=== PATIENT | male | born 1955 | race Caucasian/White ===

== ENCOUNTER → 2024-08-10 12:24 | Outpatient (REF) | payer OTHER, SELFPAY | LOC: HWRAD 12:24 | PROVIDERS: ATTENDING PHYSICIAN Family Medicine | DX: R07.89 Other chest pain (principal) | CPT/HCPCS: 71101 ==

== ENCOUNTER → 2024-09-10 11:02 | Outpatient (REF) | payer OTHER, SELFPAY | LOC: HWRAD 11:02 | PROVIDERS: ATTENDING PHYSICIAN Student in an Organized Health Care Education/Training Program | DX: Z00.00 Encounter for general adult medical examination without abnormal findings (principal) | CPT/HCPCS: 71046 ==

== ENCOUNTER → 2024-10-19 13:24 | Outpatient (REF) | payer OTHER, SELFPAY | LOC: RAD 13:24 | PROVIDERS: ATTENDING PHYSICIAN Family Medicine | DX: R07.81 Pleurodynia (principal); R05.1 Acute cough | CPT/HCPCS: 71260; Q9967 ==

== ENCOUNTER 2024-10-25 09:14 | Day surgery (SDC) | payer OTHER, SELFPAY ==
[2024-10-22 15:09] LABS: APTT 25.5 Sec (23.4-35.0); PT 12.4 Sec (11.4-14.6)
[2024-10-25] VITALS (11 sets, daily range): BP systolic 123–162; BP diastolic 81–108; BMI 25.3
== END 2024-10-25 13:45 | disposition home or self-care (01) ==
LOC: GI 09:14
PROVIDERS: ATTENDING PHYSICIAN Internal Medicine Critical Care Medicine
DX: R91.8 Other nonspecific abnormal finding of lung field (principal); R93.89 Abnormal findings on diagnostic imaging of other specified body structures; C34.31 Malignant neoplasm of lower lobe, right bronchus or lung; C77.8 Secondary and unspecified malignant neoplasm of lymph nodes of multiple regions
CPT/HCPCS: 31629; 31653; 31628; 31624; 31623; 31627; 31654; 88172; 88173; 88305; 36415; 71045; 76000; 81459; 85610; 85730; 87015; 87070; 87102; 87116; 87205; 88112; 88333; 88341; 88342

== ENCOUNTER → 2024-11-19 07:42 | Outpatient (REF) | payer OTHER, SELFPAY | LOC: RAD 07:42 | PROVIDERS: ATTENDING PHYSICIAN Internal Medicine Hematology & Oncology; FAMILY PHYSICIAN Family Medicine | DX: C34.31 Malignant neoplasm of lower lobe, right bronchus or lung (principal); C79.51 Secondary malignant neoplasm of bone | CPT/HCPCS: 70496; Q9967 ==

== ENCOUNTER → 2024-12-01 16:26 | Outpatient (REF) | payer OTHER, SELFPAY | LOC: PAVMRI 16:26 | PROVIDERS: ATTENDING PHYSICIAN Internal Medicine Hematology & Oncology; FAMILY PHYSICIAN Internal Medicine Cardiovascular Disease; REFERRING PHYSICIAN Radiology Radiation Oncology | DX: C34.31 Malignant neoplasm of lower lobe, right bronchus or lung (principal); C79.51 Secondary malignant neoplasm of bone | CPT/HCPCS: 72156 ==

== ENCOUNTER → 2025-01-04 13:57 | Outpatient (REF) | payer OTHER, SELFPAY | LOC: RAD 13:57 | PROVIDERS: ATTENDING PHYSICIAN Nurse Practitioner Primary Care; FAMILY PHYSICIAN Family Medicine | DX: C34.31 Malignant neoplasm of lower lobe, right bronchus or lung (principal); C79.51 Secondary malignant neoplasm of bone; I67.5 Moyamoya disease | CPT/HCPCS: 71046 ==

== ENCOUNTER 2025-01-07 23:44 | Inpatient (IN) | payer OTHER, SELFPAY ==
[2025-01-07 21:01] VITALS: BP 158/125
[2025-01-07 21:18] VITALS: BP 138/82
--- NOTE | 2025-01-07 21:39 | ED.GENMED ---
History of Present Illness
<Cathi Davis, DAIRY MANAGER - Last Filed: 01/08/25 02:19>
General
Chief Complaint: Breathing Problem
Source: patient and spouse
Exam Limitations: none
Time Seen by Provider: 01/07/25 21:27
Nursing documentation reviewed up to this point in time: agreed with
History of Present Illness
History of Present Illness:
69 yo male w lung CA under care of Dr. Cohen [facility], had 5 days radiation tx in Nov, was on Tabrecta for past 6 weeks or so but on hold as of 3 days ago when PNA diagnosed. Gets Xgeva injection monthly, last was 5 weeks ago as his Ca++
was low and they wanted him to take Ca++ for a while before next dose.
Diagnosed with PNA on out pt xray 2 days ago. Started on Augmentin 500 mg TID and has had total of 6 doses.
Has had increasing SOB, ABBOTT past 2 days.
He did note swelling of left ankle past 2 days and was told may be side effect of the Xgeva.
Denies CP, abdominal pain. Denies fever/chills. Denies n/v. Was constipated but had a diarrheal stool today
Past History
<Cathi Davis, DAIRY MANAGER - Last Filed: 01/08/25 02:19>
Past History
ED Past Medical History: Cancer (lung)
ED Past Surgical History: None
Social History
Tobacco: Non-smoker
Alcohol: Occasional
Personal:
Living: with family
Review of Systems
<Cathi Davis, DAIRY MANAGER - Last Filed: 01/08/25 02:19>
Review of Systems
Allergies reviewed?: Yes
All Other Systems: ROS reviewed and negative except as documented in HPI and ROS
Constitutional: Reports fatigue
Respiratory: Reports trouble breathing
Cardiac: Denies chest pain
ABD/GI: Denies abdominal pain, nausea, vomiting or diarrhea
: Denies dysuria, frequency or difficulty voiding
Musculoskeletal: Reports other (left ankle swelling noted past 2 days)
Skin: Reports no symptoms
Neurological: Reports no symptoms
Phy Exam
<Cathi Davis, DAIRY MANAGER - Last Filed: 01/08/25 02:19>
Physical Exam
Physical Exam:
GENERAL: No acute distress. A&Ox3.
CONSTITUTIONAL: Afebrile.
EYES: clear, conjunctivae normal
ENMT: moist mucus membranes, Pharynx nl
RESPIRATORY: Regular respirations, nonlabored, lungs clear. Pulse ox 89% room air, placed on oxygen
CARDIOVASCULAR: Regular rate and rhythm, tachycardic 130, no murmurs, no rubs.
GI: Soft, nontender, normal BS
MUSCULOSKELETAL: Moves with ease. Well perfused.
SKIN: Warm, dry, pink
PSYCH: Normal mood and affect. Well kept, interactive and appropriate
NEUROLOGIC: Awake, alert and oriented. No focal neurological deficits
Scores
<Cathi Davis, DAIRY MANAGER - Last Filed: 01/08/25 02:19>
Heart Failure Risk
Heart Failure Risk Score: Not Applicable
Course
<Cathi Davis, DAIRY MANAGER - Last Filed: 01/08/25 02:19>
Orders/Labs/Results
Orders:
Orders
01/07/25 21:35
CT Chest PE Study Urgent
Comment:
Reason For Exam: more ABBOTT, tachy, lung CA, recent PNA dx on Augment
01/07/25 21:46
Complete Blood Count/With Diff Urgent
Comprehensive Metabolic Panel Urgent
01/07/25 22:56
PTT Urgent
01/07/25 23:[address] Non Medication Order As Directed
Physician Order: PTT 6 hours after initial start of Heparin infusion
Above order entered?: Yes
01/07/25 23:06
NT-proBNP Urgent
Troponin I Urgent
01/07/25 23:12
Heparin 3,300 units IV PRN PRN
Heparin 6,600 units IV PRN PRN
01/07/25 23:15
Heparin 62571 Units/250 ml 25,000 units in 250 ml IV PER PROTOCOL
Weight to be used for heparin protocol in kilograms (kg):: 82
Protocol:: DVT/PE
PTT Goal Range to be used:: PTT 73 to 111 seconds
Order type:: Initial
INITIAL Infusion Dose (UNITS/KG/hr) & then follow protocol:: 18 units/kg/hr
Infusion Dose in UNITS/hr & then follow protocol (UNITS/hr):: 1,500
INFUSION RATE in mL/hr & then follow protocol (mL/hr):: 15
For DVT/PE algorithm, re-bolus for low PTT?: Yes
PTT less than or equal to 64 seconds:: Re-bolus 80 units/kg (max 10,000units). Increase by 300 units/hr
(+ 3mL/hr)
PTT 64.1 to 72.9 seconds:: Re-bolus 40 units/kg (max 5,000 units). Increase by 200 units/hr
(+ 2mL/hr)
PTT 73 to 111 seconds:: Target Range. No change in rate.
PTT 111.1 to 130.9 seconds:: Decrease rate by 200 units/hr (- 2 mL/hr)
PTT 131 to 199.9 seconds:: HOLD for 1 hr. Then decrease by 200 units/hr (- 2mL/hr)
PTT greater than or equal to 200 seconds:: HOLD for 2 hrs & Notify Provider. Then decrease by 300 units/hr
(- 3mL/hr)
Lab follow-up:: Each change, PTT q6h until 2 consecutive are therapeutic. Then
PTT daily.
Nursing to Place Non Medication Order As Directed
Physician Order: PTT 6 hours after initial start of Heparin infusion
Above order entered?: Yes
01/07/25 23:16
Heparin 6,600 units IV NOW STA
01/07/25 23:20
Heparin 49327 Units/250 ml 25,000 units in 250 ml .ROUTE .STK-MED
01/07/25 23:24
COVID-19 Antigen Urgent
Source: Nasal Swab
Blood Culture Q30M
SONG Source: Blood/Venous
Specimen Description:
Blood Culture Q30M
SONG Source: Blood/Venous
Specimen Description:
Influenza A+B Rapid Molecular Urgent
SONG Source: Nasal Swab
Specimen Description:
01/07/25 23:25
Heparin 6,600 units IV Q6HPRN PRN
01/07/25 23:28
Heparin 3,300 units IV Q6HPRN PRN
01/07/25 23:30
Heparin 12814 Units/250 ml 25,000 units in 250 ml IV PER PROTOCOL
Weight to be used for heparin protocol in kilograms (kg):: 82
Protocol:: DVT/PE
PTT Goal Range to be used:: PTT 73 to 111 seconds
Order type:: Initial
INITIAL Infusion Dose (UNITS/KG/hr) & then follow protocol:: 18 units/kg/hr
Infusion Dose in UNITS/hr & then follow protocol (UNITS/hr):: 1,500
INFUSION RATE in mL/hr & then follow protocol (mL/hr):: 15
For DVT/PE algorithm, re-bolus for low PTT?: Yes
PTT less than or equal to 64 seconds:: Re-bolus 80 units/kg (max 10,000units). Increase by 300 units/hr
(+ 3mL/hr)
PTT 64.1 to 72.9 seconds:: Re-bolus 40 units/kg (max 5,000 units). Increase by 200 units/hr
(+ 2mL/hr)
PTT 73 to 111 seconds:: Target Range. No change in rate.
PTT 111.1 to 130.9 seconds:: Decrease rate by 200 units/hr (- 2 mL/hr)
PTT 131 to 199.9 seconds:: HOLD for 1 hr. Then decrease by 200 units/hr (- 2mL/hr)
PTT greater than or equal to 200 seconds:: HOLD for 2 hrs & Notify Provider. Then decrease by 300 units/hr
(- 3mL/hr)
Lab follow-up:: Each change, PTT q6h until 2 consecutive are therapeutic. Then
PTT daily.
01/07/25 23:36
Heparin 6,600 units IV PRN PRN
01/07/25 23:37
Heparin 3,300 units IV PRN PRN
01/07/25 23:39
EKG [Electrocardiogram (*1)] Urgent
Reason for Study: Chest Pain
01/07/25 23:40
HEMATOLOGY CONSULT Routine
Consulting Provider: Chel Sheldon
Was physician already notified: Yes
Reason for consult: bilat pe's heart strain,bilat pna
PULMONARY CONSULT Routine
Consulting Provider: Daksha Hinojosa
Was physician already notified: Yes
Reason for consult: bilat pe, bilat pna , lung cancer
VANCOMYCIN Pharmacy to Dose [VANCOCIN Pharmacy to Dose] 1 each Pharmacy To Prepare [Call Pharmacy To Prepare] 0 ml IV PER PROTOCOL
01/07/25 23:45
0.9% Sodium Chloride 1000 ml [Nss] 1,000 ml IV 100 mls/hr
Cefepime HCl [Maxipime] 2,000 mg IV Q8H
01/08/25 05:00
Troponin I Q6H
01/08/25 05:30
PTT Urgent
01/08/25 06:00
EKG [Electrocardiogram (*1)] IN AM
Reason for Study: Shortness of Breath
01/08/25 11:00
Troponin I Q6H
Abnormal Lab Results
01/07/25 01/07/25
21:46 23:06
RBC 4.46 L 10^6/uL
(4.70-6.10)
Abs Immat Gran (auto) 0.5 H 10^3/uL
(0-0.05)
Absolute Neuts (auto) 8.1 H 10^3/uL
(1.4-6.5)
Absolute Lymphs (auto) 0.6 L 10^3/uL
(1.2-3.4)
Absolute Monos (auto) 1.0 H 10^3/uL
(0.1-0.6)
Immature Gran % 4.7 H %
(0-0.5)
Neutrophils % 79.5 H %
(42.2-75.2)
Lymphocytes % 5.5 L %
(20.5-51.1)
Monocytes % 9.5 H %
(1.7-9.3)
Sodium 131 L mmol/L
(135-145)
Glucose 131 H mg/dl
(70-99)
Calcium 7.5 L mg/dl
(8.4-10.2)
Troponin I 0.904 H* ng/ml
Total Protein 5.4 L g/dl
(6.3-8.2)
Albumin 2.9 L g/dl
(3.5-5.0)
01/07/25 21:46
01/07/25 21:46
Vital Signs
Initial and Last Documented VS:
Initial Vital Signs
Temp Pulse Resp BP Pulse Ox
98.2 F 131 20 158/125 92
01/07/25 21:01 01/07/25 21:01 01/07/25 21:01 01/07/25 21:01 01/07/25 21:01
Last Documented Vital Signs
Temp Pulse Resp BP Pulse Ox
100.3 F 108 18 109/73 97
01/07/25 22:00 01/08/25 02:09 01/08/25 02:09 01/08/25 00:00 01/08/25 02:09
<Kirstie Lantigua, DO - Last Filed: 01/07/25 23:38>
Orders/Labs/Results
Orders:
Orders
01/07/25 21:35
CT Chest PE Study Urgent
Comment:
Reason For Exam: more ABBOTT, tachy, lung CA, recent PNA dx on Augment
01/07/25 21:46
Complete Blood Count/With Diff Urgent
Comprehensive Metabolic Panel Urgent
01/07/25 22:56
PTT Urgent
01/07/25 23:[address] Non Medication Order As Directed
Physician Order: PTT 6 hours after initial start of Heparin infusion
Above order entered?: Yes
01/07/25 23:06
NT-proBNP Urgent
Troponin I Urgent
01/07/25 23:12
Heparin 3,300 units IV PRN PRN
Heparin 6,600 units IV PRN PRN
01/07/25 23:15
Heparin 18094 Units/250 ml 25,000 units in 250 ml IV PER PROTOCOL
Weight to be used for heparin protocol in kilograms (kg):: 82
Protocol:: DVT/PE
PTT Goal Range to be used:: PTT 73 to 111 seconds
Order type:: Initial
INITIAL Infusion Dose (UNITS/KG/hr) & then follow protocol:: 18 units/kg/hr
Infusion Dose in UNITS/hr & then follow protocol (UNITS/hr):: 1,500
INFUSION RATE in mL/hr & then follow protocol (mL/hr):: 15
For DVT/PE algorithm, re-bolus for low PTT?: Yes
PTT less than or equal to 64 seconds:: Re-bolus 80 units/kg (max 10,000units). Increase by 300 units/hr
(+ 3mL/hr)
PTT 64.1 to 72.9 seconds:: Re-bolus 40 units/kg (max 5,000 units). Increase by 200 units/hr
(+ 2mL/hr)
PTT 73 to 111 seconds:: Target Range. No change in rate.
PTT 111.1 to 130.9 seconds:: Decrease rate by 200 units/hr (- 2 mL/hr)
PTT 131 to 199.9 seconds:: HOLD for 1 hr. Then decrease by 200 units/hr (- 2mL/hr)
PTT greater than or equal to 200 seconds:: HOLD for 2 hrs & Notify Provider. Then decrease by 300 units/hr
(- 3mL/hr)
Lab follow-up:: Each change, PTT q6h until 2 consecutive are therapeutic. Then
PTT daily.
Nursing to Place Non Medication Order As Directed
Physician Order: PTT 6 hours after initial start of Heparin infusion
Above order entered?: Yes
01/07/25 23:16
Heparin 6,600 units IV NOW STA
01/07/25 23:20
Heparin 88424 Units/250 ml 25,000 units in 250 ml .ROUTE .STK-MED
01/07/25 23:24
COVID-19 Antigen Urgent
Source: Nasal Swab
Blood Culture Q30M
SONG Source: Blood/Venous
Specimen Description:
Blood Culture Q30M
SONG Source: Blood/Venous
Specimen Description:
Influenza A+B Rapid Molecular Urgent
SONG Source: Nasal Swab
Specimen Description:
01/07/25 23:25
Heparin 6,600 units IV Q6HPRN PRN
01/07/25 23:28
Heparin 3,300 units IV Q6HPRN PRN
01/07/25 23:30
Heparin 18214 Units/250 ml 25,000 units in 250 ml IV PER PROTOCOL
Weight to be used for heparin protocol in kilograms (kg):: 82
Protocol:: DVT/PE
PTT Goal Range to be used:: PTT 73 to 111 seconds
Order type:: Initial
INITIAL Infusion Dose (UNITS/KG/hr) & then follow protocol:: 18 units/kg/hr
Infusion Dose in UNITS/hr & then follow protocol (UNITS/hr):: 1,500
INFUSION RATE in mL/hr & then follow protocol (mL/hr):: 15
For DVT/PE algorithm, re-bolus for low PTT?: Yes
PTT less than or equal to 64 seconds:: Re-bolus 80 units/kg (max 10,000units). Increase by 300 units/hr
(+ 3mL/hr)
PTT 64.1 to 72.9 seconds:: Re-bolus 40 units/kg (max 5,000 units). Increase by 200 units/hr
(+ 2mL/hr)
PTT 73 to 111 seconds:: Target Range. No change in rate.
PTT 111.1 to 130.9 seconds:: Decrease rate by 200 units/hr (- 2 mL/hr)
PTT 131 to 199.9 seconds:: HOLD for 1 hr. Then decrease by 200 units/hr (- 2mL/hr)
PTT greater than or equal to 200 seconds:: HOLD for 2 hrs & Notify Provider. Then decrease by 300 units/hr
(- 3mL/hr)
Lab follow-up:: Each change, PTT q6h until 2 consecutive are therapeutic. Then
PTT daily.
01/07/25 23:36
Heparin 6,600 units IV PRN PRN
01/07/25 23:37
Heparin 3,300 units IV PRN PRN
01/07/25 23:39
EKG [Electrocardiogram (*1)] Urgent
Reason for Study: Chest Pain
01/07/25 23:40
HEMATOLOGY CONSULT Routine
Consulting Provider: Chel Sheldon
Was physician already notified: Yes
Reason for consult: bilat pe's heart strain,bilat pna
PULMONARY CONSULT Routine
Consulting Provider: Daksha Hinojosa
Was physician already notified: Yes
Reason for consult: bilat pe, bilat pna , lung cancer
VANCOMYCIN Pharmacy to Dose [VANCOCIN Pharmacy to Dose] 1 each Pharmacy To Prepare [Call Pharmacy To Prepare] 0 ml IV PER PROTOCOL
01/07/25 23:45
0.9% Sodium Chloride 1000 ml [Nss] 1,000 ml IV 100 mls/hr
Cefepime HCl [Maxipime] 2,000 mg IV Q8H
01/08/25 05:00
Troponin I Q6H
01/08/25 05:30
PTT Urgent
01/08/25 06:00
EKG [Electrocardiogram (*1)] IN AM
Reason for Study: Shortness of Breath
01/08/25 11:00
Troponin I Q6H
Abnormal Lab Results
01/07/25 01/07/25
21:46 23:06
RBC 4.46 L 10^6/uL
(4.70-6.10)
Abs Immat Gran (auto) 0.5 H 10^3/uL
(0-0.05)
Absolute Neuts (auto) 8.1 H 10^3/uL
(1.4-6.5)
Absolute Lymphs (auto) 0.6 L 10^3/uL
(1.2-3.4)
Absolute Monos (auto) 1.0 H 10^3/uL
(0.1-0.6)
Immature Gran % 4.7 H %
(0-0.5)
Neutrophils % 79.5 H %
(42.2-75.2)
Lymphocytes % 5.5 L %
(20.5-51.1)
Monocytes % 9.5 H %
(1.7-9.3)
Sodium 131 L mmol/L
(135-145)
Glucose 131 H mg/dl
(70-99)
Calcium 7.5 L mg/dl
(8.4-10.2)
Troponin I 0.904 H* ng/ml
Total Protein 5.4 L g/dl
(6.3-8.2)
Albumin 2.9 L g/dl
(3.5-5.0)
01/07/25 21:46
01/07/25 21:46
Vital Signs
Initial and Last Documented VS:
Initial Vital Signs
Temp Pulse Resp BP Pulse Ox
98.2 F 131 20 158/125 92
01/07/25 21:01 01/07/25 21:01 01/07/25 21:01 01/07/25 21:01 01/07/25 21:01
Last Documented Vital Signs
Temp Pulse Resp BP Pulse Ox
100.3 F 108 18 109/73 97
01/07/25 22:00 01/08/25 02:09 01/08/25 02:09 01/08/25 00:00 01/08/25 02:09
<Cathi Boatneg Day, DAIRY MANAGER - Last Filed: 01/08/25 02:19>
MDM/Problems Addressed
Differential Diagnosis Includes:
Worsening lung cancer, worsening pneumonia, PE
MDM/Problems Addressed:
69 yo male w lung CA under care of Dr. Cohen [facility], had 5 days radiation tx in Nov, was on Tabrecta for past 6 weeks or so but on hold as of 3 days ago when PNA diagnosed. Gets Xgeva injection monthly, last was 5 weeks ago as his Ca++
was low and they wanted him to take Ca++ for a while before next dose.
Diagnosed with PNA on out pt xray 2 days ago. Started on Augmentin 500 mg TID and has had total of 6 doses.
Has had increasing SOB, ABBOTT past 2 days.
He did note swelling of left ankle past 2 days and was told may be side effect of the Xgeva.
Denies CP, abdominal pain. Denies fever/chills. Denies n/v. Was constipated but had a diarrheal stool today (most likely from Augmentin)
9:30 p.m.
O2 89-90% on 2L NC, increased to 3L NC
Tachy 120
11:00 p.m.
Radiology texted: 'PE study for Kelby Estrada is positive, moderate to large b/l clot, and suspect mild right heart strain'
Case discussed with Dr. Lantigua who examined pt
Pt remains stable.
PERT alert called
Dr. Yanes spoke with [facility]
Troponin and BNP pending
Heparin drip started
11:45 p.m.
Troponin elevated: 0.904 Dr. Lantigua notifying IR for catheter directed thrombolysis. Dr. Peña is reviewed films and decide no IR intervention at this time.
Hospitalist notified of admission.
Critical care statement: A total of 40 minutes of critical care time was provided for this patient. This includes management of unstable vital signs, evaluation of the patient at bedside, reviewing the patient's pertinent medical records, discussion
with consultants, review of old EKGs and review of pertinent medical records. This time with separate from time utilized to perform the aforementioned documented procedures
<Cathi Dvais DAIRY MANAGER - Last Filed: 01/08/25 02:19>
*Critical Care Note
Total Time (30-74mins, 75-104mins- exclusive of procedures): Not Applicable
ED Attending Note
<Cathi Davis DAIRY MANAGER - Last Filed: 01/08/25 02:19>
-
Portions of this chart may have been created with voice recognition software.� Occasional wrong word or��sound alike� substitutions may have occurred due to the inherent limitations of voice recognition software.
<Kirstie Lantigua DO - Last Filed: 01/07/25 23:38>
ED Attending Note
Patient seen and examined by attending physician: Yes
I performed the substantive portion of visit, reviewed & personally made and approve the management plan that is documented in note by myself or HILL.: Yes
ED Attending Note:
69-year-old gentleman with history of lung cancer, follows with Dr. Cohen. Completed 5-day course of XRT in November. 6 weeks ago began oral immunotherapy. Complains of approximately 1 week history of increasing shortness of breath with rare
cough. Began Augmentin 2 days ago for right upper lobe airspace opacity/pneumonia noted on outpatient chest x-ray January 04.
Presents with progressive dyspnea on exertion, hypoxia with room air pulse ox of 88%. He has not had a fever nor chills. He denies chest pain, no dizziness nor lightheadedness.
69-year-old gentleman appears his stated age, bright and alert, pleasant, easily communicative, appears in no acute distress.
Currently much more comfortable on nasal cannula oxygen with pulse ox at 95%. No respiratory distress.
Hemodynamically stable but monitor shows sinus tachycardia 110-115.
CAT scan shows moderate to large bilateral PEs with mild heart strain.
Troponin is pending.
PERT alert initiated promptly upon CT results.
IV heparin bolus and drip ordered.
Case discussed with pulmonary. If troponin within normal limits we will continue with IV heparin, if elevated would recommend IR consult for catheter directed thrombolysis.
Discharge Plan
Departure
Patient Disposition: Admit
Date of Disposition: 01/07/25
Time of Disposition: 23:07
Admit to: ICU
Presentation/result/management discussed w/ accepting MD/DO: Hospitalist
Condition: Serious
Discharge Problem:
Bilateral pulmonary embolism
Interventions
Interventions:
*Risk Screen - Suicide Last Done: 01/07/25 21:59
*General Assessment Last Done: 01/07/25 21:01
*Neglect/Abuse Screening Last Done: 01/07/25 21:59
*ED- Fall Risk Assessment Last Done: 01/07/25 21:59
*ED COVID-19 Vaccine History Last Done: 01/07/25 21:59
ED- Cardiac Assessment Last Done: 01/07/25 22:26
ED- Pulmonary Assessment Last Done: 01/07/25 22:26
[2025-01-07 21:59] VITALS: BMI 25.2
[2025-01-07 22:00] VITALS: BP 117/78
[2025-01-07 22:03] LABS: % Basophils 0.6 % (0-2); % Eosinophils 0.2 % (0-6); % Immature Granulocytes 4.7 % (0-0.5); % Lymphocytes 5.5 % (20.5-51.1); % Monocytes 9.5 % (1.7-9.3); % Neutrophils 79.5 % (42.2-75.2); Absolute Basophils 0.1 10^3/uL (0-0.2); Absolute Immature Granulocytes 0.5 10^3/uL (0-0.05); Absolute Lymphocytes 0.6 10^3/uL (1.2-3.4); Absolute Neutrophils 8.1 10^3/uL (1.4-6.5); Hemoglobin 13.6 g/dL (13.0-18.0); Mean Corp Hgb Conc. 34.9 g/dL (33.0-37.0); Mean Corpuscular Hgb 30.5 pg (27.0-31.0); Mean Corpuscular Volume 87.4 fL (80.0-94.0); Mean Platelet Volume 8.2 fL (7.4-10.4); Nucleated Red Blood Cells % 0 % (-); Platelet Count 180 10^3/uL (130-400); Red Blood Cell Count 4.46 10^6/uL (4.70-6.10); Red Cell Dist. Width 14.2 % (11.5-14.5); White Blood Cell Count 10.2 10^3/uL (4.8-10.8)
[2025-01-07 22:19] LABS: ALT (SGPT) 30 U/L (0-50); AST (SGOT) 30 U/L (17-59); Albumin 2.9 g/dl (3.5-5.0); Alkaline Phosphatase 114 U/L (38-126); Blood Urea Nitrogen 18 mg/dl (9-20); Calcium 7.5 mg/dl (8.4-10.2); Carbon Dioxide 23 mmol/L (22-30); Chloride 101 mmol/L (98-107); Estimated Creatinine Clearance 93 ml/min; Glucose 131 mg/dl (70-99); Potassium 4.3 mmol/L (3.5-5.1); Sodium 131 mmol/L (135-145); Total Bilirubin 0.6 mg/dl (0.2-1.3); Total Protein 5.4 g/dl (6.3-8.2); eGFR > 60.00
[2025-01-07 23:00] VITALS: BP 127/79
--- NOTE | 2025-01-07 23:00 | EDRN ---
Hospitalist at bedside working on admission at this time
[2025-01-07 23:13] LABS: APTT 29.4 Sec (23.4-35.0)
--- NOTE | 2025-01-07 23:14 | HPS.HSE ---
Family Physician
-
Family Physician: Francisco Clarke
Chief Complaint
-
Shortness of breath, dyspnea on exertion, pneumonia with current temperature
History of Present Illness
69-year-old male states he started on Friday with shortness of breath, coughing and 101F temperature. He reports he had outpatient chest x-ray on Friday showing right upper lobe pneumonia. He was placed on oral Augmentin and was told to stop his
oral chemo Tabrecta 200 mg twice daily. He states he did notice left ankle swelling over the past few days but did not think to mention it however today he was very short of breath while at rest sleeping more often with decreased appetite and home
oxygen level measuring 85%. He did have low-grade fever 100.3 F in the ER, has chronic sternal pain when he takes a deep breath and pain at the base of bilateral lungs. He denies headache, sore throat, chest pain, palpitations, cough, abdominal
pain, nausea, vomiting, urinary symptoms. He did have 1 episode of loose stool however he has been on 2 days of Augmentin for pneumonia. In the ER he was found to have bilateral pneumonia greatest in the right upper lobe and positive bilateral
acute pulmonary emboli with a moderate to large clot burden and mild right heart strain. A PERT alert was called Dr. Donald was made aware. The patient was placed on IV heparin drip. He is status post bronchoscopy with biopsy by Dr. Velarde on
10/25/2024 Showing non-small cell carcinoma, favor moderately differentiated adenocarcinoma. He follows with [facility] Dr. Cohen.
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 He received 5 radiation treatments to his
sternum and cervical spine and was started on oral chemotherapy Tabrecta on 12/03/2024. He denies ever being a smoker. He had recent low calcium levels due to Xgeva and was advised to start taking calcium 600+ vitamin D. He has no other medical
history.
Medical History
Past Medical History
Past Medical History: Reports Other
Additional Past Medical History:
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 - 5 radiation treatments to his sternum and cervical spine
Hypocalcemia from Xgeva
Past Surgical History: Reports Other
Additional Past Surgical History:
Bronchoscopy with biopsy 10/25/2024, oral surgery
Social History
Tobacco: Non-smoker
Alcohol: Occasional
Drug: None
Personal:
Living: With Family
Employment: Retired
Family History
Family History: Other (No family history of cancer)
Allergies / Home Medications
Allergies reflects when Allergies were last updated in [employer].
Home Medications with original date entered in [employer]
Allergy/Medication List:
Allergies
Allergy/AdvReac Type Severity Reaction Status Date / Time
No Known Allergies Allergy Verified 01/07/25 21:01
Home Medications
albuterol sulfate 90 mcg/actuation aerosol inhaler 2 puff inhalation Q4H SOB/WHEEZING 01/07/25
amoxicillin 500 mg-potassium clavulanate 125 mg tablet 1 tab PO TID 01/07/25
calcium carbonate (Calcium 600) 600 mg PO DAILY 01/07/25
capmatinib 200 mg tablet (Tabrecta) 200 mg PO Q12H 01/07/25
denosumab 120 mg/1.7 mL (70 mg/mL) subcutaneous solution (Xgeva) 120 mg SC Q4W 01/07/25
Review of Systems
-
History Source: Patient and Family ( at bedside)
A 12 point ROS was completed and negative except as noted: Yes
Constitutional: Reports Fever (100.3); Denies Chills
EENT: Denies Sore Throat or Runny Nose
Respiratory: Reports Trouble Breathing (ABBOTT with minimal activity); Denies Cough
Cardiac: Reports Chest Pain (Over his sternum at area of radiation when he takes a deep breath); Denies Diaphoresis, Palpitations or Syncope
Abdomen/GI: Reports Diarrhea (1 episode this a.m.); Denies Abdominal Pain, Nausea, Vomiting, Constipated, Bloody Stools or Black Stools
: Denies Dysuria, Frequency, Flank Pain, Incontinence, Difficulty Voiding, Urgency, Bleeding or Dark Urine
Musculoskeletal: Reports Edema (Left ankle edema +1, right leg no edema); Denies Joint Pain
Skin: Denies Itching or Rash
Neurological: Reports Weakness; Denies Dizzy or Headache
Endocrine: Reports No Symptoms
Hematologic/Lymphatic: Reports No Symptoms
Psych: Reports Calm
Physical Exam
Vital Signs
Vital Signs
Temp Pulse Resp BP Pulse Ox
100.3 F 111 24 127/79 95
01/07/25 22:00 01/07/25 23:00 01/07/25 23:00 01/07/25 23:00 01/07/25 23:00
Physical Exam
General: Comfortable, Conversant, Pain (Acute on chronic sternal pain with inspiration secondary to radiation, pain with inspiration lower bases of bilateral lungs) and Fever
HEENT: NormoCephalic, Anicteric, Moist mucous membranes, PERRLA, [place] Conjunctivae and No Ptosis
Respiratory: Other (Slightly diminished bilaterally); No Wheezes, Rales or Rhonchi
Cardiac: S1/S2, Tachycardia (Sinus) and Peripheral Edema (+1 edema around left lower ankle right lower extremity no edema); No Murmur, Rub, Gallop or Calf Tenderness
Breast: Deferred by me
GI: Soft, Non Tender, Non Distended, Normal Bowel Sounds and No Hepatosplenomegaly
Genito-urinary: Deferred by me
Musculoskeletal: No Clubbing, No Cyanosis, Edema, Left Lower Extremity (+1 around left ankle) and Edema, Right Lower Extremity (No edema to right lower extremity); No Edema, Left Upper Extremity or Edema, Right Upper Extremity
Skin: Warm and Dry; No Rash or Jaundice
Neuro: AO x 3, No Motor Deficits, Nonfocal/grossly intact, Cranial Nerves Intact and No Sensory Deficits; No Slurred Speech, Facial Droop, Tremors or Sedated
Psych: Calm
Laboratory Results
-
01/07/25 21:46
01/07/25 21:46
Laboratory Results
Total Bilirubin 0.6 mg/dl (0.2-1.3) 01/07/25 21:46
AST 30 U/L (17-59) 01/07/25 21:46
ALT 30 U/L (0-50) 01/07/25 21:46
Alkaline Phosphatase 114 U/L (38-126) 01/07/25 21:46
Data Reviewed
-
CT Scan: Report Reviewed by me
Lab Data: Labs Reviewed by me
Impression/Plan
-
Impression/plan:
Admit to IMU
#Sepsis 2/2 Bilateral Pneumonia
#Recent Right upper lobe pneumonia 3 days ago was placed on oral Augmentin(patient with 1 episode of diarrhea earlier today will monitor for further episodes if so we will test stool for C. difficile, stool WBC, stool culture)
Temp 100.3, HR 111,95% RA, BP 127/79
-Blood cultures x 2
-IV cefepime 2 g every 8 hours
-IV vancomycin
-Check COVID, check influenza sputum culture
-Follow lactic acid, CBC, CMP
-Hold Tabrecta in setting of pneumonia/sepsis
#Bilateral acute pulmonary thromboembolism with moderate to large clot burden/mild heart strain
-Was PERT alert seen by Dr. Velarde
95% RA
-IV heparin drip started in ER will continue
-Check 2D echo in a.m.
-Check BNP
-Check venous Dopplers bilateral legs patient with current left ankle edema
-Consult pulmonary
CT PE study: 1. Positive for bilateral acute pulmonary thromboembolism with a moderate to large clot burden.
2. Mild right heart strain.
3 Worsening metastatic mediastinal and bilateral hilar lymphadenopathy compared to the chest CT from 10/19/2024.
4. Mildly increased size of the thick-walled cavitary right hilar lung cancer.
5. Bilateral pneumonia, greatest in the right upper lobe.
6. Small right pleural effusion.
7. Lytic and sclerotic metastasis of the inferior sternum. Fluid collection versus necrotic metastatic disease right lateral to the inferior sternum at the costochondral junction.
#Type II [place] secondary to right heart strain from bilateral PE
Troponin 0.9 will trend
-Check EKG
#Known Adenocarcinoma of the right lung with mets to sternum, C-spine, left hip, left lung via bronchoscopy 10/25/2024 and PET scan at other facility
-Patient did 5 rounds of radiation to sternum and neck
-Started chemotherapy with Tabrecta 200 mg twice daily on 12/03/2024
-Hold Tabrecta in setting of pneumonia/sepsis
-Consult oncology
#Hypocalcemia 11/21 Xgeva
Corrected calcium 8.4
-Will give Calcium gluconate 1000 mg now, follow calcium level
-Hold Xgeva
Full code
[2025-01-07] MEDS: HEPARIN 6600 UNITS IV (23:32)
[2025-01-07] MEDS: HEPARIN 25000 UNITS/250 ML IV (23:33)
[2025-01-07 23:39] LABS: Troponin I 0.904 ng/ml
--- NOTE | 2025-01-07 23:44 | W.PN.UPDATE ---
Addendum entered and electronically signed by Madisyn Laboy MD 01/08/25 00:22:
Decided to hold off IV fluids due to concern for RV strain and Type 2 FL. Patient is tachycardic primarily secondary to PE and fever rather than sepsis.
Original Note:
Update Note
Progress Note Update
This is an addendum to H&P written by Angela Juarez on 01/07/2025. Patient seen and examined independently with [facility].
69-year-old male past medical history of adenocarcinoma of the lung diagnosed on 10/25/2024 on Xgeva and Tabrecta with metastasis to sternum status post radiation, hypocalcemia secondary to Xgeva, presenting with dyspnea on exertion, shortness of
breath, pleuritic chest pain and left ankle swelling for the past few days. Diagnosed with pneumonia 2 days ago and started on Augmentin with some loose stool since then.
Vital signs show tachycardia, fever 100.3. Blood pressure stable.
Chest x-ray from 3 days ago shows right upper lobe pneumonia. CT PE today shows bilateral acute pulmonary thromboembolism with moderate to large clot burden, mild right heart strain, worsening metastatic mediastinal bilateral hilar lymphadenopathy,
bilateral pneumonia, small right pleural effusion.
Troponin of 0.9.
Patient with provoked submassive pulmonary embolism secondary to malignancy with right heart strain. Also with sepsis secondary to bilateral pneumonia. Type II FL secondary to right heart strain from pulmonary embolism.
Hypocalcemia secondary to Xgeva.
Heparin drip started. Check venous ultrasound. Check EKG. Check echocardiogram. Trend troponins. Pulmonary consulted. Oncology consulted.
IV fluids. Check blood cultures. Check influenza and COVID. Vancomycin/cefepime.
Calcium repletion for hypocalcemia secondary to Xgeva.
[2025-01-08] VITALS (16 sets, daily range): BP systolic 102–136; BP diastolic 65–90; BMI 24.8
[2025-01-08 00:11] LABS: COVID-19 Antigen Negative (Negative)
[2025-01-08] MEDS: VANCOCIN 540 MG IV (00:24)
[2025-01-08] MEDS: CALCIUM GLUCONATE 1000 MG IV (00:24)
[2025-01-08 00:33] LABS: NT-proBNP 1740 pg/ml
--- NOTE | 2025-01-08 00:49 | EDRN ---
Updated patient and on the plan, aware we are now waiting on a bed, as orders are in, aware he will continue the heparin, and not have a procedure done as of right now, per Dr. Lantigua and the consults, patient and aware more imaging and
tests will be done at a later point, patient resting comfortably at this time.
--- NOTE | 2025-01-08 01:30 | EDRN ---
Patient ambulated into the restroom and back in bed, patient placed on a hospital bed for comfort, call garcia in reach.
[2025-01-08] MEDS: ProAIR HFA INHALER 2 PUFF INH ×4 (02:06→19:28)
[2025-01-08] MEDS: STERILE WATER FOR INJECTION 10 ML IV (02:46)
[2025-01-08] MEDS: MAXIPIME 2000 MG IV (02:46)
--- NOTE | 2025-01-08 03:17 | EDRN ---
Ultrasound complete, lights turned down for patient and resting comfortably, no further complaints at this time.
[2025-01-08 06:00] LABS: % Basophils 0.6 % (0-2); % Eosinophils 0.5 % (0-6); % Immature Granulocytes 4.3 % (0-0.5); % Lymphocytes 8.2 % (20.5-51.1); % Monocytes 8.7 % (1.7-9.3); % Neutrophils 77.7 % (42.2-75.2); Absolute Basophils 0.1 10^3/uL (0-0.2); Absolute Eosinophils 0.1 10^3/uL (0-0.7); Absolute Immature Granulocytes 0.4 10^3/uL (0-0.05); Absolute Lymphocytes 0.8 10^3/uL (1.2-3.4); Absolute Monocytes 0.8 10^3/uL (0.1-0.6); Absolute Neutrophils 7.3 10^3/uL (1.4-6.5); Hematocrit 35.4 % (39.0-52.0); Hemoglobin 12.4 g/dL (13.0-18.0); Mean Corpuscular Hgb 31.2 pg (27.0-31.0); Mean Corpuscular Volume 88.9 fL (80.0-94.0); Mean Platelet Volume 8.7 fL (7.4-10.4); Nucleated Red Blood Cells % 0 % (-); Platelet Count 183 10^3/uL (130-400); Red Blood Cell Count 3.98 10^6/uL (4.70-6.10); Red Cell Dist. Width 14.3 % (11.5-14.5); White Blood Cell Count 9.3 10^3/uL (4.8-10.8)
[2025-01-08 06:28] LABS: Troponin I 0.681 ng/ml
[2025-01-08 06:30] LABS: APTT > 200 Sec (23.4-35.0)
--- NOTE | 2025-01-08 06:46 | EDRN ---
Morning blood work resulted elevated PTT >200, per protocol hold heparin for 2hours and notify provider, both were completed, patient resting comfortably.
[2025-01-08 07:03] LABS: ALT (SGPT) 26 U/L (0-50); AST (SGOT) 28 U/L (17-59); Albumin 2.6 g/dl (3.5-5.0); Alkaline Phosphatase 104 U/L (38-126); Blood Urea Nitrogen 14 mg/dl (9-20); Calcium 7.6 mg/dl (8.4-10.2); Carbon Dioxide 24 mmol/L (22-30); Chloride 104 mmol/L (98-107); Estimated Creatinine Clearance 106 ml/min; Glucose 106 mg/dl (70-99); HDL Cholesterol 40 mg/dl; LDL Cholesterol, Calculated 127 mg/dl; Potassium 4.6 mmol/L (3.5-5.1); Sodium 133 mmol/L (135-145); Total Bilirubin 0.7 mg/dl (0.2-1.3); Total Cholesterol 187 mg/dl (50-199); Total Protein 5.1 g/dl (6.3-8.2); Triglyceride 104 mg/dl (10-149); Very Low Density Lipoprotein 20 mg/dl (0-30); eGFR > 60.00
--- NOTE | 2025-01-08 07:20 | EDRN ---
Patient transported upstairs via stretcher and this RN, verified with receiving nurse that heparin is currently on standby which started at 0645 and will be re-started at 0845, a repeat PTT was ordered for 6 hours after it is restarted (1445).
--- NOTE | 2025-01-08 07:38 | W.PN.HOSP.TC ---
Today's Communication/Plan
-
renew IV heparin
wean O2 as able
cont ABX
await consultants' input
await ECHO
Assessment / Plan
Assessment / Plan
pt is a 69 year old male
acute hypoxemic respiratory insufficiency--due to combination of acute Bilateral acute pulmonary thromboembolism with moderate to large clot burden/mild heart strain AND bilateral pneumonia--PERT alert called--no role for lytic therapy--cont O2
support--2L--cont IV heparin--ECHO pending--apparently US left leg positive for DVT BUT formal report not back--await pulm input--will need to discuss oral anticoagulation but likely hypercoagulable so will defer to ONC, Eliquis may not be best
drug....
Sepsis (POA by criteria) due to Bilateral Pneumonia--Recent Right upper lobe pneumonia 3 days [employer] was placed on oral Augmentin (patient with 1 episode of diarrhea earlier, likely due to abx, but will monitor for further episodes if so we will test
stool for C. difficile, stool WBC, stool culture)--cont vanco/cefepime--follow cultures--COVID/FLU neg--Hold Tabrecta in setting of pneumonia/sepsis
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
neck-Started chemotherapy with Tabrecta 200 mg twice daily on 12/03/2024 now on HOLD--await onc
Presumed Type II [place] secondary to right heart strain from bilateral PE--troponin peaked at 0.9 and decreased
Hypocalcemia due to Xgeva -- corrected calcium 8.7--s/p Calcium gluconate 1000 mg now, follow calcium level--Hold Xgeva
hyponatremia--likely due to malignancy
DVT proph--on IV heparin
Code status --Full code
Anticipated Discharge: > 48 hours
Subjective/Interval History
-
Date of Service: January 08, 2025
pt states breathing a bit better--chest (sternum pain) no change
Objective Data
-
Labs:
Laboratory Results
01/07/25 01/07/25 01/08/25
21:46 22:56 05:28
WBC 10.2 9.3
Hgb 13.6 12.4 L
Hct 39.0 35.4 L
Plt Count 180 183
APTT 29.4 > 200 H*
Sodium 131 L 133 L
Potassium 4.3 4.6
Chloride 101 104
Carbon Dioxide 23 24
BUN 18 14
Creatinine 0.8 0.7
Glucose 131 H 106 H
Calcium 7.5 L 7.6 L
Total Bilirubin 0.6 0.7
AST 30 28
ALT 30 26
Alkaline Phosphatase 114 104
01/08/25
14:45
WBC
Hgb
Hct
Plt Count
APTT Pending
Sodium
Potassium
Chloride
Carbon Dioxide
BUN
Creatinine
Glucose
Calcium
Total Bilirubin
AST
ALT
Alkaline Phosphatase
Vital Signs:
max temp for 24 hours
01/07/25
22:00
Temp 100.3 F
Vital Signs
Temp Pulse Resp BP Pulse Ox
100.3 F 98 26 102/69 97
01/07/25 22:00 01/08/25 07:00 01/08/25 07:00 01/08/25 07:00 01/08/25 07:00
Review of Systems
-
All other systems: Reviewed and negative
Physical Exam
-
General: Well Developed, Well Nourished and No Apparent Distress
HEENT: Normocephalic, Atraumatic and Oxygen
Respiratory: Clear to Auscultation; Negative Wheezes, Rhonchi or Crackles
Cardiac: Regular Rhythm, S1/S2 and Tachycardic
GI: Soft, Nontender, Nondistended and Normal Bowel Sounds
Musculoskeletal: No Clubbing and No Cyanosis; Negative No Edema (left leg swollen)
Skin: Warm
Neuro: Awake and Alert
Psych: Calm
--- NOTE | 2025-01-08 07:47 | PHA.VAN.IN ---
Assessment
- Assessment
Renal Function: Unknown baseline
Concomitant Antimicrobials: CEFEPIME
AUC Dosing Plan
- Dosing Variables
Dosing Weight (kg): 82
Dosing CrCl (ml/min): 100
Vd coefficient (L/kg): 0.7
- Empiric Dosing
Initial / Loading Dose: 2000MG
Maintenance Regimen: 1250MG Q12H
Estimated AUC (mcg*h/mL): 531
Estimated Peak (mcg*h/mL): 33.5
Estimated Trough (mcg/ml): 13.4
Estimated Half Life (H): 7.9
- Monitoring
No levels ordered at this time: CONSIDER AT STEADY STATE
MRSA Screen: Ordered per protocol
Pharmacokinetics Vancomycin I
- -
Patient Age: 69
Patient Sex: Male
Vancomycin Day #: 1
Indication: Pulmonary/Respiratory
Requesting Provider: lindsey kearney
Pertinent Antimicrobial Allergies:
NKDA
Height / Weight:
Height 5 ft 11 in
Actual Weight 82 kg
- Vital Signs / Lab Results
Temp Pulse Resp BP Pulse Ox
100.3 F 98 26 102/69 97
01/07/25 22:00 01/08/25 07:00 01/08/25 07:00 01/08/25 07:00 01/08/25 07:00
Lab Results - Hematology
01/07/25 01/08/25
21:46 05:28
WBC 10.2 9.3
Lab Results - Chemistry
01/07/25 01/08/25
21:46 05:28
BUN 18 14
Creatinine 0.8 0.7
Estimated Creat Clear 93 106
Albumin 2.9 L 2.6 L
Microbiology Results
01/07/25 23:24 Influenza Types A & B (IOANA) - Final
Nasal Swab Negative for Influenza A & B, NAAT
Negative results must be combined with clinical observations
and patient history.
Nucleic Acid Amplification test (NAAT)performed on the
[employer] platform.
--- NOTE | 2025-01-08 08:20 | PTCARENOTE ---
07:30 patient admitted from ER to Room 3371. IMU level of Care. Admission DX : PE. IN ER PTT resulted >200 Place on hold per protocol for 2 Hours (06:45 to 08:45 /Will be decreased from 1500 to 1300 units ) Next PTT schedule at 14:45;
AAO x3
ST 103 BP via left upper arm 105/83 (MAP 91) pedal pulses palatable4
4 Liter of O2 No SOB occasional non productive cough
Abdomen soft non tender last Bowel movement his am . on Regular diet
Voiding/continent
skin intact. Rt peripheral lines x 2 capped flushed
--- NOTE | 2025-01-08 08:20 | CON.PUL ---
Consultation
Consultation Request
Date/Time Consultation Requested: 01/07/2025
Date/Time Consultation Performed: 01/08/2025
Requesting Provider: lindsey Juarez
Performing Provider: Daksha Hinojosa
Reason for Consultation: Pulmonary Embolism
Medical History
-
Chief Complaint: Shortness of breath
History of Present Illness:
Very pleasant 60 narrowed gentleman presented to the emergency room with shortness of breath. Patient reported that it started few days ago and he had an x-ray performed on Friday which was suspicious for developing right upper lobe pneumonia. He
was started on Augmentin and was told to hold his oral chemo, Tabrecta for concern of pneumonia/pneumonitis. Patient did not notice any change in his symptoms after starting Augmentin rather reported continued worsening shortness of breath. He
denies any significant cough or expectoration however. In the emergency room he was noted to have bilateral submassive PE with mild right heart strain and mild hypoxia. PERT team was activated and based on elevated biomarkers and RV strain,
interventional radiology evaluation was recommended for possible catheter directed therapies. After IR evaluation, patient was not felt to be a candidate for intervention and he was started on heparin and admitted to the hospital. Pulmonary
consultation was requested for further recommendations.
Patient was incidentally found to have a lung mass noted in September 2024. Subsequent bronchoscopy and biopsy in October 2023 showed moderately differentiated adenocarcinoma and patient has been on targeted chemotherapy since. Patient also noted
to have spinal mets which have been treated with focused radiation therapy.
Past Medical History: Reports Other
Additional Past Medical History:
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 - 5 radiation treatments to his sternum and cervical spine
Hypocalcemia from Xgeva
Past Surgical History: Reports Other
Additional Past Surgical History:
Bronchoscopy with biopsy 10/25/2024, oral surgery
Social History
Tobacco: Non-smoker
Alcohol: Occasional
Drug: None
Personal:
Living: With Family
Employment: Retired
Family History
Family History: Other (No family history of cancer)
Allergies / Home Medications
Allergies
Allergy/AdvReac Type Severity Reaction Status Date / Time
No Known Allergies Allergy Verified 01/07/25 21:01
Home Medications
�Medication �Instructions �Recorded �Confirmed �Last Taken �Type
albuterol sulfate 90 mcg/actuation 2 puff inhalation Q4H SOB/WHEEZING 01/07/25 01/07/25 01/07/25 History
aerosol inhaler
amoxicillin 500 mg-potassium 1 tab PO TID 01/07/25 01/07/25 01/07/25 History
clavulanate 125 mg tablet
calcium carbonate (Calcium 600) 600 mg PO DAILY 01/07/25 01/07/25 01/07/25 History
capmatinib 200 mg tablet (Tabrecta) 200 mg PO Q12H 01/07/25 01/07/25 01/04/25 History
denosumab 120 mg/1.7 mL (70 mg/mL) 120 mg SC Q4W 01/07/25 01/07/25 1 Month Ago History
subcutaneous solution (Xgeva) ~12/10/24
Review of Systems
-
Hematologic/Lymphatic: Other (All 14 systems reviewed and negative except as stated above in the history of present illness.)
Vitals / Labs / Diagnostic Testing
Vital Signs
Temp Pulse Resp BP Pulse Ox
98.7 F 93 20 102/69 98
01/08/25 07:56 01/08/25 07:58 01/08/25 07:58 01/08/25 07:00 01/08/25 07:58
Lab Data
01/08/25 05:28
01/08/25 05:28
Laboratory Results
01/07/25 01/08/25
22:56 05:28
APTT 29.4 > 200 H*
Microbiology
01/07/25 23:24 Nasal Swab Influenza Types A & B (IOANA) - Final
Negative for Influenza A & B, NAAT
Negative results must be combined with clinical observations
and patient history.
Nucleic Acid Amplification test (NAAT)performed on the
[employer] platform.
Diagnostic Testing:
Physical Exam
-
HEENT: Normocephalic
Cardiovascular: Regular Rhythm
Respiratory: Clear and Non-Labored Respirations
GI: Soft and Non Distended
Neurology: Awake and Alert
Skin: Warm
General: Comfortable
Assessment
-
#1. Acute bilateral submassive pulmonary embolism along with left lower extremity DVT. Suspect related to underlying malignancy. Patient has evidence of right heart strain and mild troponin leak. PERT team was activated in the emergency room and
patient noted to have intermediate high risk with RV strain and troponin leak. Interventional radiology evaluation was recommended to consider for catheter directed therapies. After review by interventional radiologist, patient was not felt to be
an appropriate candidate due to relatively mild RV strain and hemodynamic stability and concern for worsening metastatic disease. Patient has been on anticoagulation since
-Continue IV heparin for now
-Await echocardiogram
-If echo suggestive of significant RV strain or patient develops any hemodynamic instability, will reach out to IR again for possible catheter directed therapies
-Hematology consult
-Likely patient will need long-term anticoagulation in the setting of underlying malignancy
#2. History of metastatic adenocarcinoma lung, diagnosed in October 2024. Biomarkers noted:EGFR amplification as well as MET exon 14 skipping, with PD-L1 at 10%, moderately differentiated adenocarcinoma, non-small cell lung cancer.
-Patient follows up with Dr. Cohen at [facility], has been on Tabrecta
-History of spinal mets, s/p radiation, and denosumab therapy
-CT scan concerning for worsening disease with fluid collection versus necrotic metastatic disease right lateral to the inferior sternum at costochondral junction
#3. Right upper lobe infiltrates:
-Differential diagnosis include Tabrecta related pneumonitis, infectious pneumonia, early changes of pulmonary infarction vs lymphangitic spread of tumor
-Patient is currently afebrile, has a normal white count and does not report any productive cough. He was treated with Augmentin as an outpatient without significant change in his symptoms.
-Doubt this is infectious pneumonia, monitor off antibiotics, check procalcitonin. Influenza screen negative.
-Continue to hold Tabrecta
-O2 support as needed
-Will need to assess for need for home oxygen prior to discharge
-If clinically patient deteriorates, will treat for drug-induced pneumonitis with steroids
-Check urine Legionella and pneumonia antigen. Sputum culture, again patient denies any expectoration
Total time spent on this consultation/encounter _66__ minutes which includes review of history, physical exam, medications, laboratory data, personal review of imaging, extensive review of outpatient records, discussion with care team and
respiratory therapy.
Data:
CT Chest 12/2024: Positive for bilateral acute pulmonary thromboembolism with a moderate to large clot burden. Mild right heart strain.
Worsening metastatic mediastinal and bilateral hilar lymphadenopathy compared to the chest CT from 10/19/2024. Mildly increased size of the thick-walled cavitary right hilar lung cancer.
Bilateral pneumonia, greatest in the right upper lobe. Small right pleural effusion.
Lytic and sclerotic metastasis of the inferior sternum. Fluid collection versus necrotic metastatic disease right lateral to the inferior sternum at the costochondral junction.
Venous Dupplex:
1. Extensive left lower extremity DVT as described.
2. No evidence of deep venous thrombosis in the right lower extremity as described above.
CT Chest 09/2024:
1. There is a cavitary, thick-walled lesion within the medial right lower lobe which extends into the right hilum which measures 4.1 x 3.5 x 3.7 cm. This is concerning for malignancy although cavitary pneumonia could appear similar. There is
associated mediastinal lymphadenopathy with a 1.3 cm subcarinal lymph node and a 1.2 cm left paratracheal lymph node.
--- NOTE | 2025-01-08 08:58 | PTCARENOTE ---
Heparin resumed per protocol from 1500 to 1200 Next PTT 14:45
[2025-01-08] MEDS: STERILE WATER FOR INJECTION IV ×2 (11:06→17:44)
[2025-01-08 11:57] LABS: Troponin I 0.481 ng/ml
[2025-01-08 12:06] LABS: Procalcitonin 0.06 ng/ml (0.0-0.25)
--- NOTE | 2025-01-08 14:29 | CON.ONC ---
Impression
Impression
- Submassive PE
- LLE DVT
- stage IV lung cancer
- bone metastases
Plan
Plan
- pt hemodynamically stable, on 2L NC at this time. wean as tolerated.
- continue heparin gtt. Ok to transition to DOAC with appropriate loading dose on discharge.
- continue to hold capmatinib however suspect infiltrate due to infarct, less likely drug induced pneumonitis vs. infection. He will see Dr Cohen 01/12 and they can discuss when to resume.
- will continue to follow
Patient History
History of Present Illness
Pt is a 60 year old gentleman w/ hx of stage IV MET+ NSCLC who presented to the emergency room with worsening shortness of breath. Patient developed new cough, low grade fever and SOB over past 1.5 weeks. A chest x-ray on 01/04 was suspicious for
developing right upper lobe pneumonia. He was started on Augmentin by Dr Cohen and was told to hold his oral chemo, Tabrecta for concern of pneumonia/pneumonitis. Patient did not notice any change in his symptoms after starting Augmentin with
progressive ABBOTT. CTA chest showed 'bilateral filling defects compatible with acute pulmonary thromboembolism. Moderate to large clot burden with most proximal involvement of the left distal main pulmonary artery. Additional clot in the lobar,
segmental, and subsegmental branches of the left upper and lower lobes, and the right middle and right lower lobes. Slight elevation of the RV-LV ratio suggesting mild right heart strain.' PERT team was activated and based on elevated biomarkers and
RV strain, interventional radiology evaluation was recommended for possible catheter directed therapies. After IR evaluation, patient was not felt to be a candidate for intervention and he was started on heparin and admitted to the hospital. He is
currently on 2L NC with O2 > 95%. LE US showed extensive LLE DVT. Pt states he was having pain in his left hip but contributed to his cancer. He also notes a discomfort in left thigh with mild swelling over past 48 hours. He has no prior hx of
clots.
Patient Medication
�Medication �Instructions �Recorded �Confirmed �Last Taken �Type
albuterol sulfate 90 mcg/actuation 2 puff inhalation Q4H SOB/WHEEZING 01/07/25 01/07/25 01/07/25 History
aerosol inhaler
amoxicillin 500 mg-potassium 1 tab PO TID 01/07/25 01/07/25 01/07/25 History
clavulanate 125 mg tablet
calcium carbonate (Calcium 600) 600 mg PO DAILY 01/07/25 01/07/25 01/07/25 History
capmatinib 200 mg tablet (Tabrecta) 200 mg PO Q12H 01/07/25 01/07/25 01/04/25 History
denosumab 120 mg/1.7 mL (70 mg/mL) 120 mg SC Q4W 01/07/25 01/07/25 1 Month Ago History
subcutaneous solution (Xgeva) ~12/10/24
Active Medications
Generic Name Dose Route Start Last Admin
Trade Name Freq PRN Reason Stop Dose Admin
Acetaminophen 650 mg 01/08/25 00:56
Acetaminophen 325 Mg Tablet PO 02/05/25 00:55
Q4HPRN PRN
mild pain/YOST/temp> 100.4F
Heparin Sodium 6,600 units 01/07/25 23:36
Heparin 80 Units/Kg Iv Rebolus IV 02/04/25 23:35
PRN PRN
PTT < OR = 64 seconds
Heparin Sodium 3,300 units 01/07/25 23:37
Heparin 40 Units/Kg Iv Rebolus IV 02/04/25 23:36
PRN PRN
PTT = 64.1 to 72.9 seconds
Heparin Sodium 25,000 units in 250 mls @ 0 mls/hr 01/07/25 23:30 01/07/25 23:33
Heparin 69752 Units/250 Ml IV 250 mls
PER PROTOCOL IVANA Administration
Protocol
Per Protocol
Sterile Water 10 ml 01/08/25 02:00 01/08/25 11:06
Sterile Water For Injection 10 Ml Vial IV 02/05/25 01:59 Not Given
Q8H IVANA
Review of Systems
-
History Source: Patient
Constitutional: Reports Fever
Respiratory: Reports Trouble Breathing; Denies Hemoptysis or Wheezing
Cardiac: Denies Chest Pain or Syncope
GI: Denies Bloody Stools or Black Stools
Musculoskeletal: Reports Edema
Neuro: Denies Weakness or Lightheadedness
Hematologic/Lymphatic: Denies Bleeding
Physical Exam
-
General: Well Developed, Well Nourished and No Apparent Distress
HEENT: Negative Jaundice
Cardiology: Normal Sinus Rhythm
Pulmonary: Clear
Musculoskeletal: Edema, Left Lower Extrem (1+)
Extremities: Edema
Neurology: Non Focal
Psych: Calm
Labs
Lab Results
WBC 9.3 10^3/uL (4.8-10.8) 01/08/25 05:28
RBC 3.98 10^6/uL (4.70-6.10) L 01/08/25 05:28
Hgb 12.4 g/dL (13.0-18.0) L 01/08/25 05:28
Hct 35.4 % (39.0-52.0) L 01/08/25 05:28
MCV 88.9 fL (80.0-94.0) 01/08/25 05:28
MCH 31.2 pg (27.0-31.0) H 01/08/25 05:28
MCHC 35.0 g/dL (33.0-37.0) 01/08/25 05:28
RDW 14.3 % (11.5-14.5) 01/08/25 05:28
Plt Count 183 10^3/uL (130-400) 01/08/25 05:28
MPV 8.7 fL (7.4-10.4) 01/08/25 05:28
Abs Immat Gran (auto) 0.4 10^3/uL (0-0.05) H 01/08/25 05:28
Absolute Neuts (auto) 7.3 10^3/uL (1.4-6.5) H 01/08/25 05:28
Absolute Lymphs (auto) 0.8 10^3/uL (1.2-3.4) L 01/08/25 05:28
Absolute Monos (auto) 0.8 10^3/uL (0.1-0.6) H 01/08/25 05:28
Absolute Eos (auto) 0.1 10^3/uL (0-0.7) 01/08/25 05:28
Absolute Basos (auto) 0.1 10^3/uL (0-0.2) 01/08/25 05:28
Immature Gran % 4.3 % (0-0.5) H 01/08/25 05:28
Neutrophils % 77.7 % (42.2-75.2) H 01/08/25 05:28
Lymphocytes % 8.2 % (20.5-51.1) L 01/08/25 05:28
Monocytes % 8.7 % (1.7-9.3) 01/08/25 05:28
Eosinophils % 0.5 % (0-6) 01/08/25 05:28
Basophils % 0.6 % (0-2) 01/08/25 05:28
Creatinine 0.7 mg/dL (0.7-1.3) 01/08/25 05:28
Vital Signs
Vital Signs
Temp Pulse Resp BP Pulse Ox
98.7 F 93 20 102/69 98
01/08/25 07:56 01/08/25 07:58 01/08/25 07:58 01/08/25 07:00 01/08/25 07:58
[2025-01-08 15:12] LABS: APTT 54.1 Sec (23.4-35.0)
[2025-01-08] MEDS: HEPARIN 6600 UNITS IV (15:40)
--- NOTE | 2025-01-08 20:00 | PTCARENOTE ---
Resumed care of pt this evening. Received pt on heparin gtt infusing at 1500 units/hr via right peripheral IV site. Pt is A&Ox3, can move all 4 extremities, and can make needs known. Pt is ST on tele monitor, has +1 edema on left lower extremity,
and has palpable pulses bilaterally. Pt also has an occasional non productive harsh cough. Pt on 2L of O2 satting at 96% pulse ox. On auscultation pt lungs are diminished TO. Pt's abdomen is round w/ active BS. Pt voiding yellow colored urine in
urinal. Pt's skin is C/D/I.
[2025-01-08 21:39] LABS: APTT 130.9 Sec (23.4-35.0)
--- NOTE | 2025-01-08 22:00 | PTCARENOTE ---
Pt's heparin gtt decreased to 1300 units/hr post PTT assessment per protocol.
[2025-01-09] VITALS (9 sets, daily range): BP systolic 106–132; BP diastolic 70–88; PULSE 103; O2SAT 98
[2025-01-09 04:19] LABS: % Basophils 0.7 % (0-2); % Eosinophils 1.2 % (0-6); % Immature Granulocytes 4.3 % (0-0.5); % Lymphocytes 6.9 % (20.5-51.1); % Monocytes 10.8 % (1.7-9.3); % Neutrophils 76.1 % (42.2-75.2); Absolute Basophils 0.1 10^3/uL (0-0.2); Absolute Eosinophils 0.1 10^3/uL (0-0.7); Absolute Immature Granulocytes 0.4 10^3/uL (0-0.05); Absolute Lymphocytes 0.6 10^3/uL (1.2-3.4); Absolute Monocytes 0.9 10^3/uL (0.1-0.6); Absolute Neutrophils 6.1 10^3/uL (1.4-6.5); Hematocrit 34.7 % (39.0-52.0); Hemoglobin 12.1 g/dL (13.0-18.0); Mean Corp Hgb Conc. 34.9 g/dL (33.0-37.0); Mean Platelet Volume 8.4 fL (7.4-10.4); Nucleated Red Blood Cells % 0 % (-); Platelet Count 231 10^3/uL (130-400); Red Cell Dist. Width 14.4 % (11.5-14.5); White Blood Cell Count 8.1 10^3/uL (4.8-10.8)
[2025-01-09 04:20] LABS: APTT 94.3 Sec (23.4-35.0)
[2025-01-09 04:31] LABS: ALT (SGPT) 26 U/L (0-50); AST (SGOT) 24 U/L (17-59); Albumin 2.4 g/dl (3.5-5.0); Alkaline Phosphatase 106 U/L (38-126); Blood Urea Nitrogen 12 mg/dl (9-20); Calcium 7.2 mg/dl (8.4-10.2); Carbon Dioxide 26 mmol/L (22-30); Chloride 103 mmol/L (98-107); Estimated Creatinine Clearance 124 ml/min; Glucose 98 mg/dl (70-99); Magnesium 2.1 mg/dl (1.6-2.3); Potassium 4.3 mmol/L (3.5-5.1); Sodium 132 mmol/L (135-145); Total Bilirubin 0.6 mg/dl (0.2-1.3); Total Protein 4.7 g/dl (6.3-8.2); eGFR > 60.00
--- NOTE | 2025-01-09 07:56 | W.PN.HOSP.TC ---
Today's Communication/Plan
-
transfer to tele
renew IV heparin drip
CM to [employer]
ECHO and home O2 assessment in AM
Assessment / Plan
Assessment / Plan
pt is a 69 year old male
acute hypoxemic respiratory insufficiency--due to combination of acute Bilateral acute pulmonary thromboembolism with moderate to large clot burden/mild heart strain and likely pulm infarcts--PERT alert called--no role for lytic therapy--cont O2
support--2L--cont IV heparin, CM to [employer]--ECHO pending--US left leg positive for DVT--apprec pulm input--stop ABX, less likely PNA more likely pulm infarcts--assessment for home O2 in AM 01/10/25
SIRS (POA by criteria)due to PE, pulm infarcts--Recent Right upper lobe pneumonia 3 days [facility] OR [facility] was placed on oral Augmentin but in retrospect likely pulm infarct--stopped vanco/cefepime--cultures all neg--COVID/FLU neg--Hold Tabrecta in setting of
pneumonia/sepsis
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
neck-Started chemotherapy with Tabrecta 200 mg twice daily on 12/03/2024 now on HOLD--apprec onc
Presumed Type II AL secondary to right heart strain from bilateral PE--troponin peaked at 0.9 and decreased--await ECHO
Hypocalcemia due to Xgeva -- corrected calcium 8.7--s/p Calcium gluconate 1000 mg now, follow calcium level--Hold Xgeva
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
DVT proph--on IV heparin
Code status --Full code
OK to transfer to TELE
Anticipated Discharge: 24 - 48 hours
Subjective/Interval History
-
Date of Service: January 09, 2025
pt doing OK--c/o cough
Objective Data
-
Labs:
Laboratory Results
01/08/25 01/09/25 01/09/25
21:16 03:48 10:00
WBC 8.1
Hgb 12.1 L
Hct 34.7 L
Plt Count 231 D
APTT 130.9 H 94.3 H Pending
Sodium 132 L
Potassium 4.3
Chloride 103
Carbon Dioxide 26
BUN 12
Creatinine 0.6 L
Glucose 98
Calcium 7.2 L
Total Bilirubin 0.6
AST 24
ALT 26
Alkaline Phosphatase 106
Vital Signs:
max temp for 24 hours
01/08/25
15:05
Temp 99.5 F
Vital Signs
Temp Pulse Resp BP Pulse Ox
98.5 F 98 23 115/70 93
01/09/25 07:21 01/09/25 05:45 01/09/25 05:45 01/09/25 04:00 01/09/25 05:45
I&O
01/08/25 01/09/25 01/10/25
06:59 06:59 06:59
Output Total 300 / 300
Balance -300 / -300
Review of Systems
-
All other systems: Reviewed and negative
Physical Exam
-
General: Well Developed, Well Nourished and No Apparent Distress
HEENT: Normocephalic, Atraumatic and Oxygen
Respiratory: Clear to Auscultation; Negative Wheezes or Rhonchi
Cardiac: Regular Rhythm and S1/S2; Negative Murmur
GI: Soft, Nontender, Nondistended and Normal Bowel Sounds
Musculoskeletal: No Clubbing and No Cyanosis; Negative No Edema (LLE swollen)
Skin: Warm
Neuro: Awake and Alert
Psych: Calm
[2025-01-09] MEDS: OSCAL CAL 500 500 MG PO (08:45)
[2025-01-09] MEDS: ROBITUSSIN DM 10 ML PO (08:46)
--- NOTE | 2025-01-09 08:50 | PTCARENOTE ---
While in bed oxygen on RA 87% Placed back on 2L
[2025-01-09 10:38] LABS: APTT 56.4 Sec (23.4-35.0)
[2025-01-09] MEDS: HEPARIN 6600 UNITS IV (11:14)
--- NOTE | 2025-01-09 11:54 | PTCARENOTE ---
Patient transfer to room 407/2 Reprot given prior. pt on heparin 1600/16 ml Next PTT 17:00. VSS . On 2L of oxygen 96%
--- NOTE | 2025-01-09 12:30 | CM ---
hospitality manager reviewed patient's chart and met with patient and spouse at bedside, patient lives with spouse in a 2 story home, patient is independent with adl's and ambulation, no dme, patient drives. Patient is retired.
hospitality manager was asked by physician to check cost of Eliquis at discharge, case consultant reached out to patient's prescription insurance [phone] and they are closed on Sundays, pharmacy reviewed and cost checked and it appears that patient has
zero copay for Eliquis, case consultant discussed with patient and spouse and patient is taking chemo medication and that also has zero copay as patient has meet deductible that is capped at $2,000.
Patient needs to be follow for any home oxygen needs.
Plan; Home with spouse at discharge.
--- NOTE | 2025-01-09 12:36 | W.PN.ONC2 ---
Today's Communication / Plan
-
- continue heparin gtt -> transition to DOAC.
- wean O2 as tolerated.
Impression
Impression
- Submassive PE
- LLE DVT
- stage IV lung cancer
- bone metastases
Plan
Plan
- pt hemodynamically stable, on 2L NC at this time. wean as tolerated.
- continue heparin gtt. Ok to transition to DOAC with appropriate loading dose on discharge.
- continue to hold capmatinib however suspect infiltrate due to infarct, less likely drug induced pneumonitis vs. infection. He will see Dr Cohen 01/12 and they can discuss when to resume.
- will continue to follow
Subjective/Objective
Chief Complaint
PE, lung cancer
Subjective
pt sitting up in chair. He is feeling better today however still with ABBOTT, requiring 2L NC. He notes LLE swelling more obvious now however no new pain or erythema.
Vital Signs:
Vital Signs
Temp Pulse Resp BP Pulse Ox
97.9 F 104 16 125/83 99
01/09/25 12:27 01/09/25 12:27 01/09/25 12:27 01/09/25 12:27 01/09/25 12:27
Lab Results:
Laboratory Data
WBC 8.1 10^3/uL (4.8-10.8) 01/09/25 03:48
Hgb 12.1 g/dL (13.0-18.0) L 01/09/25 03:48
Plt Count 231 10^3/uL (130-400) D 01/09/25 03:48
APTT 56.4 Sec (23.4-35.0) H 01/09/25 10:17
eGFR > 60.00 01/09/25 03:48
Physical Exam
HEENT: No Jaundice
Cardiology: Normal Sinus Rhythm
Extremities: Edema (non-pitting LLE edema extending to thigh without increased warm or tenderness. )
Neuro: Non Focal
Review of Systems
Review of Systems
Constitutional: Denies Fever
Respiratory: Reports Dyspnea and Cough
Cardiovascular: Denies Chest Pain
Skin: Reports Other (LLE swelling )
[2025-01-09] MEDS: HEPARIN 25000 UNITS/250 ML IV (13:08)
--- NOTE | 2025-01-09 13:34 | W.PN.PUL3 ---
Today's Communication / Plan
-
-Await echocardiogram
-Assess need for home oxygen prior to discharge
-Outpatient follow-up scheduled with patient's oncologist on 01/12
Assessment
-
Very pleasant 60 narrowed gentleman presented to the emergency room with shortness of breath. Patient reported that it started few days ago and he had an x-ray performed on Friday which was suspicious for developing right upper lobe pneumonia. He
was started on Augmentin and was told to hold his oral chemo, Tabrecta for concern of pneumonia/pneumonitis. Patient did not notice any change in his symptoms after starting Augmentin rather reported continued worsening shortness of breath. He
denies any significant cough or expectoration however. In the emergency room he was noted to have bilateral submassive PE with mild right heart strain and mild hypoxia. PERT team was activated and based on elevated biomarkers and RV strain,
interventional radiology evaluation was recommended for possible catheter directed therapies. After IR evaluation, patient was not felt to be a candidate for intervention and he was started on heparin and admitted to the hospital. Pulmonary
consultation was requested for further recommendations.
Patient was incidentally found to have a lung mass noted in September 2024. Subsequent bronchoscopy and biopsy in October 2023 showed moderately differentiated adenocarcinoma and patient has been on targeted chemotherapy since. Patient also noted
to have spinal mets which have been treated with focused radiation therapy.
#1. Acute bilateral submassive pulmonary embolism along with left lower extremity DVT. Suspect related to underlying malignancy. Patient had evidence of right heart strain and mild troponin leak. PERT team was activated in the emergency room and
patient noted to have intermediate high risk with RV strain and troponin leak. Interventional radiology evaluation was recommended to consider for catheter directed therapies. After review by interventional radiologist, patient was not felt to be
an appropriate candidate due to relatively mild RV strain and hemodynamic stability and concern for worsening metastatic disease. Patient has been on anticoagulation since
-Continue IV heparin for now
-Await echocardiogram
-If echo suggestive of significant RV strain or patient develops any hemodynamic instability, will reach out to IR again for possible catheter directed therapies
-Eventually plan to transition to Eliquis or Xarelto
#2. History of metastatic adenocarcinoma lung, diagnosed in October 2024. Biomarkers noted:EGFR amplification as well as MET exon 14 skipping, with PD-L1 at 10%, moderately differentiated adenocarcinoma, non-small cell lung cancer.
-Patient follows up with Dr. Cohen at [facility], has been on Tabrecta, follow-up appointment scheduled for 01/12
-History of spinal mets, s/p radiation, and denosumab therapy
-CT scan concerning for worsening disease with fluid collection versus necrotic metastatic disease right lateral to the inferior sternum at costochondral junction
-Continue outpatient follow-up
#3. Right upper lobe infiltrates:
-Differential diagnosis include Tabrecta related pneumonitis, infectious pneumonia, early changes of pulmonary infarction vs lymphangitic spread of tumor
-Patient is currently afebrile, has a normal white count and does not report any productive cough. He was treated with Augmentin as an outpatient without significant change in his symptoms.
-Doubt this is infectious pneumonia, monitor off antibiotics, check procalcitonin. Influenza screen negative. More suggestive of pulmonary infarcts.
-Continue to hold Tabrecta
-O2 support as needed
-Will need to assess for need for home oxygen prior to discharge
-If clinically patient deteriorates, will treat for drug-induced pneumonitis with steroids
-Legionella and pneumococcal antigen negative. Influenza screen negative. Blood cultures have stayed negative.
Total time spent on this consultation/encounter 28__ minutes which includes review of history, physical exam, medications, laboratory data, personal review of imaging, extensive review of outpatient records, discussion with care team and
respiratory therapy.
Data:
CT Chest 12/2024: Positive for bilateral acute pulmonary thromboembolism with a moderate to large clot burden. Mild right heart strain.
Worsening metastatic mediastinal and bilateral hilar lymphadenopathy compared to the chest CT from 10/19/2024. Mildly increased size of the thick-walled cavitary right hilar lung cancer.
Bilateral pneumonia, greatest in the right upper lobe. Small right pleural effusion.
Lytic and sclerotic metastasis of the inferior sternum. Fluid collection versus necrotic metastatic disease right lateral to the inferior sternum at the costochondral junction.
Venous Dupplex:
1. Extensive left lower extremity DVT as described.
2. No evidence of deep venous thrombosis in the right lower extremity as described above.
CT Chest 09/2024:
1. There is a cavitary, thick-walled lesion within the medial right lower lobe which extends into the right hilum which measures 4.1 x 3.5 x 3.7 cm. This is concerning for malignancy although cavitary pneumonia could appear similar. There is
associated mediastinal lymphadenopathy with a 1.3 cm subcarinal lymph node and a 1.2 cm left paratracheal lymph node.
Subjective Data
-
Date of Service:
Date of Service: January 09, 2025
Subjective:
Patient comfortably sitting in bed, in no acute distress. Denies any chest pain.
Review of Systems
Genitourinary: Other (All 14 systems reviewed and negative except as stated above in the history of present illness. Reports mild nonproductive cough)
Objective Data
Data Reviewed
Vital Signs / I&O / Oxygen:
Vital Signs
Temp Pulse Resp BP Pulse Ox
97.9 F 104 16 125/83 99
01/09/25 12:27 01/09/25 12:27 01/09/25 12:27 01/09/25 12:27 01/09/25 13:17
Intake and Output
01/08/25 01/09/25 01/10/25
06:59 06:59 06:59
Output Total 300 / 300
Balance -300 / -300
SaO2 99
Nasal Cannula flow liters per 2
minute
Physical Exam
General: Comfortable
HEENT: Normocephalic
Cardiovascular: Regular Rhythm
Respiratory: Clear and Non-Labored Respirations
GI: Soft and Non Distended
Neurology: Awake and Alert
Skin: Warm
Labs/Micro/Reports
Lab Data
01/09/25 03:48
01/09/25 03:48
Laboratory Results
01/08/25 01/08/25 01/09/25
14:50 21:16 03:48
APTT 54.1 H 130.9 H 94.3 H
01/09/25
10:17
APTT 56.4 H
Microbiology
01/07/25 23:24 Blood/Venous Blood Culture - Preliminary
No Growth in 24 hours- Final report to follow
01/07/25 23:24 Blood/Venous Blood Culture - Preliminary
No Growth in 24 hours- Final report to follow
01/08/25 12:30 Urine Streptococcus pneumoniae Antigen (M - Final
Negative for Streptococcus pneumoniae antigen.
A negative result does not exclude infection with
Streptococcus pneumoniae. Clinical correlation is
recommended.
01/08/25 12:30 Urine Legionella Urinary Antigen - Final
Negative for Legionella pneumophila Serogroup 1 antigen.
A negative result does not rule out the possiblity of
Legionella infection due to other serogroups or species of
Legionella. Clinical correlation is recommended.
01/08/25 11:23 Nose Nasal Screen MRSA (PCR) - Final
MRSA not detected - performed by PCR methodology.
01/07/25 23:24 Nasal Swab Influenza Types A & B (IOANA) - Final
Negative for Influenza A & B, NAAT
Negative results must be combined with clinical observations
and patient history.
Nucleic Acid Amplification test (NAAT)performed on the
[employer] platform.
[2025-01-09 17:59] LABS: APTT 124.4 Sec (23.4-35.0)
[2025-01-10] VITALS (7 sets, daily range): BP systolic 101–129; BP diastolic 65–78; PULSE 103; O2SAT 93
[2025-01-10] MEDS: ROBITUSSIN DM 10 ML PO (00:51)
[2025-01-10 01:03] LABS: APTT 104.5 Sec (23.4-35.0)
[2025-01-10] MEDS: HEPARIN 25000 UNITS/250 ML IV (07:45)
[2025-01-10 08:20] LABS: APTT 77.3 Sec (23.4-35.0)
[2025-01-10 08:24] LABS: Hemoglobin 11.5 g/dL (13.0-18.0); Mean Corp Hgb Conc. 33.8 g/dL (33.0-37.0); Mean Corpuscular Hgb 30.3 pg (27.0-31.0); Mean Corpuscular Volume 89.7 fL (80.0-94.0); Mean Platelet Volume 8.3 fL (7.4-10.4); Platelet Count 248 10^3/uL (130-400); Red Blood Cell Count 3.79 10^6/uL (4.70-6.10); Red Cell Dist. Width 14.1 % (11.5-14.5); White Blood Cell Count 6.8 10^3/uL (4.8-10.8)
[2025-01-10 08:42] LABS: ALT (SGPT) 28 U/L (0-50); AST (SGOT) 24 U/L (17-59); Albumin 2.3 g/dl (3.5-5.0); Alkaline Phosphatase 113 U/L (38-126); Blood Urea Nitrogen 11 mg/dl (9-20); Calcium 7.2 mg/dl (8.4-10.2); Carbon Dioxide 26 mmol/L (22-30); Chloride 102 mmol/L (98-107); Estimated Creatinine Clearance 124 ml/min; Glucose 91 mg/dl (70-99); Potassium 4.2 mmol/L (3.5-5.1); Sodium 131 mmol/L (135-145); Total Bilirubin 0.7 mg/dl (0.2-1.3); Total Protein 4.7 g/dl (6.3-8.2); eGFR > 60.00
[2025-01-10 09:11] LABS: % Basophils 0.6 % (0-2); % Eosinophils 1.2 % (0-6); % Immature Granulocytes 6.1 % (0-0.5); % Lymphocytes 7.9 % (20.5-51.1); % Neutrophils 73.2 % (42.2-75.2); Absolute Eosinophils 0.1 10^3/uL (0-0.7); Absolute Immature Granulocytes 0.4 10^3/uL (0-0.05); Absolute Lymphocytes 0.5 10^3/uL (1.2-3.4); Absolute Monocytes 0.8 10^3/uL (0.1-0.6); Nucleated Red Blood Cells % 0 % (-)
[2025-01-10] MEDS: OSCAL CAL 500 500 MG PO (09:11)
--- NOTE | 2025-01-10 10:59 | W.PN.PUL3 ---
Addendum entered and electronically signed by Javier Webber MD 01/10/25 11:18:
Dr. Donald updated at the bedside.
Light, short walks are okay.
Keep in the hospital at least for additional 24 hours for hemodynamic monitoring.
Original Note:
Today's Communication / Plan
-
Continue heparin drip
Transition to oral anticoagulants when able
Continue to follow hemodynamics
Echocardiogram pending
Continue to hold chemotherapy for now
Home oxygen assessment
Will follow
Assessment
-
Very pleasant 60 narrowed gentleman presented to the emergency room with shortness of breath. Patient reported that it started few days ago and he had an x-ray performed on Friday which was suspicious for developing right upper lobe pneumonia. He
was started on Augmentin and was told to hold his oral chemo, Tabrecta for concern of pneumonia/pneumonitis. Patient did not notice any change in his symptoms after starting Augmentin rather reported continued worsening shortness of breath. He
denies any significant cough or expectoration however. In the emergency room he was noted to have bilateral submassive PE with mild right heart strain and mild hypoxia. PERT team was activated and based on elevated biomarkers and RV strain,
interventional radiology evaluation was recommended for possible catheter directed therapies. After IR evaluation, patient was not felt to be a candidate for intervention and he was started on heparin and admitted to the hospital. Pulmonary
consultation was requested for further recommendations.
Patient was incidentally found to have a lung mass noted in September 2024. Subsequent bronchoscopy and biopsy in October 2023 showed moderately differentiated adenocarcinoma and patient has been on targeted chemotherapy since. Patient also noted
to have spinal mets which have been treated with focused radiation therapy.
#1. Acute bilateral submassive pulmonary embolism along with left lower extremity DVT. Suspect related to underlying malignancy. Patient had evidence of right heart strain and mild troponin leak. PERT team was activated in the emergency room and
patient noted to have intermediate high risk with RV strain and troponin leak. Interventional radiology evaluation was recommended to consider for catheter directed therapies. After review by interventional radiologist, patient was not felt to be
an appropriate candidate due to relatively mild RV strain and hemodynamic stability and concern for worsening metastatic disease. Patient has been on anticoagulation since.
-Remains hemodynamically stable, not tachycardic. On low rate supplemental oxygen 2 L supplemental oxygen. 01/10/2025.
-Lower extremity Dopplers 01/08/2025: Extensive left lower extremity DVT. No evidence for deep venous thrombosis on the right.
-Continue IV heparin for now-follow PTT per
-Await echocardiogram
-If echo suggestive of significant RV strain or patient develops any hemodynamic instability, will reach out to IR again for possible catheter directed therapies
-Eventually plan to transition to Eliquis or Xarelto
#2. History of metastatic adenocarcinoma lung, diagnosed in October 2024. Biomarkers noted:EGFR amplification as well as MET exon 14 skipping, with PD-L1 at 10%, moderately differentiated adenocarcinoma, non-small cell lung cancer.
-Patient follows up with Dr. Cohen at [facility], has been on Tabrecta, follow-up appointment scheduled for 01/12
-History of spinal mets, s/p radiation, and denosumab therapy
-CT scan concerning for worsening disease with fluid collection versus necrotic metastatic disease right lateral to the inferior sternum at costochondral junction
-Continue outpatient follow-up
#3. Right upper lobe infiltrates/mild left-sided infiltrates:
-Differential diagnosis include Tabrecta related pneumonitis, infectious pneumonia, early changes of pulmonary infarction vs lymphangitic spread of tumor.
-Patient is currently afebrile, has a normal white count and does not report any productive cough. He was treated with Augmentin as an outpatient without significant change in his symptoms-less likely infection.
-Doubt this is infectious pneumonia, monitor off antibiotics, jennifer negative procalcitonin. Influenza screen negative. Legionella and pneumococcal antigen negative. Influenza screen negative. Blood cultures have stayed negative. More suggestive of
pulmonary infarcts versus lymphangitic spread.
-Continue to hold Tabrecta-this could be readdressed in the outpatient setting with Dr. Cohen - oncology correspondence reviewed
-O2 support as needed-currently on 2 L.
-Will need to assess for need for home oxygen prior to discharge
-If clinically patient deteriorates, will treat for drug-induced pneumonitis with steroids
-Will continue to follow
Data:
CT Chest 12/2024: Positive for bilateral acute pulmonary thromboembolism with a moderate to large clot burden. Mild right heart strain.
Worsening metastatic mediastinal and bilateral hilar lymphadenopathy compared to the chest CT from 10/19/2024. Mildly increased size of the thick-walled cavitary right hilar lung cancer.
Bilateral pneumonia, greatest in the right upper lobe. Small right pleural effusion.
Lytic and sclerotic metastasis of the inferior sternum. Fluid collection versus necrotic metastatic disease right lateral to the inferior sternum at the costochondral junction.
Venous Dupplex:
1. Extensive left lower extremity DVT as described.
2. No evidence of deep venous thrombosis in the right lower extremity as described above.
CT Chest 09/2024:
1. There is a cavitary, thick-walled lesion within the medial right lower lobe which extends into the right hilum which measures 4.1 x 3.5 x 3.7 cm. This is concerning for malignancy although cavitary pneumonia could appear similar. There is
associated mediastinal lymphadenopathy with a 1.3 cm subcarinal lymph node and a 1.2 cm left paratracheal lymph node.
Subjective Data
-
Date of Service:
Date of Service: January 10, 2025
Chief Complaint: Pulmonary Follow Up
Review of Systems
Cardiopulmonary: Dyspnea (none at rest), Cough (n) and Sputum Production (n)
GI: Abdominal Pain (n)
Objective Data
Data Reviewed
Vital Signs / I&O / Oxygen:
Vital Signs
Temp Pulse Resp BP Pulse Ox
98.5 F 95 16 129/75 99
01/10/25 07:30 01/10/25 07:30 01/10/25 07:30 01/10/25 07:30 01/10/25 08:20
Intake and Output
01/09/25 01/10/25 01/11/25
06:59 06:59 06:59
Intake Total 960 / 960
Output Total 300 / 300 850 / 850
Balance -300 / -300 110 / 110
SaO2 99
Nasal Cannula flow liters per 2
minute
Physical Exam
General: Comfortable
HEENT: Normocephalic
Cardiovascular: Regular Rhythm
Respiratory: Clear, Wheeze (n) and Non-Labored Respirations
GI: Soft and Non Distended
Neurology: Awake and Alert
Skin: Warm
Labs/Micro/Reports
Lab Data
01/10/25 07:20
01/10/25 07:20
Laboratory Results
01/09/25 01/09/25 01/10/25
00:15 17:38 00:43
APTT Cancelled 124.4 H 104.5 H
01/10/25
07:20
APTT 77.3 H
Microbiology
01/07/25 23:24 Blood/Venous Blood Culture - Preliminary
No Growth in 48 hours- Final report to follow
01/07/25 23:24 Blood/Venous Blood Culture - Preliminary
No Growth in 48 hours- Final report to follow
01/08/25 12:30 Urine Streptococcus pneumoniae Antigen (M - Final
Negative for Streptococcus pneumoniae antigen.
A negative result does not exclude infection with
Streptococcus pneumoniae. Clinical correlation is
recommended.
01/08/25 12:30 Urine Legionella Urinary Antigen - Final
Negative for Legionella pneumophila Serogroup 1 antigen.
A negative result does not rule out the possiblity of
Legionella infection due to other serogroups or species of
Legionella. Clinical correlation is recommended.
01/08/25 11:23 Nose Nasal Screen MRSA (PCR) - Final
MRSA not detected - performed by PCR methodology.
01/07/25 23:24 Nasal Swab Influenza Types A & B (IOANA) - Final
Negative for Influenza A & B, NAAT
Negative results must be combined with clinical observations
and patient history.
Nucleic Acid Amplification test (NAAT)performed on the
[employer] platform.
--- NOTE | 2025-01-10 14:11 | CM ---
Addendum entered by Tea Pastrana 01/10/25 16:35:
Patient does not appear to qualify for home O2 at this time.
Original Note:
Patient seen at bedside with physicians. Patient is for home O2 assessment. Patient reviewed options for home O2 if qualified and no preference at this time. Patient also present and IMM provided and assessment pending. Patient for
transportation home. CM will continue to follow for discharge planning needs.
Plan; home with VN vs home with O2 watch for home needs.
--- NOTE | 2025-01-10 14:52 | W.PN.HOSP.TC ---
Addendum entered and electronically signed by Mena Hansen MD 01/10/25 15:21:
I saw and evaluated the patient independently. I reviewed the resident�s note and agree with findings and plan as documented by Dr. Huerta.
GENERAL: well developed, well nourished, male in no apparent distress
HEENT: NC/AT--O2 NC in place
HEART: regular rate and rhythm, +S1, +S2
LUNGS : clear to auscultation bilaterally
ABDOM: soft, nontender, nondistended, + bowel sounds
EXT: no cyanosis, clubbing, or edema
NEUROLOGIC: grossly intact
acute hypoxemic respiratory insufficiency--due to combination of acute Bilateral acute pulmonary thromboembolism with moderate to large clot burden/mild heart strain and likely pulm infarcts--PERT alert called--no role for lytic therapy--cont O2
support 2L, wean as able--assessment for home O2 in AM 01/10/25--cont IV heparin, Eliquis with $0 co-pay--ECHO noted, no significant heart strain--US left leg positive for DVT--apprec pulm input--stop ABX, less likely PNA more likely pulm infarcts--
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
pneumonia/sepsis
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
neck-Started chemotherapy with Tabrecta 200 mg twice daily on 12/03/2024 now on HOLD--apprec onc
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
Hypocalcemia due to Xgeva -- corrected calcium 8.7--s/p Calcium gluconate 1000 mg now, follow calcium level--Hold Xgeva
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
DVT proph--on IV heparin
Code status --Full code
Original Note:
Today's Communication/Plan
-
Continue monitoring patient's breathing status, try to wean off to room air. Continue monitoring for any worsening symptoms.
Assessment / Plan
Assessment / Plan
Assessment:
69-year-old male with a past medical history of adenocarcinoma of the lung diagnosed on 10/25/2024 on Xgeva and Tabrecta with metastasis to sternum status post radiation, hypercalcemia secondary to Xgeva presented to the [facility] ED on
01/07/2025 due to recent shortness of breath, dyspnea on exertion, pleuritic chest pain and left ankle swelling for the past few days. He had been diagnosed with pneumonia 3 days earlier and was started on antibiotic treatment. In the ED patient
was found to have acute pulmonary thromboembolism along with left lower extremity DVT that was seen on ultrasound. Patient was started on anticoagulation therapy with heparin and his antibiotics were stopped. Currently patient has been doing much
better and his shortness of breath is much improved.
CT Chest PE Study (01/07/2025):
Positive for bilateral acute pulmonary thromboembolism with a moderate to large clot burden.
Mild right heart strain.
Worsening metastatic mediastinal and bilateral hilar lymphadenopathy compared to the chest CT from 10/19/2024. Mildly increased size of the thick-walled cavitary right hilar lung cancer.
Bilateral pneumonia, greatest in the right upper lobe.
Small right pleural effusion.
Lytic and sclerotic metastasis of the inferior sternum. Fluid collection versus necrotic metastatic disease right lateral to the inferior sternum at the costochondral junction.
Echocardiogram (01/10/2025):
Enlarged right ventricular size.
Low normal right ventricular systolic function.
Mild to moderate tricuspid regurgitation.
Estimated PASP 35-40 mmHg and RA 3 mmHg.
LVEF 60-65% with normal LV wall motion.
No pericardial effusion.
No prior study available for comparison.
Plan:
# Acute hypoxemic respiratory insufficiency
-Secondary to acute bilateral pulmonary thromboembolism leading to moderate to large clot burden causing mild heart strain and pulmonary infarcts
-Lytic therapy not suggested at this time
-Patient was started on IV heparin, will transition to oral anticoagulation with Eliquis
-Case management able to find [facility] for him, covered by insurance
-Patient to continue on oxygen support, currently on 2 L and will wean off to room air as tolerated
-To have home assessment for O2 today at some point
-Patient underwent echocardiogram, results as above
-Showed enlarged ventricular size most likely secondary to large clot burden causing mild heart strain
# SIRS (POA by criteria) most likely secondary to PE, pulmonary infarct
-Patient was diagnosed with upper lobe pneumonia 3 days before coming to the emergency department but patient most likely did not have pneumonia but instead had pulmonary infarcts
-Patient's antibiotics were stopped
-Cultures were negative
-COVID, flu were negative
-Patient's chemo medications were held
# History of adenocarcinoma of the right lung with mets to sternum, C-spine, left hip, left lung
-Most likely the cause of his hypercoagulable state
-Patient was started with chemotherapy with Tabrecta which is now on hold
-Oncology was consulted, input appreciated
-Patient has outpatient follow-up with Dr. Feldman on 01/12, will discuss when to resume chemotherapy at that time
# Possible type II MS secondary to right heart strain from bilateral PE
-Troponins peaked at 0.9 and trending down
-Echocardiogram results showed enlarged right ventricular size possibly secondary to the large clot burden
# Hypocalcemia
-Most likely secondary to therapy with Xgeva
-Holding Xgeva, follow calcium levels and replete with calcium gluconate
# Hyponatremia
-Most likely secondary to malignancy, SIADH
-Continue monitoring
DVT prophylaxis: IV heparin
Full code
Anticipated Discharge: Within 24 hours
Subjective/Interval History
-
Date of Service: January 10, 2025
Patient says that he has been feeling well and only has been short of breath while walking occasionally. Still on supplemental oxygen but reports that his breathing has been much improved subjectively. Reports no other acute symptoms such as chest
pain, headaches, dizziness, nausea or vomiting.
Objective Data
-
Labs:
Laboratory Results
01/10/25
07:20
WBC 6.8
Hgb 11.5 L
Hct 34.0 L
Plt Count 248
APTT 77.3 H
Sodium 131 L
Potassium 4.2
Chloride 102
Carbon Dioxide 26
BUN 11
Creatinine 0.6 L
Glucose 91
Calcium 7.2 L
Total Bilirubin 0.7
AST 24
ALT 28
Alkaline Phosphatase 113
Vital Signs:
Vital Signs
Temp Pulse Resp BP Pulse Ox
98.1 F 94 18 117/78 95
01/10/25 11:06 01/10/25 11:06 01/10/25 11:06 01/10/25 11:06 01/10/25 14:27
I&O
01/09/25 01/10/25 01/11/25
06:59 06:59 06:59
Intake Total 960 / 960
Output Total 300 / 300 850 / 850
Balance -300 / -300 110 / 110
Review of Systems
-
History Source: Patient
Constitutional: Denies Fever, Fatigue or Chills
EENT: Reports No Symptoms Reported
Respiratory: Reports Trouble Breathing; Denies Cough or Wheezing
Cardiac: Denies Chest Pain, Palpitations or Syncope
Abdomen/GI: Denies Abdominal Pain, Nausea or Vomiting
Musculoskeletal: Reports No Symptoms
Skin: Reports No Symptoms
Neuro: Denies Headache or Lightheadedness
Physical Exam
-
General: Well Developed, Well Nourished and No Apparent Distress
HEENT: Normocephalic, Atraumatic and Oxygen (2 L)
Respiratory: Clear to Auscultation and Non Labored Respirations; Negative Wheezes
Cardiac: Regular Rhythm and S1/S2
GI: Soft, Nontender and Nondistended
Musculoskeletal: No Clubbing, No Cyanosis and Edema, Left Lower Extrem
Skin: Warm
Neuro: Awake, Alert and Oriented
Psych: Calm
Data Reviewed
-
Labs: Labs Reviewed by me, Discussed with Physician, Discussed with Nurse and Discussed with Patient
--- NOTE | 2025-01-10 15:26 | W.PN.ONC2 ---
Today's Communication / Plan
-
.
Impression
Impression
- Submassive PE
- LLE DVT
- stage IV lung cancer
- bone metastases
Plan
Plan
- pt hemodynamically stable, on 2L NC at this time. wean as tolerated.
- continue heparin gtt. Ok to transition to DOAC with appropriate loading dose on discharge.
- continue to hold capmatinib however suspect infiltrate due to infarct, less likely drug induced pneumonitis vs. infection. He will see Dr Cohen 01/12 and they can discuss when to resume.
- will continue to follow
Subjective/Objective
Subjective
no new complaints
Vital Signs:
Vital Signs
Temp Pulse Resp BP Pulse Ox
98.1 F 94 18 117/78 95
01/10/25 11:06 01/10/25 11:06 01/10/25 11:06 01/10/25 11:06 01/10/25 14:27
Lab Results:
Laboratory Data
WBC 6.8 10^3/uL (4.8-10.8) 01/10/25 07:20
Hgb 11.5 g/dL (13.0-18.0) L 01/10/25 07:20
Plt Count 248 10^3/uL (130-400) 01/10/25 07:20
APTT 77.3 Sec (23.4-35.0) H 01/10/25 07:20
eGFR > 60.00 01/10/25 07:20
Physical Exam
General: Well Developed, Well Nourished and No Apparent Distress
HEENT: Negative Jaundice
Cardiology: Normal Sinus Rhythm
Pulmonary: Clear
Musculoskeletal: Edema, Left Lower Extrem (1+)
Extremities: Edema
Neurology: Non Focal
Psych: Calm
[2025-01-11 03:59] VITALS: BP 112/75
[2025-01-11] MEDS: HEPARIN 25000 UNITS/250 ML IV (04:06)
[2025-01-11 06:49] LABS: Hematocrit 32.5 % (39.0-52.0); Hemoglobin 11.2 g/dL (13.0-18.0); Mean Corp Hgb Conc. 34.5 g/dL (33.0-37.0); Mean Corpuscular Hgb 30.5 pg (27.0-31.0); Mean Corpuscular Volume 88.6 fL (80.0-94.0); Mean Platelet Volume 8.2 fL (7.4-10.4); Platelet Count 264 10^3/uL (130-400); Red Blood Cell Count 3.67 10^6/uL (4.70-6.10); Red Cell Dist. Width 14.2 % (11.5-14.5); White Blood Cell Count 6.6 10^3/uL (4.8-10.8)
[2025-01-11 06:56] LABS: APTT 63.3 Sec (23.4-35.0)
[2025-01-11 07:12] LABS: ALT (SGPT) 35 U/L (0-50); AST (SGOT) 27 U/L (17-59); Albumin 2.5 g/dl (3.5-5.0); Alkaline Phosphatase 123 U/L (38-126); Blood Urea Nitrogen 14 mg/dl (9-20); Calcium 7.4 mg/dl (8.4-10.2); Carbon Dioxide 25 mmol/L (22-30); Chloride 104 mmol/L (98-107); Estimated Creatinine Clearance 124 ml/min; Glucose 94 mg/dl (70-99); Potassium 4.2 mmol/L (3.5-5.1); Sodium 135 mmol/L (135-145); Total Bilirubin 0.6 mg/dl (0.2-1.3); eGFR > 60.00
[2025-01-11 07:30] VITALS: BP 118/71
[2025-01-11] MEDS: OSCAL CAL 500 500 MG PO (08:13)
[2025-01-11] MEDS: ELIQUIS 10 MG PO (08:13)
[2025-01-11 10:30] VITALS: BP 118/78
--- NOTE | 2025-01-11 10:51 | W.PN.ONC ---
Today's Communication / Plan
-
for d/c home on eliquis
Due for xgeva today, hypocalcemia precludes dosing - will postpone until next week
Increase calcium supplement to BID (from daily), d/w patient and
continue to hold capmatinib however suspect infiltrate due to infarct, less likely drug induced pneumonitis vs. infection. He will see Dr Cohen 01/12 and they can discuss when to resume.
Impression
Impression
- Submassive PE
- LLE DVT
- stage IV lung cancer
- bone metastases
- hypocalcemia
Plan
Plan
for d/c home on eliquis
Due for xgeva today, hypocalcemia precludes dosing - will postpone until next week
Increase calcium supplement to BID (from daily), d/w patient and
continue to hold capmatinib however suspect infiltrate due to infarct, less likely drug induced pneumonitis vs. infection. He will see Dr Cohen 01/12 and they can discuss when to resume.
Subjective/Objective
Subjective/Objective
feeling better, off O2
eager to go home
recently started calcium 600mg/d, does not note constipation
Vital Signs:
Vital Signs
Temp Pulse Resp BP Pulse Ox
98.4 F 94 18 118/71 94
01/11/25 07:30 01/11/25 07:30 01/11/25 07:30 01/11/25 07:30 01/11/25 07:30
Lab Results:
Laboratory Data
WBC 6.6 10^3/uL (4.8-10.8) 01/11/25 06:18
Hgb 11.2 g/dL (13.0-18.0) L 01/11/25 06:18
Plt Count 264 10^3/uL (130-400) 01/11/25 06:18
APTT 63.3 Sec (23.4-35.0) H 01/11/25 06:18
eGFR > 60.00 01/11/25 06:18
--- NOTE | 2025-01-11 11:08 | W.PN.HOSP.TC ---
Addendum entered and electronically signed by Mena Hansen MD 01/11/25 13:06:
I saw and evaluated the patient independently. I reviewed the resident�s note and agree with findings and plan as documented by Dr. Huerta.
GENERAL: well developed, well nourished, male in no apparent distress
HEENT: NC/AT--O2 NC in place
HEART: regular rate and rhythm, +S1, +S2
LUNGS : clear to auscultation bilaterally
ABDOM: soft, nontender, nondistended, + bowel sounds
EXT: no cyanosis, clubbing, or edema
NEUROLOGIC: grossly intact
acute hypoxemic respiratory insufficiency--due to combination of acute Bilateral acute pulmonary thromboembolism with moderate to large clot burden/mild heart strain and likely pulm infarcts--PERT alert called--no role for lytic therapy--cont O2
support 2L, wean as able--no need for home O2--now on [employer] with $0 co-pay--ECHO noted, no significant heart strain--US left leg positive for DVT--apprec pulm input--stop ABX, less likely PNA more likely pulm infarcts--OK for d/c
SIRS (POA by criteria) due to PE, pulm infarcts--Recent Right upper lobe pneumonia 3 days [employer] was placed on oral Augmentin but in retrospect likely pulm infarct--stopped vanco/cefepime--cultures all neg--COVID/FLU neg--Hold Tabrecta in setting of
pneumonia/sepsis
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
neck-Started chemotherapy with Tabrecta 200 mg twice daily on 12/03/2024 now on HOLD--apprec onc
Presumed Type II NV secondary to right heart strain from bilateral PE--troponin peaked at 0.9 and decreased-- ECHO as above
Hypocalcemia due to Xgeva--s/p Calcium gluconate 1000 mg now, follow calcium level--Hold Xgeva--increase outpt dosing to BID
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
DVT proph--on IV heparin to Eliquis
Code status --Full code
Original Note:
Today's Communication/Plan
-
Patient to be discharged today and will follow-up with pulmonology, hematology/oncology and PCP in outpatient setting. Will continue anticoagulation with Eliquis
Assessment / Plan
Assessment / Plan
Assessment:
69-year-old male with a past medical history of adenocarcinoma of the lung diagnosed on 10/25/2024 on Xgeva and Tabrecta with metastasis to sternum status post radiation, hypercalcemia secondary to Xgeva presented to the [facility] ED on
01/07/2025 due to recent shortness of breath, dyspnea on exertion, pleuritic chest pain and left ankle swelling for the past few days. He had been diagnosed with pneumonia 3 days earlier and was started on antibiotic treatment. In the ED patient
was found to have acute pulmonary thromboembolism along with left lower extremity DVT that was seen on ultrasound. Patient was started on anticoagulation therapy with heparin and his antibiotics were stopped. Currently patient has been doing much
better and his shortness of breath is much improved. Patient to be discharged home today and will follow-up with oncology, pulmonology and primary care for further follow-up.
CT Chest PE Study (01/07/2025):
Positive for bilateral acute pulmonary thromboembolism with a moderate to large clot burden.
Mild right heart strain.
Worsening metastatic mediastinal and bilateral hilar lymphadenopathy compared to the chest CT from 10/19/2024. Mildly increased size of the thick-walled cavitary right hilar lung cancer.
Bilateral pneumonia, greatest in the right upper lobe.
Small right pleural effusion.
Lytic and sclerotic metastasis of the inferior sternum. Fluid collection versus necrotic metastatic disease right lateral to the inferior sternum at the costochondral junction.
Echocardiogram (01/10/2025):
Enlarged right ventricular size.
Low normal right ventricular systolic function.
Mild to moderate tricuspid regurgitation.
Estimated PASP 35-40 mmHg and RA 3 mmHg.
LVEF 60-65% with normal LV wall motion.
No pericardial effusion.
No prior study available for comparison.
Plan:
# Acute hypoxemic respiratory insufficiency
-Secondary to acute bilateral pulmonary thromboembolism leading to moderate to large clot burden causing mild heart strain and pulmonary infarcts
-Lytic therapy not suggested at this time
-Case management able to find [facility] [employer] [facility] for him, covered by insurance
-Patient weaned off of supplemental oxygen, on room air
-Patient underwent echocardiogram, results as above
-Showed enlarged ventricular size most likely secondary to large clot burden causing mild heart strain
-Patient transition from heparin drip to oral Eliquis this morning, we will continue loading dose of 10 mg twice daily for 1 week then transition to 5 mg twice daily
# SIRS (POA by criteria) most likely secondary to PE, pulmonary infarct
-Patient was diagnosed with upper lobe pneumonia 3 days before coming to the emergency department but patient most likely did not have pneumonia but instead had pulmonary infarcts
-Patient's antibiotics were stopped
-Cultures were negative
-COVID, flu were negative
-Patient's chemo medications were held
# History of adenocarcinoma of the right lung with mets to sternum, C-spine, left hip, left lung
-Most likely the cause of his hypercoagulable state
-Patient was started with chemotherapy with Tabrecta which is now on hold
-Hematology/Oncology was consulted, input appreciated
-Patient was due for Xgeva today, due to his hypocalcemia it was postponed till next week
-Patient has outpatient follow-up with Dr. Feldman on 01/12, will discuss when to resume chemotherapy at that time
# Possible type II NV secondary to right heart strain from bilateral PE
-Troponins peaked at 0.9 and trending down
-Echocardiogram results showed enlarged right ventricular size possibly secondary to the large clot burden
# Hypocalcemia
-Most likely secondary to therapy with Xgeva
-Holding Xgeva, follow calcium levels and replete with calcium gluconate
-Increase calcium supplement to twice daily from daily as per hematology
# Hyponatremia
-Most likely secondary to malignancy, SIADH
-Continue monitoring
DVT prophylaxis: Eliquis
Full code
Anticipated Discharge: Today
Subjective/Interval History
-
Date of Service: January 11, 2025
Patient has been feeling well, only complaining of his left lower extremity swelling. Describes that he has some sternal pain as well which has been consistent. On room air now and able to ambulate well without need of oxygen
Objective Data
-
Labs:
Laboratory Results
01/11/25
06:18
WBC 6.6
Hgb 11.2 L
Hct 32.5 L
Plt Count 264
APTT 63.3 H
Sodium 135
Potassium 4.2
Chloride 104
Carbon Dioxide 25
BUN 14
Creatinine 0.6 L
Glucose 94
Calcium 7.4 L
Total Bilirubin 0.6
AST 27
ALT 35
Alkaline Phosphatase 123
Vital Signs:
Vital Signs
Temp Pulse Resp BP Pulse Ox
98.4 F 94 18 118/71 94
01/11/25 07:30 01/11/25 07:30 01/11/25 07:30 01/11/25 07:30 01/11/25 07:30
I&O
01/10/25 01/11/25 01/12/25
06:59 06:59 06:59
Intake Total 960 / 960 1920 / 1920
Output Total 850 / 850 400 / 400
Balance 110 / 110 1520 / 1520
Review of Systems
-
History Source: Patient
Constitutional: Denies Fever, Fatigue or Chills
EENT: Reports No Symptoms Reported
Respiratory: Denies Cough, Trouble Breathing or Wheezing
Cardiac: Denies Chest Pain, Palpitations or Syncope
Abdomen/GI: Denies Abdominal Pain, Nausea or Vomiting
Musculoskeletal: Reports Edema
Skin: Reports No Symptoms
Neuro: Denies Headache or Lightheadedness
Physical Exam
-
General: Well Developed, Well Nourished and No Apparent Distress
HEENT: Normocephalic and Atraumatic
Respiratory: Clear to Auscultation and Non Labored Respirations; Negative Wheezes
Cardiac: Regular Rhythm and S1/S2
GI: Soft, Nontender and Nondistended
Musculoskeletal: No Clubbing, No Cyanosis and Edema, Left Lower Extrem
Skin: Warm
Neuro: Awake, Alert and Oriented
Psych: Calm
Data Reviewed
-
Labs: Labs Reviewed by me, Discussed with Physician, Discussed with Nurse, Discussed with Patient and Discussed with Family
--- NOTE | 2025-01-11 11:56 | W.PN.PUL3 ---
Today's Communication / Plan
-
Transition to Eliquis
Okay with light walking at home
Avoid strenuous exercising
Outpatient pulmonary follow-up, will need radiographic follow-up. Will need repeat echocardiogram in 3 months.
Discharge planning
Sign off
Assessment
-
Very pleasant 60 narrowed gentleman presented to the emergency room with shortness of breath. Patient reported that it started few days ago and he had an x-ray performed on Friday which was suspicious for developing right upper lobe pneumonia. He
was started on Augmentin and was told to hold his oral chemo, Tabrecta for concern of pneumonia/pneumonitis. Patient did not notice any change in his symptoms after starting Augmentin rather reported continued worsening shortness of breath. He
denies any significant cough or expectoration however. In the emergency room he was noted to have bilateral submassive PE with mild right heart strain and mild hypoxia. PERT team was activated and based on elevated biomarkers and RV strain,
interventional radiology evaluation was recommended for possible catheter directed therapies. After IR evaluation, patient was not felt to be a candidate for intervention and he was started on heparin and admitted to the hospital. Pulmonary
consultation was requested for further recommendations.
Patient was incidentally found to have a lung mass noted in September 2024. Subsequent bronchoscopy and biopsy in October 2023 showed moderately differentiated adenocarcinoma and patient has been on targeted chemotherapy since. Patient also noted
to have spinal mets which have been treated with focused radiation therapy.
#1. Acute bilateral submassive pulmonary embolism along with left lower extremity DVT. Suspect related to underlying malignancy. Patient had evidence of right heart strain and mild troponin leak. PERT team was activated in the emergency room and
patient noted to have intermediate high risk with RV strain and troponin leak. Interventional radiology evaluation was recommended to consider for catheter directed therapies. After review by interventional radiologist, patient was not felt to be
an appropriate candidate due to relatively mild RV strain and hemodynamic stability and concern for worsening metastatic disease. Patient has been on anticoagulation since.
Echocardiogram 01/10/2025: Normal LVEF. Dilated right ventricle. Low normal right ventricular systolic pressure. Mild to moderate TR.
-Remains hemodynamically stable, not tachycardic. Oxygen has been weaned off 01/11/2025
-Lower extremity Dopplers 01/08/2025: Extensive left lower extremity DVT. No evidence for deep venous thrombosis on the right.
-To be transition to Eliquis
Will need outpatient pulmonary follow-up to assure clearance of infiltrates versus improvement of RV.
#2. History of metastatic adenocarcinoma lung, diagnosed in October 2024. Biomarkers noted:EGFR amplification as well as MET exon 14 skipping, with PD-L1 at 10%, moderately differentiated adenocarcinoma, non-small cell lung cancer.
-Patient follows up with Dr. Cohen at [facility], has been on Tabrecta, follow-up appointment scheduled for 01/12
-History of spinal mets, s/p radiation, and denosumab therapy
-CT scan concerning for worsening disease with fluid collection versus necrotic metastatic disease right lateral to the inferior sternum at costochondral junction
-Continue outpatient [id number] need radiographic follow-up in the outpatient setting.
#3. Right upper lobe infiltrates/mild left-sided infiltrates:
-Differential diagnosis include Tabrecta related pneumonitis, infectious pneumonia, early changes of pulmonary infarction vs lymphangitic spread of tumor.
-Patient is currently afebrile, has a normal white count and does not report any productive cough. He was treated with Augmentin as an outpatient without significant change in his symptoms-less likely infection.
-Doubt this is infectious pneumonia, monitor off antibiotics, jennifer negative procalcitonin. Influenza screen negative. Legionella and pneumococcal antigen negative. Influenza screen negative. Blood cultures have stayed negative. More suggestive of
pulmonary infarcts versus lymphangitic spread.
-Continue to hold Tabrecta-this could be readdressed in the outpatient setting with Dr. Cohen - oncology correspondence reviewed
-Oxygen has been weaned off.
-If clinically patient deteriorates, will treat for drug-induced pneumonitis with steroids-hold for now.
I reviewed with discharge planning.
Sign off
Data:
CT Chest 12/2024: Positive for bilateral acute pulmonary thromboembolism with a moderate to large clot burden. Mild right heart strain.
Worsening metastatic mediastinal and bilateral hilar lymphadenopathy compared to the chest CT from 10/19/2024. Mildly increased size of the thick-walled cavitary right hilar lung cancer.
Bilateral pneumonia, greatest in the right upper lobe. Small right pleural effusion.
Lytic and sclerotic metastasis of the inferior sternum. Fluid collection versus necrotic metastatic disease right lateral to the inferior sternum at the costochondral junction.
Venous Dupplex:
1. Extensive left lower extremity DVT as described.
2. No evidence of deep venous thrombosis in the right lower extremity as described above.
CT Chest 09/2024:
1. There is a cavitary, thick-walled lesion within the medial right lower lobe which extends into the right hilum which measures 4.1 x 3.5 x 3.7 cm. This is concerning for malignancy although cavitary pneumonia could appear similar. There is
associated mediastinal lymphadenopathy with a 1.3 cm subcarinal lymph node and a 1.2 cm left paratracheal lymph node.
Subjective Data
-
Date of Service:
Date of Service: January 11, 2025
Chief Complaint: Pulmonary Follow Up
Subjective:
No new pulmonary complaints.
Review of Systems
Cardiopulmonary: Dyspnea (none at rest)
GI: Abdominal Pain (n) and Nausea
Neuro: Headache
Objective Data
Data Reviewed
Vital Signs / I&O / Oxygen:
Vital Signs
Temp Pulse Resp BP Pulse Ox
98.4 F 94 18 118/71 94
01/11/25 07:30 01/11/25 07:30 01/11/25 07:30 01/11/25 07:30 01/11/25 07:30
Intake and Output
01/10/25 01/11/25 01/12/25
06:59 06:59 06:59
Intake Total 960 / 960 1920 / 1920
Output Total 850 / 850 400 / 400
Balance 110 / 110 1520 / 1520
SaO2 94
Nasal Cannula flow liters per 2
minute
Physical Exam
General: Comfortable
HEENT: Normocephalic
Cardiovascular: Regular Rhythm
Respiratory: Clear, Wheeze (n) and Non-Labored Respirations
GI: Soft and Non Distended
Neurology: Awake and Alert
Skin: Warm
Labs/Micro/Reports
Lab Data
01/11/25 06:18
01/11/25 06:18
Laboratory Results
01/11/25
06:18
APTT 63.3 H
Microbiology
01/07/25 23:24 Blood/Venous Blood Culture - Preliminary
No Growth in 72 hours- Final report to follow
01/07/25 23:24 Blood/Venous Blood Culture - Preliminary
No Growth in 72 hours- Final report to follow
01/08/25 12:30 Urine Streptococcus pneumoniae Antigen (M - Final
Negative for Streptococcus pneumoniae antigen.
A negative result does not exclude infection with
Streptococcus pneumoniae. Clinical correlation is
recommended.
01/08/25 12:30 Urine Legionella Urinary Antigen - Final
Negative for Legionella pneumophila Serogroup 1 antigen.
A negative result does not rule out the possiblity of
Legionella infection due to other serogroups or species of
Legionella. Clinical correlation is recommended.
01/08/25 11:23 Nose Nasal Screen MRSA (PCR) - Final
MRSA not detected - performed by PCR methodology.
--- NOTE | 2025-01-11 13:29 | CM ---
Patient seen at bedside with patient and physicians on [facility]. Patient for discharge home today, no VN or home O2 needed. Patient completed IMM and signed form placed on chart. CM will continue to follow for discharge planning needs.
Plan;home with follow up with PCP
[2025-01-11 13:49] VITALS: BP 128/74
--- NOTE | 2025-01-11 14:32 | W.DCSUMMARY ---
Addendum entered and electronically signed by Mena Hansen MD 01/11/25 14:56:
Read, reviewed, and agree. See same day progress note for additional details. Time spent coordinating care, DC planning, review of DC plan of care with resident, transition of care, review of records in EMR, med rec, consults, notes, d/w
consultants, nursing, family, and CM = 35 minutes
Original Note:
Discharge Summary
Discharge Data
Date of Admission: 01/07/25
Date of Discharge: 01/11/25
-
Pending Results: No
Hospital Course
Discharging Physician : Dr. Perfecto Huerta, Dr. Mena Hansen
�
Disposition�:�Home
�
Primary�care�physician�: Dr. Francisco Clarke
�
Principal�Discharge�Diagnosis�:�
Acute hypoxemic respiratory insufficiency secondary to acute bilateral pulmonary thromboembolism with moderate to large clot burden and likely pulmonary infarcts
�
Chronic�Discharge�Diagnosis:�
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
Presumed type II CO secondary to right heart strain from bilateral PE
Hyponatremia
Hypocalcemia
Hospital�Course�:��
69-year-old male with a past medical history of adenocarcinoma of the lung diagnosed on 10/25/2024 on Xgeva and Tabrecta with metastasis to sternum status post radiation and hypocalcemia secondary to Xgeva presented to the [facility] ED on
01/07/2025 due to recent shortness of breath, dyspnea on exertion, pleuritic chest pain and left ankle swelling for the past few days. He had been diagnosed with pneumonia 3 days earlier and was started on antibiotic treatment. In the ED patient
underwent CT chest PE study and was found to have acute pulmonary thromboembolism. He also underwent ultrasound of the lower left extremity that showed extensive DVT. Patient was started on anticoagulation therapy with heparin drip and his
antibiotics were stopped. Patient was also found to have type II CO secondary to right heart strain due to the pulmonary embolism. Patient was admitted for further workup and pulmonary and oncology were consulted. Patient was started on calcium
repletion due to his Hypocalcemia and started on IV fluids and oxygen support as needed. Patient required 2 L of oxygen at this time. As patient met sepsis POA by criteria he continued antibiotics with vancomycin/cefepime while awaiting cultures.
Patient was afebrile and had a normal white count and his symptoms were thought to be not due to infectious pneumonia. Patient's chemotherapeutic drugs capmatinib continued to be held. Patient was eventually transition from heparin to Eliquis and
was successfully weaned off of supplemental oxygen to room air. All respiratory cultures were negative for him and his shortness of breath and and symptoms of SIRS were thought to be due to pulmonary infarcts from his PE. Patient was medically
cleared for discharge with oral anticoagulation with Eliquis and not requiring any supplemental oxygen at home. Patient will continue loading dose of Eliquis at 10 mg twice daily for 1 week then followed by 5 mg twice daily. Patient will have to
double his calcium supplementation and wait to start his chemotherapy until he sees his heme/oncologist Dr. Cohen on 01/12/2025. Patient will also be following up with pulmonology in the outpatient setting due to his recent shortness of breath.
Patient also counseled to follow-up with PCP as well.
Important�imaging�findings�:��
CT Chest PE Study (01/07/2025):
Positive for bilateral acute pulmonary thromboembolism with a moderate to large clot burden.
Mild right heart strain.
Worsening metastatic mediastinal and bilateral hilar lymphadenopathy compared to the chest CT from 10/19/2024. Mildly increased size of the thick-walled cavitary right hilar lung cancer.
Bilateral pneumonia, greatest in the right upper lobe.
Small right pleural effusion.
Lytic and sclerotic metastasis of the inferior sternum. Fluid collection versus necrotic metastatic disease right lateral to the inferior sternum at the costochondral junction.
Echocardiogram (01/10/2025):
Enlarged right ventricular size.
Low normal right ventricular systolic function.
Mild to moderate tricuspid regurgitation.
Estimated PASP 35-40 mmHg and RA 3 mmHg.
LVEF 60-65% with normal LV wall motion.
No pericardial effusion.
No prior study available for comparison.
Procedure�findings�:��
US Periph Venous LOWER Ext Delfin (01/08/2025):
1. Extensive left lower extremity DVT as described.
2. No evidence of deep venous thrombosis in the right lower extremity as described above.
�
Discharge Plan
-
Patient Disposition: Home (Routine Discharge)
Discharge Diagnosis/Procedures: Acute hypoxemic respiratory insufficiency secondary to acute bilateral pulmonary thromboembolism with moderate to large clot burden and likely pulmonary infarcts
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
Presumed type II CO secondary to right heart strain from bilateral PE
Hyponatremia
Hypocalcemia
Diet: Regular
Activity: No restrictions
Driving Restrictions: As prior to admission
Bathing Restrictions: None
Specialty Instructions: Weigh Daily- Call MD for wt gain/loss 3 lbs overnight/5 lbs in 1 week
Referrals:
Brendan Cohen DO [Active] - 01/12/25
Daksha Hinojosa MD [Active] - in two to three weeks
Francisco Clarke MD [Family Provider] - in less than 1 week
Additional Discharge Medication Instructions: Follow-up with primary care physician within 1 week
Follow-up with oncologist Dr. Cohen for further management
Follow-up with pulmonology for further management
Take 10 mg Eliquis twice daily for 1 week. Followed up with Eliquis 5 mg twice daily
Increase calcium supplementation to twice a day
Xgeva postponed until next week
Continue to hold Tabrecta, will follow-up with Dr. Cohen for resuming the medication
Prescriptions:
New
Eliquis 5 mg Tablet
10 mg PO BID 7 Days Qty: 26 0RF
Eliquis 5 mg tablet
5 mg PO BID 30 Days Qty: 60 0RF
Rx Instructions:
Take 5 mg twice a day after completion of loading dose of 10 mg twice a day for 1 week
Continued
albuterol sulfate 90 mcg/actuation Hfa Aerosol Inhaler
2 puff INHALATION Q4H
Changed
calcium carbonate [Calcium 600] 600 mg calcium (1,500 mg) Tablet
600 mg PO BID Qty: 0 0RF
Held
Xgeva 120 mg/1.7 mL (70 mg/mL) Solution
120 mg SC Q4W
Hold Instructions: Hold until seen by oncologist
Tabrecta 200 mg Tablet
200 mg PO Q12H
Hold Instructions: Hold until seen by oncologist
Patient Comments:
01/07/25: DOCTOR INSTRUCTED PATIENT TO STOP TAKING TABRECTA WHILE ON AMOX-CLAV 500-125.
Discontinued
amoxicillin-pot clavulanate 500-125 mg Tablet
1 tab PO TID
Patient Comments:
01/07/25: ON 3RD DAY OF TREATMENT
Discharge Orders:
Discharge Patient (As Directed); Ordered 01/11/25
Ordered By: Perfecto Huerta
Discharge Date and Time
Discharge Date/Time: 01/11/25 14:30
Print Language: FRISIAN
== END 2025-01-11 14:30 | disposition home or self-care (01) | DRG 175 ==
LOC: 4 EAST ACU 23:44
PROVIDERS: Clinical Nurse Specialist Family Health; Registered Nurse; ADMITTING PHYSICIAN Hospitalist; ATTENDING PHYSICIAN Internal Medicine; CONSULT PHYSICIAN Internal Medicine; CONSULT PHYSICIAN Internal Medicine Hematology & Oncology; EMERGENCY PHYSICIAN Emergency Medicine; FAMILY PHYSICIAN Family Medicine
DX: I26.99 Other pulmonary embolism without acute cor pulmonale (principal); I21.A1 Myocardial infarction type 2; I82.402 Acute embolism and thrombosis of unspecified deep veins of left lower extremity; C34.01 Malignant neoplasm of right main bronchus; C79.51 Secondary malignant neoplasm of bone; E22.2 Syndrome of inappropriate secretion of antidiuretic hormone; C77.9 Secondary and unspecified malignant neoplasm of lymph node, unspecified; Z11.52 Encounter for screening for COVID-19; E83.51 Hypocalcemia; R09.02 Hypoxemia; R06.89 Other abnormalities of breathing; Z79.01 Long term (current) use of anticoagulants; Z79.899 Other long term (current) drug therapy; Z92.3 Personal history of irradiation
CPT/HCPCS: 71275; 80053; 80061; 83735; 83880; 84145; 84484; 85025; 85027; 85730; 87040; 87449; 87502; 87641; 87811; 87899; 93005; 93306; 93970; 94640; 97163; 97167; 97530; 97535; 99291; Q9967

== ENCOUNTER → 2025-03-09 08:05 | Outpatient (REF) | payer OTHER, SELFPAY | LOC: PET 08:05 | PROVIDERS: ATTENDING PHYSICIAN Internal Medicine Hematology & Oncology | DX: C34.31 Malignant neoplasm of lower lobe, right bronchus or lung (principal) | CPT/HCPCS: 78815; A9552 ==

== ENCOUNTER → 2025-04-25 14:18 | Outpatient (REF) | payer OTHER, SELFPAY | LOC: HWRAD 14:18 | PROVIDERS: ATTENDING PHYSICIAN Nurse Practitioner Primary Care; FAMILY PHYSICIAN Family Medicine | DX: C34.31 Malignant neoplasm of lower lobe, right bronchus or lung (principal); C79.51 Secondary malignant neoplasm of bone; I67.5 Moyamoya disease | CPT/HCPCS: 71046 ==

== ENCOUNTER 2025-05-02 21:12 | Inpatient (IN) | payer OTHER, SELFPAY ==
[2025-05-02] VITALS (9 sets, daily range): BP systolic 108–153; BP diastolic 72–103; BMI 25.3; BMI 24.9
[2025-05-02 16:05] LABS: Hematocrit 46.9 % (39.0-52.0); Hemoglobin 15.7 g/dL (13.0-18.0); Mean Corp Hgb Conc. 33.5 g/dL (33.0-37.0); Mean Corpuscular Volume 88.0 fL (80.0-94.0); Nucleated Red Blood Cells % 0 % (-); Platelet Count 354 10^3/uL (130-400); Red Cell Dist. Width 11.9 % (11.5-14.5)
[2025-05-02 16:19] LABS: ALT (SGPT) 16 U/L (0-50); AST (SGOT) 18 U/L (17-59); Albumin 3.3 g/dl (3.5-5.0); Alkaline Phosphatase 204 U/L (38-126); Blood Urea Nitrogen 11 mg/dl (9-20); Calcium 7.9 mg/dl (8.4-10.2); Carbon Dioxide 24 mmol/L (22-30); Chloride 104 mmol/L (98-107); Glucose 115 mg/dl (70-99); Potassium 4.9 mmol/L (3.5-5.1); Sodium 134 mmol/L (135-145); Total Protein 6.4 g/dl (6.3-8.2); eGFR > 60.00
--- NOTE | 2025-05-02 18:50 | ED.GENMED ---
History of Present Illness
General
Chief Complaint: Breathing Problem
Time Seen by Provider: 05/02/25 18:36
History of Present Illness
History of Present Illness:
69-year-old male presents to the emergency department for evaluation of shortness of breath and dry cough for the past several weeks. He states he has been treated with doxycycline for presumed pneumonia, had a chest x-ray 1 week ago that showed a
moderate pleural effusion as well as suspicion for hilar malignancy that was previously noted on imaging. He went for repeat imaging today as well as CT angiography to evaluate for possible recurrent PE despite Eliquis use, this revealed a
extensive right pleural effusion and thus was referred to the ED. He is anticoagulated on Eliquis.
Past History
Past History
ED Past Medical History: Cancer (lung)
ED Past Surgical History: None
Social History
Tobacco: Non-smoker
Alcohol: Occasional
Personal:
Living: with family
Review of Systems
Review of Systems
Allergies reviewed?: Yes
All Other Systems: ROS reviewed and negative except as documented in HPI and ROS
Phy Exam
Physical Exam
Physical Exam:
GEN: Well appearing, NAD, WDWN
HEENT: Oral mucosa moist, no scleral icterus
Cardiac: Tachycardic, regular
Lung: Mildly tachypneic, markedly diminished breath sounds R lung, clear L lung
MSK: No gross deformity or injuries
Skin: Good color, no pallor or jaundice, no rashes
Neuro: AO x3, moves all extremities freely
Psych: Calm, cooperative
Scores
Heart Failure Risk
Heart Failure Risk Score: Not Applicable
Course
Orders/Labs/Results
Orders:
Orders
05/02/25 15:25
Electrocardiogram (*1) Urgent
Reason for Study: Shortness of Breath
EKG- Treatment ONCE
05/02/25 15:46
Complete Blood Count/With Diff Urgent
Comprehensive Metabolic Panel Urgent
05/02/25 20:32
Admit/Transfer Patient As Directed
Co-Sign Provider:
Level of Care: Inpatient admission
Assign to:: IMU- Intermediate Care
Physician / Group: Kemal
Diagnosis: Large R Pleural Effusion / Lung Cancer
Reason for Hospitalization: Large R Pleural Effusion / Lung Cancer
Expected length of stay greater than two midnights?: Yes
ELOS- Estimated Length of Stay in days: 3
I certify the patient meets the requirements for IP care: Yes
PRN Pain Medication Management As Directed
May give lesser potent ordered pain med per pt: Yes
preference::
Protocol:: Medication orders for pain may be administered in a
manner that supports deferring to patient preference
when the pt is:
- Requesting an ordered lesser potent pain medication.
Least to most potent pain medications are defined
as: acetaminophen < NSAID < tramadol < opioids
(morphine, oxycodone, hydromorphone).
- Requesting a lesser dose of the same medication IF
ORDERED.
- Requesting a less intrusive route of administration
if both routes are prescribed by the provider (PO <
IV).
05/02/25 20:37
Code Status As Directed
Resuscitation Status: Full Code
Abnormal Lab Results
05/02/25
15:46
Abs Immat Gran (auto) 0.1 H 10^3/uL
(0-0.05)
Absolute Neuts (auto) 8.4 H 10^3/uL
(1.4-6.5)
Absolute Lymphs (auto) 0.6 L 10^3/uL
(1.2-3.4)
Absolute Monos (auto) 1.1 H 10^3/uL
(0.1-0.6)
Immature Gran % 0.6 H %
(0-0.5)
Neutrophils % 82.2 H %
(42.2-75.2)
Lymphocytes % 6.2 L %
(20.5-51.1)
Monocytes % 10.5 H %
(1.7-9.3)
Sodium 134 L mmol/L
(135-145)
Glucose 115 H mg/dl
(70-99)
Calcium 7.9 L mg/dl
(8.4-10.2)
Alkaline Phosphatase 204 H U/L
(38-126)
Albumin 3.3 L g/dl
(3.5-5.0)
05/02/25 15:46
05/02/25 15:46
Vital Signs
Initial and Last Documented VS:
Initial Vital Signs
Temp Pulse Resp BP Pulse Ox
98.0 F 115 22 140/103 98
05/02/25 15:19 05/02/25 15:19 05/02/25 15:19 05/02/25 15:19 05/02/25 15:19
Last Documented Vital Signs
Temp Pulse Resp BP Pulse Ox
98.0 F 112 26 129/87 96
05/02/25 15:19 05/02/25 21:15 05/02/25 21:15 05/02/25 21:00 05/02/25 21:15
MDM/Problems Addressed
MDM/Problems Addressed:
Patient has near-total opacification of the right hemithorax although he is stable at this time he is provided with supplemental oxygen for comfort. Requires admission to the hospital for thoracentesis and further monitoring particularly given his
anticoagulant use making invasive procedure more risky
Comment
Comment:
EKG independently interpreted by me shows a sinus tachycardia rate of 117 with no ischemic changes
*Pulse Oximetry
SaO2: 96
Oxygen Mode of Delivery: Room air
Patient hypoxic: no
*Critical Care Note
Total Time (30-74mins, 75-104mins- exclusive of procedures): Not Applicable
ED Attending Note
-
Portions of this chart may have been created with voice recognition software.� Occasional wrong word or��sound alike� substitutions may have occurred due to the inherent limitations of voice recognition software.
Discharge Plan
Departure
Patient Disposition: Admit
Date of Disposition: 05/02/25
Time of Disposition: 19:02
Admit to: Telemetry
Presentation/result/management discussed w/ accepting MD/DO: Hospitalist
Discharge Problem:
Pleural effusion
Interventions
Interventions:
*Risk Screen - Suicide Last Done: 05/02/25 15:19
*General Assessment Last Done: 05/02/25 18:36
*Neglect/Abuse Screening Last Done: 05/02/25 15:19
*ED- Fall Risk Assessment Last Done: 05/02/25 18:36
*ED COVID-19 Vaccine History Last Done: 05/02/25 18:36
ED- Cardiac Assessment Last Done: 05/02/25 18:32
ED- Pulmonary Assessment Last Done: 05/02/25 18:32
--- NOTE | 2025-05-02 20:07 | PHANOTE ---
05/02/2025, pt. gets Xgeva injection through [id number]; could not confirm w/ OID at time of interview.
--- NOTE | 2025-05-02 20:40 | HPS.HSE ---
Family Physician
-
Family Physician: Francisco Clarke
Chief Complaint
-
Cough, SOB
History of Present Illness
Patient is a 69y M with PMH significant for Stage IV adenocarcinoma of the lung who presents to ED complaining of cough and SOB. Patient states that his symptoms started about 2 weeks ago or so. He reports cough and dyspnea that is worse with
lying flat or with exertion. He reports discomfort in the RUQ of the abdomen. No N/V. No chest pain. No fevers / chills. Patient was seen by his PCP about one week ago and started on doxycycline for possible pneumonia. His last dose of this
was this AM. He states that he felt perhaps mildly improved - at least in terms of coughing.
He continued to complain of RUQ pressure and dyspnea however. Today he was sent for repeat CXR which showed large R pleural effusion. He was then sent for CT scan which showed the same and it was recommended that he present to the ED. Patient
states that his symptoms are better if he sits upright or lies on his R side.
He was last admitted here in December 2024 when he was diagnosed with bilateral pulmonary emboli and LLE DVT.
He has been on Eliquis since that time. His last dose was this AM.
Medical History
Past Medical History
Past Medical History: Reports Other
Additional Past Medical History:
Stage IV Adenocarcinoma of the Lung - was started on oral chemotherapy Tabrecta on 12/03/2024. s/p 5 radiation treatments to his sternum and cervical spine
Hypocalcemia from Xgeva
Bilateral Pulmonary Emboli
LLE DVT
Past Surgical History: Reports Other
Additional Past Surgical History:
Bronchoscopy with biopsy 10/25/2024, oral surgery
Social History
Tobacco: Non-smoker
Alcohol: Occasional
Drug: None
Personal:
Living: With Family
Employment: Retired
Family History
Family History: Other (No family history of cancer)
Allergies / Home Medications
Allergies reflects when Allergies were last updated in [facility].
Home Medications with original date entered in [facility]
Allergy/Medication List:
Allergies
Allergy/AdvReac Type Severity Reaction Status Date / Time
No Known Allergies Allergy Verified 05/02/25 15:24
Home Medications
apixaban 5 mg tablet (Eliquis) 5 mg PO BID 05/02/25
bisacodyl 5 mg tablet (Laxative (bisacodyl)) 10 mg PO DAILYPRN PRN constipation 05/02/25
calcium carbonate (Calcium 600) 600 mg PO BID 05/02/25
capmatinib 200 mg tablet (Tabrecta) 200 mg PO Q12H 05/02/25
denosumab 120 mg/1.7 mL (70 mg/mL) subcutaneous solution (Xgeva) 120 mg SC Q4W 05/02/25
doxycycline monohydrate 100 mg tablet 100 mg PO .SEE BELOW 05/02/25
Review of Systems
-
History Source: Patient
A 12 point ROS was completed and negative except as noted: Yes
Constitutional: Reports Fatigue; Denies Fever or Chills
EENT: Denies Sore Throat
Respiratory: Reports Cough and Trouble Breathing
Cardiac: Denies Chest Pain, Diaphoresis or Palpitations
Abdomen/GI: Reports Abdominal Pain; Denies Nausea, Vomiting or Diarrhea
: Denies Dysuria, Frequency or Flank Pain
Musculoskeletal: Reports Edema; Denies Joint Pain
Neurological: Denies Dizzy or Headache
Psych: Denies Depression or Anxiety
Physical Exam
Vital Signs
Vital Signs
Temp Pulse Resp BP Pulse Ox
98.0 F 112 22 136/91 97
05/02/25 15:19 05/02/25 20:15 05/02/25 20:15 05/02/25 20:00 05/02/25 20:15
Physical Exam
General: Other (69y M in mild distress due to cough / dyspnea.)
HEENT: Moist mucous membranes and PERRLA
Respiratory: Other (Markedly diminished breath sounds and dullness to percussion throughout the R lung. L is clear.)
Cardiac: S1/S2 and Tachycardia; No Murmur
GI: Soft, Non Tender, Non Distended and Normal Bowel Sounds
Musculoskeletal: No Clubbing, No Cyanosis and Other (LLE edema - chronic / unchanged since December per patient.)
Neuro: AO x 3
Laboratory Results
-
05/02/25 15:46
05/02/25 15:46
Laboratory Results
Total Bilirubin 0.8 mg/dl (0.2-1.3) 05/02/25 15:46
AST 18 U/L (17-59) 05/02/25 15:46
ALT 16 U/L (0-50) 05/02/25 15:46
Alkaline Phosphatase 204 U/L (38-126) H 05/02/25 15:46
Impression/Plan
-
A/P: Patient is a 69y M with PMH significant for lung cancer on chemotherapy who presents to ED complaining of cough / SOB.
Large Right Pleural Effusion
- Admit for further evaluation and treatment.
- Patient fairly comfortable at rest. Not hypoxemic.
- IR consulted for thoracentesis +/- chest tube placement in AM.
- Orders sent for fluid analysis - suspect malignant effusion given history.
- Follow for any new / worsening symptoms.
- Follow for clinical improvement s/p fluid removal.
Stage IV Adenocarcinoma of the Lung
- On chemotherapy at present.
- Recent imaging - including CT done today - suggests progression of R hilar mass.
- Oncology evaluation.
Bilateral Pulmonary Emboli
LLE DVT
- Diagnosed in December 2024.
- Imaging today without evidence of PE.
- Continue Eliquis - resume after thoracentesis tomorrow.
Hypocalcemia
- Secondary to chemotherapy.
- Continue calcium supplementation.
DVT Prophylaxis: On Eliquis
Code Status: Full
--- NOTE | 2025-05-02 22:35 | PTCARENOTE ---
Assumed care. Patient received from the ED via stretcher accompanied by RN. Patient ambulated and transferred self from stretcher to bed with mild-mod ABBOTT, HR tachy to 130s with activity. Sats 94-95% on RA. Left lung is clear. Right lung with
minimal air movement and very diminished t/o. S1S2 regular. Abdomen soft and NT. BRP with SBA, gait steady. Voids without difficulty. Positive pulses x 4 extremities, RLE edema 1+, LLE edema 2+. SL left FA #20, flushes easily with blood return. ST
on CM. CHG cloth bath complete with gown change, new monitor leads. Oriented to room. Bed in low and locked position, call garcia within reach. Denies pain when asked. Although SOB with activity, no c/o SOB at rest, no CP, no N/V. Advised patient NPO
after MN, verbalized understanding. Takes po fluids without s/sx of dysphagia.
[2025-05-02 22:42] LABS: Glucose - Point of Care 102 mg/dl (70-99)
[2025-05-03] VITALS (9 sets, daily range): BP systolic 98–149; BP diastolic 56–92; BMI 24.9; BMI 24.3
[2025-05-03] MEDS: NSS 1000 IV ×2 (02:06→16:41)
--- NOTE | 2025-05-03 03:00 | PTCARENOTE ---
Patient appears to be sleeping comfortably when left undisturbed. Respirations non labored, patient sleeping on right side as he says it's easier to breathe and more comfortable. Sats 94% on RA. No complaints offered.
[2025-05-03 06:13] LABS: Hematocrit 40.6 % (39.0-52.0); Hemoglobin 14.0 g/dL (13.0-18.0); Mean Corp Hgb Conc. 34.5 g/dL (33.0-37.0); Mean Corpuscular Volume 86.0 fL (80.0-94.0); Platelet Count 286 10^3/uL (130-400); Red Cell Dist. Width 12.0 % (11.5-14.5)
[2025-05-03 06:24] LABS: APTT 30.8 Sec (23.4-35.0); INR 1.20; PT 15.5 Sec (11.4-14.6)
[2025-05-03 06:46] LABS: Blood Urea Nitrogen 10 mg/dl (9-20); Calcium 7.1 mg/dl (8.4-10.2); Carbon Dioxide 23 mmol/L (22-30); Chloride 107 mmol/L (98-107); Estimated Creatinine Clearance 124 ml/min; Glucose 96 mg/dl (70-99); Potassium 4.4 mmol/L (3.5-5.1); Sodium 134 mmol/L (135-145); eGFR > 60.00
[2025-05-03 06:53] LABS: LDH 161 U/L (120-246); Total Protein 5.0 g/dl (6.3-8.2)
--- NOTE | 2025-05-03 07:24 | PTCARENOTE ---
Report given verbally to oncoming Whitney stevenson RN. Questions answered.
--- NOTE | 2025-05-03 07:31 | CON.ONC ---
Consultation
-
Date Consultation Requested: 05/02/25
Date Consultation Performed: 05/03/25
Performing Provider: Mariluz Alexandra MD
Impression
Impression
Large Right Pleural Effusion
- Thoracentesis completed this morning - 2000 cc serosanguineous fluid removed
- Orders have been placed for fluid analysis
Stage IV Adenocarcinoma of the Lung
- started on oral capmatinib on 12/03/2024
- s/p radiation to the sternum and cervical spine
- calcium supplementation and Xgeva
History of Bilateral Pulmonary Emboli (December 2024)
LLE DVT (December 2024)
- patient currently on apixaban 5mg
Plan
Plan
Thoracentesis fluid analysis pending
CT Chest 04/19 suggestive of progression of hilar mass. Given the current large pleural effusion and possible prior pneumonia infection, plan to keep patient on Tabrecta with out hold.
Patient scheduled to see Dr. Cohen outpatient next week.
Given serosanguineous fluid as reported by IR from the thoracentesis, plan to decrease the apixaban to 2.5 mg BID
Patient History
History of Present Illness
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 Patient's symptoms started 2 weeks ago. Patient was seen by his
PCP about 1 week ago and was started on doxycycline for possible pneumonia. Patient feels that his symptoms mildly improved. Patient had a
Chest X-ray 05/02/25 showed subtotal opacification of the RIGHT hemithorax likely secondary to enlarging pleural effusion.
CT chest 05/02/25 showed large pleural effusion significantly increased as well as progression of central malignancy and progression of right hilar/mediastinal/ lymphadenopathy in the interval since prior CT
Patient was advised to come to the ED.
Of note, patient had a recent admission in December 2024 for bilateral pulmonary emboli and a left lower extremity DVT. He has been on Eliquis since that time.
Patient was diagnosed with adenocarcinoma of the lung on 10/25/2024 and started on oral capmatinib on 12/03/2024. Patient also had 5 radiation treatments to both sternum and cervical spine.
Hypocalcemia on calcium supplement. Today 7.1
Today patient is seen at the bedside. Patient is lying on his right side as it is more comfortable for him. He complains of right sided pressure, but no chest pain or chest tightness. Patient does have a cough and SOB on exertion but not at rest.
Patient states his appetite has been worse in the last few weeks. Patient also noted new swelling in his left hand that started one week ago. Patient states he has baseline swelling in his left leg since the DVT in December. Patient denies any bone
pain. Patient denies other ROS.
Addendum: Saw patient again after thoracentesis was completed and he states he is feeling much better. He is sitting upright and is breathing easier. Patient is coughing. Patient denies any chest pain.
Past-Medical/Surgical History
Medical History
Stage IV Adenocarcinoma of the Lung
Hypocalcemia from Xgeva
Bilateral Pulmonary Emboli
LLE DVT
Surgical History
Bronchoscopy with biopsy 10/25/2024
oral surgery
Patient Medication
�Medication �Instructions �Recorded �Confirmed �Last Taken �Type
apixaban 5 mg tablet (Eliquis) 5 mg PO BID 05/02/25 05/02/25 05/02/25 History
bisacodyl 5 mg tablet (Laxative 10 mg PO DAILYPRN PRN constipation 05/02/25 05/02/25 05/02/25 History
(bisacodyl))
calcium carbonate (Calcium 600) 600 mg PO BID 05/02/25 05/02/25 2 Days Ago History
~04/30/25
capmatinib 200 mg tablet (Tabrecta) 200 mg PO Q12H 05/02/25 05/02/25 05/02/25 History
denosumab 120 mg/1.7 mL (70 mg/mL) 120 mg SC Q4W 05/02/25 3 Weeks Ago History
subcutaneous solution (Xgeva) ~04/11/25
doxycycline monohydrate 100 mg 100 mg PO .SEE BELOW 05/02/25 05/02/25 05/02/25 History
tablet
Active Medications
Generic Name Dose Route Start Last Admin
Trade Name Freq PRN Reason Stop Dose Admin
Acetaminophen 650 mg 05/03/25 00:56
Acetaminophen 325 Mg Tablet PO 05/31/25 00:55
Q4HPRN PRN
Mild Pain / Temp > 101
Albuterol Sulfate 2.5 mg 05/03/25 00:56
Albuterol Nebs 2.5 Mg/3 Ml Ampul INH
R Q4HPRN PRN
SOB
Protocol
Apixaban 5 mg 05/03/25 20:00
Apixaban (Eliquis) 5 Mg Tablet PO 05/31/25 19:59
BID IVANA
Calcium Carbonate 500 mg 05/03/25 08:00
Calcium Carbonate 500 Mg Tablet PO 05/31/25 07:59
BID IVANA
Hydromorphone HCl 0.5 mg 05/03/25 00:56
Hydromorphone 0.5 Mg/0.5 Ml Syringe IV 05/17/25 00:55
Q4HPRN PRN
Severe Pain
Sodium Chloride 1,000 mls @ 80 mls/hr 05/03/25 00:56 05/03/25 02:06
Nss IV 1,000 mls
[id number] IVANA Administration
Capmatinib [Tabrecta 200 mg 05/03/25 00:56
] 200 Mg Tablet Po PO 05/31/25 00:55
Q12h Q12H IVANA
Promethazine HCl/Codeine 5 ml 05/03/25 00:56
Promethazine (6.25 Mg)/Codeine (10 Mg) Syrup 5 Ml Cup PO 05/31/25 00:55
Q4HPRN PRN
Cough
Sodium Chloride 0 flush 05/03/25 01:00
Sodium Chloride 0.9% (Flush) Syringe IV 05/31/25 00:59
PER PROTOCOL IVANA
Review of Systems
-
History Source: Patient
Constitutional: Reports No Appetite
EENT: Reports Other ( occasional right ear swelling)
Respiratory: Reports Cough and Trouble Breathing
Cardiac: Reports No Symptoms
GI: Reports No Symptoms
: Reports No Symptoms
Skin: Reports No Symptoms
Neuro: Reports No Symptoms
Hematologic/Lymphatic: Reports Other (edema in LLE and LUE)
Psych: Reports No Symptoms
Physical Exam
-
General: Well Developed and Well Nourished
Cardiology: Normal Sinus Rhythm
Pulmonary: Other (Diminished breath sounds in R lung. L lung has normal breath sounds and is clear to auscultation.)
GI: Soft and Normal Bowel Sounds
Musculoskeletal: Edema. Left Upper Extrem (appreciable in hand) and Edema, Left Lower Extrem (chronic since December 2024)
Extremities: Pulses Present
Neurology: Other (AAOx3)
Skin: Warm and Dry
Psych: Calm and Intact Judgement/Insight
Labs
Lab Results
WBC 7.6 10^3/uL (4.8-10.8) 05/03/25 06:06
RBC 4.72 10^6/uL (4.70-6.10) 05/03/25 06:06
Hgb 14.0 g/dL (13.0-18.0) 05/03/25 06:06
Hct 40.6 % (39.0-52.0) 05/03/25 06:06
MCV 86.0 fL (80.0-94.0) 05/03/25 06:06
MCH 29.7 pg (27.0-31.0) 05/03/25 06:06
MCHC 34.5 g/dL (33.0-37.0) 05/03/25 06:06
RDW 12.0 % (11.5-14.5) 05/03/25 06:06
Plt Count 286 10^3/uL (130-400) 05/03/25 06:06
MPV 8.5 fL (7.4-10.4) 05/03/25 06:06
Abs Immat Gran (auto) 0.1 10^3/uL (0-0.05) H 05/02/25 15:46
Absolute Neuts (auto) 8.4 10^3/uL (1.4-6.5) H 05/02/25 15:46
Absolute Lymphs (auto) 0.6 10^3/uL (1.2-3.4) L 05/02/25 15:46
Absolute Monos (auto) 1.1 10^3/uL (0.1-0.6) H 05/02/25 15:46
Absolute Eos (auto) 0.0 10^3/uL (0-0.7) 05/02/25 15:46
Absolute Basos (auto) 0.0 10^3/uL (0-0.2) 05/02/25 15:46
Immature Gran % 0.6 % (0-0.5) H 05/02/25 15:46
Neutrophils % 82.2 % (42.2-75.2) H 05/02/25 15:46
Lymphocytes % 6.2 % (20.5-51.1) L 05/02/25 15:46
Monocytes % 10.5 % (1.7-9.3) H 05/02/25 15:46
Eosinophils % 0.1 % (0-6) 05/02/25 15:46
Basophils % 0.4 % (0-2) 05/02/25 15:46
Creatinine 0.6 mg/dL (0.7-1.3) L 05/03/25 06:05
Vital Signs
Vital Signs
Temp Pulse Resp BP Pulse Ox
97.9 F 102 22 98/67 95
05/03/25 03:09 05/03/25 06:00 05/03/25 06:00 05/03/25 04:00 05/03/25 06:00
--- NOTE | 2025-05-03 08:15 | W.PN.HOSP.TC ---
Addendum entered and electronically signed by Mena Hansen MD 05/03/25 15:10:
I saw and evaluated the patient independently. I reviewed the resident�s note and agree with findings and plan as documented by Dr. Ag.
GENERAL: well developed, well nourished, male in no apparent distress
HEENT: NC/AT--no O2 requirements
HEART: regular rate and rhythm, +S1, +S2
LUNGS : decreased BS right lower 1/2 lung (s/p thoracentesis)
ABDOM: soft, nontender, nondistended, + bowel sounds
EXT: no cyanosis, clubbing--edema left leg
NEUROLOGIC: grossly intact
Large Right Pleural Effusion--likely exudative from Stage IV lung adenocarcinoma--s/p thoracentesis 2L--studies pending--not likely to be infected--resume Eliquis tonight
Stage IV Adenocarcinoma of the Lung--apprec onc--meds as per Dr. Alexandar--S/p radiation of sternum and cervical spine--CT from 05/02/2025 showed possible progression of Right hilar mass
Bilateral leg swelling--Concern for DVT given history of bilateral PE in 12/2024--etiologies also include cardiogenic origin or lymphedema--Ordered bilateral US of the lower extremities
History of Bilateral Pulmonary Emboli--CT scan from 05/02/2025 showed no evidence of current PE--Resume Eliquis after thoracocentesis
Hypocalcemia--Corrected calcium--7.66 (L)--check ionized calcium--cont supplementation
Chronic Constipation--Continue home meds (bisacodyl)
DVT proph
code status--FULL CODE
Original Note:
Today's Communication/Plan
-
Thoracocentesis today
Assessment / Plan
Assessment / Plan
Assessment:
This is a 69 y/o male with pmhx of stage IV adenocarcinoma of the lung who presented to the ED on 05/02/2025 with cough and shortness of breath over the last 2 weeks found to have a right sided pleural effusion.
Plan:
Large Right Pleural Effusion
-Likely secondary to Stage IV adenocarcinoma of the lung
-Patient without hypoxemia, fever, chills or productive cough. Low likelihood of pneumonia
-IR has been consulted for thoracocentesis which was completed just after I visited him with removal of 2L serosanguineous fluid. Pending fluid analysis
-Will continue to monitor for improved/worsened symptoms following thoracocentesis
Stage IV Adenocarcinoma of the Lung
-Patient following with outpatient oncology
-Patient currently on capmatinib (Started 12/03/2024)
-S/p radiation of sternum and cervical spine
-CT from 05/02/2025 showed possible progression of Right hilar mass
-Oncology is following
Bilateral leg swelling
-Concern for DVT given history of bilateral PE in 12/2024. DD also includes cardiogenic origin or lymphedema
-Ordered bilateral US of the lower extremities
History of Bilateral Pulmonary Emboli
-CT scan from 05/02/2025 showed no evidence of current PE
-Patient with current history of bilateral leg swelling (See above)
-Resume Eliquis after thoracocentesis
Hypocalcemia:
-Corrected calcium: 7.66 (L)
-Continue calcium supplementation
Chronic Constipation
-Continue home meds (bisacodyl)
Anticipated Discharge: 24 - 48 hours
Subjective/Interval History
-
Date of Service: May 03, 2025
Today he states that he feels short of breath when ambulating, and that at his baseline he is able to walk for at least a mile. Since the onset of symptoms, however, he has had shortness of breath with even just ambulating to the bathroom. His
shortness of breath is improved if he lies on his right hand side instead of flat on his back. He also reports a nonproductive cough. He denies any dizziness, chest pain, nausea, vomiting, diarrhea, chills, fever. He does report some fatigue, and
states this is mainly due to not feeling motivated to do things rather than weakness. He does have some ongoing swelling in his legs, Left more than Right.
Objective Data
-
Labs:
Laboratory Results
05/03/25 05/03/25
06:05 06:06
WBC 7.6
Hgb 14.0
Hct 40.6
Plt Count 286
PT 15.5 H
INR 1.20
APTT 30.8
Sodium 134 L
Potassium 4.4
Chloride 107
Carbon Dioxide 23
BUN 10
Creatinine 0.6 L
Glucose 96
Calcium 7.1 L
Vital Signs:
Vital Signs
Temp Pulse Resp BP Pulse Ox
97.9 F 102 22 98/67 95
05/03/25 03:09 05/03/25 06:00 05/03/25 06:00 05/03/25 04:00 05/03/25 06:00
I&O
05/02/25 05/03/25 05/04/25
06:59 06:59 06:59
Intake Total 520 / 520
Output Total 250 / 250
Balance 270 / 270
Review of Systems
-
History Source: Patient
Constitutional: Reports Fatigue; Denies Fever, No Appetite, Sleep Disturbance, Night Sweats or Chills
Respiratory: Reports Cough and Trouble Breathing; Denies Hemoptysis or Wheezing
Cardiac: Denies Chest Pain, Diaphoresis or Palpitations
Abdomen/GI: Denies Abdominal Pain, Nausea, Vomiting, Diarrhea or Constipated
Musculoskeletal: Denies Joint Pain or Muscle Pain
Neuro: Denies Dizzy, Headache, Weakness, Numbness or Lightheadedness
Physical Exam
-
General: Well Developed, Well Nourished, No Apparent Distress and Comfortable
HEENT: Normocephalic and Atraumatic
Respiratory: Clear to Auscultation (Left side ONLY) and Decreased Breath Sounds (Right, all lobes)
Cardiac: Regular Rhythm and S1/S2
GI: Soft and Nontender
Musculoskeletal: Edema, Right Lower Extrem and Edema, Left Lower Extrem
Skin: Warm and Dry
Neuro: Awake, Alert and AO x 3
Psych: Calm and Intact Judgement/Insight
[2025-05-03] MEDS: NON-FORMULARY ITEM 1 MG PO (09:15)
[2025-05-03] MEDS: OSCAL CAL 500 500 MG PO ×2 (09:57→20:10)
[2025-05-03 10:12] LABS: Body Fluid Second Tech ASW
--- NOTE | 2025-05-03 10:26 | PTCARENOTE ---
pt is awake and alert, NSR on monitor , dry non productive cough , 02 sat 96% on room air , lungs R very diminished , he was sent to IR for thoracentesis and had 2L drained , bandaide on R lat chest wall intact , at bedside , pt was seen by
hospitalist and oncology will be transferred to med/Surg level of care
--- NOTE | 2025-05-03 13:47 | CM ---
Initial assessment completed with patient with in room. Patient lives with in a 2 story home, they live on the 1st floor, no steps to enter. 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 No DME. No in-home services. No
HC-POA, AD documentation provided per patient request. No service. PCP is Dr. Francisco Clarke. Pharmacy is [facility] on [address] in [place]. Discharge POC: Anticipate home with no needs. Will follow to assess needs at discharge.
[2025-05-03] MEDS: NON-FORMULARY ITEM 200 MG PO (20:10)
[2025-05-03] MEDS: ELIQUIS 2.5 MG PO (20:10)
[2025-05-04] MEDS: NSS 1000 IV (05:39)
[2025-05-04 05:50] VITALS: BMI 24.7
[2025-05-04 07:00] VITALS: BP 127/85
--- NOTE | 2025-05-04 07:45 | W.PN.ONC ---
Today's Communication / Plan
-
Thoracentesis cytology pending
Difficult to assess status of his cancer (with large effusion, and comparing CT to prior PET)
Continue Tabrecta
Patient scheduled to see Dr. Cohen outpatient next week.
Given serosanguineous fluid, apixaban decreased to 2.5 mg BID
Impression
Impression
Large Right Pleural Effusion
- Thoracentesis completed yesterday - 1999 cc serosanguineous fluid removed
- Cytology pending
Stage IV Adenocarcinoma of the Lung
- started on oral capmatinib on 12/03/2024
- s/p radiation to the sternum and cervical spine
- calcium supplementation and Xgeva
History of Bilateral Pulmonary Emboli (December 2024)
LLE DVT (December 2024)
- apixaban decreased to 2.5 mg BID
Plan
Plan
Thoracentesis cytology pending
Difficult to assess status of his cancer (with large effusion, and comparing CT to prior PET)
Continue Tabrecta
Patient scheduled to see Dr. Cohen outpatient next week.
Given serosanguineous fluid, apixaban decreased to 2.5 mg BID
Subjective/Objective
Subjective/Objective
Patient seen at the bedside today. Patient is feeling well. He has some soreness in the right ribcage area s/p thoracentesis. Patient also still has a cough. Patient denies SOB. We discussed the need for incentive spirometer use. Patient denies any
bleeding. Patient denies all other ROS.
Physical:
General: AAOx3, not in acute distress
Cardiovascular: RRR
Respiratory: Normal breath sounds Left, decreased breath sounds in base of right lower lung
Extremeties: edema appreciated in left lower extremity chronic s/p DVT December 2024)
Vital Signs:
Vital Signs
Temp Pulse Resp BP Pulse Ox
98.5 F 100 18 135/86 95
05/03/25 23:04 05/03/25 23:04 05/03/25 23:04 05/03/25 23:04 05/04/25 01:27
Lab Results:
Laboratory Data
WBC 7.6 10^3/uL (4.8-10.8) 05/03/25 06:06
Hgb 14.0 g/dL (13.0-18.0) 05/03/25 06:06
Plt Count 286 10^3/uL (130-400) 05/03/25 06:06
PT 15.5 Sec (11.4-14.6) H 05/03/25 06:05
INR 1.20 05/03/25 06:05
APTT 30.8 Sec (23.4-35.0) 05/03/25 06:05
eGFR > 60.00 05/03/25 06:05
Orders
Orders
Orders From Last 24 Hours
05/03/25 20:00
Apixaban [Eliquis] 2.5 mg PO BID
--- NOTE | 2025-05-04 07:55 | W.PN.HOSP.TC ---
Addendum entered and electronically signed by Mena Hansen MD 05/04/25 15:38:
I saw and evaluated the patient independently. I reviewed the resident�s note and agree with findings and plan as documented by Dr. Ag.
GENERAL: well developed, well nourished, male uncomfortale
HEENT: NC/AT--no O2 requirements
HEART: regular rate and rhythm, +S1, +S2
LUNGS : decreased BS right lower 1/2 lung (s/p thoracentesis)
ABDOM: soft, nontender, nondistended, + bowel sounds
EXT: no cyanosis, clubbing--edema left leg
NEUROLOGIC: grossly intact
right sided chest pressure and SOB--sitting on the edge of the bed--STAT CXR still shows pleural effusion--consult IR for repeat thoracentesis--may need pleurX cath--consult pulm
Large Right Pleural Effusion--likely exudative from Stage IV lung adenocarcinoma--s/p thoracentesis 2L--no infection--cytology pending
Stage IV Adenocarcinoma of the Lung--apprec onc--meds as per Dr. Alexandra--S/p radiation of sternum and cervical spine--CT from 05/02/2025 showed possible progression of Right hilar mass
Bilateral leg swelling--Concern for DVT given history of bilateral PE in 12/2024--etiologies also include cardiogenic origin or lymphedema-- bilateral US shows chronic appearing LLE DVT
History of Bilateral Pulmonary Emboli--CT scan from 05/02/2025 showed no evidence of current PE--Resume Eliquis after thoracentesis
Hypocalcemia---check ionized calcium--cont supplementation
Chronic Constipation--Continue home meds (bisacodyl)
DVT proph
code status--FULL CODE
Original Note:
Today's Communication/Plan
-
STAT X-ray
Assessment / Plan
Assessment / Plan
Assessment:
This is a 69 y/o male with pmhx of stage IV adenocarcinoma of the lung who presented to the ED on 05/02/2025 with cough and shortness of breath over the last 2 weeks found to have a right sided pleural effusion.
Plan:
Large Right Pleural Effusion
-Most likely secondary from Stage IV Adenocarcinoma of the [place]
-Per thoracentesis studies 05/03/2025: Protein ratio 0.57, LDH ratio 15.14, Exudative
-Unlikely to be infective as patient is without hypoxemia, fevers, chills, or productive cough
-Eliquis has been held since this morning
-Patient with NEW chest pressure similar to original concern leading up to his hospitalization.
-Ordered Chest X-ray Stat, EKG
-Consulted Pulmonology. Will appreciate their insight into his case.
-Patient may also need repeat thoracentesis in the future as an outpatient
-Will continue to monitor for improved/worsened symptoms following thoracocentesis
Stage IV Adenocarcinoma of the Lung
-Patient following with outpatient oncology
-Patient currently on capmatinib (Started 12/03/2024)
-S/p radiation of sternum and cervical spine
-CT from 05/02/2025 showed possible progression of Right hilar mass
-Oncology is following
Bilateral leg swelling
-Concern for DVT given history of bilateral PE in 12/2024. DD also includes cardiogenic origin or lymphedema
-Ordered bilateral US of the lower extremities
History of Bilateral Pulmonary Emboli
-CT scan from 05/02/2025 showed no evidence of current PE
-Patient with current history of bilateral leg swelling (See above)
-Resume Eliquis after thoracocentesis
Hypocalcemia:
-Continue calcium supplementation
-Patient will need repeat BMP 1 week from discharge to monitor calcium
Chronic Constipation
-Continue home meds (bisacodyl)
Anticipated Discharge: 24 - 48 hours
Subjective/Interval History
-
Date of Service: May 04, 2025
Patient was awake and doing well when I arrived. He reports not noticing any shortness of breath since his thoracentesis yesterday. He has gotten up and used the bathroom a few times since then without any shortness of breath, though he notes he has
not walked much further than that. We spent time reviewing what he should do if he feels shortness of breath or 'pressure' again, as well as why pleural effusions occur and how they can be medically managed.
Later when we were rounding, he reported new chest pressure in the right side of his chest. He reports that this current sensation is similar to the sensation he had prior to his presentation to the ED, which had been relieved by his thoracentesis.
Objective Data
-
Labs:
Laboratory Results
05/04/25
07:32
WBC Pending
Hgb Pending
Hct Pending
Plt Count Pending
Sodium Pending
Potassium Pending
Chloride Pending
Carbon Dioxide Pending
BUN Pending
Creatinine Pending
Glucose Pending
Calcium Pending
Vital Signs:
Vital Signs
Temp Pulse Resp BP Pulse Ox
98.5 F 100 18 135/86 95
05/03/25 23:04 05/03/25 23:04 05/03/25 23:04 05/03/25 23:04 05/04/25 01:27
I&O
05/03/25 05/04/25 05/05/25
06:59 06:59 06:59
Intake Total 520 / 520 1140 / 1140
Output Total 250 / 250
Balance 270 / 270 1140 / 1140
Review of Systems
-
History Source: Patient
Constitutional: Denies Fatigue, Chills or Weakness
Respiratory: Reports Cough; Denies Trouble Breathing
Cardiac: Reports Chest Pain (See HPI)
Abdomen/GI: Denies Abdominal Pain, Nausea, Vomiting, Diarrhea or Constipated
Musculoskeletal: Denies Joint Pain or Muscle Pain
Neuro: Denies Dizzy, Headache, Weakness, Numbness or Lightheadedness
Physical Exam
-
General: Well Developed, Well Nourished, No Apparent Distress and Comfortable
HEENT: Normocephalic and Atraumatic
Respiratory: Other (The right side has diminished breath sounds now only present in the right lower lobe. The left lung is clear to ausculation.)
Cardiac: Regular Rhythm and S1/S2
GI: Soft and Nontender
Musculoskeletal: Edema, Right Lower Extrem (Unchanged) and Edema, Left Lower Extrem (Unchanged)
Skin: Warm and Dry
Neuro: Awake, Alert and Oriented
Psych: Calm and Intact Judgement/Insight
[2025-05-04 07:58] LABS: Hematocrit 39.0 % (39.0-52.0); Hemoglobin 13.5 g/dL (13.0-18.0); Mean Corp Hgb Conc. 34.6 g/dL (33.0-37.0); Mean Corpuscular Volume 86.7 fL (80.0-94.0); Platelet Count 285 10^3/uL (130-400); Red Cell Dist. Width 12.1 % (11.5-14.5)
[2025-05-04] MEDS: OSCAL CAL 500 500 MG PO ×2 (08:08→20:00)
[2025-05-04] MEDS: NON-FORMULARY ITEM 200 MG PO ×2 (08:09→20:00)
[2025-05-04] MEDS: ELIQUIS PO (08:13)
[2025-05-04 08:24] LABS: Blood Urea Nitrogen 9 mg/dl (9-20); Calcium 7.4 mg/dl (8.4-10.2); Carbon Dioxide 26 mmol/L (22-30); Chloride 108 mmol/L (98-107); Estimated Creatinine Clearance 124 ml/min; Glucose 91 mg/dl (70-99); Potassium 4.2 mmol/L (3.5-5.1); Sodium 133 mmol/L (135-145); eGFR > 60.00
--- NOTE | 2025-05-04 11:22 | CM ---
CM following re: discharge planning.
Reviewed pt's chart, met with pt.
Per chart review, pt is treating for Large Right Pleural Effusion--likely exudative from Stage IV lung adenocarcinoma, s/p thoracentesis yesterday, on room air, continue supportive care.
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
D/C plan: home with anticipated no after care VN needs.
CM will follow with discharge plan updates as hospitalization progresses
[2025-05-04 13:42] VITALS: BP 151/93
--- NOTE | 2025-05-04 13:43 | PTCARENOTE ---
Pt rang call garcia and told PCT he was feeling SOB and right sided chest pressure. VSS, EKG taken, MD/residents made aware. Pt sent for stat CXR, no new orders at this time.
--- NOTE | 2025-05-04 14:38 | CON.PUL ---
Consultation
Consultation Request
Date/Time Consultation Requested: 05/04/25
Date/Time Consultation Performed: 05/04/25
Performing Provider: Lucas
Reason for Consultation: Effusion
Medical History
-
History of Present Illness:
Patient is a 69-year-old male with previous history of stage IV adenocarcinoma of the lung who presents to the ER with shortness of breath and cough. His symptoms started 2 weeks prior to admission which progressed to pressure in the chest. He had
a chest x-ray demonstrating very large right side effusion. He underwent thoracentesis which removed 2 L on 05/03/2025 this is felt to be presumed malignancy based on his prior history of stage IV adenocarcinoma. Path is still pending.
Past Medical History
Past Medical History: Other (see list below)
Social History
Tobacco: Non-smoker (Never)
Alcohol: None
Drug: None
Family History
Family History: Reviewed & Not Pertinent
Allergies / Home Medications
Allergies
Allergy/AdvReac Type Severity Reaction Status Date / Time
No Known Allergies Allergy Verified 05/02/25 15:24
Home Medications
�Medication �Instructions �Recorded �Confirmed �Last Taken �Type
apixaban 5 mg tablet (Eliquis) 5 mg PO BID Blood Clot 05/02/25 05/02/25 05/02/25 History
Prevention/Tx
bisacodyl 5 mg tablet (Laxative 10 mg PO DAILYPRN PRN constipation 05/02/25 05/02/25 05/02/25 History
(bisacodyl))
calcium carbonate (Calcium 600) 600 mg PO BID Supplement 05/02/25 05/02/25 2 Days Ago History
~04/30/25
capmatinib 200 mg tablet (Tabrecta) 200 mg PO Q12H Cancer 05/02/25 05/02/25 05/02/25 History
denosumab 120 mg/1.7 mL (70 mg/mL) 120 mg SC Q4W bone 05/02/25 05/04/25 3 Weeks Ago History
subcutaneous solution (Xgeva) ~04/11/25
doxycycline monohydrate 100 mg 100 mg PO .SEE BELOW 05/02/25 05/02/25 05/02/25 History
tablet Infection
Review of Systems
-
History Source: Patient
All other systems: Negative unless noted
Vitals / Labs / Diagnostic Testing
Vital Signs
Temp Pulse Resp BP Pulse Ox
97.9 F 108 20 151/93 97
05/04/25 13:42 05/04/25 13:42 05/04/25 13:42 05/04/25 13:42 05/04/25 13:42
Lab Data
05/04/25 07:32
05/04/25 07:32
Microbiology
05/03/25 09:05 Pleural Fluid Body Fluid Culture - Preliminary
No Growth After 18-24 Hours
05/03/25 09:05 Pleural Fluid Gram Stain - Preliminary
Diagnostic Testing:
Physical Exam
-
HEENT: Normocephalic, Anicteric and Moist Mucous Membranes
Cardiovascular: S1/S2 and Regular Rhythm
Respiratory: Clear (Decreased on R) and Non-Labored Respirations
GI: Soft, Non Distended and Non Tender
Neurology: Awake, Alert, Oriented and No Motor Deficits
Skin: Warm, Dry and Good Color
General: Comfortable and Other (NAD)
Assessment
-
Patient is a 69-year-old male with previous history of stage IV adenocarcinoma of the lung who presents to the ER with shortness of breath and cough. His symptoms started 2 weeks prior to admission which progressed to pressure in the chest. He had
a chest x-ray demonstrating very large right side effusion. He underwent thoracentesis which removed 2 L on 05/03/2025 this is felt to be presumed malignancy based on his prior history of stage IV adenocarcinoma. We are consulted for evaluation
05/04/2025.
Acute right sided large pleural effusion, presumed to be malignant
status post thoracentesis, 2 L removed 05/03/2025, path pending
Cough, shortness of breath with chest pressure
Stage IV adenocarcinoma
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
Stage IV Adenocarcinoma of the Lung - was started on oral chemotherapy Tabrecta on 12/03/2024.
s/p 5 radiation treatments to his sternum and cervical spine
Follows with Dr. Velarde as OP
Hypocalcemia from Xgeva
Bilateral Pulmonary Emboli
LLE DVT
Bronchoscopy with biopsy 10/25/2024
History of oral surgery
Colon polyps
Plan
No oxygen was needed on admission, currently saturating >90% on RA
Prior history of lung disease is noted including stage IV adenocarcinoma with right sided disease
CXR/CT obtained indicating large right-sided pleural effusion status post thoracentesis of 2 L, cytology pending
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
He would be eligible for ASEPT placement which I discussed extensively today which would be indicated for malignant pleural effusion
He would then be able to drain at home, we would have to arrange home care assistance as well
IR consult placed for possible BISHNU placement pending path
and patient are agreeable
Prior ECHO results are reviewed indicating stable function, RV dysf from PE
Mild PH noted as well
Unlikely related to HF, exudative pleural fluid
Will need outpatient pulmonary evaluation in our office for PFTs and 6MWT
Reviewed with patient
We will follow
Diagnostic Data
CXR 05/04/25- Dense opacification of the lower right hemithorax at least in part correlating with known moderate right pleural effusion without significant change. Tiny left pleural effusion.
No pneumothorax.
CT Chest 05/02/25- MARKED OPACIFICATION of a majority of the right hemithorax likely predominantly representing large pleural effusion significantly increased as well as progression of central malignancy and progression of right hilar/mediastinal/
lymphadenopathy in the interval since prior CT with only small volume aeration of small portion of right upper lobe now noted.
No findings to suggest pulmonary embolism within the main pulmonary arteries and left pulmonary artery branches. Evaluation of right pulmonary artery branches markedly limited by the subtotal opacification/malignancy/pleural fluid in the right
hemithorax. New small left pleural effusion.
Bony metastatic disease again seen, particularly involving the sternum.
CT Chest 12/2024: Positive for bilateral acute pulmonary thromboembolism with a moderate to large clot burden. Mild right heart strain.
Worsening metastatic mediastinal and bilateral hilar lymphadenopathy compared to the chest CT from 10/19/2024. Mildly increased size of the thick-walled cavitary right hilar lung cancer.
Bilateral pneumonia, greatest in the right upper lobe. Small right pleural effusion.
Lytic and sclerotic metastasis of the inferior sternum. Fluid collection versus necrotic metastatic disease right lateral to the inferior sternum at the costochondral junction.
CT Chest 09/2024: 1. There is a cavitary, thick-walled lesion within the medial right lower lobe which extends into the right hilum which measures 4.1 x 3.5 x 3.7 cm. This is concerning for malignancy although cavitary pneumonia could appear
similar. There is associated mediastinal lymphadenopathy with a 1.3 cm subcarinal lymph node and a 1.2 cm left paratracheal lymph node.
Reports and relevant images were personally reviewed.
PET/CT 03/09/25- 1. LARGE RIGHT LOWER LOBE LUNG CANCER invading the right hilum.
2. SEVERE METASTATIC MEDIASTINAL LYMPHADENOPATHY.
3. MULTIFOCAL DESTRUCTIVE LYTIC OSSEOUS METASTATIC DISEASE.
4. Mild bilateral metastatic supraclavicular lymphadenopathy.
5. Small right and minimal left pleural effusions.
6. Small round intramuscular metastasis or focus of inflammation in the right gluteus zachary muscle.
Venous Duplex:
1. Extensive left lower extremity DVT as described.
2. No evidence of deep venous thrombosis in the right lower extremity as described above.
ECHO 01/10/25- Enlarged right ventricular size. Low normal right ventricular systolic function. Mild to moderate tricuspid regurgitation. Estimated PASP 35-40 mmHg and RA 3 mmHg. LVEF 60-65% with normal LV wall motion. No pericardial effusion. No
prior study available for comparison.
Total time spent on this consultation __77__ minutes which includes review of history, physical exam, medications, laboratory data, personal review of imaging, extensive review of outpatient records, discussion with care team and respiratory therapy.
[2025-05-04 15:00] VITALS: BP 159/88
[2025-05-04] MEDS: ELIQUIS 2.5 MG PO (20:00)
[2025-05-04 23:15] VITALS: BP 135/88
[2025-05-05 07:00] VITALS: BP 153/93
[2025-05-05 07:31] LABS: Hematocrit 40.9 % (39.0-52.0); Hemoglobin 13.8 g/dL (13.0-18.0); Mean Corp Hgb Conc. 33.7 g/dL (33.0-37.0); Mean Corpuscular Volume 86.1 fL (80.0-94.0); Platelet Count 289 10^3/uL (130-400); Red Cell Dist. Width 12.1 % (11.5-14.5)
--- NOTE | 2025-05-05 07:32 | W.PN.HOSP.TC ---
Addendum entered and electronically signed by Mena Hansen MD 05/05/25 14:42:
I saw and evaluated the patient independently. I reviewed the resident�s note and agree with findings and plan as documented by Dr. Ag.
GENERAL: well developed, well nourished, male coughing with talking
HEENT: NC/AT--no O2 requirements
HEART: regular rate and rhythm, +S1, +S2
LUNGS : decreased BS right lung
ABDOM: soft, nontender, nondistended, + bowel sounds
EXT: no cyanosis, clubbing--edema left leg
NEUROLOGIC: grossly intact
Large Right Pleural Effusion--likely exudative from Stage IV lung adenocarcinoma although path pending--s/p thoracentesis 2L x 2--no infection--cytology pending--to return to IR Friday for Asept cath
Stage IV Adenocarcinoma of the Lung--apprec onc--meds as per Dr. Alexandra--S/p radiation of sternum and cervical spine--CT from 05/02/2025 showed possible progression of Right hilar mass
Bilateral leg swelling--Concern for DVT given history of bilateral PE in 12/2024--etiologies also include cardiogenic origin or lymphedema-- bilateral US shows chronic appearing LLE DVT
History of Bilateral Pulmonary Emboli--CT scan from 05/02/2025 showed no evidence of current PE--Resume Eliquis after thoracentesis
Hypocalcemia---cont supplementation
Chronic Constipation--Continue home meds (bisacodyl)
DVT proph
code status--FULL CODE
ok for d/c
Original Note:
Today's Communication/Plan
-
Possible second thoracentesis today
Assessment / Plan
Assessment / Plan
Assessment:
This is a 69 y/o male with pmhx of stage IV adenocarcinoma of the lung who presented to the ED on 05/02/2025 with cough and shortness of breath over the last 2 weeks found to have a right sided pleural effusion.
Plan:
Large Right Pleural Effusion
-Most likely secondary from Stage IV Adenocarcinoma of the Daljit
-Per thoracentesis studies 05/03/2025: Protein ratio 0.57, LDH ratio 15.14, Exudative
-Unlikely to be infective as patient is without hypoxemia, fevers, chills, or productive cough
-Patient with NEW chest pressure similar to original concern leading up to his hospitalization. Chest X-ray and EKG from 05/04/2025 after onset of chest pressure are unchanged from post-thoracentesis results on 05/03/2025
-Pulmonology and IR have been consulted, will appreciate their insight into his case
-Patient may also need repeat thoracentesis in the future as an outpatient
-Will continue to monitor for improved/worsened symptoms following thoracocentesis
Stage IV Adenocarcinoma of the Lung
-Patient following with outpatient oncology
-Patient currently on capmatinib (Started 12/03/2024)
-S/p radiation of sternum and cervical spine
-CT from 05/02/2025 showed possible progression of Right hilar mass
-Oncology is following
Bilateral leg swelling
-Concern for DVT given history of bilateral PE in 12/2024. DD also includes cardiogenic origin or lymphedema
-US bilateral lower extremities negative for DVT
-Will monitor for improved/worsening swelling
History of Bilateral Pulmonary Emboli
-CT scan from 05/02/2025 showed no evidence of current PE
-Patient with current history of bilateral leg swelling (See above)
-Continue Eliquis 2.5mg BID
Hypocalcemia:
-Continue calcium supplementation
-Patient will need repeat BMP 1 week from discharge to monitor calcium
Chronic Constipation
-Continue home meds (bisacodyl)
Anticipated Discharge: 24 - 48 hours
Subjective/Interval History
-
Date of Service: May 05, 2025
Patient was awake when I arrived. He reports that yesterday he noticed he was more short of breath when ambulating back and forth to the bathroom, and that this was accompanied by feeling 'off' sometimes. He denied any dizziness or feeling like the
room was spinning, and that the sensation resolved within a 1-2 minutes. It did take longer for his shortness of breath to resolve. He continues to endorse chest pressure similar to what he felt prior to his thoracentesis.
Objective Data
-
Labs:
Laboratory Results
05/05/25
06:56
WBC 6.5
Hgb 13.8
Hct 40.9
Plt Count 289
Sodium Pending
Potassium Pending
Chloride Pending
Carbon Dioxide Pending
BUN Pending
Creatinine Pending
Glucose Pending
Calcium Pending
Vital Signs:
Vital Signs
Temp Pulse Resp BP Pulse Ox
98.2 F 105 17 135/88 95
05/04/25 23:15 05/04/25 23:15 05/04/25 23:15 05/04/25 23:15 05/04/25 23:15
I&O
05/04/25 05/05/25 05/06/25
06:59 06:59 06:59
Intake Total 1140 / 1140 780 / 780
Balance 1140 / 1140 780 / 780
Review of Systems
-
History Source: Patient
Constitutional: Denies Chills or Weakness
Respiratory: Reports Cough and Trouble Breathing; Denies Wheezing
Cardiac: Reports Other (Chest pressure, not painful); Denies Chest Pain
Abdomen/GI: Denies Abdominal Pain, Nausea, Vomiting, Diarrhea or Constipated
Musculoskeletal: Denies Joint Pain or Muscle Pain
Neuro: Reports Other (See HPI); Denies Headache, Weakness, Numbness or Ataxia
Physical Exam
-
General: Well Developed, Well Nourished, No Apparent Distress and Comfortable
HEENT: Normocephalic and Atraumatic
Respiratory: Other (The left side of his chest was clear to auscultation. The right side was clear to auscultation for the upper lobe, but then diminished breath sounds that are unchanged since yesterday)
Cardiac: Regular Rhythm and S1/S2
GI: Soft and Nontender
Skin: Warm and Dry
Neuro: Awake, Alert and Oriented
Psych: Calm and Intact Judgement/Insight
[2025-05-05] MEDS: NON-FORMULARY ITEM 200 MG PO (07:42)
[2025-05-05] MEDS: ELIQUIS 2.5 MG PO (07:42)
[2025-05-05] MEDS: OSCAL CAL 500 500 MG PO (07:42)
--- NOTE | 2025-05-05 07:58 | W.PN.ONC ---
Today's Communication / Plan
-
Thoracentesis cytology pending
Difficult to assess status of his cancer (with large effusion, and comparing CT to prior PET)
Continue Tabrecta for now
Patient scheduled to see Dr. Cohen outpatient next week.
Given serosanguineous fluid, apixaban decreased to 2.5 mg BID
IR consult placed by Pulmonology for possible ASEPT placement pending path
Impression
Impression
Large Right Pleural Effusion
- Thoracentesis completed 05/03 - 1999 cc serosanguineous fluid removed
- Cytology pending
Stage IV Adenocarcinoma of the Lung on oral capmatinib since 12/03/2024, s/p radiation to the sternum and cervical spine
- CT Chest scan 05/02 concern for progression of central malignancy and progression of right hilar/mediastinal/ lymphadenopathy
History of Bilateral Pulmonary Emboli (December 2024) and LLE DVT (December 2024) on apixaban 2.5 mg BID
Plan
Plan
Thoracentesis cytology pending
Difficult to assess status of his cancer (with large effusion, and comparing CT to prior PET)
Continue Tabrecta for now
Patient scheduled to see Dr. Cohen outpatient next week.
Given serosanguineous fluid, apixaban decreased to 2.5 mg BID
IR consult placed by Pulmonology for possible ASEPT placement pending path
Subjective/Objective
Subjective/Objective
Patient seen today at the bedside. Patient is feeling well, but still coughing frequently. Patient also still has soreness from the thoracentesis. Patient denies all other ROS.
Physical Exam:
General: AAOx3, not in acute distress
Cardiovascular: RRR
Repiratory: Cough, clear breath sounds on L lung, decreased breath sounds on R
Abdomen: Soft, nontender
Extremities: slight edema appreciated in left LE and right hand
Vital Signs:
Vital Signs
Temp Pulse Resp BP Pulse Ox
98.2 F 105 17 135/88 95
05/04/25 23:15 05/04/25 23:15 05/04/25 23:15 05/04/25 23:15 05/04/25 23:15
Lab Results:
Laboratory Data
WBC 6.5 10^3/uL (4.8-10.8) 05/05/25 06:56
Hgb 13.8 g/dL (13.0-18.0) 05/05/25 06:56
Plt Count 289 10^3/uL (130-400) 05/05/25 06:56
PT 15.5 Sec (11.4-14.6) H 05/03/25 06:05
INR 1.20 05/03/25 06:05
APTT 30.8 Sec (23.4-35.0) 05/03/25 06:05
eGFR > 60.00 05/04/25 07:32
Orders
Orders
Orders From Last 24 Hours
05/04/25 08:13
Rx Incentive Spirometry [RESP] Routine
[2025-05-05 08:04] LABS: Blood Urea Nitrogen 11 mg/dl (9-20); Calcium 8.0 mg/dl (8.4-10.2); Carbon Dioxide 26 mmol/L (22-30); Chloride 108 mmol/L (98-107); Estimated Creatinine Clearance 124 ml/min; Glucose 92 mg/dl (70-99); Potassium 4.2 mmol/L (3.5-5.1); Sodium 133 mmol/L (135-145); eGFR > 60.00
--- NOTE | 2025-05-05 09:26 | W.PN.PUL3 ---
Today's Communication / Plan
-
Patient off floor, could not examine
Ok with ASEPT placement as OP, reviewed with
Discharge planning per team
Assessment
-
Patient is a 69-year-old male with previous history of stage IV adenocarcinoma of the lung who presents to the ER with shortness of breath and cough. His symptoms started 2 weeks prior to admission which progressed to pressure in the chest. He had
a chest x-ray demonstrating very large right side effusion. He underwent thoracentesis which removed 2 L on 05/03/2025 this is felt to be presumed malignancy based on his prior history of stage IV adenocarcinoma. We are consulted for evaluation
05/04/2025.
Acute right sided large pleural effusion, presumed to be malignant
status post thoracentesis, 2 L removed 05/03/2025, path pending
Cough, shortness of breath with chest pressure
Stage IV adenocarcinoma
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
Stage IV Adenocarcinoma of the Lung - was started on oral chemotherapy Tabrecta on 12/03/2024.
s/p 5 radiation treatments to his sternum and cervical spine
Follows with Dr. Velarde as OP
Hypocalcemia from Xgeva
Bilateral Pulmonary Emboli
LLE DVT
Bronchoscopy with biopsy 10/25/2024
History of oral surgery
Colon polyps
Plan
No oxygen was needed on admission, currently saturating >90% on RA
Prior history of lung disease is noted including stage IV adenocarcinoma with right sided disease
CXR/CT obtained indicating large right-sided pleural effusion status post thoracentesis of 2 L, cytology pending
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
He would be eligible for ASEPT placement which I discussed extensively today which would be indicated for malignant pleural effusion
He would then be able to drain at home, we would have to arrange home care assistance as well
IR consult placed for possible ASEPT placement pending path
and patient are agreeable
This can be done as OP--I reviewed this with
Prior ECHO results are reviewed indicating stable function, RV dysf from PE
Mild PH noted as well
Unlikely related to HF, exudative pleural fluid
Will need outpatient pulmonary evaluation in our office for PFTs and 6MWT
Discharge planning per team
Diagnostic Data
CXR 05/04/25- Dense opacification of the lower right hemithorax at least in part correlating with known moderate right pleural effusion without significant change. Tiny left pleural effusion.
No pneumothorax.
CT Chest 05/02/25- MARKED OPACIFICATION of a majority of the right hemithorax likely predominantly representing large pleural effusion significantly increased as well as progression of central malignancy and progression of right hilar/mediastinal/
lymphadenopathy in the interval since prior CT with only small volume aeration of small portion of right upper lobe now noted.
No findings to suggest pulmonary embolism within the main pulmonary arteries and left pulmonary artery branches. Evaluation of right pulmonary artery branches markedly limited by the subtotal opacification/malignancy/pleural fluid in the right
hemithorax. New small left pleural effusion.
Bony metastatic disease again seen, particularly involving the sternum.
CT Chest 12/2024: Positive for bilateral acute pulmonary thromboembolism with a moderate to large clot burden. Mild right heart strain.
Worsening metastatic mediastinal and bilateral hilar lymphadenopathy compared to the chest CT from 10/19/2024. Mildly increased size of the thick-walled cavitary right hilar lung cancer.
Bilateral pneumonia, greatest in the right upper lobe. Small right pleural effusion.
Lytic and sclerotic metastasis of the inferior sternum. Fluid collection versus necrotic metastatic disease right lateral to the inferior sternum at the costochondral junction.
CT Chest 09/2024: 1. There is a cavitary, thick-walled lesion within the medial right lower lobe which extends into the right hilum which measures 4.1 x 3.5 x 3.7 cm. This is concerning for malignancy although cavitary pneumonia could appear
similar. There is associated mediastinal lymphadenopathy with a 1.3 cm subcarinal lymph node and a 1.2 cm left paratracheal lymph node.
Reports and relevant images were personally reviewed.
PET/CT 03/09/25- 1. LARGE RIGHT LOWER LOBE LUNG CANCER invading the right hilum.
2. SEVERE METASTATIC MEDIASTINAL LYMPHADENOPATHY.
3. MULTIFOCAL DESTRUCTIVE LYTIC OSSEOUS METASTATIC DISEASE.
4. Mild bilateral metastatic supraclavicular lymphadenopathy.
5. Small right and minimal left pleural effusions.
6. Small round intramuscular metastasis or focus of inflammation in the right gluteus zachary muscle.
Venous Duplex:
1. Extensive left lower extremity DVT as described.
2. No evidence of deep venous thrombosis in the right lower extremity as described above.
ECHO 01/10/25- Enlarged right ventricular size. Low normal right ventricular systolic function. Mild to moderate tricuspid regurgitation. Estimated PASP 35-40 mmHg and RA 3 mmHg. LVEF 60-65% with normal LV wall motion. No pericardial effusion. No
prior study available for comparison.
Subjective Data
-
Date of Service:
Date of Service: May 05, 2025
Chief Complaint: Pulmonary Follow Up
Subjective:
Patient off floor for thora
at bedside
Objective Data
Labs/Micro/Reports
Lab Data
05/05/25 06:56
05/05/25 06:56
Microbiology
05/03/25 09:05 Pleural Fluid Body Fluid Culture - Preliminary
No Growth After 18-24 Hours
05/03/25 09:05 Pleural Fluid Gram Stain - Preliminary
--- NOTE | 2025-05-05 12:56 | VNURNOTE ---
Home Health Liaison met with patient and spouse at bedside to discuss [facility] nurse/therapy, visits, schedule and homebound status. Patient is agreeable and understands that visits at home will be 2-3 x per week to assess and teach medical/ pleural
drain management. Patient is aware that [facility] will contact them for start of care in 1-2 days after discharge from . Plan is for pt to DC today and return tomorrow for pleural drain placement. [facility] referral completed in Care Port.
--- NOTE | 2025-05-05 13:48 | VNURNOTE ---
Home Health Liaison met with patient and spouse at bedside to discuss [facility] nurse/therapy, visits, schedule and homebound status. Patient is agreeable and understands that visits at home will be 2-3 x per week to assess and teach medical/ pleural
drain management. Patient is aware that [facility] will contact them for start of care in 1-2 days after discharge from . At time of meeting, appears plan is for pt DC today and return tomorrow for pleural drain placement. [facility] remains available
if plan changes. [facility] referral completed in [facility] Port.
[2025-05-05 14:00] VITALS: BP 142/96; BP 156/97; BP_SYST 108
--- NOTE | 2025-05-05 14:03 | CM ---
Addendum entered by Tea Pastrana 05/05/25 14:40:
fax clinical information to [facility] [phone]
Original Note:
Patient seen at bedside with and physician on [address]. Patient plan is for discharge home with [facility] to follow for ASEPT cath care when placed, anticipated to be placed tomorrow per physician.
--- NOTE | 2025-05-05 14:53 | PTCARENOTE ---
pt to be set up for placement of asept catheter as an outpatient this coming wednesday 05/09. pre procedure instructions discussed with pt and , Asept teaching and home care information given and reviewed with pt and by Adrian Duran RTR. Case
management aware of plan and home care needs.
[2025-05-05 15:05] VITALS: BP 142/96
--- NOTE | 2025-05-05 18:29 | W.DCSUMMARY ---
Addendum entered and electronically signed by Mena Hansen MD 05/05/25 18:45:
Read, reviewed, and agree. See same day progress note for additional details. Time spent coordinating care, DC planning, review of DC plan of care with resident, transition of care, review of records in EMR, med rec, consults, notes, d/w
consultants, nursing, family, and CM = 35 minutes
Cytology on the pleural fluid is still pending.
Unfortunately, patient could not get the Asept catheter today because he ate a bagel 1 hour prior to him getting thoracentesis. Another 2 L was removed during thoracentesis today. Plans would be for him to return on Friday for another
thoracentesis with Asept catheter placement at that time.
Original Note:
Discharge Summary
Discharge Data
Date of Admission: 05/02/25
Date of Discharge: 05/05/25
-
Pending Results: No
Hospital Course
This is a 69 y/o male with pmhx of stage IV adenocarcinoma of the lung who presented to the ED on 05/02/2025 with cough and shortness of breath over the last 2 weeks. He reports the sensation feels like �pressure� and that he was not able to walk as
far as he could prior to onset of symptoms. He states he was seen by his PCP 1 week ago and started on doxycycline for possible pneumonia, but after finishing the antibiotic course on 05/02 he did not feel any significant improvement. He had a Chest
X-ray and CT Scan on 05/02/2025 which showed a right pleural effusion, so he came to the ED.
On 05/03/2025 he underwent a thoracentesis which yielded 2L of serosanguineous fluid. Analysis of this revealed a protein ratio of 0.57, LDH ratio of 15.14, and 721 WBC with 90.2% mononuclear cells consistent with an exudative process. His symptoms
improved, but on 05/04/2025 he reported pressure in his chest again similar to what he felt prior to his thoracentesis. EKG and X-ray were unchanged compared to the imaging obtained immediately after his thoracentesis. IR was consulted, and on
05/05/2025 another 2L of fluid was yielded. 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
Discharge Plan
-
Patient Disposition: Home (Routine Discharge)
Discharge Diagnosis/Procedures: Large Right Pleural Effusion, Stage IV Adenocarcinoma of the Lung, Bilateral leg swelling, History of Bilateral Pulmonary Emboli, Hypocalcemia, Constipation
Condition: Fair
Diet: No restrictions
Activity: No restrictions
Driving Restrictions: As prior to admission
Bathing Restrictions: None
Blood Work: BMP in 1 week
Referrals:
Swapnil Velarde MD [Active, Pulmonary Medicine]
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
Outpatient ASEPT placement
Francisco Clarke MD [Family Provider, [facility]] - in less than 1 week
Additional Discharge Medication Instructions: Your calcium levels were low during your admission. Please continue to take this, and check your BMP in 1 week following discharge.
Your new dose of Eliquis is 2.5 mg twice daily.
Please hold your dose of Eliquis prior to your next interventional radiology appointment as directed.
Prescriptions:
New
Eliquis 2.5 mg Tablet
2.5 mg PO BID Qty: 60 0RF
Continued
calcium carbonate [Calcium 600] 600 mg calcium (1,500 mg) Tablet
600 mg PO BID
Laxative (bisacodyl) 5 mg Tablet
10 mg PO DAILYPRN PRN (Reason: constipation)
Xgeva 120 mg/1.7 mL (70 mg/mL) Solution
120 mg SC Q4W
Patient Comments:
05/02/2025, pt. gets this injection through [place].
Tabrecta 200 mg Tablet
200 mg PO Q12H
Discontinued
doxycycline monohydrate 100 mg Tablet
100 mg PO .SEE BELOW
Patient Comments:
05/02/2025, pt. took last dose of this antibiotic today.
Eliquis 5 mg Tablet
5 mg PO BID
Discharge Orders:
Discharge Patient (As Directed); Ordered 05/05/25
Ordered By: Mena Hansen
Discharge Date and Time
Discharge Date/Time: 05/05/25 15:29
Print Language: FRENCH
== END 2025-05-05 15:29 | disposition home health service (06) | DRG 181 ==
LOC: 2 NORTH 21:12
PROVIDERS: Radiology Diagnostic Radiology; Radiology Vascular & Interventional Radiology; ADMITTING PHYSICIAN Hospitalist; ATTENDING PHYSICIAN Internal Medicine; CONSULT PHYSICIAN Internal Medicine; CONSULT PHYSICIAN Internal Medicine Hematology & Oncology; EMERGENCY PHYSICIAN Emergency Medicine; FAMILY PHYSICIAN Family Medicine
PROC: 0W993ZZ Drainage of Right Pleural Cavity, Percutaneous Approach (ICD-10-PCS; 2025-05-03)
DX: C34.31 Malignant neoplasm of lower lobe, right bronchus or lung (principal); C77.1 Secondary and unspecified malignant neoplasm of intrathoracic lymph nodes; J91.0 Malignant pleural effusion; C79.51 Secondary malignant neoplasm of bone; T45.1X5A Adverse effect of antineoplastic and immunosuppressive drugs, initial encounter; K59.09 Other constipation; I89.0 Lymphedema, not elsewhere classified; E83.51 Hypocalcemia; Z79.01 Long term (current) use of anticoagulants; Z87.01 Personal history of pneumonia (recurrent); Z86.718 Personal history of other venous thrombosis and embolism; Z86.711 Personal history of pulmonary embolism; Z92.21 Personal history of antineoplastic chemotherapy; Y92.9 Unspecified place or not applicable; Z92.3 Personal history of irradiation; Z86.0100 Personal history of colon polyps, unspecified
CPT/HCPCS: 32555; 71045; 71046; 71275; 80048; 80053; 82962; 83615; 84155; 84157; 85025; 85027; 85610; 85730; 87015; 87070; 87205; 88112; 88305; 88341; 88342; 89051; 93005; 93970; 99285; Q9967

== ENCOUNTER → 2025-05-09 09:14 | Outpatient (REF) | payer OTHER, SELFPAY ==
[2025-05-09] VITALS (11 sets, daily range): BP systolic 102–134; BP diastolic 77–93
[2025-05-09] MEDS: ANCEF 10 IV (10:23)
== END ==
LOC: RADI 09:14
PROVIDERS: ATTENDING PHYSICIAN Internal Medicine
DX: J90 Pleural effusion, not elsewhere classified (principal)
CPT/HCPCS: 32550; 99152; 99153; C1729; C1769

== ENCOUNTER → 2025-05-11 09:01 | Outpatient (REF) | payer OTHER, SELFPAY | LOC: RAD 09:01 | PROVIDERS: ATTENDING PHYSICIAN Internal Medicine Hematology & Oncology; FAMILY PHYSICIAN Family Medicine | DX: I82.621 Acute embolism and thrombosis of deep veins of right upper extremity (principal) | CPT/HCPCS: 93971 ==

== ENCOUNTER 2025-05-15 15:47 | Inpatient (IN) | payer OTHER, SELFPAY ==
[2025-05-15] VITALS (10 sets, daily range): BP systolic 123–146; BP diastolic 82–94; O2SAT 93–96
[2025-05-15 12:35] LABS: Hematocrit 43.1 % (39.0-52.0); Hemoglobin 14.6 g/dL (13.0-18.0); Mean Corp Hgb Conc. 33.9 g/dL (33.0-37.0); Mean Corpuscular Volume 84.8 fL (80.0-94.0); Nucleated Red Blood Cells % 0 % (-); Platelet Count 352 10^3/uL (130-400); Red Cell Dist. Width 12.5 % (11.5-14.5)
[2025-05-15 12:56] LABS: Blood Urea Nitrogen 11 mg/dl (9-20); Calcium 7.1 mg/dl (8.4-10.2); Carbon Dioxide 26 mmol/L (22-30); Chloride 100 mmol/L (98-107); Glucose 125 mg/dl (70-99); Potassium 4.3 mmol/L (3.5-5.1); Sodium 131 mmol/L (135-145); eGFR > 60.00
[2025-05-15 13:21] LABS: Troponin I 0.068 ng/ml
[2025-05-15] MEDS: DUONEB 3 ML INH ×2 (13:43→19:42)
--- NOTE | 2025-05-15 13:55 | ED.GENMED ---
History of Present Illness
General
Chief Complaint: Breathing Problem
Source: patient
Exam Limitations: none
Time Seen by Provider: 05/15/25 11:15
History of Present Illness
History of Present Illness:
69-year-old male complaining of increased shortness of breath and increased right-sided chest pain. History of stage IV lung CA. Shortness of breath progressive over the last 24 hours. Patient has a thoracentesis drained right chest. Drained
about 500 cc daily.
Past History
Past History
ED Past Medical History: Cancer (lung)
ED Past Surgical History: None
Social History
Tobacco: Non-smoker
Alcohol: Occasional
Personal:
Living: with family
Review of Systems
Review of Systems
All Other Systems: Not applicable
Constitutional: Denies fever
Respiratory: Reports trouble breathing
ABD/GI: Reports no symptoms
Phy Exam
Physical Exam
Physical Exam:
GENERAL: Alert and oriented in moderate distress on arrival. Borderline hypoxia. Mild tachypnea. Appears uncomfortable
EYE: Orbits normal.
NECK: Supple, no significant adenopathy.
ENT: Pharynx without erythema
CARDIAC: Regular rate and rhythm without any obvious murmurs.
LUNGS: Decreased breath sounds right base. Mild diffuse expiratory wheezing
ABDOMEN: Soft, without focal tenderness or distention
NEUROLOGICAL: Alert and oriented , grossly non-focal
SKIN: Warm and dry, no rash or lesion, no discoloration, skin intact.
MUSCULOSKELETAL: No edema,no deformity.Good color
PSYCH: Normal and appropriate interaction.
Scores
Heart Failure Risk
Heart Failure Risk Score: Not Applicable
Course
Orders/Labs/Results
Orders:
Orders
05/15/25 10:19
Electrocardiogram (*1) Urgent
Reason for Study: Shortness of Breath
EKG- Treatment ONCE
05/15/25 11:20
Cardiac Monitoring- Treatment ONCE
IV Insert/Care/Rem.- Treatment PRN
CR Chest Portable - 1 View Urgent
Comment:
Reason For Exam: sob
Reason Study Needs to be Portable: Patient Unstable
O2 Therapy [RESP] Stat
Titrate/Wean O2 to maintain O2 sat greater than (%): 94
Pulse Ox/cont/shift [RESP] Stat
Quantity: 1
05/15/25 12:30
Basic Metabolic Panel Urgent
Complete Blood Count/With Diff Urgent
NT-proBNP Urgent
Troponin I Urgent
05/15/25 13:36
Ipratropium/Albuterol Sulfate [Duoneb] 3 ml .ROUTE .STK-MED ONE
05/15/25 13:43
Ipratropium/Albuterol Sulfate [Duoneb] 3 ml INH R NOW ONE
05/15/25 14:24
Add On- LAB Urgent
Tests Added?: BNP
05/15/25 14:48
COVID-19 Antigen Urgent
Source: Nasal Swab
05/15/25 14:51
Admit/Transfer Patient As Directed
Co-Sign Provider:
Level of Care: Inpatient admission
Assign to:: Medical/Surgical
Physician / Group: Narda
Diagnosis: Bronchitis
Reason for Hospitalization: Nebs
Expected length of stay greater than two midnights?: Yes
ELOS- Estimated Length of Stay in days: 3
I certify the patient meets the requirements for IP care: Yes
05/15/25 14:52
PRN Pain Medication Management As Directed
May give lesser potent ordered pain med per pt: Yes
preference::
Protocol:: Medication orders for pain may be administered in a
manner that supports deferring to patient preference
when the pt is:
- Requesting an ordered lesser potent pain medication.
Least to most potent pain medications are defined
as: acetaminophen < NSAID < tramadol < opioids
(morphine, oxycodone, hydromorphone).
- Requesting a lesser dose of the same medication IF
ORDERED.
- Requesting a less intrusive route of administration
if both routes are prescribed by the provider (PO <
IV).
05/15/25 14:57
Code Status As Directed
Resuscitation Status: Full Code
05/15/25 15:03
CT Chest W/o Iv Contrast Routine
Comment:
Reason For Exam: cough, shortness of breath, possible occult pneumo
05/15/25 15:22
Troponin I Q6H
05/15/25 22:30
Troponin I Q6H
Abnormal Lab Results
05/15/25 05/15/25
12:30 15:22
WBC 12.1 H 10^3/uL
(4.8-10.8)
Abs Immat Gran (auto) 0.1 H 10^3/uL
(0-0.05)
Absolute Neuts (auto) 10.2 H 10^3/uL
(1.4-6.5)
Absolute Lymphs (auto) 0.5 L 10^3/uL
(1.2-3.4)
Absolute Monos (auto) 1.3 H 10^3/uL
(0.1-0.6)
Immature Gran % 0.6 H %
(0-0.5)
Neutrophils % 84.5 H %
(42.2-75.2)
Lymphocytes % 3.9 L %
(20.5-51.1)
Monocytes % 10.7 H %
(1.7-9.3)
Sodium 131 L mmol/L
(135-145)
Creatinine 0.5 L mg/dL
(0.7-1.3)
Glucose 125 H mg/dl
(70-99)
Calcium 7.1 L mg/dl
(8.4-10.2)
Troponin I 0.068 H* ng/ml 0.062 H* ng/ml
05/15/25 12:30
05/15/25 12:30
Vital Signs
Initial and Last Documented VS:
Initial Vital Signs
Temp Pulse Resp BP Pulse Ox
97.8 F 114 18 145/90 95
05/15/25 10:17 05/15/25 10:17 05/15/25 10:17 05/15/25 10:17 05/15/25 10:17
Last Documented Vital Signs
Temp Pulse Resp BP Pulse Ox
97.8 F 110 25 128/88 97
05/15/25 10:17 05/15/25 14:15 05/15/25 12:01 05/15/25 14:00 05/15/25 14:15
*Radiology
Radiology exam reviewed: radiology read reviewed (Right sided pleural catheter. Haziness to both lung bases. Moderate right pleural effusion)
*Pulse Oximetry
SaO2: 93
Nasal Cannula flow liters per minute: 2
Oxygen Mode of Delivery: Room air
Patient hypoxic: yes
*Critical Care Note
Total Time (30-74mins, 75-104mins- exclusive of procedures): Not Applicable
ED Attending Note
-
Portions of this chart may have been created with voice recognition software.� Occasional wrong word or��sound alike� substitutions may have occurred due to the inherent limitations of voice recognition software.
Discharge Plan
Departure
Patient Disposition: Admit
Date of Disposition: 05/15/25
Time of Disposition: 13:55
Presentation/result/management discussed w/ accepting MD/DO: Hospitalist
Discharge Problem:
Respiratory distress, Persistent right pleural effusions, Bilateral atelectasis versus pneumonia
Interventions
Interventions:
*Risk Screen - Suicide Last Done: 05/15/25 10:19
*Neglect/Abuse Screening Last Done: 05/15/25 10:19
ED- Cardiac Assessment Last Done: 05/15/25 11:00
ED- Pulmonary Assessment Last Done: 05/15/25 11:00
--- NOTE | 2025-05-15 13:59 | HPS.HSE ---
Addendum entered and electronically signed by Britni Vázquez PA-C 05/15/25 18:18:
Reviewed Chest CT Results
1. Small to moderate bilateral pleural effusions, improved on the right and progressed on the left.
2. Patchy and confluent right lower lobe/perihilar consolidation, suspicious for combination of neoplasm and infectious/inflammatory process.
3. Grossly stable metastatic mediastinal/hilar lymphadenopathy.
4. Grossly stable osseous metastatic disease.
Given leukocytosis which is new compared to prior labs will start Ceftriaxone and Doxycycline to cover for pneumonia
Consult Pulmonary
Original Note:
Family Physician
-
Family Physician: Andrea Mcintosh
Chief Complaint
-
Cough and Shortness of Breath
History of Present Illness
Patient is a 69 y/o male past medical history of stage IV adenocarcinoma of the lung, recurrent right pleural effusion s/p pleural catheter, hypocalcemia and DVT/PE who presents increased shortness of breath and cough. Patient reports increasing
symptoms over the past few days. He reports cough is productive of thick mucus. Yesterday when the nurse drained his tunneled catheter he had increased pain up the right side of his back. He reports he was also started on Lasix yesterday due to
increased lower extremity edema and notes afterwards he developed significant vomiting. He denies any fevers, sweats or chills.
Medical History
Past Medical History
Past Medical History: Reports Other
Additional Past Medical History:
Stage IV Adenocarcinoma of the Lung
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
Hypocalcemia from Xgeva
Bilateral Pulmonary Emboli
LLE DVT
Past Surgical History: Reports Other
Additional Past Surgical History:
Bronchoscopy with biopsy 10/25/2024, oral surgery
Social History
Tobacco: Non-smoker
Alcohol: Occasional
Drug: None
Personal:
Living: With Family
Employment: Retired
Family History
Family History: Other (No family history of cancer)
Allergies / Home Medications
Allergies reflects when Allergies were last updated in [employer].
Home Medications with original date entered in [employer]
Allergy/Medication List:
Allergies
Allergy/AdvReac Type Severity Reaction Status Date / Time
No Known Allergies Allergy Verified 05/09/25 10:02
Home Medications
bisacodyl 5 mg tablet (Laxative (bisacodyl)) 10 mg PO DAILYPRN PRN constipation 05/02/25
acetaminophen 500 mg tablet 500 mg PO DAILYPRN PRN mild pain 05/15/25
albuterol sulfate 90 mcg/actuation aerosol inhaler 2 puff inhalation Q4HPRN PRN sob 05/15/25
apixaban 5 mg tablet (Eliquis) 5 mg PO BID 05/15/25
Review of Systems
-
A 12 point ROS was completed and negative except as noted: Yes
Constitutional: Denies Fever
Respiratory: Denies Cough or Trouble Breathing
Cardiac: Denies Chest Pain or Palpitations
Physical Exam
Vital Signs
Vital Signs
Temp Pulse Resp BP Pulse Ox
97.8 F 113 26 145/90 93
05/15/25 10:17 05/15/25 11:17 05/15/25 11:17 05/15/25 10:17 05/15/25 13:55
Physical Exam
General: Comfortable and Conversant
HEENT: Anicteric, Moist mucous membranes and Oxygen (Nasal Cannula)
Respiratory: Wheezes (Diffuse) and Non Labored Respirations
Cardiac: S1/S2 and Regular Rhythm (Slightly tachycardic)
GI: Soft and Non Tender
Rectal: Deferred by Provider
Musculoskeletal: No Clubbing, No Cyanosis and Other (+1 pitting edema RLE; +2 pitting LLE)
Skin: Warm and Dry
Neuro: Awake, Alert, Oriented and Nonfocal/grossly intact
Psych: Calm
Laboratory Results
-
05/15/25 12:30
05/15/25 12:30
Laboratory Results
Troponin I 0.068 ng/ml H* 05/15/25 12:30
Data Reviewed
-
Diagnostic Radiology: Report Reviewed by me
Lab Data: Labs Reviewed by me
Old Records: Reviewed
Impression/Plan
-
Acute Bronchitis
-CXR negative however given elevated WBC count will check Chest CT to evaluate for possible pneumonia
-Check COVID
-Continue DuoNeb QID and PRN
-Continue Robitussin
Stage IV Adenocarcinoma of the Lung
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
-Consult IR for routine tunneled catheter drainage
Bilateral Pulmonary Emboli / LLE DVT
-Continue Eliquis
Bilateral Lower Extremity
-Hold further doses of Lasix
Code Status: Full Code
[2025-05-15 15:19] LABS: COVID-19 Antigen Negative (Negative)
--- NOTE | 2025-05-15 15:19 | CM ---
CM reviewed chart and met with pt bedside in ED. Lives with his , 2 story home with first floor BR/ BA. No MARINE.
Independent in ADLs, personal care and ambulation at baseline. Has ASEPT cath R chest from recent admission
Current with [facility], no hx SNF
PCP: Francisco Clarke
Pharmacy: [facility] [place]
Anticipate dc home with VN, CM will continue to follow for discharge planning needs.
[2025-05-15 16:08] LABS: Troponin I 0.062 ng/ml
--- NOTE | 2025-05-15 17:25 | EDRN ---
Patient room SPO2 on room air while resting in bed and talking maintained 94-97%. Patient ambulated to the in room bathroom and back to the stretcher. Patient was tachypneic and tachycardic at 130 beats per minute. SPO2 was 84% on room air. Patient
was increasing SPO2 slowly but returned patient to 2 liters via nasal cannula. SPO2 returned to 94% on the 2 liters while still HR 120s and respirations 30s. Informed Nicole Treviño PA-C and hospitalist about the condition on exertion. Patient upgraded to
tele and [facility] nurse notified of the change in orders.
[2025-05-15] MEDS: DUONEB INH (17:51)
--- NOTE | 2025-05-15 17:53 | RESPNOTE ---
An exercise pulse oximetry was ordered for the patient. Visited the patient in his room and checked the pulse oximetry. Patient is saturating 93% on room air and with oxygen 2 lpm saturating 96%. Patient is just admitted to the floor and not in a
state to walk at present. RN is doing initial admission checks at the bedside. RN was informed that the patient is not able to walk and do a test as he just admitted and physically not strong to do the test now.
[2025-05-15] MEDS: PROTONIX IV 40 MG IV (18:21)
[2025-05-15] MEDS: NSS (PRESERVATIVE FREE) 10 ML IV (18:21)
[2025-05-15] MEDS: ROBITUSSIN 200 MG PO ×2 (18:21→23:02)
--- NOTE | 2025-05-15 19:06 | PTCARENOTE ---
1800 Received patient from ED AAOx3. Pt oriented to room. IVF capped as per ED PA. Pt complained of heart burn. PA made aware. Pt medicated with IV Protonix with relief. Made patient comfortable. Cont to assess patient status.
[2025-05-15] MEDS: ELIQUIS 5 MG PO (20:21)
[2025-05-15] MEDS: STERILE WATER FOR INJECTION 10 ML IV (20:21)
[2025-05-15] MEDS: VIBRAMYCIN 100 MG PO (20:21)
[2025-05-15] MEDS: ROCEPHIN 1000 MG IV (20:21)
[2025-05-15 23:44] LABS: Troponin I 0.063 ng/ml
[2025-05-16] VITALS (8 sets, daily range): BP systolic 108–145; BP diastolic 74–92
[2025-05-16] MEDS: TYLENOL 650 MG PO ×3 (03:13→15:37)
[2025-05-16 07:53] LABS: Hematocrit 41.6 % (39.0-52.0); Hemoglobin 14.3 g/dL (13.0-18.0); Mean Corp Hgb Conc. 34.4 g/dL (33.0-37.0); Mean Corpuscular Volume 86.0 fL (80.0-94.0); Platelet Count 351 10^3/uL (130-400); Red Cell Dist. Width 12.5 % (11.5-14.5)
[2025-05-16 08:36] LABS: Blood Urea Nitrogen 12 mg/dl (9-20); Calcium 6.9 mg/dl (8.4-10.2); Carbon Dioxide 26 mmol/L (22-30); Chloride 100 mmol/L (98-107); Estimated Creatinine Clearance 124 ml/min; Glucose 110 mg/dl (70-99); Potassium 4.6 mmol/L (3.5-5.1); Sodium 130 mmol/L (135-145); eGFR > 60.00
[2025-05-16] MEDS: DUONEB 3 ML INH ×2 (08:38→19:34)
--- NOTE | 2025-05-16 08:47 | VNURNOTE ---
Chart reviewed. Patient is current with [facility]. Will continue to follow hospital course and DC plans.
[2025-05-16] MEDS: ROBITUSSIN 200 MG PO ×4 (09:07→21:09)
[2025-05-16] MEDS: ELIQUIS 5 MG PO ×2 (09:07→21:09)
[2025-05-16] MEDS: VIBRAMYCIN 100 MG PO ×2 (09:07→21:09)
[2025-05-16] MEDS: PROTONIX 40 MG PO (09:07)
[2025-05-16] MEDS: CALCIUM GLUCONATE 100 IV (09:15)
--- NOTE | 2025-05-16 10:39 | PN.IRAD.UPD ---
Update Note - IRAD
- -
Right Asept drained bedside for 600 ml of blood tinged fluid. Patient tolerated well. Site cleaned and dressed. RN made aware of drainage.
[2025-05-16] MEDS: DUONEB INH ×2 (12:07→15:12)
--- NOTE | 2025-05-16 12:23 | CON.ONC ---
Impression
Impression
Recurrent shortness of breath
Right sided pleural effusion with ASEPT catheter in, new moderate left sided pleural effusion
Stage IV mutated non-small cell lung cancer, most recently treated with Trabecta
History of pulmonary embolus, December 2024
Complaints of intermittent swellings of all 4 extremities, variable
Moyamoya disease
Plan
Plan
I have asked interventional radiology to see if the left effusion is worth draining. Will also check echocardiogram to look for pericardial effusion, given the bilateral nature of the pleural effusions. His exam does have some wheezing, will defer
to primary service regarding any form of bronchodilator therapy. Will also see if the Port-A-Cath can be placed, it was due to be put in as an outpatient today. Tentatively plan for chemotherapy later in the week.
Patient History
History of Present Illness
Consult from Dr. Chadwick regarding lung cancer
This 69-year-old man was admitted with shortness of breath. He is well-known to us with a mutated non-small cell lung cancer, with progressive disease noted while taking Trabecta, which was stopped last week. He is due to start chemotherapy and
immunotherapy later this week. He is also due to have a Port-A-Cath placed as an outpatient today. However, over the weekend he noted progressive shortness of breath. He also has right-sided chest pain, which occurs mostly when he is Pleurx
catheter is being drained, which is on the right, having been placed there about 10 days ago. He did not have a left pleural effusion before, but now does have a mild to moderate left pleural effusion. He is also complaining of intermittent
swelling of all 4 extremities, he does have chronic thrombus in the left lower extremity, and also did have some thrombosis in the right cephalic vein. His Eliquis was increased last week from 2.5 mg twice daily to 5 mg twice daily. He started on
this 4 months ago for newly diagnosed pulmonary emboli. He is also on Xgeva for bony metastatic disease.
Past-Medical/Surgical History
He has otherwise been in good health. He was diagnosed with moyamoya disease.
Social history, he denies having smoked.
Patient Medication
�Medication �Instructions �Recorded �Confirmed �Last Taken �Type
bisacodyl 5 mg tablet (Laxative 10 mg PO DAILYPRN PRN constipation 05/02/25 05/15/25 05/14/25 History
(bisacodyl))
acetaminophen 500 mg tablet 500 mg PO DAILYPRN PRN mild pain 05/15/25 05/15/25 05/15/25 History
albuterol sulfate 90 mcg/actuation 2 puff inhalation Q4HPRN PRN sob 05/15/25 05/15/25 05/14/25 History
aerosol inhaler
apixaban 5 mg tablet (Eliquis) 5 mg PO BID Blood Clot 05/15/25 05/15/25 05/15/25 History
Prevention/Tx
Active Medications
Generic Name Dose Route Start Last Admin
Trade Name Freq PRN Reason Stop Dose Admin
Acetaminophen 650 mg 05/15/25 17:22 05/16/25 09:41
Acetaminophen 325 Mg Tablet PO 06/12/25 17:21 650 mg
Q4HPRN PRN Administration
mild pain/ fever>100.5F
Albuterol/Ipratropium 3 ml 05/15/25 17:22 05/16/25 12:07
Ipratropium 0.5/Albuterol 3 Mg (3 Ml Ampul) INH Not Given
R QID IVANA
Protocol
Albuterol/Ipratropium 3 ml 05/15/25 17:22
Ipratropium 0.5/Albuterol 3 Mg (3 Ml Ampul) INH
R Q4HPRN PRN
shortness of breath/wheeze
Protocol
Apixaban 5 mg 05/15/25 20:00 05/16/25 09:07
Apixaban (Eliquis) 5 Mg Tablet PO 06/12/25 19:59 5 mg
BID IVANA Administration
Ceftriaxone Sodium 1,000 mg 05/15/25 20:00 05/15/25 20:21
Ceftriaxone 1000 Mg / 10 Ml Vial IV 1,000 mg
Q24H IVANA Administration
Doxycycline Hyclate 100 mg 05/15/25 20:00 05/16/25 09:07
Doxycycline 100 Mg Capsule PO 100 mg
Q12 IVANA Administration
Guaifenesin 200 mg 05/15/25 18:00 05/16/25 09:07
Guaifenesin Oral Solution (200 Mg/10 Ml) Cup PO 06/12/25 17:59 200 mg
QID IVANA Administration
Pantoprazole Sodium 40 mg 05/16/25 08:00 05/16/25 09:07
Pantoprazole 40 Mg Delayed Release Tablet PO 06/13/25 07:59 40 mg
DAILY IVANA Administration
Sodium Chloride 0 flush 05/15/25 18:00
Sodium Chloride 0.9% (Flush) Syringe IV 06/12/25 17:59
PER PROTOCOL IVANA
Sterile Water 10 ml 05/15/25 20:00 05/15/25 20:21
Sterile Water For Injection 10 Ml Vial IV 06/12/25 19:59 10 ml
Q24H IVANA Administration
Review of Systems
-
All Other Systems: Reviewed and Negative
Physical Exam
-
Physical examination shows the patient to be in no acute distress.
HEENT exam is unremarkable.
There are no palpable nodes.
Chest reveals bilateral dullness and scattered wheezes.
The heart is regular with no murmur or gallop.
The abdomen is soft and nontender with no organomegaly or masses.
Extremities are unremarkable with the exception of minimal edema in both ankles.
Neurologic is grossly intact.
Labs
Lab Results
WBC 10.8 10^3/uL (4.8-10.8) 05/16/25 06:39
RBC 4.84 10^6/uL (4.70-6.10) 05/16/25 06:39
Hgb 14.3 g/dL (13.0-18.0) 05/16/25 06:39
Hct 41.6 % (39.0-52.0) 05/16/25 06:39
MCV 86.0 fL (80.0-94.0) 05/16/25 06:39
MCH 29.5 pg (27.0-31.0) 05/16/25 06:39
MCHC 34.4 g/dL (33.0-37.0) 05/16/25 06:39
RDW 12.5 % (11.5-14.5) 05/16/25 06:39
Plt Count 351 10^3/uL (130-400) 05/16/25 06:39
MPV 8.4 fL (7.4-10.4) 05/16/25 06:39
Abs Immat Gran (auto) 0.1 10^3/uL (0-0.05) H 05/15/25 12:30
Absolute Neuts (auto) 10.2 10^3/uL (1.4-6.5) H 05/15/25 12:30
Absolute Lymphs (auto) 0.5 10^3/uL (1.2-3.4) L 05/15/25 12:30
Absolute Monos (auto) 1.3 10^3/uL (0.1-0.6) H 05/15/25 12:30
Absolute Eos (auto) 0.0 10^3/uL (0-0.7) 05/15/25 12:30
Absolute Basos (auto) 0.0 10^3/uL (0-0.2) 05/15/25 12:30
Immature Gran % 0.6 % (0-0.5) H 05/15/25 12:30
Neutrophils % 84.5 % (42.2-75.2) H 05/15/25 12:30
Lymphocytes % 3.9 % (20.5-51.1) L 05/15/25 12:30
Monocytes % 10.7 % (1.7-9.3) H 05/15/25 12:30
Eosinophils % 0.0 % (0-6) 05/15/25 12:30
Basophils % 0.3 % (0-2) 05/15/25 12:30
Creatinine 0.5 mg/dL (0.7-1.3) L 05/16/25 06:39
Vital Signs
Vital Signs
Temp Pulse Resp BP Pulse Ox
97.4 F 113 18 137/86 94
05/16/25 11:40 05/16/25 11:40 05/16/25 11:40 05/16/25 11:40 05/16/25 11:40
--- NOTE | 2025-05-16 12:30 | W.PN.HOSP.TC ---
Today's Communication/Plan
-
Monitor vital signs see plan
Wean oxygen as tolerated
IR for catheter drainage
Continue with antibiotics
nebs
Assessment / Plan
Assessment / Plan
General: Comfortable and Conversant
HEENT: Anicteric, Moist mucous membranes and Oxygen (Nasal Cannula)
Respiratory: Wheezes (Diffuse) and Non Labored Respirations
Cardiac: S1/S2 and Regular Rhythm (Slightly tachycardic)
GI: Soft and Non Tender
Musculoskeletal: Other (+1 pitting edema RLE; +2 pitting LLE)
Neuro: Awake, Alert, Oriented and Nonfocal/grossly intact
Psych: Calm
Acute Bronchitis patient with possible pneumonia
Acute hypoxic respiratory insufficiency likely secondary to above and bilateral pleural effusions
-CXR negative however given elevated WBC count will check Chest CT to evaluate for possible pneumonia
-Continue DuoNeb QID and PRN
-Continue Robitussin
Given leukocytosis which is new compared to prior labs will start Ceftriaxone and Doxycycline to cover for pneumonia
Consulted Pulmonary
Chest CT Results
1. Small to moderate bilateral pleural effusions, improved on the right and progressed on the left.
2. Patchy and confluent right lower lobe/perihilar consolidation, suspicious for combination of neoplasm and infectious/inflammatory process.
3. Grossly stable metastatic mediastinal/hilar lymphadenopathy.
4. Grossly stable osseous metastatic disease.
Stage IV Adenocarcinoma of the Lung
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
-Consulted IR for routine tunneled catheter drainage; gets drainage daily
oncology consulted for
Per patient and family, possible immunotherapy soon outpatient
hypocalcemia
Replete
Elevated troponin, likely nonischemic myocardial injury
Monitor
Bilateral Pulmonary Emboli / LLE DVT
-Continue Eliquis
Bilateral Lower Extremity
-Hold further doses of Lasix
Code Status: Full Code
I spent a total of 52 minutes with the patient or on the floor. More than 50% of this time involved counseling and coordination of care.
Anticipated Discharge: > 48 hours
Subjective/Interval History
-
Date of Service: May 16, 2025
denies nausea
Objective Data
-
Labs:
Laboratory Results
05/16/25
06:39
WBC 10.8
Hgb 14.3
Hct 41.6
Plt Count 351
Sodium 130 L
Potassium 4.6
Chloride 100
Carbon Dioxide 26
BUN 12
Creatinine 0.5 L
Glucose 110 H
Calcium 6.9 L*
Vital Signs:
Vital Signs
Temp Pulse Resp BP Pulse Ox
97.4 F 113 18 137/86 94
05/16/25 11:40 05/16/25 11:40 05/16/25 11:40 05/16/25 11:40 05/16/25 11:40
I&O
05/15/25 05/16/25 05/17/25
06:59 06:59 06:59
Intake Total 240 / 240
Output Total 200 / 200
Balance 40 / 40
--- NOTE | 2025-05-16 14:34 | CON.PUL ---
Consultation
Consultation Request
Date/Time Consultation Requested: 05/16/2025
Date/Time Consultation Performed: 05/16/2025
Requesting Provider: Dr. Meza
Performing Provider: Dr. Javier Donald
Reason for Consultation: Pneumonia/history of lung cancer
Medical History
-
History of Present Illness:
Patient is a 69-year-old male with previous history of stage IV adenocarcinoma of the lung who presents to the ER with shortness of breath and cough.
Shortness of breath has been present but progressive.
Reports worsening symptoms the past few days.
Reports cough productive of thick mucus.
Reports increased chest pain with IPC drainage by nursing the day prior to admission.
Patient did receive some diuretics due to lower extremity swelling subsequently significant vomiting.
He denies orthopnea or PND. Does report intermittent bilateral lower extremity swelling.
Patient admitted on 05/15/2025. He has been compliant with anticoagulation for history of pulmonary embolism.
Admitted for presumptive bronchitis. We were consulted on 05/16/2025 for evaluation.
Past Medical History
Past Medical History: Other (see list below)
Social History
Tobacco: Non-smoker (Never)
Alcohol: None
Drug: None
Family History
Family History: Reviewed & Not Pertinent
Allergies / Home Medications
Allergies
Allergy/AdvReac Type Severity Reaction Status Date / Time
No Known Allergies Allergy Verified 05/09/25 10:02
Home Medications
�Medication �Instructions �Recorded �Confirmed �Last Taken �Type
bisacodyl 5 mg tablet (Laxative 10 mg PO DAILYPRN PRN constipation 05/02/25 05/15/25 05/14/25 History
(bisacodyl))
acetaminophen 500 mg tablet 500 mg PO DAILYPRN PRN mild pain 05/15/25 05/15/25 05/15/25 History
albuterol sulfate 90 mcg/actuation 2 puff inhalation Q4HPRN PRN sob 05/15/25 05/15/25 05/14/25 History
aerosol inhaler
apixaban 5 mg tablet (Eliquis) 5 mg PO BID Blood Clot 05/15/25 05/15/25 05/15/25 History
Prevention/Tx
Review of Systems
Vitals / Labs / Diagnostic Testing
Vital Signs
Temp Pulse Resp BP Pulse Ox
98.6 F 114 18 133/85 93
05/16/25 14:23 05/16/25 14:23 05/16/25 14:23 05/16/25 14:23 05/16/25 14:23
Lab Data
05/16/25 06:39
05/16/25 06:39
Diagnostic Testing:
Physical Exam
-
HEENT: Normocephalic
Cardiovascular: S1/S2
Respiratory: Other (Decreased breath sounds in both bases)
GI: Soft and Non Distended
Neurology: Alert
Skin: Warm
General: Comfortable
Assessment
-
Patient is a 69-year-old male with previous history of stage IV adenocarcinoma of the lung who presents to the ER with shortness of breath and cough. CT chest illustrated worsening bilateral pleural effusions. Left pleural effusion has progressed
compared to prior. Right pleural catheter in place. Right perihilar consolidation also noted.
Exertional dyspnea/coughing
Right perihilar infiltrate cannot rule out pneumonia versus cancer
CT chest 05/15/2025:
1. Small to moderate bilateral pleural effusions, improved on the right and progressed on the left.
2. Patchy and confluent right lower lobe/perihilar consolidation, suspicious for combination of neoplasm and infectious/inflammatory process.
3. Grossly stable metastatic mediastinal/hilar lymphadenopathy.
4. Grossly stable osseous metastatic disease.
Bilateral pleural effusion-multifactorial
Malignant pleural effusion on the right status post intrapleural catheter 05/09/2025
Stage IV adenocarcinoma-chemotherapy/immunotherapy
Conditions present [employer]
Stage IV Adenocarcinoma of the Lung - was started on oral chemotherapy Tabrecta on 12/03/2024.
s/p 5 radiation treatments to his sternum and cervical spine
Follows with Dr. Velarde as OP
Hypocalcemia from Xgeva
Bilateral Pulmonary Emboli on AC 12/2024
LLE DVT
Bronchoscopy with biopsy 10/25/2024
History of oral surgery
Colon polyps
Plan:
-
Main complaint is shortness of breath and coughing.
CT chest noted: Possible perihilar infiltrate suggestive of possible pneumonia. Bilateral pleural effusions.
Agree with antibiotics for community-acquired pneumonia.
Obtain cultures-currently pending
Monitor fever and white blood cell counts.
-
Maintain pulse ox above 90% currently on room air
Continue nebulizers to aid with secretion clearance
Incentive spirometry encouraged
-
Another component of shortness of breath likely due to deconditioning, worsening bilateral pleural effusions.
Left pleural effusion was present before but is worse this admission-cannot rule out malignant as well.
proBNP is normal less likely heart failure component.
Bilateral effusions, lower extremity edema possibly due to low albumin state.
Agree with obtaining echocardiogram to evaluate RV function and pericardium-particularly with history of enlarged right ventricle on 01/10/2025.
Obtain urinalysis to rule out proteinuria. So far renal function is normal
Obtain TSH
-
Bilateral pleural effusions:
Intrapleural catheter in place-drain as able per IR -positive cytology 05/03/2025.
Worsening left effusion may be malignant as well
Thoracentesis on the left has been ordered per oncology
-
Prior ECHO results are reviewed indicating stable function, RV dysf from PE-01/10/2025
Mild PH noted as well
proBNP is normal this admission.
Maintain anticoagulation indefinitely.
Follow-up with Dr. Velarde after discharge.

Diagnostic Data
CXR 05/04/25- Dense opacification of the lower right hemithorax at least in part correlating with known moderate right pleural effusion without significant change. Tiny left pleural effusion.
No pneumothorax.
CT Chest 05/02/25- MARKED OPACIFICATION of a majority of the right hemithorax likely predominantly representing large pleural effusion significantly increased as well as progression of central malignancy and progression of right hilar/mediastinal/
lymphadenopathy in the interval since prior CT with only small volume aeration of small portion of right upper lobe now noted.
No findings to suggest pulmonary embolism within the main pulmonary arteries and left pulmonary artery branches. Evaluation of right pulmonary artery branches markedly limited by the subtotal opacification/malignancy/pleural fluid in the right
hemithorax. New small left pleural effusion.
Bony metastatic disease again seen, particularly involving the sternum.
CT Chest 12/2024: Positive for bilateral acute pulmonary thromboembolism with a moderate to large clot burden. Mild right heart strain.
Worsening metastatic mediastinal and bilateral hilar lymphadenopathy compared to the chest CT from 10/19/2024. Mildly increased size of the thick-walled cavitary right hilar lung cancer.
Bilateral pneumonia, greatest in the right upper lobe. Small right pleural effusion.
Lytic and sclerotic metastasis of the inferior sternum. Fluid collection versus necrotic metastatic disease right lateral to the inferior sternum at the costochondral junction.
CT Chest 09/2024: 1. There is a cavitary, thick-walled lesion within the medial right lower lobe which extends into the right hilum which measures 4.1 x 3.5 x 3.7 cm. This is concerning for malignancy although cavitary pneumonia could appear
similar. There is associated mediastinal lymphadenopathy with a 1.3 cm subcarinal lymph node and a 1.2 cm left paratracheal lymph node.
Reports and relevant images were personally reviewed.
PET/CT 03/09/25- 1. LARGE RIGHT LOWER LOBE LUNG CANCER invading the right hilum.
2. SEVERE METASTATIC MEDIASTINAL LYMPHADENOPATHY.
3. MULTIFOCAL DESTRUCTIVE LYTIC OSSEOUS METASTATIC DISEASE.
4. Mild bilateral metastatic supraclavicular lymphadenopathy.
5. Small right and minimal left pleural effusions.
6. Small round intramuscular metastasis or focus of inflammation in the right gluteus zachary muscle.
Venous Duplex:
1. Extensive left lower extremity DVT as described.
2. No evidence of deep venous thrombosis in the right lower extremity as described above.
ECHO 01/10/25- Enlarged right ventricular size. Low normal right ventricular systolic function. Mild to moderate tricuspid regurgitation. Estimated PASP 35-40 mmHg and RA 3 mmHg. LVEF 60-65% with normal LV wall motion. No pericardial effusion. No
prior study available for comparison.
[2025-05-16 17:52] LABS: TSH 2.41 uIU/ml (0.47-4.68)
--- NOTE | 2025-05-16 18:11 | PTCARENOTE ---
pt back from IR this afternoon s/p L thoracentesis. pt is AAO*3, Vss, room air. c/o pain 03/29 gave PRN Tylenol. call garcia within the reach. plan of care ongoing.
[2025-05-16 18:28] LABS: Urine Character Clear (Clear)
[2025-05-16 18:34] LABS: Urine Squamous Cell 0-2 /LPF (Few)
[2025-05-16 18:35] LABS: Urine White Cell 0-2 /HPF (0-5)
[2025-05-16] MEDS: STERILE WATER FOR INJECTION 10 ML IV (21:08)
[2025-05-16] MEDS: ROCEPHIN 1000 MG IV (21:08)
[2025-05-16] MEDS: FLUSH (NSS) 2 FLUSH IV (21:12)
[2025-05-17] MEDS: TYLENOL 650 MG PO ×5 (00:48→21:00)
[2025-05-17 03:05] VITALS: BP 126/83
[2025-05-17 06:00] VITALS: BMI 23.6
[2025-05-17 07:27] LABS: Hematocrit 38.9 % (39.0-52.0); Hemoglobin 13.4 g/dL (13.0-18.0); Mean Corp Hgb Conc. 34.4 g/dL (33.0-37.0); Mean Corpuscular Volume 84.0 fL (80.0-94.0); Nucleated Red Blood Cells % 0 % (-); Platelet Count 333 10^3/uL (130-400); Red Cell Dist. Width 12.6 % (11.5-14.5)
[2025-05-17] MEDS: DUONEB 3 ML INH ×3 (07:40→15:08)
[2025-05-17 07:45] VITALS: BP 117/83
[2025-05-17 08:07] LABS: ALT (SGPT) 11 U/L (0-50); AST (SGOT) 17 U/L (17-59); Albumin 2.3 g/dl (3.5-5.0); Alkaline Phosphatase 144 U/L (38-126); Blood Urea Nitrogen 14 mg/dl (9-20); Calcium 7.0 mg/dl (8.4-10.2); Carbon Dioxide 27 mmol/L (22-30); Chloride 100 mmol/L (98-107); Estimated Creatinine Clearance 124 ml/min; Glucose 107 mg/dl (70-99); Potassium 4.4 mmol/L (3.5-5.1); Sodium 129 mmol/L (135-145); Total Protein 4.8 g/dl (6.3-8.2); eGFR > 60.00
--- NOTE | 2025-05-17 08:07 | PN.CDI ---
CDI
- -
CDI:
Physician Documentation Request
Admit Date: 05/15/25 15:47
Dear Doctor Derrick,
Patient admitted with acute bronchitis patient with possible pneumonia.
05/16 PN,'Given leukocytosis which is new compared to prior labs will start Ceftriaxone and Doxycycline to cover for pneumonia.'
On admission, WBC 12.2, HR >90 and RR> 20.
Please clarify which of the following most accurately describes the status of the patient's infection:
Sepsis, POA
Acute bronchitis and pneumonia only
Other
Sepsis
- Systemic manifestations of infection, with 2 or more SIRS criteria which include:
- Fever >100.9 degrees F or hypothermia < 96.8 degrees F
- Leukocytosis - WBC > 12,000 or leukopenia - WBC < 4,000 or > 10% bands
- Tachycardia > 90 beats per minute
- Tachypnea - RR > 20 breaths per minute or PaCO2 , 32mmHg
Source: Merck Manual 2013
- Indicate the known or suspected organism
- Indicate the known or suspected underlying infection, such as acute bronchitis/pneumonia
Localized Infection Only, Without Systemic Illness
- indicate the site/source, such as acute bronchitis/ pneumonia
Other
Use of terms such as suspected, likely, concern for, or probable (associated with a specific diagnosis that is being evaluated, monitored, or treated as if it exists) are acceptable and can be coded in the inpatient setting, when documented at the
time of discharge.
Thank you,
Bertha YIP,RN,CCDS
CDI Specialist
Available via tiger text
Please use your independent medical judgment in providing your response.
--- NOTE | 2025-05-17 09:32 | PN.IRAD.UPD ---
Update Note - IRAD
- -
1000ml bloody pleural fluid drained at bedside via right ASEPT catheter. New, clean, dry dressing placed over site. Patient tolerated procedure well
--- NOTE | 2025-05-17 09:56 | W.PN.ONC ---
Today's Communication / Plan
-
Breathing better following bilateral thoracenteses. Will hold off on placing Pleurx catheter on the left. Continue antibiotics for presumptive infection. Probable Port-A-Cath and chemotherapy next week.
Impression
Impression
Recurrent shortness of breath
Right sided pleural effusion with ASEPT catheter in, new moderate left sided pleural effusion
Stage IV mutated non-small cell lung cancer, most recently treated with Trabecta
History of pulmonary embolus, December 2024
Complaints of intermittent swellings of all 4 extremities, variable
[place] disease
Plan
Plan
I have asked interventional radiology to see if the left effusion is worth draining. Will also check echocardiogram to look for pericardial effusion, given the bilateral nature of the pleural effusions. His exam does have some wheezing, will defer
to primary service regarding any form of bronchodilator therapy. Will also see if the Port-A-Cath can be placed, it was due to be put in as an outpatient today. Tentatively plan for chemotherapy later in the week.
Subjective/Objective
Subjective/Objective
His breathing is better. He did catch some secretions and vomited this morning. Otherwise exam is unchanged.
Vital Signs:
Vital Signs
Temp Pulse Resp BP Pulse Ox
97.5 F 108 20 117/83 95
05/17/25 07:45 05/17/25 08:04 05/17/25 08:04 05/17/25 07:45 05/17/25 08:04
Lab Results:
Laboratory Data
WBC 10.7 10^3/uL (4.8-10.8) 05/17/25 06:52
Hgb 13.4 g/dL (13.0-18.0) 05/17/25 06:52
Plt Count 333 10^3/uL (130-400) 05/17/25 06:52
eGFR > 60.00 05/17/25 06:52
Orders
Orders
Orders From Last 24 Hours
05/16/25 12:17
Echo 2D MMode Color/Doppler Routine
IRAD CONSULT Routine
05/16/25 16:39
Add On- LAB Routine
[2025-05-17] MEDS: VIBRAMYCIN 100 MG PO ×2 (09:58→20:52)
[2025-05-17] MEDS: PROTONIX 40 MG PO (09:58)
[2025-05-17] MEDS: ELIQUIS 5 MG PO ×2 (09:58→20:52)
[2025-05-17] MEDS: ROBITUSSIN 200 MG PO ×4 (09:58→20:52)
[2025-05-17 11:10] VITALS: BP 126/80
--- NOTE | 2025-05-17 11:50 | W.PN.PUL3 ---
Today's Communication / Plan
-
Continue antibiotics
Follow cultures
Clinical improvement after thoracentesis
Incentive spirometry
Eventual additional chemotherapy
Assessment
-
Patient is a 69-year-old male with previous history of stage IV adenocarcinoma of the lung who presents to the ER with shortness of breath and cough. CT chest illustrated worsening bilateral pleural effusions. Left pleural effusion has progressed
compared to prior. Right pleural catheter in place. Right perihilar consolidation also noted.
Exertional dyspnea/coughing
Right perihilar infiltrate cannot rule out pneumonia versus cancer
CT chest 05/15/2025:
1. Small to moderate bilateral pleural effusions, improved on the right and progressed on the left.
2. Patchy and confluent right lower lobe/perihilar consolidation, suspicious for combination of neoplasm and infectious/inflammatory process.
3. Grossly stable metastatic mediastinal/hilar lymphadenopathy.
4. Grossly stable osseous metastatic disease.
Bilateral pleural effusion-multifactorial
Malignant pleural effusion on the right status post intrapleural catheter 05/09/2025
Stage IV adenocarcinoma-chemotherapy/immunotherapy
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
Stage IV Adenocarcinoma of the Lung - was started on oral chemotherapy Tabrecta on 12/03/2024.
s/p 5 radiation treatments to his sternum and cervical spine
Follows with Dr. Velarde as OP
Hypocalcemia from Xgeva
Bilateral Pulmonary Emboli on AC 12/2024
LLE DVT
Bronchoscopy with biopsy 10/25/2024
History of oral surgery
Colon polyps
Plan:
-
Main complaint is shortness of breath and coughing.
CT chest noted: Possible perihilar infiltrate suggestive of possible pneumonia. Bilateral pleural effusions.
-
Continue antibiotics for community-acquired pneumonia.
Obtain cultures-currently pending
Will adjust antibiotics depending on results.
Leukocytosis resolved
Afebrile
-
Shortness of breath improved post left thoracentesis and intrapleural catheter drainage.
Maintain pulse ox above 90% currently on room air
Continue nebulizers to aid with secretion clearance
Incentive spirometry encouraged
-
Another component of shortness of breath likely due to deconditioning, worsening bilateral pleural effusions.
Left pleural effusion was present before but is worse this admission-cannot rule out malignant as well.
Status post thoracentesis 05/16/2025 1400 cc serosanguineous-likely malignant. No samples were sent.
proBNP is normal less likely heart failure component.
Bilateral effusions, lower extremity edema possibly due to low albumin state.
Echocardiogram05/16/2025: No pericardial effusion. No significant abnormalities. Normal LVEF. Normal RV function. Stable compared to December 2024
TSH was normal
-
Bilateral pleural effusions:
Intrapleural catheter in place-drain as able per IR -positive cytology 05/03/2025.
Worsening left effusion may be malignant as well
Status post thoracentesis 05/17/2025 on the left-likely malignant-improved shortness of breath.
-
Prior ECHO results are reviewed indicating stable function, RV dysf from PE-01/10/2025
Mild PH noted as well
proBNP is normal this admission.
Maintain anticoagulation indefinitely.
Follow-up with Dr. Velarde after discharge.

Diagnostic Data
CXR 05/04/25- Dense opacification of the lower right hemithorax at least in part correlating with known moderate right pleural effusion without significant change. Tiny left pleural effusion.
No pneumothorax.
CT Chest 05/02/25- MARKED OPACIFICATION of a majority of the right hemithorax likely predominantly representing large pleural effusion significantly increased as well as progression of central malignancy and progression of right hilar/mediastinal/
lymphadenopathy in the interval since prior CT with only small volume aeration of small portion of right upper lobe now noted.
No findings to suggest pulmonary embolism within the main pulmonary arteries and left pulmonary artery branches. Evaluation of right pulmonary artery branches markedly limited by the subtotal opacification/malignancy/pleural fluid in the right
hemithorax. New small left pleural effusion.
Bony metastatic disease again seen, particularly involving the sternum.
CT Chest 12/2024: Positive for bilateral acute pulmonary thromboembolism with a moderate to large clot burden. Mild right heart strain.
Worsening metastatic mediastinal and bilateral hilar lymphadenopathy compared to the chest CT from 10/19/2024. Mildly increased size of the thick-walled cavitary right hilar lung cancer.
Bilateral pneumonia, greatest in the right upper lobe. Small right pleural effusion.
Lytic and sclerotic metastasis of the inferior sternum. Fluid collection versus necrotic metastatic disease right lateral to the inferior sternum at the costochondral junction.
CT Chest 09/2024: 1. There is a cavitary, thick-walled lesion within the medial right lower lobe which extends into the right hilum which measures 4.1 x 3.5 x 3.7 cm. This is concerning for malignancy although cavitary pneumonia could appear
similar. There is associated mediastinal lymphadenopathy with a 1.3 cm subcarinal lymph node and a 1.2 cm left paratracheal lymph node.
Reports and relevant images were personally reviewed.
PET/CT 03/09/25- 1. LARGE RIGHT LOWER LOBE LUNG CANCER invading the right hilum.
2. SEVERE METASTATIC MEDIASTINAL LYMPHADENOPATHY.
3. MULTIFOCAL DESTRUCTIVE LYTIC OSSEOUS METASTATIC DISEASE.
4. Mild bilateral metastatic supraclavicular lymphadenopathy.
5. Small right and minimal left pleural effusions.
6. Small round intramuscular metastasis or focus of inflammation in the right gluteus zachary muscle.
Venous Duplex:
1. Extensive left lower extremity DVT as described.
2. No evidence of deep venous thrombosis in the right lower extremity as described above.
ECHO 01/10/25- Enlarged right ventricular size. Low normal right ventricular systolic function. Mild to moderate tricuspid regurgitation. Estimated PASP 35-40 mmHg and RA 3 mmHg. LVEF 60-65% with normal LV wall motion. No pericardial effusion. No
prior study available for comparison.
Subjective Data
-
Date of Service:
Date of Service: May 17, 2025
Chief Complaint: Pulmonary Follow Up (Exertional dyspnea-bilateral pleural effusion)
Subjective:
Feels better post left thoracentesis
Denies increased cough or phlegm production
Denies hemoptysis
Review of Systems
Cardiopulmonary: Dyspnea (Improved), Sputum Production (Minimal) and Wheezing (n)
Objective Data
Data Reviewed
Vital Signs / I&O / Oxygen:
Vital Signs
Temp Pulse Resp BP Pulse Ox
97.8 F 113 18 126/80 94
05/17/25 11:10 05/17/25 11:10 05/17/25 11:10 05/17/25 11:10 05/17/25 11:10
Intake and Output
05/16/25 05/17/25 05/18/25
06:59 06:59 06:59
Intake Total 240 / 240 960 / 960
Output Total 200 / 200 125 / 125
Balance 40 / 40 835 / 835
SaO2 94
Nasal Cannula flow liters per 2
minute
Physical Exam
General: Comfortable
HEENT: Normocephalic
Cardiovascular: S1-S2
Respiratory: Other (Decreased breath sounds in both bases)
GI: Soft and Non Distended
Neurology: Awake and Alert
Skin: Warm
Labs/Micro/Reports
Lab Data
05/17/25 06:52
05/17/25 06:52
Microbiology
05/16/25 18:07 Sputum Respiratory Culture - Final
05/16/25 18:07 Sputum Gram Stain - Final
[2025-05-17] MEDS: ZOFRAN 4 MG IV (12:21)
--- NOTE | 2025-05-17 12:22 | W.PN.HOSP.TC ---
Today's Communication/Plan
-
Monitor vital signs and see plan
Breathing improving after left Thora
Continue with daily drainage of right Asept
Continue antibiotics
Assessment / Plan
Assessment / Plan
General: Comfortable and Conversant
HEENT: Anicteric, Moist mucous membranes and Oxygen (Nasal Cannula)
Respiratory: Wheezes (Diffuse) and Non Labored Respirations
Cardiac: S1/S2 and Regular Rhythm (Slightly tachycardic)
GI: Soft and Non Tender
Musculoskeletal: Other (+1 pitting edema RLE; +2 pitting LLE)
Neuro: Awake, Alert, Oriented and Nonfocal/grossly intact
Psych: Calm
Acute Bronchitis patient with possible pneumonia
Acute hypoxic respiratory insufficiency likely secondary to above and bilateral pleural effusions
Status post left thoracentesis. Patient also has right instep catheter that drains daily
-Continue DuoNeb QID and PRN
-Continue Robitussin
Given leukocytosis which is new compared to prior labs will start Ceftriaxone and Doxycycline to cover for pneumonia
Pulmonary following
Chest CT Results
1. Small to moderate bilateral pleural effusions, improved on the right and progressed on the left.
2. Patchy and confluent right lower lobe/perihilar consolidation, suspicious for combination of neoplasm and infectious/inflammatory process.
3. Grossly stable metastatic mediastinal/hilar lymphadenopathy.
4. Grossly stable osseous metastatic disease.
Stage IV Adenocarcinoma of the Lung
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
-Consulted IR for routine tunneled catheter drainage; gets drainage daily
Oncology following
Per patient and family, possible immunotherapy soon outpatient
hypocalcemia
Replete
Hyponatremia
Monitor
Elevated troponin, likely nonischemic myocardial injury
Monitor
Bilateral Pulmonary Emboli / LLE DVT
-Continue Eliquis
Bilateral Lower Extremity
-Hold further doses of Lasix
Code Status: Full Code
Anticipated Discharge: 24 - 48 hours
Subjective/Interval History
-
Date of Service: May 17, 2025
Feeling little better
Objective Data
-
Labs:
Laboratory Results
05/17/25
06:52
WBC 10.7
Hgb 13.4
Hct 38.9 L
Plt Count 333
Sodium 129 L
Potassium 4.4
Chloride 100
Carbon Dioxide 27
BUN 14
Creatinine 0.6 L
Glucose 107 H
Calcium 7.0 L
Total Bilirubin 0.5
AST 17
ALT 11
Alkaline Phosphatase 144 H
Vital Signs:
Vital Signs
Temp Pulse Resp BP Pulse Ox
97.8 F 113 18 126/80 94
05/17/25 11:10 05/17/25 11:10 05/17/25 11:10 05/17/25 11:10 05/17/25 11:10
I&O
05/16/25 05/17/25 05/18/25
06:59 06:59 06:59
Intake Total 240 / 240 960 / 960
Output Total 200 / 200 125 / 125
Balance 40 / 40 835 / 835
[2025-05-17 15:45] VITALS: BP 130/84
--- NOTE | 2025-05-17 16:16 | CM ---
Patient functioning at baseline level. Not yet medically cleared.
Plan: Case management will continue to follow and assist with discharge planning. Home when stable.
--- NOTE | 2025-05-17 18:31 | PTCARENOTE ---
Heart rate sustaining 120's on tele. Looks to be sinus tachycardia. BP stable 130/84. Pt denies palpitations or dizziness. Dr. Meza made aware who changed albuterol treatments from QID to PRN.
[2025-05-17 19:11] VITALS: BP 124/80
[2025-05-17] MEDS: STERILE WATER FOR INJECTION 10 ML IV (20:52)
[2025-05-17] MEDS: ROCEPHIN 1000 MG IV (20:53)
[2025-05-17 23:04] VITALS: BP 124/86
[2025-05-18] MEDS: TYLENOL 650 MG PO ×2 (03:17→11:22)
[2025-05-18 03:30] VITALS: BP 119/80
[2025-05-18 06:00] VITALS: BMI 23.0
[2025-05-18 07:35] VITALS: BP 134/85
[2025-05-18 07:55] LABS: Hematocrit 37.7 % (39.0-52.0); Hemoglobin 12.9 g/dL (13.0-18.0); Mean Corp Hgb Conc. 34.2 g/dL (33.0-37.0); Mean Corpuscular Volume 84.5 fL (80.0-94.0); Nucleated Red Blood Cells % 0.2 % (-); Platelet Count 328 10^3/uL (130-400); Red Cell Dist. Width 12.8 % (11.5-14.5)
[2025-05-18 08:11] LABS: ALT (SGPT) 13 U/L (0-50); AST (SGOT) 20 U/L (17-59); Albumin 2.3 g/dl (3.5-5.0); Alkaline Phosphatase 135 U/L (38-126); Blood Urea Nitrogen 16 mg/dl (9-20); Calcium 7.0 mg/dl (8.4-10.2); Carbon Dioxide 29 mmol/L (22-30); Chloride 97 mmol/L (98-107); Estimated Creatinine Clearance 123 ml/min; Glucose 100 mg/dl (70-99); Potassium 4.4 mmol/L (3.5-5.1); Sodium 129 mmol/L (135-145); Total Protein 4.8 g/dl (6.3-8.2); eGFR > 60.00
--- NOTE | 2025-05-18 08:11 | W.PN.ONC2 ---
Today's Communication / Plan
-
Stable for discharge. Chemotherapy scheduled tomorrow with Port-A-Cath rescheduled to be coordinated.
Anticipate he should still be able to get chemotherapy tomorrow without Port-A-Cath but will check with office.
Impression
Impression
Bilateral pleural effusions and right sided ASEPT catheter in, moderate left sided pleural effusion status post thoracentesis
Stage IV mutated non-small cell lung cancer, most recently treated with Trabecta
History of pulmonary embolus, December 2024
Complaints of intermittent swellings of all 4 extremities, variable
[place] disease
Plan
Plan
Patient is feeling improved following left-sided thoracentesis.
No evidence for significant pericardial effusion by echocardiogram
Scheduled for chemotherapy tomorrow. Port-A-Cath was scheduled for yesterday and will need to be rescheduled.
Subjective/Objective
Chief Complaint
ACS Heme Onc
Subjective
Patient is feeling much improved. Breathing improved following left thoracentesis. He feels that he is good to go. He is scheduled for chemotherapy tomorrow 05/19
Vital Signs:
Vital Signs
Temp Pulse Resp BP Pulse Ox
98.0 F 107 18 134/85 94
05/18/25 07:35 05/18/25 07:35 05/18/25 07:35 05/18/25 07:35 05/18/25 07:35
Lab Results:
Laboratory Data
WBC 10.5 10^3/uL (4.8-10.8) 05/18/25 06:49
Hgb 12.9 g/dL (13.0-18.0) L 05/18/25 06:49
Plt Count 328 10^3/uL (130-400) 05/18/25 06:49
eGFR > 60.00 05/18/25 06:49
Physical Exam
HEENT: No Jaundice
Cardiology: Normal Sinus Rhythm, S1 and S2
Pulmonary: Other (Left side is clear -thoracentesis spot noted, right side decreased (side of Pleurx catheter))
GI: Soft and Flat
Extremities: No C/C/E
[2025-05-18] MEDS: PROTONIX 40 MG PO (08:55)
[2025-05-18] MEDS: VIBRAMYCIN 100 MG PO (08:55)
[2025-05-18] MEDS: ROBITUSSIN 200 MG PO ×2 (08:55→12:04)
[2025-05-18] MEDS: ELIQUIS 5 MG PO (08:55)
--- NOTE | 2025-05-18 10:36 | PN.IRAD.UPD ---
Update Note - IRAD
- -
500 ml bloody pleural fluid removed at bedside via right ASEPT catheter. New,dry, clean dressing placed over site. Patient tolerated procedure well
--- NOTE | 2025-05-18 11:03 | W.PN.HOSP.TC ---
Addendum entered and electronically signed by Mikel Meza MD 05/18/25 11:25:
Acute bronchitis and pneumonia only
Appears tachycardia and tachypnea likely was secondary to shortness of breath from pleural effusion
Original Note:
Today's Communication/Plan
-
Monitor vitals
See plan
Change antibiotics to oral
Discharge today
Patient will follow-up with oncology outpatient
Time of discharge 39 minutes
Assessment / Plan
Assessment / Plan
General: Comfortable and Conversant
HEENT: Anicteric, Moist mucous membranes and Oxygen (Nasal Cannula)
Respiratory: Wheezes (Diffuse) and Non Labored Respirations
Cardiac: S1/S2 and Regular Rhythm (Slightly tachycardic)
GI: Soft and Non Tender
Musculoskeletal: Other (+1 pitting edema RLE; +2 pitting LLE)
Neuro: Awake, Alert, Oriented and Nonfocal/grossly intact
Psych: Calm
Acute Bronchitis patient with possible pneumonia
Acute hypoxic respiratory insufficiency likely secondary to pneumonia with bronchitis and bilateral pleural effusions
Status post left thoracentesis. Patient also has right instep catheter that drains daily
-Continue DuoNeb PRN. No wheezing this morning. Does have albuterol as needed at home
-Continue Robitussin
Change antibiotics to oral, sputum culture mixed pravin
Pulmonary following
Chest CT Results
1. Small to moderate bilateral pleural effusions, improved on the right and progressed on the left.
2. Patchy and confluent right lower lobe/perihilar consolidation, suspicious for combination of neoplasm and infectious/inflammatory process.
3. Grossly stable metastatic mediastinal/hilar lymphadenopathy.
4. Grossly stable osseous metastatic disease.
Stage IV Adenocarcinoma of the Lung
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
-Consulted IR for routine tunneled catheter drainage; gets drainage daily
Oncology following
Per patient and family, possible immunotherapy soon outpatient
hypocalcemia
Corrected calcium improving
Hyponatremia
Monitor, asymptomatic
repeat BMP outpatient
Elevated troponin, likely nonischemic myocardial injury
Monitor
Bilateral Pulmonary Emboli / LLE DVT
-Continue Eliquis
Bilateral Lower Extremity
-Hold further doses of Lasix
Code Status: Full Code
Anticipated Discharge: Today
Subjective/Interval History
-
Date of Service: May 18, 2025
Feeling better
Objective Data
-
Labs:
Laboratory Results
05/18/25
06:49
WBC 10.5
Hgb 12.9 L
Hct 37.7 L
Plt Count 328
Sodium 129 L
Potassium 4.4
Chloride 97 L
Carbon Dioxide 29
BUN 16
Creatinine 0.6 L
Glucose 100 H
Calcium 7.0 L
Total Bilirubin 0.6
AST 20
ALT 13
Alkaline Phosphatase 135 H
Vital Signs:
Vital Signs
Temp Pulse Resp BP Pulse Ox
98.0 F 107 18 134/85 94
05/18/25 07:35 05/18/25 07:35 05/18/25 07:35 05/18/25 07:35 05/18/25 07:35
I&O
05/17/25 05/18/25 05/19/25
06:59 06:59 06:59
Intake Total 960 / 960
Output Total 125 / 125 200 / 200
Balance 835 / 835 -200 / -200
--- NOTE | 2025-05-18 11:22 | W.DCSUMMARY ---
Discharge Summary
Discharge Data
Date of Admission: 05/15/25
Date of Discharge: 05/18/25
-
Pending Results: No
Hospital Course
69-year-old male with past medical history of stage IV adenocarcinoma of lung, hypocalcemia, bilateral pulmonary emboli, left lower extremity DVT, pleural effusion, right ascept catheter came to the hospital with worsening hypoxia and shortness of
breath along with cough. Patient's symptoms were likely thought was multifactorial secondary to pneumonia and pleural effusion. Patient already had a separate catheter on the right which was drained by IR while he was here. He also had
thoracentesis with fluid removal on the left. Over time his symptoms continue to improve and he was able to wean off oxygen. He was also seen by pulmonary throughout hospitalization. Once his symptoms were improving then his antibiotics was
changed to oral and he was discharged with instructions to follow-up with all his physicians outpatient.
Discharge Plan
-
Patient Disposition: Home (Routine Discharge)
Discharge Diagnosis/Procedures: Bilateral pleural effusion
Stage IV non-small cell lung cancer
Pneumonia
Hyponatremia
Diet: As tolerated and Other diet
Additional Diets: 50Oz fluid restriction
Activity: As tolerated
Driving Restrictions: As prior to admission
Blood Work: CBC and BMP later this week or early next week outpatient
Referrals:
Swapnil Velarde MD [Active, Pulmonary Medicine]
Eliezer Soni MD [Active, Hematology / Oncology] - in less than 1 week
Andrea Mcintosh MD [Family Provider, [facility]] - in less than 1 week
Prescriptions:
New
guaifenesin 100 mg/5 mL Liquid
200 mg PO QID Qty: 1500 0RF
doxycycline hyclate 100 mg Capsule
100 mg PO Q12 Qty: 10 0RF
cefdinir 300 mg capsule
300 mg PO BID Qty: 10 0RF
pantoprazole 40 mg Tablet,Delayed Release (Dr/Ec)
40 mg PO DAILY Qty: 30 0RF
Continued
Laxative (bisacodyl) 5 mg Tablet
10 mg PO DAILYPRN PRN (Reason: constipation)
acetaminophen 500 mg Tablet
500 mg PO DAILYPRN PRN (Reason: mild pain)
Eliquis 5 mg tablet
5 mg PO BID
albuterol sulfate 90 mcg/actuation HFA aerosol inhaler
2 puff INHALATION Q4HPRN PRN (Reason: sob) Qty: 8.5 0RF
Discharge Orders:
Discharge Patient (As Directed); Ordered 05/18/25
Ordered By: Mikel Meza
Discharge Date and Time
Discharge Date/Time: 05/18/25 13:52
Print Language: HUNGARIAN
[2025-05-18 11:30] VITALS: BP 157/58
--- NOTE | 2025-05-18 12:08 | CM ---
Patient medically cleared for discharge. Spoke with patient, family at bedside. He is agreeable to d/c. Signed IMM. will transport home. Wants resumption of care of [facility]. Referral made.
Plan: Case management will continue to follow and assist with discharge planning. Patient will return home today.
--- NOTE | 2025-05-18 13:40 | W.PN.PUL3 ---
Today's Communication / Plan
-
Discharge planning
Complete antibiotics for possible pneumonia
Signed off
outpatient pulmonary follow-up with Dr. Velarde
Assessment
-
Patient is a 69-year-old male with previous history of stage IV adenocarcinoma of the lung who presents to the ER with shortness of breath and cough. CT chest illustrated worsening bilateral pleural effusions. Left pleural effusion has progressed
compared to prior. Right pleural catheter in place. Right perihilar consolidation also noted.
Exertional dyspnea/coughing
Right perihilar infiltrate cannot rule out pneumonia versus cancer
CT chest 05/15/2025:
1. Small to moderate bilateral pleural effusions, improved on the right and progressed on the left.
2. Patchy and confluent right lower lobe/perihilar consolidation, suspicious for combination of neoplasm and infectious/inflammatory process.
3. Grossly stable metastatic mediastinal/hilar lymphadenopathy.
4. Grossly stable osseous metastatic disease.
Bilateral pleural effusion-multifactorial
Malignant pleural effusion on the right status post intrapleural catheter 05/09/2025
Stage IV adenocarcinoma-chemotherapy/immunotherapy
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
Stage IV Adenocarcinoma of the Lung - was started on oral chemotherapy Tabrecta on 12/03/2024.
s/p 5 radiation treatments to his sternum and cervical spine
Follows with Dr. Velarde as OP
Hypocalcemia from [facility]
Bilateral Pulmonary Emboli on AC 12/2024
LLE DVT
Bronchoscopy with biopsy 10/25/2024
History of oral surgery
Colon polyps
Plan:
-
Main complaint is shortness of breath and coughing.
CT chest noted: Possible perihilar infiltrate suggestive of possible pneumonia. Bilateral pleural effusions.
-
Completed 7 days of antibiotics to cover for community-acquired pneumonia.
Cultures negative
Leukocytosis resolved
Afebrile
-
Shortness of breath improved post left thoracentesis and intrapleural catheter drainage.
Maintain pulse ox above 90% currently on room air
Continue nebulizers to aid with secretion clearance
Incentive spirometry encouraged
-
Another component of shortness of breath likely due to deconditioning, worsening bilateral pleural effusions.
Left pleural effusion was present before but is worse this admission-cannot rule out malignant as well.
Status post thoracentesis 05/16/2025 1400 cc serosanguineous-likely malignant. No samples were sent.
proBNP is normal less likely heart failure component.
Bilateral effusions, lower extremity edema possibly due to low albumin state.
Echocardiogram05/16/2025: No pericardial effusion. No significant abnormalities. Normal LVEF. Normal RV function. Stable compared to December 2024
TSH was normal
-
Bilateral pleural effusions:
Intrapleural catheter in place-drain as able per IR -positive cytology 05/03/2025.
Worsening left effusion may be malignant as well
Status post thoracentesis 05/17/2025 on the left-likely malignant-improved shortness of breath.
-
Prior ECHO results are reviewed indicating stable function, RV dysf from PE-01/10/2025
Mild PH noted as well
proBNP is normal this admission.
Maintain anticoagulation indefinitely.
Follow-up with Dr. Velarde after discharge.
Agree with discharge planning
Sign off

Diagnostic Data
CXR 05/04/25- Dense opacification of the lower right hemithorax at least in part correlating with known moderate right pleural effusion without significant change. Tiny left pleural effusion.
No pneumothorax.
CT Chest 05/02/25- MARKED OPACIFICATION of a majority of the right hemithorax likely predominantly representing large pleural effusion significantly increased as well as progression of central malignancy and progression of right hilar/mediastinal/
lymphadenopathy in the interval since prior CT with only small volume aeration of small portion of right upper lobe now noted.
No findings to suggest pulmonary embolism within the main pulmonary arteries and left pulmonary artery branches. Evaluation of right pulmonary artery branches markedly limited by the subtotal opacification/malignancy/pleural fluid in the right
hemithorax. New small left pleural effusion.
Bony metastatic disease again seen, particularly involving the sternum.
CT Chest 12/2024: Positive for bilateral acute pulmonary thromboembolism with a moderate to large clot burden. Mild right heart strain.
Worsening metastatic mediastinal and bilateral hilar lymphadenopathy compared to the chest CT from 10/19/2024. Mildly increased size of the thick-walled cavitary right hilar lung cancer.
Bilateral pneumonia, greatest in the right upper lobe. Small right pleural effusion.
Lytic and sclerotic metastasis of the inferior sternum. Fluid collection versus necrotic metastatic disease right lateral to the inferior sternum at the costochondral junction.
CT Chest 09/2024: 1. There is a cavitary, thick-walled lesion within the medial right lower lobe which extends into the right hilum which measures 4.1 x 3.5 x 3.7 cm. This is concerning for malignancy although cavitary pneumonia could appear
similar. There is associated mediastinal lymphadenopathy with a 1.3 cm subcarinal lymph node and a 1.2 cm left paratracheal lymph node.
Reports and relevant images were personally reviewed.
PET/CT 03/09/25- 1. LARGE RIGHT LOWER LOBE LUNG CANCER invading the right hilum.
2. SEVERE METASTATIC MEDIASTINAL LYMPHADENOPATHY.
3. MULTIFOCAL DESTRUCTIVE LYTIC OSSEOUS METASTATIC DISEASE.
4. Mild bilateral metastatic supraclavicular lymphadenopathy.
5. Small right and minimal left pleural effusions.
6. Small round intramuscular metastasis or focus of inflammation in the right gluteus zachary muscle.
Venous Duplex:
1. Extensive left lower extremity DVT as described.
2. No evidence of deep venous thrombosis in the right lower extremity as described above.
ECHO 01/10/25- Enlarged right ventricular size. Low normal right ventricular systolic function. Mild to moderate tricuspid regurgitation. Estimated PASP 35-40 mmHg and RA 3 mmHg. LVEF 60-65% with normal LV wall motion. No pericardial effusion. No
prior study available for comparison.
Subjective Data
-
Date of Service:
Date of Service: May 18, 2025
Chief Complaint: Pulmonary Follow Up (Exertional dyspnea-bilateral pleural effusion)
Subjective:
Patient improved after thoracentesis
No new pulmonary
Objective Data
Data Reviewed
Vital Signs / I&O / Oxygen:
Vital Signs
Temp Pulse Resp BP Pulse Ox
97.7 F 116 20 157/58 95
05/18/25 11:30 05/18/25 11:30 05/18/25 11:30 05/18/25 11:30 05/18/25 11:56
Intake and Output
05/17/25 05/18/25 05/19/25
06:59 06:59 06:59
Intake Total 960 / 960
Output Total 125 / 125 200 / 200
Balance 835 / 835 -200 / -200
SaO2 95
Nasal Cannula flow liters per 2
minute
Physical Exam
General: Comfortable
HEENT: Normocephalic
Cardiovascular: S1-S2
Respiratory: Other (Decreased breath sounds in both bases)
GI: Soft and Non Distended
Neurology: Awake and Alert
Skin: Warm
Labs/Micro/Reports
Lab Data
05/18/25 06:49
05/18/25 06:49
Microbiology
05/16/25 18:07 Sputum Respiratory Culture - Final
05/16/25 18:07 Sputum Gram Stain - Final
== END 2025-05-18 13:52 | disposition home health service (06) | DRG 180 ==
LOC: 4 EAST ACU 15:47
PROVIDERS: Physician Assistant Medical; Radiology Vascular & Interventional Radiology; ADMITTING PHYSICIAN Hospitalist; ATTENDING PHYSICIAN Internal Medicine; CONSULT PHYSICIAN Internal Medicine Hematology & Oncology; EMERGENCY PHYSICIAN Emergency Medicine; FAMILY PHYSICIAN Family Medicine; OTHER PHYSICIAN Internal Medicine Critical Care Medicine
PROC: 0W9B3ZZ Drainage of Left Pleural Cavity, Percutaneous Approach (ICD-10-PCS; 2025-05-16)
DX: C34.91 Malignant neoplasm of unspecified part of right bronchus or lung (principal); J18.9 Pneumonia, unspecified organism; J91.0 Malignant pleural effusion; E87.1 Hypo-osmolality and hyponatremia; C79.51 Secondary malignant neoplasm of bone; I67.5 Moyamoya disease; I5A Non-ischemic myocardial injury (non-traumatic); J20.9 Acute bronchitis, unspecified; R09.02 Hypoxemia; E83.51 Hypocalcemia; R22.43 Localized swelling, mass and lump, lower limb, bilateral; R22.33 Localized swelling, mass and lump, upper limb, bilateral; Z11.52 Encounter for screening for COVID-19; Z86.711 Personal history of pulmonary embolism; Z86.718 Personal history of other venous thrombosis and embolism; Z79.01 Long term (current) use of anticoagulants
CPT/HCPCS: 32555; 71045; 71250; 80048; 80053; 81003; 81015; 83880; 84443; 84484; 85025; 85027; 87070; 87205; 87811; 93005; 93306; 94640; 94761; 99285

== ENCOUNTER → 2025-05-27 10:25 | Outpatient (REF) | payer OTHER, SELFPAY ==
--- NOTE | 2025-05-15 15:11 | W.PN.UPDATE ---
Addendum entered and electronically signed by Madisyn Laboy MD 05/15/25 15:24:
Patient saturating 91-94% on room air.
Original Note:
Update Note
Progress Note Update
This is an addendum to H&P written by Britni Estrada on 05/15/2025. �Patient seen and examined independently with PA.
69-year-old male past medical history of stage IV adenocarcinoma of the lung, right pleural effusion status post with ASEPT catheter, bilateral pulmonary emboli on Eliquis, chronic constipation, presenting with pain at the site of catheter, cough,
wheezing over the past 2 days. �Patient received approval to increase drainage from his normal 500 cc/day 1000 cc 2 days ago, and 650 cc drained yesterday. �Also started Lasix yesterday with feeling weakness and vomiting afterwards.
Vital signs show tachycardia. 95% O2 sat. Oxygen placed for comfort.
Labs show leukocytosis. �EKG shows sinus tachycardia.
Patient history noted to have wheezing on examination this improved with nebulizer
Patient possibly with acute bronchitis. Check COVID. �Check CT chest. �Consulted IR to assist with daily drainage from Pleurx catheter. �Drainage likely should be decreased back to 500 cc/day due to chest discomfort with higher drainage volumes.
�DuoNebs as needed, Mucinex.
[2025-05-27 10:40] VITALS: BP 112/84; BP_SYST 155
--- NOTE | 2025-05-27 11:15 | PTCARENOTE ---
pt reports feeling generally unwell this AM; significant pain around pleurex site extending to sternum that has persisted for multiple days; reports SOB; increased WOB noted; denies chest pain; brought back to IRAD pulse ox noted to be 95%; pt
placed on 2L NC for comfort; BP 112/84; pt reports some increased respiratory comfort with supplemental O2. pt changed into patient gown and placed on cardiac monitor technician when his HR was noted to be in 150-160 with an irregular rhythm. pt denies any
cardiac hx or abnormal heart rhythm; physician notified, EKG obtained showing Afib RVR; ED contacted and pt transported to ED for further evaluation; family notified at patient request; IRAD procedure canceled
== END ==
LOC: RADI 10:25
PROVIDERS: ATTENDING PHYSICIAN Internal Medicine Hematology & Oncology; FAMILY PHYSICIAN Family Medicine
DX: C34.31 Malignant neoplasm of lower lobe, right bronchus or lung (principal); Z53.09 Procedure and treatment not carried out because of other contraindication; R06.02 Shortness of breath; I48.91 Unspecified atrial fibrillation; J91.0 Malignant pleural effusion; K59.09 Other constipation; Z79.01 Long term (current) use of anticoagulants; Z86.711 Personal history of pulmonary embolism
CPT/HCPCS: 93005

== ENCOUNTER 2025-05-27 11:13 | Emergency (ER) | payer OTHER, SELFPAY ==
[2025-05-27] VITALS (7 sets, daily range): BP systolic 97–117; BP diastolic 42–78
[2025-05-27 12:01] LABS: Hematocrit 41.2 % (39.0-52.0); Hemoglobin 13.8 g/dL (13.0-18.0); Mean Corp Hgb Conc. 33.5 g/dL (33.0-37.0); Mean Corpuscular Volume 84.9 fL (80.0-94.0); Platelet Count 413 10^3/uL (130-400); Red Cell Dist. Width 13.4 % (11.5-14.5)
[2025-05-27 12:19] LABS: Nucleated Red Blood Cells % 0 % (-)
--- NOTE | 2025-05-27 12:21 | ED.GENMED ---
History of Present Illness
<Venita Weathers DO - Last Filed: 05/27/25 17:15>
General
Chief Complaint: Heart Rate Problem
Time Seen by Provider: 05/27/25 12:15
<Evelyne Romero DO, Resident - Last Filed: 05/30/25 06:01>
History of Present Illness
History of Present Illness:
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 Patient recently progressed through his treatment of Tabrecta, and was started on Keytruda yesterday.
Patient follows with both [facility] and [facility]. Patient was supposed to get his port placement today, but in IR had excruciating chest and back pain. IR sent him to the ED. Patient was then A-fib with RVR. Of note patient has a
history of malignant pleural effusions bilaterally. Patient has right Pleurx placed since April. Patient has known pleural effusion on left lung.
Past History
<Evelyne Romero DO, Resident - Last Filed: 05/30/25 06:01>
Past History
ED Past Medical History: Cancer (lung)
ED Past Surgical History: None
Social History
Tobacco: Non-smoker
Alcohol: Occasional
Personal:
Living: with family
Review of Systems
<Evelyne Romero DO, Resident - Last Filed: 05/30/25 06:01>
Review of Systems
Allergies reviewed?: Yes
All Other Systems: ROS reviewed and negative except as documented in HPI and ROS
Constitutional: Reports no symptoms
EENT: Reports no symptoms
Respiratory: Reports trouble breathing
Cardiac: Reports no symptoms (Patient denies heart palpitations)
ABD/GI: Reports no symptoms
: Reports no symptoms
Musculoskeletal: Reports no symptoms
Skin: Reports no symptoms
Neurological: Reports dizzy and headache
Endocrine: Reports no symptoms
Hematologic/Lymphatic: Reports no symptoms
Psychiatric: Reports no symptoms
Phy Exam
<Evelyne Romero DO, Resident - Last Filed: 05/30/25 06:01>
General Physical Exam
General Presentation: moderate distress
General Skin: warm and dry
Cardiovascular Exam
Cardiovascular Exam: regular rate/rhythm
Heart Sounds: normal
Pulmonary Exam
Pulmonary Exam: chest non tender, generalized wheezing, respiratory distress and other (Generalized chest and upper back pain.)
Oxygen Status: oxygen 2 liters via NC (1 L NC) and other
Gastrointestinal Exam
Gastrointestinal Exam: normal bowel sounds, non tender and soft
Neurological Exam
Neurological Exam: alert and oriented x3
Psychiatric Exam
Psychiatric Exam: other
Course
<Venita Weathers DO - Last Filed: 05/27/25 17:15>
Orders/Labs/Results
Orders:
Orders
05/27/25 11:39
Cardiac Monitoring- Treatment ONCE
IV Insert/Care/Rem.- Treatment PRN
CR Chest - 2 Views Urgent
Comment:
Reason For Exam: respiratory distress
O2 Therapy [RESP] Urgent
Titrate/Wean O2 to maintain O2 sat greater than (%): 93
Special Instructions: TO MAINTAIN CONTINUOUS O2 SATS >/= 93%
Pulse Ox/cont/shift [RESP] Urgent
Quantity: 1
Special Instructions: continuous pulse ox
05/27/25 11:40
Basic Metabolic Panel Urgent
Complete Blood Count/With Diff Urgent
Troponin I Urgent
05/27/25 12:51
Diltiazem HCl [Cardizem] 10 mg IV NOW STA
05/27/25 12:54
Fentanyl Citrate/Pf [Sublimaze] 50 mcg IV NOW STA
05/27/25 13:02
Electrocardiogram (*1) Stat
Reason for Study: Chest Pain
EKG- Treatment ONCE
0.9% Sodium Chloride 500 ml [Nss] 500 ml IV BOLUS
05/27/25 13:20
CT Chest PE Study Urgent
Comment:
Reason For Exam: chest pain
05/27/25 13:46
Lactic Acid Q4H
Comment: CANCEL 2nd LACTIC ACID IF 1st LACTIC ACID IS LESS THAN 2
Blood Culture Q30M
SONG Source: Blood/Venous
Specimen Description:
Blood Culture Q30M
SONG Source: Blood/Venous
Specimen Description:
05/27/25 14:37
ONCOLOGY CONSULT Stat
Consulting Provider: Mariluz Alexandra
Was physician already notified: Yes
05/27/25 15:05
Case Management Consult ONCE
Case Management Consult: Other
Requested By:: NURSING
Comment: pt wants to get info regarding wheelchair
05/27/25 15:21
Consult Interventional Radiology [IRAD CONSULT] Stat
Consulting Provider: Francisco Peña
Was physician already notified: Yes
Procedure being ordered, including laterality if applicable: thoracentesis
Acknowledgement that appropriate orders are entered: N/A
05/27/25 15:48
Ondansetron Injectable [Zofran] 8 mg Dextrose 5%/Water 50 ml [D5w] 50 ml IV Q8HPRN
05/27/25 15:49
Ipratropium/Albuterol Sulfate [Duoneb] 3 ml INH R NOW STA
05/27/25 16:29
Portable Chest Xray [CR Chest Portable - 1 View] Urgent
Comment:
Reason For Exam: lefrt thoracentesis
Reason Study Needs to be Portable: Other
If Reason is Other, explain: monitored
05/27/25 17:12
Fentanyl Citrate/Pf [Sublimaze] 25 mcg IV NOW STA
05/28/25 08:00
Dexamethasone [Decadron] 4 mg PO DAILY
05/28/25 22:00
Tbo-Filgrastim [Granix] 300 mcg SC HS
Abnormal Lab Results
05/27/25 05/27/25
11:40 13:46
WBC 25.3 H 10^3/uL
(4.8-10.8)
Plt Count 413 H 10^3/uL
(130-400)
Abs Immat Gran (auto) 0.3 H 10^3/uL
(0-0.05)
Absolute Neuts (auto) 23.5 H 10^3/uL
(1.4-6.5)
Absolute Lymphs (auto) 0.3 L 10^3/uL
(1.2-3.4)
Absolute Monos (auto) 1.2 H 10^3/uL
(0.1-0.6)
Immature Gran % 1.1 H %
(0-0.5)
Neutrophils % 92.9 H %
(42.2-75.2)
Lymphocytes % 1.1 L %
(20.5-51.1)
Sodium 134 L mmol/L
(135-145)
BUN 28 H mg/dl
(9-20)
Creatinine 0.6 L mg/dL
(0.7-1.3)
Glucose 136 H mg/dl
(70-99)
Lactic Acid 3.3 H mmol/L
(0.7-2.0)
05/27/25 11:40
05/27/25 11:40
Vital Signs
Initial and Last Documented VS:
Initial Vital Signs
Temp Pulse Resp BP Pulse Ox
97.8 F 157 33 108/75 96
05/27/25 11:18 05/27/25 11:18 05/27/25 11:18 05/27/25 11:18 05/27/25 11:18
Last Documented Vital Signs
Temp Pulse Resp BP Pulse Ox
97.9 F 100 20 117/42 99
05/27/25 16:00 05/27/25 16:50 05/27/25 16:50 05/27/25 16:50 05/27/25 16:45
<Evelyne Romero DO, Resident - Last Filed: 05/30/25 06:01>
Orders/Labs/Results
Orders:
Orders
05/27/25 11:39
Cardiac Monitoring- Treatment ONCE
IV Insert/Care/Rem.- Treatment PRN
CR Chest - 2 Views Urgent
Comment:
Reason For Exam: respiratory distress
O2 Therapy [RESP] Urgent
Titrate/Wean O2 to maintain O2 sat greater than (%): 93
Special Instructions: TO MAINTAIN CONTINUOUS O2 SATS >/= 93%
Pulse Ox/cont/shift [RESP] Urgent
Quantity: 1
Special Instructions: continuous pulse ox
05/27/25 11:40
Basic Metabolic Panel Urgent
Complete Blood Count/With Diff Urgent
Troponin I Urgent
05/27/25 12:51
Diltiazem HCl [Cardizem] 10 mg IV NOW STA
05/27/25 12:54
Fentanyl Citrate/Pf [Sublimaze] 50 mcg IV NOW STA
05/27/25 13:02
Electrocardiogram (*1) Stat
Reason for Study: Chest Pain
EKG- Treatment ONCE
0.9% Sodium Chloride 500 ml [Nss] 500 ml IV BOLUS
05/27/25 13:20
CT Chest PE Study Urgent
Comment:
Reason For Exam: chest pain
05/27/25 13:46
Lactic Acid Q4H
Comment: CANCEL 2nd LACTIC ACID IF 1st LACTIC ACID IS LESS THAN 2
Blood Culture Q30M
SONG Source: Blood/Venous
Specimen Description:
Blood Culture Q30M
SONG Source: Blood/Venous
Specimen Description:
05/27/25 14:37
ONCOLOGY CONSULT Stat
Consulting Provider: Mariluz Alexandra
Was physician already notified: Yes
05/27/25 15:05
Case Management Consult ONCE
Case Management Consult: Other
Requested By:: NURSING
Comment: pt wants to get info regarding wheelchair
05/27/25 15:21
Consult Interventional Radiology [IRAD CONSULT] Stat
Consulting Provider: Francisco Peña
Was physician already notified: Yes
Procedure being ordered, including laterality if applicable: thoracentesis
Acknowledgement that appropriate orders are entered: N/A
05/27/25 15:48
Ondansetron Injectable [Zofran] 8 mg Dextrose 5%/Water 50 ml [D5w] 50 ml IV Q8HPRN
05/27/25 15:49
Ipratropium/Albuterol Sulfate [Duoneb] 3 ml INH R NOW STA
05/27/25 16:29
Portable Chest Xray [CR Chest Portable - 1 View] Urgent
Comment:
Reason For Exam: lefrt thoracentesis
Reason Study Needs to be Portable: Other
If Reason is Other, explain: monitored
05/27/25 17:12
Fentanyl Citrate/Pf [Sublimaze] 25 mcg IV NOW STA
05/28/25 08:00
Dexamethasone [Decadron] 4 mg PO DAILY
05/28/25 22:00
Tbo-Filgrastim [Granix] 300 mcg SC HS
Abnormal Lab Results
05/27/25 05/27/25
11:40 13:46
WBC 25.3 H 10^3/uL
(4.8-10.8)
Plt Count 413 H 10^3/uL
(130-400)
Abs Immat Gran (auto) 0.3 H 10^3/uL
(0-0.05)
Absolute Neuts (auto) 23.5 H 10^3/uL
(1.4-6.5)
Absolute Lymphs (auto) 0.3 L 10^3/uL
(1.2-3.4)
Absolute Monos (auto) 1.2 H 10^3/uL
(0.1-0.6)
Immature Gran % 1.1 H %
(0-0.5)
Neutrophils % 92.9 H %
(42.2-75.2)
Lymphocytes % 1.1 L %
(20.5-51.1)
Sodium 134 L mmol/L
(135-145)
BUN 28 H mg/dl
(9-20)
Creatinine 0.6 L mg/dL
(0.7-1.3)
Glucose 136 H mg/dl
(70-99)
Lactic Acid 3.3 H mmol/L
(0.7-2.0)
05/27/25 11:40
05/27/25 11:40
Vital Signs
Initial and Last Documented VS:
Initial Vital Signs
Temp Pulse Resp BP Pulse Ox
97.8 F 157 33 108/75 96
05/27/25 11:18 05/27/25 11:18 05/27/25 11:18 05/27/25 11:18 05/27/25 11:18
Last Documented Vital Signs
Temp Pulse Resp BP Pulse Ox
97.9 F 100 20 117/42 99
05/27/25 16:00 05/27/25 16:50 05/27/25 16:50 05/27/25 16:50 05/27/25 16:45
<Eevlyne Romero DO, Resident - Last Filed: 05/30/25 06:01>
MDM/Problems Addressed
Differential Diagnosis Includes:
Pneumonia, progression of lung density, pleural effusion, pulmonary embolism
MDM/Problems Addressed:
Patient converted back to normal rhythm. Patient in 10 out of 10 pain. 50 mcg fentanyl ordered. 500 cc normal saline IV fluid. Chest x-ray showed right pleural catheter present slight interval decrease in size of right pleural effusion.
Interval increase of reticulonodular markings within the left mid and lower lung indicating a likely pneumonia. White blood cell count elevated 25.
Patient's pain is much improved. Oncology consulted, discussed with patient and family okay to hold off on Neulasta shot until Friday. IR consulted for possible thoracentesis of left pleural effusion. Patient is having some increased wheezing,
will provide
<Evelyne Romero DO, Resident - Last Filed: 05/30/25 06:01>
*Pulse Oximetry
SaO2: 96
Nasal Cannula flow liters per minute: 2
Oxygen Mode of Delivery: High Flow Nasal Cannula
Patient hypoxic: no
*Critical Care Note
Total Time (30-74mins, 75-104mins- exclusive of procedures): Not Applicable
ED Attending Note
<Venita Weathers DO - Last Filed: 05/27/25 17:15>
ED Attending Note
Patient seen and examined by attending physician: Yes
I performed the substantive portion of visit, reviewed & personally made and approve the management plan that is documented in note by myself or HILL.: Yes
I performed a history and physical exam of patient and discussed management with resident, I reviewed resident's note and agree with documented findings and plan of care.: Yes
ED Attending Note:
69-year-old male with history of metastatic lung cancer, stage IV adenocarcinoma, presenting to the emergency department with diffuse chest wall pain and difficulty breathing. Patient notes that he was going to IR to get a port placed for his
infusions. He did have chemotherapy yesterday, was his first treatment. Also notes history of recurrent pleural effusions, currently has a right ascept catheter, which is drained daily. The last time that the left side was at the end of April.
They do note that patient had a CT scan done on Friday which showed increasing pleural fluid in the left lung. While in interventional radiology getting the port today, patient became tachycardic, diffuse chest pain, was sent to the ER with concern
for new onset A-fib with RVR. Patient is on Eliquis for history of PE and DVT. He has not oxygen dependent. Notes that the pain essentially started this morning, with the dyspnea worsening. He does have some chronic dyspnea with his lung cancer,
however worse than typical. No reported fevers or significant cough. Vital signs on arrival significant for tachycardia, tachypnea, and mildly low blood pressure.
On examination, patient continues to report pain to his chest wall. On lung exam, lungs are essentially clear to auscultation with some decreased air movement to the bases. Mild increased work of breathing, however oxygen saturations are stable on
nasal cannula. Patient initially in A-fib with RVR, confirmed by EKG, however converted while in examination room, now sinus tachycardia, again confirmed by EKG. Labs obtained prior to my assessment which do show significant leukocytosis, however
could be reactive from chemotherapy that was given yesterday. Chest x-ray shows stable appearance of the right lung field, however possible developing pneumonia to the left lung versus effusion. Patient is still in significant pain despite now
being rate controlled, out of A-fib. Without suspicion for A-fib as etiology of symptoms. Ultimately suspect that his dyspnea is from chronic lung cancer and possibly pleural effusion. Will clean up person fentanyl for pain. Will consult with oncology
and obtain repeat CT imaging of the chest
14:40 -CT of the chest does show interval worsening of the left lung field, concern for fluid versus pneumonitis versus spread of malignancy. Given recurrent effusions, suspect to be more likely pleural fluid. Oncology to bedside, note that
patient did get dexamethasone yesterday, likely etiology of the jump of cell count. Less concern for pneumonia at this time. Holding antibiotics. Patient does not want to stay in the hospital. Feel that this is reasonable given chronicity of
symptoms, will consult with IR for potential drainage today for symptom relief
17:10 -successful drainage of about 900 cc of fluid per IR. Patient is feeling much better. Oxygen remained stable. He continues to want to go home. Feel reasonable with outpatient oncology follow-up. Oncology updated. Patient has oxycodone at
home, however notes that issues with his prescription. Will refill. Return precautions discussed
<Evelyne Romero DO, Resident - Last Filed: 05/30/25 06:01>
-
Portions of this chart may have been created with voice recognition software.� Occasional wrong word or��sound alike� substitutions may have occurred due to the inherent limitations of voice recognition software.
Discharge Plan
Departure
Patient Disposition: Home (Routine Discharge)
Date of Disposition: 05/27/25
Time of Disposition: 17:15
Patient with high blood pressure during this ER visit?: No
Condition: Good
Discharge Problem:
Pleural effusion, left, Shortness of breath
Instructions: Pleural effusion - Discharge instructions, Shortness of breath in adults - ED discharge instructions
Prescriptions:
New
oxycodone 5 mg capsule
5 mg PO Q8H PRN (Reason: Pain) Qty: 10 0RF
No Action
acetaminophen 500 mg Tablet
1,000 mg PO DAILYPRN PRN (Reason: mild pain)
Eliquis 5 mg tablet
5 mg PO BID
dexamethasone 4 mg Tablet
4 mg PO DIRECTED
Rx Instructions:
take 2 tablet the day before, the day of and the after chemo treatments
folic acid 1 mg Tablet
1 mg PO DAILY
guaifenesin 100 mg/5 mL liquid
200 mg PO QIDPRN PRN (Reason: cough)
albuterol sulfate 90 mcg/actuation HFA aerosol inhaler
2 puff INHALATION R Q4HPRN PRN (Reason: sob)
pantoprazole 40 mg tablet,delayed release (DR/EC)
40 mg PO DAILY
Referrals:
Francisco Clarke MD [Family Provider, Family Practice]
Activity Restrictions/Additional Instructions:
You were seen in the emergency department for shortness of breath and chest
You were found to have increased amount of fluid in your left lung. You subsequently had the fluid drained by interventional radiology. You will need to follow-up with your oncologist, as well as a jalousies installer. When you arrived in the hospital
you were show fibrillation which has since resolved.
Please follow-up closely with your primary care physician.
Return to the emergency department for any worsening of your symptoms, or any development of chest pain, difficulty breathing, abdominal pain with persistent vomiting and inability to tolerate food or liquid by mouth (concern for dehydration),
weakness, headache or confusion, fever greater than 100.4, or any additional symptoms that are concerning to you.
Thank you for choosing [facility].
Interventions
Interventions:
*Risk Screen - Suicide Last Done: 05/27/25 11:18
*General Assessment Last Done: 05/27/25 11:53
*Neglect/Abuse Screening Last Done: 05/27/25 11:18
*ED- Fall Risk Assessment Last Done: 05/27/25 11:53
*ED COVID-19 Vaccine History Last Done: 05/27/25 11:53
*Nursing Disposition Last Done: 05/27/25 17:53
ED- Cardiac Assessment Last Done: 05/27/25 11:51
ED- Pulmonary Assessment Last Done: 05/27/25 11:51
Discharge Date and Time
Discharge Date/Time: 05/27/25 17:53
Print Language: EAST [place]
[2025-05-27 12:23] LABS: Blood Urea Nitrogen 28 mg/dl (9-20); Calcium 8.4 mg/dl (8.4-10.2); Carbon Dioxide 26 mmol/L (22-30); Chloride 101 mmol/L (98-107); Glucose 136 mg/dl (70-99); Sodium 134 mmol/L (135-145); eGFR > 60.00
[2025-05-27 12:29] LABS: Troponin I 0.019 ng/ml
[2025-05-27] MEDS: SUBLIMAZE 50 MCG IV (13:05)
[2025-05-27] MEDS: NSS 500 IV (13:10)
--- NOTE | 2025-05-27 15:20 | CON.ONC ---
Documented by User: CHERYL Hitchcock 05/27/25 15:39
Consultation
-
Date Consultation Requested: 05/27/25
Date Consultation Performed: 05/27/25
Requesting Provider: Dr. Evelyne Romero
Performing Provider: Dr. Eliezer Soni
Reason for Consultation: NSCLC
Impression
Impression
p/w SOB, chest pain, AF RVR
Stage IV mutated non-small cell lung cancer, s/p C1 pembro, almta, carbo 05/26
Has right asept for recurrent right pleural effusion
recurrent left pleural effusion
History of pulmonary embolus, December 2024 on apixaban 2.5mg BID
leukocytosis may reflect dexamethasone administed 05/26 & 05/27 as part of his chemo regimen
Plan
Plan
Consider left thoracentesis vs ASEPT catheter placement
continue right ASEPT drainage prn, last drained 05/26 500cc
will start GCSF daily tomorrow if admitted, if discharged then will give in the office Friday discussed with patient and family at bedside
antiemetics and symptoms supoort prn
dexamethasone 4mg x 1 dose 05/28 to complete chemotherapy regimen
eventual mediport will be arranged
OP follow up with Dr. Cohen upon discharge
Family at bedside provided updates and questions answered
Patient History
History of Present Illness
69yo M who presents from where he was scheduled to have his port placed to the ER for evaluation of chest pain, tachycardia, and dyspnea. He was found to have AF with RVR. His CT chest showed no pulmonary emboli. It did show reticular markings in
the left lung, left lung bronchial wall thickening, Small to moderate right pleural effusion, and moderate left pleural effusion. WBC 25.3, Hgb 13.8, platelet count 413,000. He notes a non-productive cough, however no fevers or chills. He denies
sick contacts.
In brief, he is known to Dr. Cohen for management of his MET mutated stage IV NSCLC. He was initially treated with Tabrecta, however, due to progression of disease he switch treatment this month. He was found to have malignant pleural effusions for
which a R aspet catheter was placed. He also under went a left thoracentesis 05/16. He started pembro, carbo, alimta 05/26/2025.
Clinically, he denies any n/v/d/c or abdominal pain. He deneis any overt bleeding.
Afebrile, no hypotension, 2L NC.
Past-Medical/Surgical History
PMH VTE, moyamoya disease
PSH lung biopsy
social never smoker, denies ETOH or recreational drugs. Retired. Lives with
Family mother breast cancer
Patient Medication
�Medication �Instructions �Recorded �Confirmed �Last Taken �Type
acetaminophen 500 mg tablet 1,000 mg PO DAILYPRN PRN mild pain 05/15/25 05/27/25 05/26/25 History
apixaban 5 mg tablet (Eliquis) 5 mg PO BID Blood Clot 05/15/25 05/27/25 05/27/25 History
Prevention/Tx
pantoprazole 40 mg tablet,delayed 40 mg PO DAILY #30 tabs 05/18/25 05/27/25 05/27/25 Rx
release
albuterol sulfate 90 mcg/actuation 2 puff inhalation R Q4HPRN PRN sob 05/27/25 05/27/25 05/27/25 History
aerosol inhaler
dexamethasone 4 mg tablet 4 mg PO DIRECTED 05/27/25 05/27/25 05/27/25 History
folic acid 1 mg tablet 1 mg PO DAILY 05/27/25 05/27/25 05/27/25 History
guaifenesin 100 mg/5 mL oral liquid 200 mg PO QIDPRN PRN cough 05/27/25 05/27/25 Unknown History
Review of Systems
-
ROS is notable for HPI, otherwise negative
Physical Exam
-
General: Appears in Distress and Conversant
HEENT: Moist Mucous Membranes; Negative Jaundice
Cardiology: Normal Sinus Rhythm
Pulmonary: Wheezes (RUL) and Other (diminshed b/l lower lobes)
GI: Soft
Extremities: Pulses Present; Negative Edema
Neurology: Non Focal
Psych: Calm
Labs
Lab Results
WBC 25.3 10^3/uL (4.8-10.8) H 05/27/25 11:40
RBC 4.85 10^6/uL (4.70-6.10) 05/27/25 11:40
Hgb 13.8 g/dL (13.0-18.0) 05/27/25 11:40
Hct 41.2 % (39.0-52.0) 05/27/25 11:40
MCV 84.9 fL (80.0-94.0) 05/27/25 11:40
MCH 28.5 pg (27.0-31.0) 05/27/25 11:40
MCHC 33.5 g/dL (33.0-37.0) 05/27/25 11:40
RDW 13.4 % (11.5-14.5) 05/27/25 11:40
Plt Count 413 10^3/uL (130-400) H 05/27/25 11:40
MPV 8.3 fL (7.4-10.4) 05/27/25 11:40
Abs Immat Gran (auto) 0.3 10^3/uL (0-0.05) H 05/27/25 11:40
Absolute Neuts (auto) 23.5 10^3/uL (1.4-6.5) H 05/27/25 11:40
Absolute Lymphs (auto) 0.3 10^3/uL (1.2-3.4) L 05/27/25 11:40
Absolute Monos (auto) 1.2 10^3/uL (0.1-0.6) H 05/27/25 11:40
Absolute Eos (auto) 0.0 10^3/uL (0-0.7) 05/27/25 11:40
Absolute Basos (auto) 0.0 10^3/uL (0-0.2) 05/27/25 11:40
Immature Gran % 1.1 % (0-0.5) H 05/27/25 11:40
Neutrophils % 92.9 % (42.2-75.2) H 05/27/25 11:40
Lymphocytes % 1.1 % (20.5-51.1) L 05/27/25 11:40
Monocytes % 4.8 % (1.7-9.3) 05/27/25 11:40
Eosinophils % 0.0 % (0-6) 05/27/25 11:40
Basophils % 0.1 % (0-2) 05/27/25 11:40
Creatinine 0.6 mg/dL (0.7-1.3) L 05/27/25 11:40
Vital Signs
Vital Signs
Temp Pulse Resp BP Pulse Ox
97.8 F 110 27 105/78 94
05/27/25 11:18 05/27/25 13:45 05/27/25 13:10 05/27/25 13:10 05/27/25 13:15

Documented by User: Eliezer Soni MD 05/27/25 17:16
Plan
Plan
Consider left thoracentesis vs ASEPT catheter placement
continue right ASEPT drainage prn, last drained 05/26 500cc
will start GCSF daily tomorrow if admitted, if discharged then will give in the office Friday discussed with patient and family at bedside
antiemetics and symptoms supoort prn
dexamethasone 4mg x 1 dose 05/28 to complete chemotherapy regimen
eventual mediport will be arranged
OP follow up with Dr. Cohen upon discharge
Family at bedside provided updates and questions answered
05/27: Multifactorial shortness of breath. Recurrent left pleural effusion, agree with plans for thoracentesis. Other plans as per emergency medicine and possibly cardiology in terms of his heart rate. It appears that he may need a Pleurx catheter
on both sides. He was due for Neulasta in the office today. If he is admitted, would begin Neupogen on a daily basis.
--- NOTE | 2025-05-27 15:40 | CM ---
Received CM consult, pt and family inquiring about Palliative Care and transport wheelchair. Discussed Palliative Care and gave them the number to schedule an appointment. Also discussed transport wheelchair, I suggested they try [facility],
[employer] or [facility] to purchase one. They are not sure if he has insurance coverage for it, they will discuss with Palliative when the see them.
No other CM needs at this time.
[2025-05-27] MEDS: SUBLIMAZE 25 MCG IV (17:22)
== END 2025-05-27 17:53 | disposition home or self-care (01) ==
LOC: EMR 11:13
PROVIDERS: Student in an Organized Health Care Education/Training Program; CONSULT PHYSICIAN Internal Medicine Hematology & Oncology; CONSULT PHYSICIAN Radiology Vascular & Interventional Radiology; EMERGENCY PHYSICIAN Student in an Organized Health Care Education/Training Program; FAMILY PHYSICIAN Family Medicine
DX: J90 Pleural effusion, not elsewhere classified (principal); C34.91 Malignant neoplasm of unspecified part of right bronchus or lung; R06.03 Acute respiratory distress; I48.91 Unspecified atrial fibrillation; Z79.01 Long term (current) use of anticoagulants; Z86.711 Personal history of pulmonary embolism; Z86.718 Personal history of other venous thrombosis and embolism; Z80.3 Family history of malignant neoplasm of breast
CPT/HCPCS: 99284; 32555; 71045; 71046; 71275; 80048; 83605; 84484; 85025; 87040; 93005; Q9967

== ENCOUNTER 2025-05-31 04:49 | Emergency (ER) | payer OTHER, SELFPAY ==
[2025-05-31] VITALS (11 sets, daily range): BP systolic 92–112; BP diastolic 45–84; BMI 23.6
--- NOTE | 2025-05-31 05:40 | ED.GENMED ---
History of Present Illness
<Dipti Lackey MD - Last Filed: 06/01/25 09:05>
General
Chief Complaint: Breathing Problem
Source: patient, records and spouse
Time Seen by Provider: 05/31/25 05:32
History of Present Illness
History of Present Illness:
69-year-old male with a history of stage IV non-small cell lung cancer, with a Pleur-evac on the right side, most recently in the emergency department on May 27, at which time he had 900 cc of pleural fluid drained from the left side. He received
chemotherapy on . He woke this morning with complaints of feeling like he could not get enough air. He denies new cough, fever, chills, chest pain or pressure, abdominal pain, nausea, vomiting. Patient has been draining his Pleur-evac on
the right side every day, most recently last night. Volume is anywhere between 500 to 650 mL. There is consideration for placing a Pleur-evac on the left side but that has not yet done.
Past History
<Dipti Lackey MD - Last Filed: 06/01/25 09:05>
Past History
ED Past Medical History: Cancer (lung) and Other (PE)
ED Past Surgical History: Other (Aspet catheter)
Social History
Tobacco: Non-smoker
Alcohol: Occasional
Drug: None
Personal:
Living: with family
Phy Exam
<Dipti Lackey MD - Last Filed: 06/01/25 09:05>
Physical Exam
Physical Exam:
GENERAL: Alert , in no apparent distress
EYE: pupils equal and reactive
NECK: Supple, no significant adenopathy.
ENT: o/p clr, mm slightly dry, no stridor, no drool, voice clear
CARDIAC: Regular rate and rhythm .
LUNGS: Equal breath sounds bilaterally, elevated respiratory rate without retractions, scattered rhonchi noted, no Rales
ABDOMEN: Soft, without focal tenderness, no r/g, no cvat
NEUROLOGICAL: Alert and oriented, no focal neuro deficits
SKIN: Warm and dry, skin intact.
MUSCULOSKELETAL: 1-2+ bilateral lower extremity edema, left greater than right chronic as per patient and well perfused.
PSYCH: Normal and appropriate interaction although appears slightly anxious.
Scores
<Dipti Lackey MD - Last Filed: 06/01/25 09:05>
Heart Failure Risk
Heart Failure Risk Score: Not Applicable
Course
<Dipti Lackey MD - Last Filed: 06/01/25 09:05>
Orders/Labs/Results
Orders:
Orders
05/31/25 04:54
Electrocardiogram (*1) Urgent
Reason for Study: Shortness of Breath
05/31/25 04:55
EKG- Treatment ONCE
05/31/25 05:34
Basic Metabolic Panel Urgent
Comment: NO K
Complete Blood Count/With Diff Urgent
Manual Differential Urgent
NT-proBNP Urgent
05/31/25 05:40
CR Chest Portable - 1 View Urgent
Comment:
Reason For Exam: hx lung ca with pl effus, now sob
Reason Study Needs to be Portable: Unable to Transport
05/31/25 08:09
Consult Interventional Radiology [[facility] CONSULT] Urgent
Consulting Provider: Celestine Adam
Was physician already notified: Yes
Procedure being ordered, including laterality if applicable: L-thorocentesis
Acknowledgement that appropriate orders are entered: Yes
05/31/25 10:26
Acetaminophen 1000MG/100Ml [Ofirmev] 1,000 mg in 100 ml IV ONCE
Acetaminophen IV Indication:: No ID & No Enteral Access
05/31/25 13:42
CR Chest Single View Urgent
Comment:
Reason For Exam: s/p left thoracentesis
Abnormal Lab Results
05/31/25
05:34
WBC 14.2 H 10^3/uL
(4.8-10.8)
RBC 4.69 L 10^6/uL
(4.70-6.10)
Abs Neuts (Manual) 13.2 H 10^3/uL
(1.4-6.5)
Segmented Neutrophils 93 H %
(42-75)
Lymphocytes (Manual) 5 L %
(20-51)
Sodium 129 L mmol/L
(135-145)
BUN 36 H mg/dl
(9-20)
Creatinine 0.5 L mg/dL
(0.7-1.3)
Calcium 7.7 L mg/dl
(8.4-10.2)
05/31/25 05:34
05/31/25 05:34
Vital Signs
Initial and Last Documented VS:
Initial Vital Signs
Pulse Resp BP Pulse Ox
112 32 96/64 98
05/31/25 04:50 05/31/25 04:50 05/31/25 04:50 05/31/25 04:50
Last Documented Vital Signs
Temp Pulse Resp BP Pulse Ox
97.7 F 108 21 103/74 96
05/31/25 13:26 05/31/25 13:54 05/31/25 13:54 05/31/25 13:54 05/31/25 13:54
<Venita Weathers, DO - Last Filed: 05/31/25 14:23>
Orders/Labs/Results
Orders:
Orders
05/31/25 04:54
Electrocardiogram (*1) Urgent
Reason for Study: Shortness of Breath
05/31/25 04:55
EKG- Treatment ONCE
05/31/25 05:34
Basic Metabolic Panel Urgent
Comment: NO K
Complete Blood Count/With Diff Urgent
Manual Differential Urgent
NT-proBNP Urgent
05/31/25 05:40
CR Chest Portable - 1 View Urgent
Comment:
Reason For Exam: hx lung ca with pl effus, now sob
Reason Study Needs to be Portable: Unable to Transport
05/31/25 08:09
Consult Interventional Radiology [[facility] CONSULT] Urgent
Consulting Provider: Celestine Adam
Was physician already notified: Yes
Procedure being ordered, including laterality if applicable: L-thorocentesis
Acknowledgement that appropriate orders are entered: Yes
05/31/25 10:26
Acetaminophen 1000MG/100Ml [Ofirmev] 1,000 mg in 100 ml IV ONCE
Acetaminophen IV Indication:: No ID & No Enteral Access
05/31/25 13:42
CR Chest Single View Urgent
Comment:
Reason For Exam: s/p left thoracentesis
Abnormal Lab Results
05/31/25
05:34
WBC 14.2 H 10^3/uL
(4.8-10.8)
RBC 4.69 L 10^6/uL
(4.70-6.10)
Abs Neuts (Manual) 13.2 H 10^3/uL
(1.4-6.5)
Segmented Neutrophils 93 H %
(42-75)
Lymphocytes (Manual) 5 L %
(20-51)
Sodium 129 L mmol/L
(135-145)
BUN 36 H mg/dl
(9-20)
Creatinine 0.5 L mg/dL
(0.7-1.3)
Calcium 7.7 L mg/dl
(8.4-10.2)
05/31/25 05:34
05/31/25 05:34
Vital Signs
Initial and Last Documented VS:
Initial Vital Signs
Pulse Resp BP Pulse Ox
112 32 96/64 98
05/31/25 04:50 05/31/25 04:50 05/31/25 04:50 05/31/25 04:50
Last Documented Vital Signs
Temp Pulse Resp BP Pulse Ox
97.7 F 108 21 103/74 96
05/31/25 13:26 05/31/25 13:54 05/31/25 13:54 05/31/25 13:54 05/31/25 13:54
<Dipti Lackey MD - Last Filed: 06/01/25 09:05>
*Pulse Oximetry
SaO2: 97
Oxygen Mode of Delivery: Room air
Patient hypoxic: no
*Critical Care Note
Total Time (30-74mins, 75-104mins- exclusive of procedures): Not Applicable
<Dipti Lackey MD - Last Filed: 06/01/25 09:05>
Update Note
Update Note:
Patient presents to the Emergency Department with dyspnea
Number and Complexity of Problems Addressed at the Encounter
� Chronic conditions affecting care:
� Acute Exacerbation and/or Progression of Chronic Illness:
� Differential Diagnosis includes: But not limited to recurrent pleural effusion, pneumonia, progression of lung cancer, etc. etc.
Amount and/or Complexity of Data to be Reviewed and Analyzed
� I performed an independent evaluation of and my interpretation is:
EKG:
CT:
Xrays:
Laboratory Studies:
Other:
� Review of other/old records reveals: Patient was in the hospital/ER May 27, ER record as well as consultation from oncology reviewed
� Clinical information was obtained by an independent historian: who is at bedside and offers great detail, has a notebook with details
� Prescriptions/Medications Considered but not given:
� Further testing considered but not performed:
Risk of Complications and/or Morbidity or Mortality of Patient Management
� Social determinants of health affecting care:
� Discussion with other providers (PCP, Hospitalists, Consultants, etc):
� Escalation of care including admission/observation vs risk of discharge considered: Although patient feels dyspneic, his pulse ox remains normal here. Chest x-ray pending. Doubt worsening/new PE given patient is fully
anticoagulated.
<Venita Weathers, DO - Last Filed: 05/31/25 14:23>
Update Note
Update Note:
Patient presents to the Emergency Department with dyspnea
Number and Complexity of Problems Addressed at the Encounter
� Chronic conditions affecting care:
� Acute Exacerbation and/or Progression of Chronic Illness:
� Differential Diagnosis includes: But not limited to recurrent pleural effusion, pneumonia, progression of lung cancer, etc. etc.
Amount and/or Complexity of Data to be Reviewed and Analyzed
� I performed an independent evaluation of and my interpretation is:
EKG:
CT:
Xrays:
Laboratory Studies:
Other:
� Review of other/old records reveals: Patient was in the hospital/ER May 27, ER record as well as consultation from oncology reviewed
� Clinical information was obtained by an independent historian: who is at bedside and offers great detail, has a notebook with details
� Prescriptions/Medications Considered but not given:
� Further testing considered but not performed:
Risk of Complications and/or Morbidity or Mortality of Patient Management
� Social determinants of health affecting care:
� Discussion with other providers (PCP, Hospitalists, Consultants, etc):
� Escalation of care including admission/observation vs risk of discharge considered: Although patient feels dyspneic, his pulse ox remains normal here. Chest x-ray pending. Doubt worsening/new PE given patient is fully
anticoagulated.
Attending Sign Out Note (Venita Weathers DO)
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 Recently seen in the hospital for dyspnea, with about a liter of fluid drained from the left side.
He has a chronic Pleurx cath for the right side. Stable from a respiratory standpoint in the emergency department. Chest x-ray without significant sign of effusion, however in the past has not shown up on x-ray imaging. Suspected source of
dyspnea is recurrent pleural effusion. In discussion with IR, will ultrasound and attempt drainage. Will also update oncology after IR intervention.
01:30 -patient remained stable, given Tylenol for pain. Patient en route to IR
14:20 -patient returned from interventional radiology with about 700 cc drained from the left side. He is feeling much better. Feel stable for discharge. Did update oncology. Return precautions discussed
ED Attending Note
<Dipti Lackey MD - Last Filed: 06/01/25 09:05>
-
Portions of this chart may have been created with voice recognition software.� Occasional wrong word or��sound alike� substitutions may have occurred due to the inherent limitations of voice recognition software.
Discharge Plan
Departure
Patient Disposition: Home (Routine Discharge)
Patient with high blood pressure during this ER visit?: No
Condition: Fair
Discharge Problem:
Breath shortness, Pleural effusion on left
Instructions: Shortness of Breath (Dyspnea) (DC), Pleural effusion - Discharge instructions
Prescriptions:
No Action
acetaminophen 500 mg Tablet
1,000 mg PO DAILYPRN PRN (Reason: mild pain)
Eliquis 5 mg tablet
5 mg PO BID
dexamethasone 4 mg Tablet
4 mg PO DIRECTED
Rx Instructions:
take 2 tablet the day before, the day of and the after chemo treatments
folic acid 1 mg Tablet
1 mg PO DAILY
guaifenesin 100 mg/5 mL liquid
200 mg PO QIDPRN PRN (Reason: cough)
albuterol sulfate 90 mcg/actuation HFA aerosol inhaler
2 puff INHALATION R Q4HPRN PRN (Reason: sob)
pantoprazole 40 mg tablet,delayed release (DR/EC)
40 mg PO DAILY
oxycodone 5 mg capsule
5 mg PO Q8H PRN (Reason: Pain) Qty: 10 0RF
Referrals:
Mariluz Alexandra MD [Active, Oncology]
Francisco Clarke MD [Family Provider, Family Practice]
Activity Restrictions/Additional Instructions:
You were seen in the emergency department for shortness of breath
You were found to have a pleural effusion on the left side which was drained. Please follow-up with your oncologist as scheduled
Please follow-up closely with your primary care physician.
Return to the emergency department for any worsening of your symptoms, or any development of chest pain, difficulty breathing, abdominal pain with persistent vomiting and inability to tolerate food or liquid by mouth (concern for dehydration),
weakness, headache or confusion, fever greater than 100.4, or any additional symptoms that are concerning to you.
Thank you for choosing [facility].
Interventions
Interventions:
*Risk Screen - Suicide Last Done: 05/31/25 04:50
*General Assessment Last Done: 05/31/25 05:16
*Neglect/Abuse Screening Last Done: 05/31/25 04:50
*ED- Fall Risk Assessment Last Done: 05/31/25 05:16
*ED COVID-19 Vaccine History Last Done: 05/31/25 05:16
*Nursing Disposition Last Done: 05/31/25 15:18
ED- Cardiac Assessment Last Done: 05/31/25 05:16
ED- Pulmonary Assessment Last Done: 05/31/25 05:16
Discharge Date and Time
Discharge Date/Time: 05/31/25 15:18
Print Language: UGANDAN
[2025-05-31 05:49] LABS: Hematocrit 39.2 % (39.0-52.0); Hemoglobin 13.4 g/dL (13.0-18.0); Mean Corp Hgb Conc. 34.2 g/dL (33.0-37.0); Mean Corpuscular Volume 83.6 fL (80.0-94.0); Platelet Count 208 10^3/uL (130-400); Red Cell Dist. Width 13.6 % (11.5-14.5)
[2025-05-31 06:15] LABS: Blood Urea Nitrogen 36 mg/dl (9-20); Calcium 7.7 mg/dl (8.4-10.2); Carbon Dioxide 27 mmol/L (22-30); Chloride 99 mmol/L (98-107); Estimated Creatinine Clearance 116 ml/min; Glucose 91 mg/dl (70-99); Sodium 129 mmol/L (135-145); eGFR > 60.00
[2025-05-31 06:35] LABS: Absolute Neutrophils -Man Diff 13.2 10^3/uL (1.4-6.5); Normal RBC Morphology Yes; Platelets Checked Yes; Total Cells Counted 100
[2025-05-31] MEDS: OFIRMEV 100 IV (10:44)
== END 2025-05-31 15:18 | disposition home or self-care (01) ==
LOC: EMR 04:49
PROVIDERS: Emergency Medicine; CONSULT PHYSICIAN Radiology Diagnostic Radiology; EMERGENCY PHYSICIAN Student in an Organized Health Care Education/Training Program; FAMILY PHYSICIAN Family Medicine
DX: C34.91 Malignant neoplasm of unspecified part of right bronchus or lung (principal); J91.0 Malignant pleural effusion; Z79.01 Long term (current) use of anticoagulants; Z86.711 Personal history of pulmonary embolism
CPT/HCPCS: 99284; 96374; 32555; 71045; 80048; 83880; 85025; 93005

== ENCOUNTER → 2025-06-01 10:34 | Outpatient (REF) | payer OTHER, SELFPAY | LOC: PET 10:34 | PROVIDERS: ATTENDING PHYSICIAN Internal Medicine Hematology & Oncology | DX: C34.31 Malignant neoplasm of lower lobe, right bronchus or lung (principal) | CPT/HCPCS: 78815; A9552 ==

== ENCOUNTER → 2025-06-03 12:23 | Outpatient (REF) | payer OTHER, SELFPAY ==
[2025-06-03 12:47] VITALS: BP 100/66; BP_SYST 119
[2025-06-03 13:05] VITALS: BP 108/96
== END ==
LOC: RADI 12:23
PROVIDERS: ATTENDING PHYSICIAN Nurse Practitioner Acute Care; FAMILY PHYSICIAN Family Medicine
DX: C80.1 Malignant (primary) neoplasm, unspecified (principal); J91.0 Malignant pleural effusion; R06.02 Shortness of breath
CPT/HCPCS: 32555; 71045

== ENCOUNTER → 2025-06-08 13:43 | Outpatient (REF) | payer OTHER, SELFPAY ==
[2025-06-08 13:55] VITALS: BP 107/78; BP_SYST 123
== END ==
LOC: RADI 13:43
PROVIDERS: ATTENDING PHYSICIAN Nurse Practitioner Acute Care; FAMILY PHYSICIAN Family Medicine
DX: J90 Pleural effusion, not elsewhere classified (principal); Z53.8 Procedure and treatment not carried out for other reasons
CPT/HCPCS: 76604

== ENCOUNTER → 2025-06-10 07:55 | Outpatient (REF) | payer OTHER, SELFPAY ==
--- NOTE | 2025-06-10 08:30 | PTCARENOTE ---
rec'd pt to IR for a possible thoracentesis and a port placement, upon arrival pt placed on monitors and found in a rapid rhythm 160-170s, pt with otherwise stable VS, dyspneic even at rest but this is baseline for pt given lung CA diagnosis. had a
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 Spoke with Dr. Peña re: pt's status, prefers to cancel procedure and have pt seen in the ED for HR, also
spoke with Janessa Vaughan, oncology GAS OPERATIONS SUPERINTENDENT, updated her. She would also like the pt seen by cardiology, ok to wait on port placement until a later date as his chemo regimen can be given peripherally for now. pt transported to the ED for evaluation.
updated via phone.
[2025-06-10 09:24] VITALS: BP 111/76; BP_SYST 166
== END ==
LOC: RADI 07:55
PROVIDERS: ATTENDING PHYSICIAN Internal Medicine Hematology & Oncology; FAMILY PHYSICIAN Family Medicine
DX: C34.31 Malignant neoplasm of lower lobe, right bronchus or lung (principal); R00.0 Tachycardia, unspecified; Z53.8 Procedure and treatment not carried out for other reasons

== ENCOUNTER 2025-06-10 08:53 | Emergency (ER) | payer OTHER, SELFPAY ==
[2025-06-10] VITALS (32 sets, daily range): BP systolic 87–129; BP diastolic 23–118; BMI 21.8
[2025-06-10 09:21] LABS: Hematocrit 37.1 % (39.0-52.0); Hemoglobin 12.6 g/dL (13.0-18.0); Mean Corp Hgb Conc. 34.0 g/dL (33.0-37.0); Mean Corpuscular Volume 83.2 fL (80.0-94.0); Platelet Count 385 10^3/uL (130-400); Red Cell Dist. Width 15.1 % (11.5-14.5)
--- NOTE | 2025-06-10 09:35 | ED.GENMED ---
History of Present Illness
General
Chief Complaint: Heart Rate Problem
Source: patient
Exam Limitations: none
Time Seen by Provider: 06/10/25 08:59
History of Present Illness
History of Present Illness:
Patient sent from IR with a rapid heartbeat. Patient was presenting there for a port placement for chemotherapy. Has had some increased shortness of breath the last 2 to 3 days but is always short of breath to a degree. History of lung CA. He
has a right thoracentesis drain the drains about 500 mL daily. He has had his left chest drained in the past. This was recent. He denies chest pain. Some increased shortness of breath the last 2 days and has been wearing oxygen
Past History
Past History
ED Past Medical History: Cancer (lung) and Other (PE)
ED Past Surgical History: Other (Aspet catheter)
Social History
Tobacco: Non-smoker
Alcohol: Occasional
Drug: None
Personal:
Living: with family
Review of Systems
Review of Systems
All Other Systems: Not applicable
Constitutional: Denies fever
Respiratory: Denies cough
Phy Exam
Physical Exam
Physical Exam:
GENERAL: Alert and oriented in no apparent distress
EYE: Orbits normal.
NECK: Supple, no significant adenopathy.
ENT: Pharynx without erythema
CARDIAC: Regular rate and rhythm without any obvious murmurs.
LUNGS: Clear breath sounds,normal
ABDOMEN: Soft, without focal tenderness or distention
NEUROLOGICAL: Alert and oriented , grossly non-focal
SKIN: Warm and dry, no rash or lesion, no discoloration, skin intact.
MUSCULOSKELETAL: No edema,no deformity.Good color
PSYCH: Normal and appropriate interaction. Low good this was too much for texting psych but I did run it by there is a way you are [facility] ER nice jitendra 69 years old he has got a history of lung CA sees got he is followed by Martínez Nguyễn
Course
Orders/Labs/Results
Orders:
Orders
06/10/25 08:54
Etomidate [Amidate] 40 mg .ROUTE .STK-MED ONE
06/10/25 08:57
Electrocardiogram (*1) Urgent
Reason for Study: Atrial Fibrillation
06/10/25 08:58
EKG- Treatment ONCE
06/10/25 09:01
Cardiac Monitoring- Treatment ONCE
IV Insert/Care/Rem.- Treatment PRN
CXR Port [CR Chest Portable - 1 View] Urgent
Comment:
Reason For Exam: sob
Reason Study Needs to be Portable: Patient Unstable
06/10/25 09:09
Complete Blood Count/With Diff Urgent
Manual Differential Urgent
06/10/25 09:24
Propofol [Diprivan] 20 ml .ROUTE .STK-MED
06/10/25 09:48
Electrocardiogram (*1) Urgent
Reason for Study: Atrial Fibrillation
EKG- Treatment ONCE
06/10/25 10:41
Basic Metabolic Panel Urgent
Comment: TSH
TSH Reflex To Free T4 Urgent
06/10/25 10:43
Diltiazem HCl [Cardizem] 25 mg .ROUTE .STK-MED ONE
06/10/25 10:44
Diltiazem HCl [Cardizem] 5 mg IV NOW STA
06/10/25 12:04
Comprehensive Metabolic Panel Urgent
Abnormal Lab Results
06/10/25 06/10/25 06/10/25
09:09 10:41 12:04
WBC 32.1 H 10^3/uL
(4.8-10.8)
RBC 4.46 L 10^6/uL
(4.70-6.10)
Hgb 12.6 L g/dL
(13.0-18.0)
Hct 37.1 L %
(39.0-52.0)
RDW 15.1 H %
(11.5-14.5)
Abs Neuts (Manual) 30.1 H 10^3/uL
(1.4-6.5)
Segmented Neutrophils 80 H %
(42-75)
Band Neutrophils 14 H %
(0-3)
Lymphocytes (Manual) 1 L %
(20-51)
Sodium 131 L mmol/L 130 L mmol/L
(135-145) (135-145)
Potassium 6.3 H* mmol/L 5.3 H mmol/L
(3.5-5.1) (3.5-5.1)
BUN 23 H mg/dl 23 H mg/dl
(9-20) (9-20)
Calcium 8.2 L mg/dl 8.2 L mg/dl
(8.4-10.2) (8.4-10.2)
Alkaline Phosphatase 176 H U/L
(38-126)
Total Protein 4.7 L g/dl
(6.3-8.2)
Albumin 2.3 L g/dl
(3.5-5.0)
06/10/25 09:09
06/10/25 12:04
Vital Signs
Initial and Last Documented VS:
Initial Vital Signs
Temp Pulse Resp BP Pulse Ox
97.6 F 170 18 90/67 94
06/10/25 08:55 06/10/25 08:55 06/10/25 08:55 06/10/25 08:55 06/10/25 08:55
Last Documented Vital Signs
Temp Pulse Resp BP Pulse Ox
97.6 F 116 32 114/81 97
06/10/25 08:55 06/10/25 12:00 06/10/25 12:00 06/10/25 12:00 06/10/25 12:00
*Radiology
Radiology exam reviewed: preliminary read by ED provider (No acute findings) and radiology read reviewed (No acute findings. Small right pleural effusion. Chronic right consolidation.)
*Pulse Oximetry
SaO2: 94
Nasal Cannula flow liters per minute: 2
Patient hypoxic: no (94)
*Critical Care Note
Total Time (30-74mins, 75-104mins- exclusive of procedures): 40
Update Note
Update Note:
0950... Discussed case with cardiology. Also discussed again with patient and . Absolutely faithful with Faizasandhya. Feel with rapid RVR and episodes of hypotension the safest approach would be cardioversion. They are aware of the risk of the
cardioversion not working, digressing to a life-threatening rhythm etc. We will use etomidate instead of propofol with a low blood pressure
1015... Patient's potassium was reported as low. We held on the cardioversion as this likely has been going on.
1040... Patient's blood pressure is improved. We are still waiting on potassium. Daughter who is an RN was asking about other medications. I discussed pluses and minuses of rate control. Feel antiarrhythmic chemical management would likely be
riskier than cardioversion. Given that his pressure is good we can try a very small dose of Cardizem
1120... Patient's potassium reported at 6.3. I reviewed with the lab. The previous potassium was low but all the other electrolytes were also low meaning it was likely a poor specimen. They do not describe hemolysis with the specimen however for
completeness we will repeat the potassium. This would affect management and possibly the decision to cardiovert. This was discussed with the patient and family.
1245... Patient self converted about an hour ago. Sinus tachycardia at 116 no acute findings. Patient remained stable. From a rhythm standpoint he is in a sinus rhythm. Mild sinus tachycardia. Reluctant to start rate control due to some low
blood pressure issues at home at times. Continue his anticoagulation and follow-up with cardiology. He has a significant leukocytosis but no acute infectious symptoms. He did get a Neulasta shot 4 days ago and is on steroids which likely explains
this. Finally he has a mild low sodium which has remained stable and mild hyperkalemia. This can be followed up. I did offer admission if the patient is not comfortable or the family is not comfortable but medically reasonable to follow-up as an
outpatient. They are comfortable with this approach
ED Attending Note
-
Portions of this chart may have been created with voice recognition software.� Occasional wrong word or��sound alike� substitutions may have occurred due to the inherent limitations of voice recognition software.
Discharge Plan
Departure
Patient Disposition: Home (Routine Discharge)
Date of Disposition: 06/10/25
Time of Disposition: 12:51
Patient with high blood pressure during this ER visit?: No
Discharge Problem:
Paroxysmal atrial fibrillation, Minimal hyperkalemia, Mild hyponatremia, Reactive leukocytosis, Underlying lung CA
Instructions: Atrial Fibrillation (DC)
Prescriptions:
No Action
acetaminophen 500 mg Tablet
1,000 mg PO DAILYPRN PRN (Reason: mild pain)
Eliquis 5 mg tablet
5 mg PO BID
dexamethasone 4 mg Tablet
4 mg PO DIRECTED
Rx Instructions:
take 2 tablet the day before, the day of and the after chemo treatments
folic acid 1 mg Tablet
1 mg PO DAILY
guaifenesin 100 mg/5 mL liquid
200 mg PO QIDPRN PRN (Reason: cough)
albuterol sulfate 90 mcg/actuation HFA aerosol inhaler
2 puff INHALATION R Q4HPRN PRN (Reason: sob)
pantoprazole 40 mg tablet,delayed release (DR/EC)
40 mg PO DAILY
oxycodone 5 mg capsule
5 mg PO Q8H PRN (Reason: Pain) Qty: 10 0RF
Referrals:
Sumit Stevens MD [Active, Cardiology] - Follow up in 5-7 days
UNKNOWN - PT NOT,INTERVIEWE [Unknown Provider]
Activity Restrictions/Additional Instructions:
If you have sudden change in symptoms, increased shortness of breath lightheadedness hypotension please check your heart rate. If it is elevated please return to the ER immediately
Follow-up a potassium and sodium level next week
Call your roof truss machine tender oncologist also for close follow-up
Interventions
Interventions:
*Risk Screen - Suicide Last Done: 06/10/25 08:55
*General Assessment Last Done: 06/10/25 13:01
*Neglect/Abuse Screening Last Done: 06/10/25 08:55
*ED- Fall Risk Assessment Last Done: 06/10/25 13:01
*ED COVID-19 Vaccine History Last Done: 06/10/25 08:55
*Nursing Disposition Last Done: 06/10/25 13:01
ED- Cardiac Assessment Last Done: 06/10/25 09:44
ED- Pulmonary Assessment Last Done: 06/10/25 09:44
Discharge Date and Time
Discharge Date/Time: 06/10/25 13:02
Print Language: TURKMEN
[2025-06-10 09:49] LABS: Absolute Neutrophils -Man Diff 30.1 10^3/uL (1.4-6.5); Platelets Checked Yes
[2025-06-10 09:50] LABS: Anisocytosis 1+; Hypochromasia 1+; Normal RBC Morphology No; Polychromasia 1+; Stomatocytes 1+; Target Cells 1+; Total Cells Counted 100
[2025-06-10] MEDS: CARDIZEM 5 MG IV (10:44)
[2025-06-10 11:10] LABS: Blood Urea Nitrogen 23 mg/dl (9-20); Calcium 8.2 mg/dl (8.4-10.2); Carbon Dioxide 26 mmol/L (22-30); Chloride 101 mmol/L (98-107); Glucose 95 mg/dl (70-99); Potassium 6.3 mmol/L (3.5-5.1); Sodium 131 mmol/L (135-145); eGFR > 60.00
[2025-06-10 12:29] LABS: ALT (SGPT) 25 U/L (0-50); AST (SGOT) 25 U/L (17-59); Albumin 2.3 g/dl (3.5-5.0); Alkaline Phosphatase 176 U/L (38-126); Blood Urea Nitrogen 23 mg/dl (9-20); Calcium 8.2 mg/dl (8.4-10.2); Carbon Dioxide 24 mmol/L (22-30); Chloride 101 mmol/L (98-107); Estimated Creatinine Clearance 85 ml/min; Glucose 90 mg/dl (70-99); Potassium 5.3 mmol/L (3.5-5.1); Sodium 130 mmol/L (135-145); Total Protein 4.7 g/dl (6.3-8.2); eGFR > 60.00
== END 2025-06-10 13:02 | disposition home or self-care (01) ==
LOC: EMR 08:53
PROVIDERS: EMERGENCY PHYSICIAN Emergency Medicine; FAMILY PHYSICIAN Family Medicine
DX: I48.0 Paroxysmal atrial fibrillation (principal); E87.5 Hyperkalemia; E87.1 Hypo-osmolality and hyponatremia; D72.829 Elevated white blood cell count, unspecified; C34.90 Malignant neoplasm of unspecified part of unspecified bronchus or lung; Z99.81 Dependence on supplemental oxygen
CPT/HCPCS: 96374; 99285; 71045; 80048; 80053; 84443; 85025; 93005

== ENCOUNTER → 2025-06-14 06:55 | Outpatient (REF) | payer OTHER, SELFPAY ==
[2025-06-14 07:30] VITALS: BP 110/85; BP_SYST 114
[2025-06-14 08:35] VITALS: BP 110/79; BP_SYST 108
[2025-06-14 08:45] VITALS: BP 110/79
--- NOTE | 2025-06-14 09:00 | PTCARENOTE ---
At request of patient right asept site checked. Site clean and dry with some granulation. Cleansed and redressed. Upper area under dressing below axilla reddened and irritated. Cleansed and skin prep applied. Discussed with patient and on
discharge to use skin prep on site and to rotate dressing adhesion if possible. Contact [facility] if any change/concerns.
== END ==
LOC: RADI 06:55
PROVIDERS: ATTENDING PHYSICIAN Nurse Practitioner Acute Care; FAMILY PHYSICIAN Family Medicine
DX: J90 Pleural effusion, not elsewhere classified (principal)
CPT/HCPCS: 32555; 71045

== ENCOUNTER → 2025-06-15 12:25 | Outpatient (REF) | payer OTHER, SELFPAY ==
[2025-06-15 12:40] VITALS: BP 108/79; BP_SYST 106
== END ==
LOC: RADI 12:25
PROVIDERS: ATTENDING PHYSICIAN Internal Medicine Hematology & Oncology; FAMILY PHYSICIAN Family Medicine
DX: C34.31 Malignant neoplasm of lower lobe, right bronchus or lung (principal)
CPT/HCPCS: 36573

== ENCOUNTER → 2025-06-16 12:56 | Outpatient (REF) | payer OTHER, SELFPAY ==
--- NOTE | 2025-06-16 16:48 | PN.IRAD.UPD ---
Update Note - [facility]
- -
RIGHT ARM PICC ALDAIR PULLED OUT. CLEAN BANDAID PLACED OVER SITE
== END ==
LOC: RADI 12:56
PROVIDERS: ATTENDING PHYSICIAN Internal Medicine Hematology & Oncology; FAMILY PHYSICIAN Family Medicine
DX: Z45.2 Encounter for adjustment and management of vascular access device (principal)

== ENCOUNTER → 2025-06-23 11:01 | Outpatient (REF) | payer OTHER, SELFPAY ==
[2025-06-23 11:30] VITALS: BP 107/81; BP_SYST 121
== END ==
LOC: RADI 11:01
PROVIDERS: ATTENDING PHYSICIAN Nurse Practitioner Acute Care; FAMILY PHYSICIAN Family Medicine
DX: J90 Pleural effusion, not elsewhere classified (principal)
CPT/HCPCS: 32555; 71045

== ENCOUNTER → 2025-06-27 07:50 | Outpatient (REF) | payer OTHER, SELFPAY ==
[2025-06-27 08:30] VITALS: BP 120/84; BP_SYST 113
[2025-06-27 09:00] VITALS: BMI 21.3
[2025-06-27] MEDS: ANCEF 10 IV (09:58)
[2025-06-27 10:50] VITALS: BP 117/82; BP_SYST 111
[2025-06-27 11:05] VITALS: BP 112/85; BP_SYST 110
== END ==
LOC: RADI 07:50
PROVIDERS: ATTENDING PHYSICIAN Internal Medicine Hematology & Oncology; FAMILY PHYSICIAN Family Medicine
DX: C34.31 Malignant neoplasm of lower lobe, right bronchus or lung (principal)
CPT/HCPCS: 32555; 36561; 71045; 76937; 77001; 99152; 99153; C1788

== ENCOUNTER → 2025-07-01 10:00 | Outpatient (REF) | payer OTHER, SELFPAY ==
[2025-07-01 10:15] VITALS: BP 121/81; BP_SYST 119
[2025-07-01 10:32] VITALS: BP 120/72
[2025-07-01 10:51] VITALS: BP 121/81; BP_SYST 119
== END ==
LOC: RADI 10:00
PROVIDERS: ATTENDING PHYSICIAN Nurse Practitioner Acute Care; FAMILY PHYSICIAN Family Medicine
DX: C80.1 Malignant (primary) neoplasm, unspecified (principal); J91.0 Malignant pleural effusion
CPT/HCPCS: 32555; 71045

== ENCOUNTER → 2025-07-05 13:58 | Outpatient (REF) | payer OTHER, SELFPAY ==
[2025-07-05 14:10] VITALS: BP 147/89; BP_SYST 114
[2025-07-05 14:50] VITALS: BP 137/90; BP_SYST 113
[2025-07-05 15:07] VITALS: BP 137/90
== END ==
LOC: RADI 13:58
PROVIDERS: ATTENDING PHYSICIAN Nurse Practitioner Acute Care
DX: J90 Pleural effusion, not elsewhere classified (principal)
CPT/HCPCS: 32555; 71045

== ENCOUNTER → 2025-07-08 10:59 | Outpatient (REF) | payer OTHER, SELFPAY ==
[2025-07-08 11:05] VITALS: BP 120/90; BP_SYST 111
== END ==
LOC: RADI 10:59
PROVIDERS: ATTENDING PHYSICIAN Nurse Practitioner Acute Care; FAMILY PHYSICIAN Family Medicine
DX: J90 Pleural effusion, not elsewhere classified (principal); Z85.118 Personal history of other malignant neoplasm of bronchus and lung
CPT/HCPCS: 32555; 71045

== ENCOUNTER → 2025-07-11 12:38 | Outpatient (REF) | payer OTHER, SELFPAY ==
[2025-07-11 12:50] VITALS: BP 126/105; BP_SYST 172
[2025-07-11 13:08] VITALS: BP 97/73; BP_SYST 179
[2025-07-11 13:30] VITALS: BP 97/73
--- NOTE | 2025-07-11 13:43 | PTCARENOTE ---
[facility] note: Patient arrived to [facility] for left Thoracentesis with 5L home o2. patient looked pale, dyspneic. home oxygen tank was empty. placed on 5L O2 at bedside and color improved in few mins. placed on the monitor and noticed pt is in Afib with RVR
with HR in 160-170's, tachypneic. Dr. Adam and Val HUIZAR both made aware. despite elevated HR, Val HUIZAR and Dr. Adam decided to proceed with left Thora to improve pt's breathing. Left Thora done and removed 1050ml clear yellow fluid. post
procedure CXR done and no PTX on CXR per Dr. Adam. patient transferred to ED-13 for A.fib evaluation. Daughter and at the bedside at the time of transfer. report given ED nurse at bedside.
== END ==
LOC: RADI 12:38
PROVIDERS: ATTENDING PHYSICIAN Nurse Practitioner Acute Care
DX: C34.31 Malignant neoplasm of lower lobe, right bronchus or lung (principal); J91.0 Malignant pleural effusion
CPT/HCPCS: 32555; 71045

== ENCOUNTER 2025-07-11 17:37 | Inpatient (IN) | payer OTHER, SELFPAY ==
[2025-07-11] VITALS (20 sets, daily range): BP systolic 78–101; BP diastolic 45–73; BMI 19.4
--- NOTE | 2025-07-11 13:47 | ED.GENMED ---
History of Present Illness
General
Chief Complaint: Heart Rate Problem
Source: patient
Time Seen by Provider: 07/11/25 13:34
History of Present Illness
History of Present Illness:
69-year-old male presents to the emergency room from interventional radiology for evaluation of rapid heart rate and tachypnea. Patient was noted to have atrial fibrillation while at interventional radiology with his heart rate up into the 170s.
Family states that he does sometimes develop atrial fibrillation when the fluid builds up and he is in need of a thoracentesis. Patient has lung cancer which is the reason he develops the effusions. He gets he has been getting thoracenteses every
4 days. Patient takes Eliquis due to previous pulmonary emboli. He denies any fever. He uses oxygen on a as needed basis. Currently receiving 4 L of oxygen. Patient had chemotherapy 5 days ago. He received chemo every 3 weeks. Since chemo has
had poor oral intake. He admits that taking him very little fluid. No vomiting. No diarrhea.
Past History
Past History
ED Past Medical History: Cancer (lung) and Other (PE)
ED Past Surgical History: Other (Aspet catheter)
Social History
Tobacco: Non-smoker
Alcohol: Occasional
Drug: None
Personal:
Living: with family
Phy Exam
Physical Exam
Physical Exam:
General: Awake, Alert, Oriented X3. Patient appears clinically open also with increased work of breathing. Appears cachectic.
Vitals: Tachypneic, tachycardic, afebrile, borderline blood pressure
Head: Atraumatic
Eyes: Pupils equal, EOMI
Throat: Airway intact, no exudates, very dry mucosa
Neck: Trachea midline
Lungs: Decreased breath sounds bilaterally with some expiratory wheezing particular on the right
Heart: Regular rate, no murmurs
Abd: Soft, Nontender, No pulsatile mass
Neuro: Nonfocal
Skin: Warm, dry, no rash
Extremities: pulses equal b/l, no edema
Course
Orders/Labs/Results
Orders:
Orders
07/11/25 13:28
EKG [Electrocardiogram (*1)] Urgent
Reason for Study: Tachycardia
EKG- Treatment ONCE
07/11/25 13:44
0.9% Sodium Chloride 1000 ml [Nss] 1,000 ml IV BOLUS
Ipratropium/Albuterol Sulfate [Duoneb] 3 ml INH R NOW STA
07/11/25 14:06
Type+Screen Urgent
Complete Blood Count/With Diff Urgent
Comprehensive Metabolic Panel Urgent
Magnesium Urgent
Manual Differential Urgent
Phos [Phosphorus] Urgent
07/11/25 16:39
Admit/Transfer Patient As Directed
Co-Sign Provider:
Level of Care: Inpatient admission
Assign to:: IMU- Intermediate Care
Physician / Group: milvia byrne
Diagnosis: sinus tachy , hypotension 2/2 hypovolemia,chemo
Reason for Hospitalization: sinus tachy , hypotension 2/2 hypovolemia,chemo
Expected length of stay greater than two midnights?: Yes
ELOS- Estimated Length of Stay in days: 4
I certify the patient meets the requirements for IP care: Yes
Code Status As Directed
Resuscitation Status: Full Code
07/11/25 16:42
PRN Pain Medication Management As Directed
May give lesser potent ordered pain med per pt: Yes
preference::
Protocol:: Medication orders for pain may be administered in a
manner that supports deferring to patient preference
when the pt is:
- Requesting an ordered lesser potent pain medication.
Least to most potent pain medications are defined
as: acetaminophen < NSAID < tramadol < opioids
(morphine, oxycodone, hydromorphone).
- Requesting a lesser dose of the same medication IF
ORDERED.
- Requesting a less intrusive route of administration
if both routes are prescribed by the provider (PO <
IV).
07/11/25 17:00
0.9% Sodium Chloride 500 ml [Nss] 500 ml IV 500 mls/hr
Acetaminophen [Tylenol] 1,000 mg PO NOW STA
07/11/25 17:30
Blood Culture Q30M
SONG Source: Blood/Venous
Specimen Description:
07/11/25 19:17
Osmolality, Random Urine Urgent
Date Specimen was Collected: 07/11/25
Time Specimen was Collected: 19:16
Urinalysis Urgent
Date Specimen was Collected: 07/11/25
Time Specimen was Collected: 19:16
Urine Sodium Urgent
Date Specimen was Collected: 07/11/25
Time Specimen was Collected: 19:16
Blood Culture Q30M
SONG Source: Blood/Venous
Specimen Description:
07/11/25 19:31
Bisacodyl [Dulcolax] 10 mg RECTAL [id number] PRN
Docusate W/Senna [Senokot-S] 1 tablet PO BIDPRN PRN
Ipratropium/Albuterol Sulfate [Duoneb] 3 ml INH R Q4HPRN PRN
Lorazepam [Ativan] 0.5 mg PO BIDPRN PRN anxiety
Oxycodone [Roxicodone] 5 mg PO Q6HPRN PRN severe pain
Polyethylene Glycol Powder [Miralax] 17 grams PO DAILYPRN PRN
07/11/25 19:31
VTE Contraindication Routine
VTE Mechanical Device Contraindication: Medical Contraindication
Pharmocologic Contraindication: Medical Contraindication
Comment: pt on eliquis
Activity As Directed
Activity Level: As Tolerated
Intake/ Output As Directed
Frequency: Per unit guidelines
Vital Signs As Directed
Frequency: Per unit guidelines
Weight As Directed
Frequency: Daily
O2 Therapy [RESP] Routine
Nasal Cannula Liter Flow: 3 LPM
Titrate/Wean O2 to maintain O2 sat greater than (%): 91
Pulse Ox/spot Check [RESP] Routine
Quantity: 1
Pt Eval And Treat Routine
Activity Level: With Assistance
Speech Therapy Eval & Treat Routine
07/11/25 20:00
Apixaban [Eliquis] 5 mg PO BID
Calcium Carbonate [Oscal Nelson 500] 1,000 mg PO BID
07/12/25 06:00
Complete Blood Count/With Diff IN AM
Comprehensive Metabolic Panel IN AM
07/12/25 08:00
FOLic ACID [Folvite] 1 mg PO DAILY
Pantoprazole [Protonix] 40 mg PO DAILY
07/13/25 06:00
Complete Blood Count/With Diff IN AM
Comprehensive Metabolic Panel IN AM
07/14/25 06:00
Complete Blood Count/With Diff IN AM
Comprehensive Metabolic Panel IN AM
07/15/25 06:00
Complete Blood Count/With Diff IN AM
Comprehensive Metabolic Panel IN AM
Abnormal Lab Results
07/11/25
14:06
WBC 47.6 H* 10^3/uL
(4.8-10.8)
RBC 3.51 L 10^6/uL
(4.70-6.10)
Hgb 10.1 L g/dL
(13.0-18.0)
Hct 30.3 L %
(39.0-52.0)
RDW 19.8 H %
(11.5-14.5)
Abs Neuts (Manual) 47.1 H 10^3/uL
(1.4-6.5)
Segmented Neutrophils 99 H %
(42-75)
Monocytes (Manual) 1 L %
(2-9)
Sodium 124 L mmol/L
(135-145)
Chloride 97 L mmol/L
(98-107)
BUN 25 H mg/dl
(9-20)
Creatinine 0.5 L mg/dL
(0.7-1.3)
Glucose 152 H mg/dl
(70-99)
Calcium 7.1 L mg/dl
(8.4-10.2)
Alkaline Phosphatase 285 H U/L
(38-126)
Total Protein 4.9 L g/dl
(6.3-8.2)
Albumin 2.6 L g/dl
(3.5-5.0)
07/11/25 14:06
07/11/25 14:06
Vital Signs
Initial and Last Documented VS:
Initial Vital Signs
Pulse Resp
123 39
07/11/25 13:25 07/11/25 13:25
Last Documented Vital Signs
Temp Pulse Resp BP Pulse Ox
98.0 F 106 16 84/60 99
07/11/25 19:56 07/11/25 21:00 07/11/25 21:00 07/11/25 20:00 07/11/25 21:14
MDM/Problems Addressed
Differential Diagnosis Includes:
Paroxysmal atrial fibrillation with RVR, dehydration, electrolyte abnormality, symptomatic anemia
MDM/Problems Addressed:
Patient presents with weakness, poor intake, shortness of breath and tachycardia. He is no longer in atrial fibrillation but does remain in sinus tachycardia. Fluid bolus administered. BP better with IV fluid. Patient found to be hyponatremic
with a sodium 124. Lowest previous sodium measurement here is 129. This may be from dehydration but also SIADH from his cancer and/or medications. Given his overall level of weakness, poor oral intake I think it is important we hospitalize him
for IV fluids for evaluation of to the cause of the hyponatremia. His shortness of breath was fairly significant on arrival but did improve with a breathing treatment.
*Radiology
Radiology exam reviewed: radiology read reviewed (Patient had a x-ray performed in IR status post thoracentesis which shows no pneumothorax, tiny right pleural effusion, chronic changes from known lung cancer.)
*Pulse Oximetry
SaO2: 98
Nasal Cannula flow liters per minute: 6
Patient hypoxic: no
Comment: Patient to tachypneic to test a room air pulse ox
*EKG
Interpreted by ED Provider?: Yes
Interpretation: abnormal
Heart Rate: 121
Rate: tachycardiac
Rhythm: sinus and PAC's
Closter: normal axis
Interval: normal interval
QRS Pattern: normal QRS
Ischemia: non-specific ST changes
*Senior Benefits Manager Interpretation
Rate: tachycardiac
Interpretation: abnormal
Heart Rate: 121
Rhythm: sinus tachycardia
*Critical Care Note
Total Time (30-74mins, 75-104mins- exclusive of procedures): Not Applicable
ED Attending Note
-
Portions of this chart may have been created with voice recognition software.� Occasional wrong word or��sound alike� substitutions may have occurred due to the inherent limitations of voice recognition software.
Discharge Plan
Departure
Patient Disposition: Admit
Date of Disposition: 07/11/25
Time of Disposition: 15:50
Admit to: Med/Surg
Presentation/result/management discussed w/ accepting MD/DO: Hospitalist
Condition: Fair
Discharge Problem:
Acute hyponatremia, Paroxysmal A-fib, Dehydration
Interventions
Interventions:
*Risk Screen - Suicide Last Done: 07/11/25 19:35
*General Assessment Last Done: 07/11/25 13:28
*Neglect/Abuse Screening Last Done: 07/11/25 13:28
*ED- Fall Risk Assessment Last Done: 07/11/25 13:28
*ED COVID-19 Vaccine History Last Done: 07/11/25 19:35
*Nursing Disposition Last Done: 07/11/25 19:30
ED- Cardiac Assessment Last Done: 07/11/25 13:25
ED- Pulmonary Assessment Last Done: 07/11/25 13:25
Discharge Date and Time
Discharge Date/Time: 07/11/25 19:30
[2025-07-11] MEDS: NSS 1000 IV ×2 (14:04→20:21)
[2025-07-11] MEDS: DUONEB 3 ML INH (14:04)
[2025-07-11 14:32] LABS: Hematocrit 30.3 % (39.0-52.0); Hemoglobin 10.1 g/dL (13.0-18.0); Mean Corp Hgb Conc. 33.3 g/dL (33.0-37.0); Mean Corpuscular Volume 86.3 fL (80.0-94.0); Platelet Count 275 10^3/uL (130-400); Red Cell Dist. Width 19.8 % (11.5-14.5)
[2025-07-11 14:42] LABS: ALT (SGPT) 33 U/L (0-50); AST (SGOT) 30 U/L (17-59); Albumin 2.6 g/dl (3.5-5.0); Alkaline Phosphatase 285 U/L (38-126); Blood Urea Nitrogen 25 mg/dl (9-20); Calcium 7.1 mg/dl (8.4-10.2); Carbon Dioxide 25 mmol/L (22-30); Chloride 97 mmol/L (98-107); Estimated Creatinine Clearance 105 ml/min; Glucose 152 mg/dl (70-99); Magnesium 2.2 mg/dl (1.6-2.3); Potassium 4.9 mmol/L (3.5-5.1); Sodium 124 mmol/L (135-145); Total Protein 4.9 g/dl (6.3-8.2); eGFR > 60.00
[2025-07-11 15:07] LABS: Absolute Neutrophils -Man Diff 47.1 10^3/uL (1.4-6.5); Normal RBC Morphology No; Platelets Checked Yes
[2025-07-11 15:08] LABS: Anisocytosis 1+; Hypochromasia 1+; Total Cells Counted 100
--- NOTE | 2025-07-11 16:02 | HPS.HSE ---
Addendum entered and electronically signed by Madisyn Laboy MD 07/11/25 19:23:
This is an addendum to H&P written by Angela Juarez on 07/11/25. �Patient seen and examined independently with LADDER OPERATOR.
69-year-old male past medical history of stage IV non-small cell lung cancer with mets to sternum, cervical spine status post radiation, right hip on chemotherapy/immunotherapy, recurrent malignant right pleural effusion status post right-sided
pleural catheter drained every day, receives regular left-sided thoracentesis every 3 to 4 days, hypocalcemia from Xgeva, hyponatremia, bilateral pulmonary emboli, left lower extremity PT, anxiety, GERD, presenting with hypotension and tachycardia.
He had chemotherapy on with significant anorexia and fatigue. �He went to interventional radiology today for thoracentesis of the left side and 1050 cc removed. �IR thought he was in atrial fibrillation so they sent him to the hospital.
Also with new onset dysphagia.
He received Xgeva and G-CSF on 07/06.
Blood pressure as low as 82/48. �Heart rate 120s. �Hypoxic 90% requiring 6 L oxygen. �EKG shows sinus tachycardia with premature supraventricular complexes.
Labs show sodium of 124. �White cell count of 47.6.
Chest x-ray shows no evidence of pneumonia.
Patient meeting SIRS criteria, unclear if this is all hypovolemia from volume depletion from poor p.o. intake after chemotherapy versus underlying infection could be aspiration pneumonia. �Check blood cultures, procalcitonin. �IV fluids. �Check
lactic acid. �Vancomycin/Zosyn empirically.
Patient with dysphagia likely from radiation. �Check speech and swallow evaluation.
Patient with hyponatremia secondary to poor p.o. intake. �Check urine sodium, osmolality, TSH. �Continue IV fluids.
Leukocytosis likely from G-CSF versus underlying infection.
IR consulted to assist with daily drainage of the right pleural catheter as well as routine thoracentesis in 3 days.
Original Note:
Family Physician
-
Family Physician: Francisco Clarke
Chief Complaint
-
Tachycardia post thoracentesis
History of Present Illness
69-year-old male sent by interventional radiology status post thoracentesis 1050 cc yellow for recurrent malignant pleural effusions where after fluid was drained he was noted to be in A-fib with heart rate in the 170s. He reported to them he tends
to develop sinus tach post thoracentesis. He states for the last 2 to 3 days he has been fatigued to the point he has not been able to get out of bed or eat or drink anything. He complains of right sided rib pain which he normally uses oxycodone
or Tylenol for. He has a right pleural cath that is drained nightly by his 450 to 500 cc which was not drained today yet. He has history of lung cancer requires thoracentesis every 4 days. He complains of difficulty swallowing thin liquids
but is okay with thick liquids. He tells me he has had difficulty swallowing his pills however has not had a formal swallow evaluation. He is on Eliquis due to previous pulmonary emboli
He had chemotherapy 5 days ago on 07/06/2025 along with pollinating stimulating factor injection and Xgeva. This is his third round of his second line chemotherapy accompanied with immunotherapy Keytruda. He reports he needs thoracentesis of his
left lung every 3 to 4 days. He denies fever, abdominal pain, vomiting, diarrhea, chest pain, palpitations, rash, urinary symptoms. He has past medical History of stage IV non-small cell lung CA Dx October 2024 to sternum C-spine status post
radiation, spot right hip with recurrent pleural effusions on chemotherapy/immunotherapy occasional oxygen 3 L, multiple pleural effusions requiring thoracentesis every 4 days, chronic hyponatremia, hypocalcemia, bilateral pulmonary emboli December
2024, left lower extremity DVT December 2024, anxiety
Medical History
Past Medical History
Past Medical History: Reports Other
Additional Past Medical History:
stage IV non-small cell lung CA Dx October 2024 to sternum C-spine status post radiation, spot right hip with recurrent pleural effusions on chemotherapy/immunotherapy
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
Hypocalcemia from Xgeva
Hyponatremia
Bilateral Pulmonary Emboli 01/07/2025
LLE DVT 01/08/2025
Anxiety
GERD
Past Surgical History: Reports Other
Additional Past Surgical History:
Bronchoscopy with biopsy 10/25/2024, oral surgery
Port right upper chest wall 06/27/2025 Mediport
Social History
Tobacco: Non-smoker
Alcohol: Occasional
Drug: None
Personal:
Living: With Family
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
Family History
Family History: Other (No family history of cancer)
Allergies / Home Medications
Allergies reflects when Allergies were last updated in [employer].
Home Medications with original date entered in [employer]
Allergy/Medication List:
Allergies
Allergy/AdvReac Type Severity Reaction Status Date / Time
No Known Allergies Allergy Verified 06/27/25 09:02
Home Medications
acetaminophen 500 mg tablet 1,000 mg PO DAILYPRN PRN mild pain 05/15/25
apixaban 5 mg tablet (Eliquis) 5 mg PO BID Blood Clot Prevention/Tx 05/15/25
albuterol sulfate 90 mcg/actuation aerosol inhaler 2 puff inhalation R Q4HPRN PRN sob 05/27/25
dexamethasone 4 mg tablet 4 mg PO DIRECTED Antiinflammation 05/27/25
folic acid 1 mg tablet 1 mg PO DAILY Supplement 05/27/25
pantoprazole 40 mg tablet,delayed release 40 mg PO DAILY Gastrointestinal Issue 05/27/25
calcium carbonate (Calcium 500) 1,000 mg PO BID 07/11/25
lorazepam 0.5 mg tablet 0.5 mg PO BIDPRN PRN anxiety 07/11/25
oxycodone 5 mg tablet 5 mg PO Q6HPRN PRN severe pain 07/11/25
polyethylene glycol 3350 17 gram oral powder packet (Miralax) 17 g PO DAILYPRN PRN constipation 07/11/25
sennosides 8.6 mg tablet (senna) 17.2 mg PO BIDPRN PRN constipation 07/11/25
umeclidinium 62.5 mcg-vilanterol 25 mcg/actuation powdr for inhalation (Anoro Ellipta) 1 inh inhalation R DAILY 07/11/25
Review of Systems
-
History Source: Patient
A 12 point ROS was completed and negative except as noted: Yes
Constitutional: Reports Fatigue; Denies Fever or Chills
EENT: Reports Other (Dysphagia thin liquids and pills)
Respiratory: Reports Cough and Trouble Breathing
Cardiac: Denies Chest Pain, Diaphoresis, Palpitations or Syncope
Abdomen/GI: Denies Abdominal Pain, Nausea, Vomiting or Diarrhea
: Denies Dysuria, Frequency or Flank Pain
Musculoskeletal: Denies Joint Pain or Edema
Skin: Denies Itching or Rash
Neurological: Reports Weakness (Generalized); Denies Dizzy or Headache
Endocrine: Reports No Symptoms
Hematologic/Lymphatic: Reports No Symptoms
Psych: Reports Calm
Physical Exam
Vital Signs
Vital Signs
Temp Pulse Resp BP Pulse Ox
99.3 F 114 29 101/72 99
07/11/25 13:45 07/11/25 14:30 07/11/25 14:15 07/11/25 14:30 07/11/25 14:30
Physical Exam
General: Other (Generalized weakness with shortness of breath); No Fever or Chills
HEENT: NormoCephalic, Anicteric, PERRLA, [place] Conjunctivae, No Ptosis and Other (Hoarse voice difficulty swallowing oral secretions patient tips chin to neck to swallow)
Respiratory: Clear and Other (Pleural drain present right posterior lung); No Wheezes, Rales or Rhonchi
Cardiac: S1/S2 and Tachycardia (Sinus tachycardia 114 bpm on monitor); No Murmur, Rub, Gallop or Peripheral Edema
Breast: Deferred by me
GI: Soft, Non Tender, Non Distended, Normal Bowel Sounds and No Hepatosplenomegaly
Genito-urinary: Deferred by me
Musculoskeletal: No Clubbing, No Cyanosis and No Edema
Skin: Warm and Dry; No Rash
Neuro: Nonfocal/grossly intact, Cranial Nerves Intact, No Sensory Deficits and Other (Drowsy but oriented x 3); No Slurred Speech, Facial Droop or Tremors
Psych: Calm
Laboratory Results
-
07/11/25 14:06
07/11/25 14:06
Laboratory Results
Total Bilirubin 1.0 mg/dl (0.2-1.3) 07/11/25 14:06
AST 30 U/L (17-59) 07/11/25 14:06
ALT 33 U/L (0-50) 07/11/25 14:06
Alkaline Phosphatase 285 U/L (38-126) H 07/11/25 14:06
Data Reviewed
-
Lab Data: Labs Reviewed by me
Impression/Plan
-
Impression/plan:
Admit to IMU
#Acute hypoxic respiratory insufficiency 2/2 chronic recurrent pleural effusions/stage IV non-small cell lung CA versus infectious process aspiration pneumonia I believe
#History of Stage IV non-small cell lung CA Dx October 2024 to sternum C-spine status post radiation, spot right hip with recurrent
malignant pleural effusions on chemotherapy/immunotherapy
#Chronic elevated alk phos
Chemotherapy last dose on 07/06/2025 second line therapy along with Keytruda via PORT right upper chest wall(first time accessed today 07/11/2025 per patient)
-Status post thoracentesis( q.)4 days Today 1050 cc yellow fluid, 07/08/2025 status post 1000 cc clear yellow
WBC 47.6> 32.1 on 06/10/2025 patient just received colonizing stimulating growth factor and Xgeva on 07/06/2025
91% RA , 95% on 6 L nasal cannula, 89/63, HR 114 bpm
-Consult IR for right pleural drain to be drained at night
-Will need thoracentesis left side on 07/14-07/15
- Check urinalysis blood cultures x 2
-Continue Anoro Ellipta 1 inhalation daily, albuterol as needed
-IV vancomycin IV Zosyn
EKG sinus tach with PVCs 121 bpm, QTc 428 MS
#Leukocytosis likely due to colonizing growth stimulating factor versus infectious process
WBC 47.6> 32.1 on 06/10/2025 patient just received colonizing stimulating growth factor and Xgeva on 07/06/2025
-IV vancomycin IV Zosyn
-- Check Pro-Nelson lactic was lactic, lactic acid
- Follow CBC, CMP
#Hypotension due to hypovolemia
#Decreased oral intake x 2 to 3 days suspect volume depletion due to weakness from chemotherapy
BP initially 89/63 > 101/72
-1 L IV NSS given in ER
- IV NSS 500 cc additional bolus
--IV NSS 80 ccc/hr
#Sinus tachycardia status post thoracentesis multifactorial
Heart rate 121 bpm will monitor
-IV NSS 1 L given in ER
-IV NSS 80 ccc/hr
#Chronic right rib pain due to non-small cell lung CA
Patient requesting oxycodone he takes as needed 5 mg every 6 hours and takes Tylenol 1000 mg daily as needed
#Reported dysphagia with thin liquids and pills likely secondary to cervical/sternal spine t
-Obtain speech swallow eval
#Normocytic anemia in setting of recent chemotherapy
Hgb stable 10.1, MCV 86.3 no current bleeding
- Follow CBC
#Acute on chronic hyponatremia�hypovolemic
NA 124 <130 on 06/10/2025
-Check TSH with free T4 reflex, urine NA, urine Osmo, serum Osmo
#Acute on chronic hypocalcemia
Corrected calcium 8.2
- Continue calcium carbonate 1000 mg twice daily
#Anxiety
-Continue lorazepam 0.5 mg p.o. twice daily as needed anxiety hold SBP<100
#GERD
Continue Protonix 40 mg daily
#History of bilateral pulmonary embolisms 01/07/2025
-Continue Eliquis 5 mg twice daily
#History of left lower extremity DVT January 08, 2025
Continue Eliquis
Full code per patient
[2025-07-11] MEDS: TYLENOL 1000 MG PO (17:21)
[2025-07-11] MEDS: NSS 500 IV (17:23)
--- NOTE | 2025-07-11 18:32 | PHA.VAN.IN ---
Assessment
- Assessment
Renal Function: Appears similar to baseline
Concomitant Antimicrobials: PIPERACILLIN/TAZOBACTAM
AUC Dosing Plan
- Empiric Dosing
Initial / Loading Dose: 1500 mg x 1
Maintenance Regimen: 1000 mg IV Q12H
Estimated AUC (mcg*h/mL): 532
Estimated Peak (mcg*h/mL): 34.3
Estimated Trough (mcg/ml): 13.1
Estimated Half Life (H): 7.9
- Monitoring
No levels ordered at this time: level to be drawn in following days
MRSA Screen: Ordered per protocol
Pharmacokinetics Vancomycin I
- -
Patient Age: 69
Patient Sex: Male
Vancomycin Day #: 1
Indication: Pulmonary/Respiratory
Requesting Provider: CHERYL Figueredo
Pertinent Antimicrobial Allergies:
no known allergies
Height / Weight:
Height 5 ft 10 in
Actual Weight 64.1 kg
Pertinent Past Medical History: chemotherapy
- Vital Signs / Lab Results
Temp Pulse Resp BP Pulse Ox
99.3 F 112 33 101/70 97
07/11/25 13:45 07/11/25 17:30 07/11/25 17:15 07/11/25 17:30 07/11/25 17:30
Lab Results - Hematology
07/11/25
14:06
WBC 47.6 H*
Band Neutrophils 0
Lab Results - Chemistry
07/11/25
14:06
BUN 25 H
Creatinine 0.5 L
Estimated Creat Clear 105
Albumin 2.6 L
[2025-07-11 19:50] LABS: Urine Character Clear (Clear)
[2025-07-11 20:07] LABS: Procalcitonin 0.87 ng/ml (0.0-0.25)
[2025-07-11 20:17] LABS: Urine Red Blood Cell 0-2 /HPF (0-2); Urine Squamous Cell 0-2 /LPF (Few); Urine White Cell 0-2 /HPF (0-5)
[2025-07-11] MEDS: ZOSYN 50 IV ×2 (20:21→23:45)
[2025-07-11] MEDS: ELIQUIS 5 MG PO (20:21)
[2025-07-11] MEDS: VANCOCIN 530 MG IV (20:46)
[2025-07-11] MEDS: OSCAL CAL 500 1000 MG PO (20:47)
[2025-07-12] VITALS (29 sets, daily range): BP systolic 64–107; BP diastolic 45–77; BMI 19.4
[2025-07-12] MEDS: ZOSYN 50 IV ×4 (05:29→23:08)
[2025-07-12] MEDS: VANCOCIN 200 IV (05:29)
[2025-07-12] MEDS: DUONEB 3 ML INH (05:46)
--- NOTE | 2025-07-12 06:05 | PTCARENOTE ---
received patient from ED. Patient on 5L NC, Spo2 99%. Patient receiving thoracentesis twice a week on left lung. Patient drains right lung nightly at home. Right lung was not drained today, need IR to drain. Patient SOB and states he feels alot of
pressure due to lung not being drained. Patient has non productive cough. Patient received prn breathing treatment for SOB. Patient had BM on bedside commode, x1 assist. Patient does report difficulty swallowing and had pills crushed in applesauce.
Assessment and vital signs as charted, call garcia in reach.
[2025-07-12 06:09] LABS: Hematocrit 23.4 % (39.0-52.0); Hemoglobin 8.1 g/dL (13.0-18.0); Mean Corp Hgb Conc. 34.6 g/dL (33.0-37.0); Mean Corpuscular Volume 86.3 fL (80.0-94.0); Nucleated Red Blood Cells % 0 % (-); Platelet Count 200 10^3/uL (130-400); Red Cell Dist. Width 19.6 % (11.5-14.5)
[2025-07-12 06:49] LABS: ALT (SGPT) 27 U/L (0-50); AST (SGOT) 28 U/L (17-59); Albumin 2.1 g/dl (3.5-5.0); Alkaline Phosphatase 209 U/L (38-126); Blood Urea Nitrogen 19 mg/dl (9-20); Calcium 6.4 mg/dl (8.4-10.2); Carbon Dioxide 26 mmol/L (22-30); Chloride 101 mmol/L (98-107); Estimated Creatinine Clearance 101 ml/min; Glucose 88 mg/dl (70-99); Potassium 4.2 mmol/L (3.5-5.1); Sodium 128 mmol/L (135-145); Total Protein 4.2 g/dl (6.3-8.2); eGFR > 60.00
--- NOTE | 2025-07-12 07:51 | PTCARENOTE ---
Pt uncomfortable with pain in rt upper chest 06/29. He is on 4L NC (2L prn is baseline at home) Tachypneic in high 30s, pulse ox 98% BP 95/70 (I cannot give the Percocet as it has a HOLD parameter for SBP <110). Rt base diminished He did not get his
rt lung drained last night (he does it nightly at home) with plurex cath. I have notified [facility] for them to come drain as soon as they are able to do so. Heart rate is ST 110s. Morning assessment reviewed and Hospitalist notified
--- NOTE | 2025-07-12 08:06 | VNURNOTE ---
Chart reviewed. Patient is current with [facility]. Will continue to follow hospital course and DC plans.
[2025-07-12] MEDS: STRIVERDI RESPIMAT 2 PUFF INH (08:25)
[2025-07-12] MEDS: SPIRIVA RESPIMAT 2.5 MCG 2 PUFF INH (08:25)
[2025-07-12] MEDS: ELIQUIS 5 MG PO ×2 (09:11→19:44)
[2025-07-12] MEDS: PROTONIX 40 MG PO (09:11)
[2025-07-12] MEDS: OSCAL CAL 500 PO ×2 (09:11→13:18)
--- NOTE | 2025-07-12 09:11 | PN.[facility].UPD ---
Update Note - [facility]
- -
RIGHT PLEURAL ASEPT DRAINED BEDSIDE FOR 650 ML. PATIENT TOLERATED WELL, SITE WAS CLEANED AND DRESSED.
[2025-07-12] MEDS: CALCIUM GLUCONATE 100 IV ×2 (09:12→23:43)
--- NOTE | 2025-07-12 09:18 | PTCARENOTE ---
[facility] staff at bedside, Rt pleurex cath drained, pt reprts feeling 'a little better'. Rt base of lung diminished but with improved lung sounds. Pt anxious and resp rate in high 20s, continued coaching to deep breath and slow resp rate, o2 at 4L with
pulse ox 100%
--- NOTE | 2025-07-12 09:46 | PTCARENOTE ---
Nesha at bedside and given verbal update on morning care.
[2025-07-12] MEDS: ROXICODONE 5 MG PO (11:01)
--- NOTE | 2025-07-12 11:09 | CON.PUL ---
Consultation
Consultation Request
Date/Time Consultation Requested: 07/12/2025
Date/Time Consultation Performed: 07/12/2025
Requesting Provider: Dr. Meza
Performing Provider: Dr. Javier Donald
Reason for Consultation: Acute on chronic hypoxemic respiratory failure-pleural effusion
Medical History
-
Chief Complaint: Shortness of breath/
History of Present Illness:
-
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
pleural effusion with a indwelling catheter in place with daily drainage, has been receiving also frequent thoracentesis on the left. Presented to the emergency room with tachycardia and hypotension.
He completed chemotherapy on reporting decreased appetite and fatigue.
Underwent thoracentesis of about 1000 cc on the left the day of admission 07/11/2025-he was sent to the hospital from interventional radiology for evaluation.
-
Of note, he has been reporting dysphagia.
He received Xgeva and G-CSF on 07/06.
-
He was discovered to be hypoxic to 90% requiring 6 L, chest x-ray was unrevealing for any acute abnormalities.
-
Patient reports being compliant with anticoagulation for pulmonary embolism.
Past Medical History
Past Medical History: Other (see list below)
Social History
Tobacco: Non-smoker (Never)
Alcohol: None
Drug: None
Family History
Family History: Reviewed & Not Pertinent
Allergies / Home Medications
Allergies
Allergy/AdvReac Type Severity Reaction Status Date / Time
No Known Allergies Allergy Verified 06/27/25 09:02
Home Medications
�Medication �Instructions �Recorded �Confirmed �Last Taken �Type
acetaminophen 500 mg tablet 1,000 mg PO DAILYPRN PRN mild pain 05/15/25 07/11/25 05/26/25 History
apixaban 5 mg tablet (Eliquis) 5 mg PO BID Blood Clot 05/15/25 07/11/25 07/11/25 History
Prevention/Tx
albuterol sulfate 90 mcg/actuation 2 puff inhalation R Q4HPRN PRN sob 05/27/25 07/11/25 05/27/25 History
aerosol inhaler
dexamethasone 4 mg tablet 4 mg PO DIRECTED 05/27/25 07/11/25 06/14/25 History
Antiinflammation
folic acid 1 mg tablet 1 mg PO DAILY Supplement 05/27/25 07/11/25 07/11/25 History
pantoprazole 40 mg tablet,delayed 40 mg PO DAILY Gastrointestinal 05/27/25 07/11/25 07/11/25 History
release Issue
calcium carbonate (Calcium 500) 1,000 mg PO BID 07/11/25 07/11/25 07/11/25 History
lorazepam 0.5 mg tablet 0.5 mg PO BIDPRN PRN anxiety 07/11/25 07/11/25 Unknown History
oxycodone 5 mg tablet 5 mg PO Q6HPRN PRN severe pain 07/11/25 07/11/25 Unknown History
polyethylene glycol 3350 17 gram 17 g PO DAILYPRN PRN constipation 07/11/25 07/11/25 Unknown History
oral powder packet (Miralax)
sennosides 8.6 mg tablet (senna) 17.2 mg PO BIDPRN PRN constipation 07/11/25 07/11/25 Unknown History
umeclidinium 62.5 mcg-vilanterol 1 inh inhalation R DAILY 07/11/25 07/11/25 07/11/25 History
25 mcg/actuation powdr for
inhalation (Anoro Ellipta)
Review of Systems
-
History Source: Patient
All other systems: Negative unless noted
Vitals / Labs / Diagnostic Testing
Vital Signs
Temp Pulse Resp BP Pulse Ox
97.7 F 104 20 95/67 100
07/12/25 07:38 07/12/25 08:49 07/12/25 08:40 07/12/25 08:49 07/12/25 08:40
Lab Data
07/12/25 05:35
07/12/25 05:35
Diagnostic Testing:
Physical Exam
-
HEENT: Normocephalic
Cardiovascular: S1/S2
Respiratory: Non-Labored Respirations and Other (Right intrapleural catheter in place)
GI: Soft and Non Distended
Neurology: Awake, Alert and Oriented
Skin: Warm
General: Respiratory Distress
Assessment
-
69-year-old male with past medical history noted, main issue to widely metastatic lung cancer on chemotherapy. Came back with hypotension and tachycardia.
Also found to be hypoxemic.
Has recurrent left pleural effusion with multiple thoracentesis, with rapid reaccumulation.
Acute on chronic hypoxemic respiratory tuvnoon-[id number]-oywtwgtdy on 4 L
Chest x-ray: Post thoracentesis no pneumothorax. Chronic right sided airspace disease/lung cancer.
On anticoagulation: For history of pulmonary embolism.
Bilateral pleural effusion-multifactorial
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
Rapid reaccumulation of left pleural effusion-left thoracentesis 07/08/2025
Last thoracentesis 07/11/2025 1000 cc of yellow fluid
Hypotension/tachycardia-possibly hypovolemia.
Stage IV adenocarcinoma-chemotherapy/immunotherapy-ongoing. Last session on 07/06/2025.
Leukocytosis-possibly post G-CSF given on 07/06/2025
New onset dysphagia-possibly radiation esophagitis/stricture
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
Chronic hyponatremia
Stage IV Adenocarcinoma of the Lung - was started on oral chemotherapy Tabrecta on 12/03/2024.
He received Xgeva and G-CSF on 07/06/2025.
Recurrent left pleural effusion-multiple thoracentesis likely malignant.
s/p 5 radiation treatments to his sternum and cervical spine
Follows with Dr. Velarde as OP
Last time seen in the office 06/24/2025
History of hypocalcemia from Xgeva
Bilateral Pulmonary Emboli on AC 12/2024-on lifelong anticoagulation
LLE DVT
Bronchoscopy with biopsy 10/25/2024
History of oral surgery
Colon polyps
Assessment and plan:
Acute on chronic hypoxemic respiratory failure: Chest x-ray to my view appears relatively stable compared to prior.
Despite left thoracentesis on 07/11/2025 remains on low rate supplemental oxygen.
With new onset dysphagia and aspiration pneumonia/pneumonitis a possibility-difficult to evaluate on this chest x-ray as the patient has chronic changes.
The recent CAT scan from 04/2025 patient with chronic bilateral pulmonary changes which could contribute to hypoxemia as well.
-
Not unreasonable to treat with antibiotics currently vancomycin/Zosyn) (given ongoing immunosuppression from cancer therapy.
If all cultures negative can transition to Augmentin and complete total of 7 days
Leukocytosis may be in relationship to granulocyte colony-stimulating factor given on 07/06/2025.
Monitor for fevers
Obtain a sputum and blood culture
-
Continue oxygen supplementation to maintain pulse ox above 90%
Continue inhalers (usually on Anoro in the outpatient setting)
No indication for systemic corticosteroids-not bronchospastic on exam.
-
Agree with the speech evaluation-there is suspicion for possible post radiation esophageal changes.
-
Thromboembolic event less likely as the patient has been on anticoagulation without interruptions.
-
Hypotension: On midodrine.
Status post IV fluid resuscitation
If there is no improvement consider adrenal insufficiency as a differential diagnosis as well.
-
Follow-up left pleural effusion-May need to perform thoracentesis depending on symptoms in the next several days.
He will qualify for intrapleural catheter but with ongoing chemotherapy there is high risk of complications namely infection. Will hold off for now.
He will need to continue to follow-up with Dr. Velarde and oncology for timing.
-
Will follow

Data reviewed:
Echocardiogram05/16/2025: No pericardial effusion. No significant abnormalities. Normal LVEF. Normal RV function. Stable compared to December 2024
-
CT chest 05/15/2025:
1. Small to moderate bilateral pleural effusions, improved on the right and progressed on the left.
2. Patchy and confluent right lower lobe/perihilar consolidation, suspicious for combination of neoplasm and infectious/inflammatory process.
3. Grossly stable metastatic mediastinal/hilar lymphadenopathy.
4. Grossly stable osseous metastatic disease.
--- NOTE | 2025-07-12 11:40 | PTOTSP ---
Speech Language Pathology
VIDEOFLUOROSCOPIC SWALLOWING EXAMINATION (VSE) completed. Pt with mod-severe pharyngeal dysphagia. Significant pharyngeal residue noted across consistencies, which pt was not sensate to. Penetration/aspiration noted during swallow secondary to
inadequate airway protection and following swallow secondary to spillover of pharyngeal residue with questionable backflow from esophagus x1.
Pt is at risk for aspiration and airway obstruction with all P.O. intake. Discussed extensively with pt/ in fluoro suite and they were able to view images. Discussed options at this juncture, and both pt/ stated they would choose to
continue P.O. intake, accepting risks.
Recommend:
(1) NPO vs IDDSI Level 6 (soft/bite-sized) solids and thin liquids if accepting risks of aspiration
(2) Aspiration precautions: sit upright, slow rate, single cup sips with use of chin tuck, no straw, frequent throat clear/reswallow, frequent sips of liquids
(3) Meds as best tolerated. Consider whole with single cup sip of liquid and chin tuck, as puree with significant amount of pharyngeal residue
(4) Frequent oral care to mitigate risk of aspiration of oral bacteria
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
--- NOTE | 2025-07-12 12:12 | W.PN.HOSP.TC ---
Today's Communication/Plan
-
Monitor vitals
See plan
VSE
Continue with antibiotics
Follow cultures
Wean oxygen as tolerated
Oncology evaluation
cw pleuryx drainage
Discussed with spouse
Assessment / Plan
Assessment / Plan
General: Appears chronically ill
HEENT: NormoCephalic, Anicteric
Respiratory: Clear and Other (Pleural drain present right posterior lung); No Wheezes
Cardiac: S1/S2 and Tachycardia; No Murmur
GI: Soft, Non Tender, Non Distended, Normal Bowel Sounds
Musculoskeletal: No Edema
Skin: No Rash
Neuro: Nonfocal/grossly intact
Psych: Calm
Acute hypoxic respiratory insufficiency 2/2 chronic recurrent pleural effusions/stage IV non-small cell lung CA versus infectious process like aspiration pneumonitis
#History of Stage IV non-small cell lung CA Dx October 2024 to sternum C-spine status post radiation, spot right hip with recurrent
malignant pleural effusions on chemotherapy/immunotherapy
#Chronic elevated alk phos
Chemotherapy last dose on 07/06/2025 second line therapy along with Keytruda via PORT right upper chest wall(first time accessed today 07/11/2025 per patient)
-Status post thoracentesis( q.)4 days 07/11 1050 cc yellow fluid, 07/08/2025 status post 1000 cc clear yellow
WBC 47.6> 32.1 on 06/10/2025 patient just received colonizing stimulating growth factor and Xgeva on 07/06/2025
currently on 4L; at home on prn o2
-pleuryx to drain daily by IR
-Will need thoracentesis left side on 07/14-07/15
bcx pending
-Continue Anoro Ellipta 1 inhalation daily, albuterol as needed
MRSA screen negative, DC vancomycin. Continue with Zosyn
consult pulmonary
consult oncology for prognosis; per patient and spouse couldnt tolerate 3rd round chemo well
#Leukocytosis likely due to colonizing growth stimulating factor versus infectious process
WBC 47.6> 32.1 on 06/10/2025 patient just received colonizing stimulating growth factor and Xgeva on 07/06/2025
-IV vancomycin IV Zosyn
Mildly elevated Pro-Nelson, not a good marker in malignancy
#Hypotension due to hypovolemia
#Decreased oral intake x 2 to 3 days suspect volume depletion due to weakness from chemotherapy
cw IVF slowly for now given pleural effusion
#Reported dysphagia with thin liquids and pills
- Evaluated by speech, VSE 07/12 pending
had radiation in past
#Sinus tachycardia status post thoracentesis multifactorial
monitor
#Chronic right rib pain due to non-small cell lung CA
Patient requesting oxycodone he takes as needed 5 mg every 6 hours and takes Tylenol 1000 mg daily as needed
#Normocytic anemia in setting of recent chemotherapy
Monitor hemoglobin
- Follow CBC
#Acute on chronic hyponatremia�hypovolemic
NA 124 <130 on 06/10/2025
Na slowly improving, monitor
#Acute on chronic hypocalcemia
give IV calcium as needed
- Continue calcium carbonate 1000 mg twice daily
#Anxiety
-Continue lorazepam 0.5 mg p.o. twice daily as needed anxiety hold SBP<100
#GERD
Continue Protonix 40 mg daily
#History of bilateral pulmonary embolisms 01/07/2025
-Continue Eliquis 5 mg twice daily
#History of left lower extremity DVT January 08, 2025
Continue Eliquis
Full code
I spent a total of 54 minutes with the patient or on the floor. More than 50% of this time involved counseling and coordination of care.
Anticipated Discharge: > 48 hours
Subjective/Interval History
-
Date of Service: July 12, 2025
has difficulty with swallowing at times
Objective Data
-
Labs:
Laboratory Results
09/23/25
05:35
WBC 22.6 H
Hgb 8.1 L
Hct 23.4 L
Plt Count 200 D
Sodium 128 L
Potassium 4.2
Chloride 101
Carbon Dioxide 26
BUN 19
Creatinine 0.5 L
Glucose 88
Calcium 6.4 L*
Total Bilirubin 0.9
AST 28
ALT 27
Alkaline Phosphatase 209 H
Vital Signs:
Vital Signs
Temp Pulse Resp BP Pulse Ox
97.7 F 104 20 95/67 96
07/12/25 07:38 07/12/25 08:49 07/12/25 08:40 07/12/25 08:49 07/12/25 11:44
I&O
07/11/25 07/12/25 07/13/25
06:59 06:59 06:59
Intake Total 1100 / 1100
Output Total 600 / 600
Balance 500 / 500
[2025-07-12] MEDS: NSS 1000 IV (13:10)
--- NOTE | 2025-07-12 14:00 | CM ---
Initial Assessment Completed By Mary.
Patient lives with his in a 2 Story House with bathroom on the 1st level. Patient uses a Rolling Walker and Wheelchair for appointments. .Patient has oxygen at home using 2-3 lieters plus a nebulizer
Patient is currently open with VN (referral sent) as well as Palliative Care.
PCP: Francisco Clarke
Pharmacy: [facility]
Patient has transportation home when ready.
PLAN: Home w/ VN
--- NOTE | 2025-07-12 14:41 | CON.ONC ---
Consultation
-
Date Consultation Requested: 07/12/25
Date Consultation Performed: 07/12/25
Requesting Provider: Dr. Mikel Meza
Performing Provider: Dr. Mariluz Alexandra
Reason for Consultation: NSCLC
Impression
Impression
a/w acute respiratory failure
IV lung adenocarcinoma, MET mutated POD on Tabrecta, no s/p C3 on 07/07/2025 with pegfilgrastim 07/08/2025
last bone ppx with xgeva 06/16/2025
recurrent pleural effusion -Pleurx on Right and prn thora on Left
chronic cancer pain on chronic narcotics
VTE (LLE DVT/PE December 2024)
Atrial fibrillation
hyponatremia
leukocytosis
Anemia
dyphagia
Plan
Plan
on DOAC
check iron studies, retic, heme stool, B12, folate
swallow evaluation -may need alternate nutrition for chronic aspiration
pain management
calcium supplement
follow cultures, on IV abx
Followed by palliative care outpatient
If goals remain restorative, optimize performance status and nutritional status
systemic antineoplastic therapy will remain in hold until hospital recovery anbd performance status improves
Patient History
History of Present Illness
69yo M with stage IV lung adenocarcinoma who presented with hypotension and tachycardia. He has ongoing poor appetite, difficulty swallowing, unintentional weight loss, general weakness, and fatigue. He presented to IR for prn thoracentesis and
was thought to have atrial fibrillation after thoracentesis so was sent to the ER for further evaluation. ER evaluation was notable for hypotension, hypoxia, hyponatremia, and leukocytosis. CXR showed no evidence of PNA. He was admitted for further
evaluation, and started on IV abx.
In brief, he was found to have IV lung adenocarcinoma when he presented for evaluation of sternal pain. CT September 2024 showed RLL lung lesion extending into hilum with mediastinal adenopathy. EBUS Oct 2024 showed lung adenocarcinoma with MET exon
14 skipping mutation. PET/CT Oct 2024 was consistent with stage IV disease. MRI brain showed no brain mets. He had significant pain from his bone mets at his sternum, C6, and C7. He was started on dexamethasone, Tabrecta, xgeva bone ppx, and
underwent XRT to C4-C7 and sternum Nov 2024. Due to progression of disease on May 2025 PET/CT, he was transitioned to Carbo/alimta/keytruda May 26, 2025. He is s/p C3 on 07/07/2025 with pegfilgrastim 07/08/2025.
Clincally, he reports that his bony pain is controlled. He notes no improvement in SOB, cough, or pleural fluid accumulation since starting his new regimen in May 2025.
Past-Medical/Surgical History
PMH: atrial fibrillation, recurrent b/l pleural effusions, VTE
PSH: oral surgery, mediport
Social:never smoker, no ETOH, denies recreational drugs. . 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
Family: mother breast cancer
Patient Medication
�Medication �Instructions �Recorded �Confirmed �Last Taken �Type
acetaminophen 500 mg tablet 1,000 mg PO DAILYPRN PRN mild pain 05/15/25 07/11/25 05/26/25 History
apixaban 5 mg tablet (Eliquis) 5 mg PO BID Blood Clot 05/15/25 07/11/25 07/11/25 History
Prevention/Tx
albuterol sulfate 90 mcg/actuation 2 puff inhalation R Q4HPRN PRN sob 05/27/25 07/11/25 05/27/25 History
aerosol inhaler
dexamethasone 4 mg tablet 4 mg PO DIRECTED 05/27/25 07/11/25 06/14/25 History
Antiinflammation
folic acid 1 mg tablet 1 mg PO DAILY Supplement 05/27/25 07/11/25 07/11/25 History
pantoprazole 40 mg tablet,delayed 40 mg PO DAILY Gastrointestinal 05/27/25 07/11/25 07/11/25 History
release Issue
calcium carbonate (Calcium 500) 1,000 mg PO BID 07/11/25 07/11/25 07/11/25 History
lorazepam 0.5 mg tablet 0.5 mg PO BIDPRN PRN anxiety 07/11/25 07/11/25 Unknown History
oxycodone 5 mg tablet 5 mg PO Q6HPRN PRN severe pain 07/11/25 07/11/25 Unknown History
polyethylene glycol 3350 17 gram 17 g PO DAILYPRN PRN constipation 07/11/25 07/11/25 Unknown History
oral powder packet (Miralax)
sennosides 8.6 mg tablet (senna) 17.2 mg PO BIDPRN PRN constipation 07/11/25 07/11/25 Unknown History
umeclidinium 62.5 mcg-vilanterol 1 inh inhalation R DAILY 07/11/25 07/11/25 07/11/25 History
25 mcg/actuation powdr for
inhalation (Anoro Ellipta)
Active Medications
Generic Name Dose Route Start Last Admin
Trade Name Freq PRN Reason Stop Dose Admin
Albuterol/Ipratropium 3 ml 07/11/25 19:31 07/12/25 05:46
Ipratropium 0.5/Albuterol 3 Mg (3 Ml Ampul) INH 3 ml
R Q4HPRN PRN Administration
shortness of breath
Protocol
Apixaban 5 mg 07/11/25 20:00 07/12/25 09:11
Apixaban (Eliquis) 5 Mg Tablet PO 08/08/25 19:59 5 mg
BID IVANA Administration
Bisacodyl 10 mg 07/11/25 19:31
Bisacodyl 10 Mg Rectal Suppository RECTAL 08/08/25 19:30
[id number] PRN
constipation
Calcium Carbonate 1,000 mg 07/11/25 20:00 07/12/25 13:18
Calcium Carbonate 500 Mg Tablet PO 08/08/25 19:59 Not Given
BID IVANA
Folic Acid 1 mg 07/12/25 08:00 07/12/25 13:18
Folic Acid 1 Mg Tablet PO 08/09/25 07:59 Not Given
DAILY IVANA
Piperacillin Sod/Tazobactam Sod 3.375 gram in 50 mls @ 100 mls/hr 07/11/25 18:00 07/12/25 13:11
Zosyn IV 50 mls
Q6H IVANA Administration
Sodium Chloride 1,000 mls @ 80 mls/hr 07/11/25 18:30 07/12/25 13:10
Nss IV 1,000 mls
.[id number] IVANA Administration
Lorazepam 0.5 mg 07/11/25 19:31
Lorazepam 0.5 Mg Tablet PO 08/08/25 19:30
BIDPRN PRN
anxiety
Midodrine 5 mg 07/12/25 13:00
Midodrine 5 Mg Tablet PO 08/09/25 12:59
TID@0800,1300,1800 IVANA
Olodaterol 2 puff 07/12/25 08:00 07/12/25 08:25
Olodaterol (Striverdi Respimat) 2.5 Mcg Inhaler INH 08/09/25 07:59 2 puff
R DAILY IVANA Administration
Protocol
Oxycodone HCl 5 mg 07/11/25 19:31
Oxycodone 5 Mg Regular Release Tablet PO 07/25/25 19:30
Q6HPRN PRN
severe pain
Pantoprazole Sodium 40 mg 07/12/25 08:00 07/12/25 09:11
Pantoprazole 40 Mg Delayed Release Tablet PO 08/09/25 07:59 40 mg
DAILY IVANA Administration
Polyethylene Glycol 17 grams 07/11/25 19:31
Polyethylene Glycol Powder 17 Grams Packet PO 08/08/25 19:30
DAILYPRN PRN
constipation
Senna/Docusate Sodium 1 tablet 07/11/25 19:31
Docusate W/Senna (Joycelyn-Colace) Tablet PO 08/08/25 19:30
BIDPRN PRN
constipation
Sodium Chloride 0 flush 07/11/25 19:00
Sodium Chloride 0.9% (Flush) Syringe IV 08/08/25 18:59
PER PROTOCOL IVANA
Tiotropium Whiting 2 puff 07/12/25 08:00 07/12/25 08:25
Tiotropium (Spiriva Respimat) 2.5 Mcg Inhaler INH 08/09/25 07:59 2 puff
R DAILY IVANA Administration
Protocol
Review of Systems
-
ROS is notable for HPI, otherwise negative
Physical Exam
-
General: Cachetic (frail)
HEENT: Moist Mucous Membranes; Negative Jaundice
Cardiology: Other (tachycardia)
Pulmonary: Other (R pleurx)
GI: Soft
Extremities: Pulses Present
Neurology: Non Focal
Skin: Warm
Labs
Lab Results
WBC 22.6 10^3/uL (4.8-10.8) H 07/12/25 05:35
RBC 2.71 10^6/uL (4.70-6.10) L 07/12/25 05:35
Hgb 8.1 g/dL (13.0-18.0) L 07/12/25 05:35
Hct 23.4 % (39.0-52.0) L 07/12/25 05:35
MCV 86.3 fL (80.0-94.0) 07/12/25 05:35
MCH 29.9 pg (27.0-31.0) 07/12/25 05:35
MCHC 34.6 g/dL (33.0-37.0) 07/12/25 05:35
RDW 19.6 % (11.5-14.5) H 07/12/25 05:35
Plt Count 200 10^3/uL (130-400) D 07/12/25 05:35
MPV 8.7 fL (7.4-10.4) 07/12/25 05:35
Abs Immat Gran (auto) 5.0 10^3/uL (0-0.05) H 07/12/25 05:35
Absolute Neuts (auto) 17.1 10^3/uL (1.4-6.5) H 07/12/25 05:35
Absolute Lymphs (auto) 0.2 10^3/uL (1.2-3.4) L 07/12/25 05:35
Absolute Monos (auto) 0.2 10^3/uL (0.1-0.6) 07/12/25 05:35
Absolute Eos (auto) 0.0 10^3/uL (0-0.7) 07/12/25 05:35
Absolute Basos (auto) 0.1 10^3/uL (0-0.2) 07/12/25 05:35
Immature Gran % 22.1 % (0-0.5) H 07/12/25 05:35
Neutrophils % 75.7 % (42.2-75.2) H 07/12/25 05:35
Lymphocytes % 1.0 % (20.5-51.1) L 07/12/25 05:35
Monocytes % 0.9 % (1.7-9.3) L 07/12/25 05:35
Eosinophils % 0.0 % (0-6) 07/12/25 05:35
Basophils % 0.3 % (0-2) 07/12/25 05:35
Creatinine 0.5 mg/dL (0.7-1.3) L 07/12/25 05:35
Vital Signs
Vital Signs
Temp Pulse Resp BP Pulse Ox
97.7 F 104 20 95/67 96
07/12/25 07:38 07/12/25 08:49 07/12/25 08:40 07/12/25 08:49 07/12/25 11:44
[2025-07-12 16:07] LABS: Iron 124 ug/dl (49-181); Total Iron Binding Capacity 147 ug/dl (261-462)
--- NOTE | 2025-07-12 16:58 | PTCARENOTE ---
Patient and tearful after VSE, feeling discouraged and frustrated. Time spent with pt and he felt more hopeful after conversation after seen by Oncology team. Pt is in agreement to Dobhoff tube for feedings at this time. Awaiting further orders
from team. Pt's daughter Tamar given update today.
--- NOTE | 2025-07-12 19:20 | PTCARENOTE ---
daughter and at bedside discussed probable Dobhoff placement tomorrow per tiger text from Dr. Meza by GI. Patient agreeable to this plan of care.
[2025-07-12] MEDS: OSCAL CAL 500 1000 MG PO (19:45)
[2025-07-12 20:21] LABS: Ferritin 2150.0 ng/ml (17.9-464.0)
[2025-07-12] MEDS: LOPRESSOR 2.5 MG IV (22:55)
--- NOTE | 2025-07-12 23:03 | W.PN.UPDATE ---
Update Note
Progress Note Update
Patient went in a-fib with hr 180s sustainable after using bedside commode. Afebrile , bp 107/64, RR 30. SPO2 95% on 2 L of O2.
-labs, cbc, bmp, mag ordered
- lopressor 2.5 mg, hr still 150s, bp 78/63, 500cc on NSS bolus given. not effective will start patient on levophed.
-Patient hr still in 150s, cardizem bolus and drip started.
-K 3.7 Calcium 7.1 corrected calcium 8.6, will give 1 gm calcium will give K 20meq to keep above 4.
-hgb level is trending down from 10.1 -->8.1---> 7.9--> 7.6 this am, will continue h&h q 6hrs and order heme test.
--- NOTE | 2025-07-12 23:15 | PTCARENOTE ---
patient assisted to bedside commode. Patient HR went into rapid afib while on commode. HR went as high as 190s on monitor. Patient assisted back into bed and ekg done. 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 IV Lopressor and labs ordered. Patient reported feeling okay. Continuing
to monitor. call garcia in reach.
[2025-07-12 23:17] LABS: Hematocrit 23.4 % (39.0-52.0); Hemoglobin 7.9 g/dL (13.0-18.0); Mean Corp Hgb Conc. 33.8 g/dL (33.0-37.0); Mean Corpuscular Volume 85.1 fL (80.0-94.0); Platelet Count 146 10^3/uL (130-400); Red Cell Dist. Width 19.8 % (11.5-14.5)
[2025-07-12] MEDS: NSS 500 IV (23:24)
[2025-07-12 23:26] LABS: Calcium 7.1 mg/dl (8.4-10.2); Carbon Dioxide 23 mmol/L (22-30); Chloride 101 mmol/L (98-107); Estimated Creatinine Clearance 101 ml/min; Glucose 91 mg/dl (70-99); Magnesium 2.1 mg/dl (1.6-2.3); Potassium 3.7 mmol/L (3.5-5.1); Sodium 126 mmol/L (135-145); eGFR > 60.00
[2025-07-12 23:36] LABS: Blood Urea Nitrogen 18 mg/dl (9-20)
[2025-07-12] MEDS: LEVOPHED 250 IV (23:39)
[2025-07-12] MEDS: KCL 160 MEQ IV (23:50)
[2025-07-12] MEDS: CARDIZEM 5 MG IV (23:57)
[2025-07-13] VITALS (107 sets, daily range): BP systolic 82–150; BP diastolic 54–89; BMI 20.2
[2025-07-13] MEDS: NSS 1000 IV ×2 (00:10→12:59)
[2025-07-13] MEDS: CARDIZEM 125 IV (00:15)
--- NOTE | 2025-07-13 00:49 | PTCARENOTE ---
patient continued to be in rapid afib hr in 150s an sustaining. Bp dropped systolic of 75. CLINICAL TRIAL ASSOCIATE Samah at bedside. Levo and Cardizem gtts started. IV calcium and potassium ordered and hung. Bladder scanned patient for 39 ml. Q6 H&H ordered.
[2025-07-13 04:57] LABS: Hematocrit 23.1 % (39.0-52.0); Hemoglobin 7.6 g/dL (13.0-18.0); Mean Corp Hgb Conc. 32.9 g/dL (33.0-37.0); Mean Corpuscular Volume 86.8 fL (80.0-94.0); Platelet Count 149 10^3/uL (130-400); Red Cell Dist. Width 19.9 % (11.5-14.5)
[2025-07-13 05:07] LABS: ALT (SGPT) 25 U/L (0-50); AST (SGOT) 28 U/L (17-59); Albumin 2.0 g/dl (3.5-5.0); Alkaline Phosphatase 189 U/L (38-126); Blood Urea Nitrogen 16 mg/dl (9-20); Calcium 6.9 mg/dl (8.4-10.2); Carbon Dioxide 22 mmol/L (22-30); Chloride 104 mmol/L (98-107); Estimated Creatinine Clearance 101 ml/min; Glucose 94 mg/dl (70-99); Potassium 4.0 mmol/L (3.5-5.1); Sodium 130 mmol/L (135-145); Total Protein 4.1 g/dl (6.3-8.2); eGFR > 60.00
[2025-07-13] MEDS: ZOSYN 50 IV ×4 (05:12→23:33)
[2025-07-13] MEDS: CALCIUM GLUCONATE 100 IV (05:37)
[2025-07-13 06:04] LABS: Folate 12.4 ng/ml (2.76-20); Vitamin B12 > 1000 pg/ml (239-931)
[2025-07-13 06:15] LABS: Reticulocyte Count 0.5 % (0.4-2.8)
--- NOTE | 2025-07-13 08:00 | PTCARENOTE ---
received patient at change of shift from previous RN. Pt resting in bed, AAOx3. pt tachypnic at rest respiratory rate in 30s, pt on 4L nasal cannula, sat 96%. lung sounds diminished. SR on telemetry heart rate 80-90s. pulses palpable. pt on levophed
at 4 mcg. +1 pitting edema in lower extremities. NPO per speech- severe dysphagia. small sips of clears. voiding in urinal. pt updated on plan fo care.
[2025-07-13 08:03] LABS: Nucleated Red Blood Cells % 0 % (-)
[2025-07-13] MEDS: SPIRIVA RESPIMAT 2.5 MCG 2 PUFF INH (08:04)
[2025-07-13] MEDS: STRIVERDI RESPIMAT 2 PUFF INH (08:04)
[2025-07-13 09:37] LABS: Magnesium 1.9 mg/dl (1.6-2.3)
--- NOTE | 2025-07-13 09:37 | PN.IRAD.UPD ---
Update Note - IRAD
- -
Right 600ml pleural fluid drained via ASEPT catheter at bedside. New, clean, dry dressing placed over site. Clear yellow pleural fluid. Patient tolerated procedure well. RN notified of procedure
[2025-07-13 10:34] LABS: Hematocrit 25.3 % (39.0-52.0); Hemoglobin 8.5 g/dL (13.0-18.0)
[2025-07-13] MEDS: CARDIZEM 5 MG IV (11:22)
[2025-07-13] MEDS: OSCAL CAL 500 PO (11:31)
--- NOTE | 2025-07-13 11:33 | PTCARENOTE ---
pt went back into afib heart rate 160-180s, pt AAOX3, reports increased shortness of breath. ekg obtained. dr byrd notified. IV cardizem push given, restarted on cardizem gtt, restarted levophed gtt
--- NOTE | 2025-07-13 11:50 | W.PN.ONC2 ---
Today's Communication / Plan
-
Possible hospice based on his and wifes wishes and his overall status after discussion with Dr. Cohen.
Impression
Impression
a/w acute respiratory failure
IV lung adenocarcinoma, MET mutated POD on Tabrecta, no s/p C3 on 07/07/2025 with pegfilgrastim 07/08/2025
last bone ppx with xgeva 06/16/2025
recurrent pleural effusion -Pleurx on Right and prn thora on Left
chronic cancer pain on chronic narcotics
VTE (LLE DVT/PE December 2024)
Atrial fibrillation with RVR
hyponatremia
leukocytosis
Anemia
dyphagia
Plan
Plan
Palliative Hospice appropriate based on poor response and tolerability to chemotherapy.
Wants to review with Dr. Cohen who will round tomorrow.
Started the hospice process.
Subjective/Objective
Chief Complaint
ACS Heme Onc
Subjective
Tough morning. Patient with multiple runs of Rapid A. Fib pulse 180. He has not been feeling improved on current Tx and has been having a hard time on chemotherapy. His at bedside.
Vital Signs:
Vital Signs
Temp Pulse Resp BP Pulse Ox
97.0 F 180 33 95/77 95
07/13/25 07:43 07/13/25 11:22 07/13/25 11:20 07/13/25 11:22 07/13/25 11:20
Lab Results:
Laboratory Data
WBC 13.2 10^3/uL (4.8-10.8) H 07/13/25 04:05
Hgb 8.5 g/dL (13.0-18.0) L 07/13/25 10:05
Plt Count 149 10^3/uL (130-400) 07/13/25 04:05
eGFR > 60.00 07/13/25 04:05
Physical Exam
PS 4
Cardiology: Irregular rate/rhythm (tachy, 180 on monitor)
[2025-07-13] MEDS: LANOXIN 125 MCG IV (11:54)
--- NOTE | 2025-07-13 12:00 | CON.CAR ---
Addendum entered and electronically signed by Sumit Stevens MD 07/13/25 14:23:
I saw and examined the patient.
Dr. Smith's note was reviewed and I agree with the note.
Comment:
69-year-old man with history of metastatic non-small cell lung cancer s/p chemo and radiation with recurrent pleural effusions s/p biweekly thoracenteses on the left and PleurX catheter on the right, PE on Eliquis, and paroxysmal atrial
fibrillation. He was sent in from IR for atrial fibrillation with RVR. He was initially given IV metoprolol but became hypotensive and had to be started on norepinephrine. Subsequently started on the Cardizem drip. At the time of my exam he is
asymptomatic, and is on norepinephrine 2 mcg, and diltiazem drip at 15. Heart rates are in the 170s.
Physical exam: Fast rate, irregular rhythm, stable lower extremity edema
I personally reviewed his ECG which shows A-fib with RVR and nonspecific ST�T wave changes
Atrial fibrillation with RVR: Rates are very fast (170s) despite Cardizem drip at 15. Start IV amiodarone for better rate control. Cardioversion is not a good strategy here because he has been going in and out of fib since admission. Resume
Eliquis once he has oral access. Wean norepinephrine as tolerated.
He and his are contemplating hospice per oncology note.
Original Note:
Consultation
Consultation Request
Date/Time Consultation Requested: 07/13/2025
Date/Time Consultation Performed: 07/13/2025
Requesting Provider: Mikel Meza
Performing Provider: Sumit Stevens
Reason for Consultation: Afib w/ RVR
Medical History
-
Chief Complaint: Tachycardia/Tachypnea
History of Present Illness:
Kelby is a 69 year old male with a past medical history of Stage IV metastatic NSCLC, on Xgeva (follows with Dr. Cohen) s/p cervical/sternal radiation with every 4 days Left sided thoracentesis and nightly R sided thoracentesis via PleurX catheter,
history of PE (on Eliquis), who presented from IR during a scheduled outpatient thoracentesis for concerns of Afib with RVR. Patient was sent to the ED and found to be tachycardic and tachypneic. He reports only symptoms of shortness of breath, but
no chest pain, palpitations, nausea, vomiting, dizziness, lightheadedness, syncope.
He was afebrile on admission, infectious workup thus far negative. Upon ambulation to [facility] in the evening of 07/12 he went into afib with rvr with rates in the 180s and stable pressures. He received a dose of IV Lopressor 2.5mg with reduction in
heart rate to the 150s, however he went hypotensive to 78/63. 500 cc bolus of NS was given but he remained hypotensive. Patient was started on Levophed. His heart rate did not come down and so he was started on a Cardizem drip. Stat labs drawn
demonstrated hypocalcemia for which he was given IV calcium. Following calcium correction and diltiazem drip, patient remained in A-fib with RVR and rates in the 160s to 180s. Cardiology was consulted for A-fib with RVR. He remains on 2 mcg of
Levophed, Cardizem drip. EKG on admission demonstrated sinus tachycardia with PACs, repeat EKG demonstrating A-fib with RVR and rate in the 180s. Chemistry demonstrates persistent hypocalcemia at this time.
Of note, he was seen earlier this month by Dr. Dior for similar episode of presumed A-fib with RVR following thoracentesis. At that time he was meant to be started on diltiazem 30 mg twice daily with concerns for hypotension. However patient
and his report that the were not regularly taking this medication.
Patient is in active discussions of palliative care/hospice with oncology team.
Past Medical History
Past Medical History: Other (see hpi)
Past Surgical History: Other (With some tooth extraction, ASEPT right pleural, Chemo-Port placement, XRT to cervical spine and sternum November 2024)
Social History
Tobacco: Non-Smoker
Alcohol: None
Drug: None
Personal:
Family History
Family History: Reviewed & Not Pertinent
Allergies / Home Medications
Allergy/AdvReac Type Severity Reaction Status Date / Time
No Known Allergies Allergy Verified 06/27/25 09:02
�Medication �Instructions �Recorded �Confirmed �Type
acetaminophen 500 mg tablet 1,000 mg PO DAILYPRN PRN mild pain 05/15/25 07/11/25 History
apixaban 5 mg tablet (Eliquis) 5 mg PO BID Blood Clot 05/15/25 07/11/25 History
Prevention/Tx
albuterol sulfate 90 mcg/actuation 2 puff inhalation R Q4HPRN PRN sob 05/27/25 07/11/25 History
aerosol inhaler
dexamethasone 4 mg tablet 4 mg PO DIRECTED 05/27/25 07/11/25 History
Antiinflammation
folic acid 1 mg tablet 1 mg PO DAILY Supplement 05/27/25 07/11/25 History
pantoprazole 40 mg tablet,delayed 40 mg PO DAILY Gastrointestinal 05/27/25 07/11/25 History
release Issue
calcium carbonate (Calcium 500) 1,000 mg PO BID Supplement 07/11/25 07/11/25 History
lorazepam 0.5 mg tablet 0.5 mg PO BIDPRN PRN anxiety 07/11/25 07/11/25 History
oxycodone 5 mg tablet 5 mg PO Q6HPRN PRN severe pain 07/11/25 07/11/25 History
polyethylene glycol 3350 17 gram 17 g PO DAILYPRN PRN constipation 07/11/25 07/11/25 History
oral powder packet (Miralax)
sennosides 8.6 mg tablet (senna) 17.2 mg PO BIDPRN PRN constipation 07/11/25 07/11/25 History
umeclidinium 62.5 mcg-vilanterol 1 inh inhalation R DAILY 07/11/25 07/11/25 History
25 mcg/actuation powdr for Lung/Breathing Issues
inhalation (Anoro Ellipta)
Review of Systems
-
History Source: Patient
All other systems: Negative unless noted
Physical Exam
Vital Signs
Temp Pulse Resp BP Pulse Ox
97.0 F 126 33 95/77 95
07/13/25 07:43 07/13/25 11:54 07/13/25 11:20 07/13/25 11:22 07/13/25 11:20
Lab Results
07/13/25 04:05
Physical Exam
General: Other (Cachectic, tachypneic, otherwise resting comfortably, no acute distress)
HEENT: Normocephalic, Anicteric and Atraumatic
Respiratory: Other (Lungs clear anteriorly without wheezing or rhonchi)
Cardiac: S1/S2, Irregular Rhythm and Peripheral Edema; Negative Murmur or Rub
Breast: N/A
GI: Soft, Non Tender, Non Distended and Normal Bowel Sounds
Rectal: Deferred by Provider
Musculoskeletal: No Clubbing, No Cyanosis and Edema (Lower extremity edema, 2+ pitting to just above the ankle)
Skin: Warm and Dry
Neuro: AO x 3
Psych: Calm
Impression / Plan
-
Kelby is a 69 year old male with a past medical history of Stage IV metastatic NSCLC, on Xgeva (follows with Dr. Cohen) s/p cervical/sternal radiation with every 4 days Left sided thoracentesis and nightly R sided thoracentesis via PleurX catheter,
history of PE (on Eliquis), who presented from IR during a scheduled outpatient thoracentesis for concerns of Afib with RVR.
#Afib with RVR
Overall, suspect a multifactorial component to afib of malignant pleural effusion, radiation damage to the heart, and electrolyte disturbances secondary to chemotherapy.
- failing to improve on cardizem ggt -- stop Cardizem ggt, transition to Amiodarone ggt w/ loading dose
- Will give Amio bolus over 20 minutes to minimize hypotension
- Patient's last dose of Eliquis was evening 07/12
- Patient currently n.p.o. pending Dobbhoff placement for nutritional support and medication administration
- Continue with oral anticoagulation after Dobbhoff placement
- c/w correction of hypocalcemia
- c/t wean Levophed as tolerated while maintaining MAPs
- Repeat thora per IR
- No emergent need of cardioversion at this time
Patient's prognosis is guarded. Discussions with oncology for palliative vs. hospice are ongoing.
Cardiology continue to will follow.
--- NOTE | 2025-07-13 12:57 | W.PN.HOSP.TC ---
Today's Communication/Plan
-
Monitor vitals
See plan
IR for left Thora
Continue with PleurX drainage
dobhoff for now
Oncology to assist with goals of care discussion
Prognosis appears guarded
Cardizem drip, status post dig. if does not work then amio
Discussed with patient, spouse and daughter in great detail
Assessment / Plan
Assessment / Plan
General: Appears chronically ill
HEENT: NormoCephalic, Anicteric
Respiratory: Clear and Other (Pleural drain present right posterior lung)
Cardiac: S1/S2 and Tachycardia, irregular
GI: Soft, Non Tender, Non Distended, Normal Bowel Sounds
Musculoskeletal: No Edema
Neuro: Nonfocal/grossly intact
Psych: Calm
Acute hypoxic respiratory failure 2/2 chronic recurrent pleural effusions/stage IV non-small cell lung CA versus infectious process like aspiration pneumonitis
#History of Stage IV non-small cell lung CA Dx October 2024 to sternum C-spine status post radiation, spot right hip with recurrent
malignant pleural effusions on chemotherapy/immunotherapy
#Chronic elevated alk phos
Chemotherapy last dose on 07/06/2025 second line therapy along with Keytruda via PORT right upper chest wall(first time accessed today 07/11/2025 per patient)
-Status post thoracentesis( q.)4 days 07/11 1050 cc yellow fluid, 07/08/2025 status post 1000 cc clear yellow
WBC 47.6> 32.1 on 06/10/2025 patient just received colonizing stimulating growth factor and Xgeva on 07/06/2025
Overnight was put on 6 L nasal cannula, now weaning; at home on prn o2
-pleuryx to drain daily by IR
Appears to have reaccumulated fluid on left, asked IR for Thora 07/13
bcx NGTD
-Continue Anoro Ellipta 1 inhalation daily, albuterol as needed
MRSA screen negative, DC vancomycin. Continue with Zosyn
Pulmonary following
consult oncology for prognosis; per patient and spouse couldn't tolerate 3rd round chemo well. Discussed in length with patient and spouse. If there are no further options from oncology standpoint and likely hospice will be appropriate. Patient
is waiting to speak to Dr. Cohen. Oncology currently following
In the meantime, patient inability to swallow. Discussed with speech. VSE noted. N.p.o. for now. Asked GI for Dobbhoff. If plan is for hospice after discussion with oncology then we will do comfort feed. Family aware
A-fib with RVR
Cardiology consulted
Cardizem drip, dose of dig
Might need Amio
#Leukocytosis likely due to colonizing growth stimulating factor versus infectious process
WBC 47.6> 32.1 on 06/10/2025 patient just received colonizing stimulating growth factor and Xgeva on 07/06/2025
IV Zosyn
Mildly elevated Pro-Nelson, not a good marker in malignancy
#Hypotension likely in setting of A-fib with RVR and poor p.o. intake
#Decreased oral intake x 2 to 3 days suspect volume depletion due to weakness from chemotherapy
Started on Levophed, wean as tolerated
#Reported dysphagia with thin liquids and pills
- Evaluated by speech, VSE 07/12 noted. Discussed with speech. VSE noted. N.p.o. for now. Asked GI for Dobbhoclay. If plan is for hospice after discussion with oncology then we will do comfort feed. Family aware
had radiation in past
#Chronic right rib pain due to non-small cell lung CA
Patient requesting oxycodone he takes as needed 5 mg every 6 hours and takes Tylenol 1000 mg daily as needed
#Normocytic anemia in setting of recent chemotherapy
Monitor hemoglobin
- Follow CBC
#Acute on chronic hyponatremia�hypovolemic
NA 124 <130 on 06/10/2025
Na slowly improving, monitor
#Acute on chronic hypocalcemia
give IV calcium as needed
- Continue calcium carbonate 1000 mg twice daily
#Anxiety
-Continue lorazepam 0.5 mg p.o. twice daily as needed anxiety hold SBP<100
#GERD
Continue Protonix 40 mg daily
#History of bilateral pulmonary embolisms 01/07/2025
-Continue Eliquis 5 mg twice daily
#History of left lower extremity DVT January 08, 2025
Continue Eliquis
Full code
Total Critical Care Time__56___ minutes. I was immediately available to the patient and staff. I personally examined, reviewed labs, diagnostic images/reports, interpretations, treatment plans, discussed patient care with other providers and
family or caregivers (if patient is unable to make decisions), entered orders as appropriate and documented the medical record.
Anticipated Discharge: > 48 hours
Subjective/Interval History
-
Date of Service: July 13, 2025
Went into A-fib overnight
Objective Data
-
Labs:
Laboratory Results
07/13/25 07/13/25 07/13/25
04:05 04:05 04:05
WBC 13.2 H
Hgb 7.6 L Cancelled
Hct 23.1 L Cancelled
Plt Count 149
Sodium 130 L
Potassium 4.0
Chloride 104
Carbon Dioxide 22
BUN 16
Creatinine 0.5 L
Glucose 94
Calcium 6.9 L*
Total Bilirubin 1.3
AST 28
ALT 25
Alkaline Phosphatase 189 H
07/13/25
10:05
WBC
Hgb 8.5 L
Hct 25.3 L
Plt Count
Sodium
Potassium
Chloride
Carbon Dioxide
BUN
Creatinine
Glucose
Calcium
Total Bilirubin
AST
ALT
Alkaline Phosphatase
Vital Signs:
Vital Signs
Temp Pulse Resp BP Pulse Ox
97.0 F 179 34 95/73 95
07/13/25 07:43 07/13/25 12:45 07/13/25 12:45 07/13/25 12:45 07/13/25 12:45
I&O
07/12/25 07/13/25 07/14/25
06:59 06:59 06:59
Intake Total 1100 / 1100 1030 / 1030
Output Total 600 / 600 300 / 300 200 / 200
Balance 500 / 500 730 / 730 -200 / -200
--- NOTE | 2025-07-13 13:01 | PTCARENOTE ---
per dr byrd to hold PO meds until dobhoff is placed
--- NOTE | 2025-07-13 13:33 | W.PN.PUL3 ---
Today's Communication / Plan
-
Chest x-ray is as needed
Continue oxygen supplementation
Continue antibiotics for now
Right intrapleural catheter drainage as needed
Hospice being contemplated
Assessment
-
69-year-old male with past medical history noted, main issue to widely metastatic lung cancer on chemotherapy. Came back with hypotension and tachycardia.
Also found to be hypoxemic.
Has recurrent left pleural effusion with multiple thoracentesis, with rapid reaccumulation.
Acute on chronic hypoxemic respiratory nbewpcb-fznxnyfldqinpn-toshxbcoa on 4 L
Chest x-ray: Post thoracentesis no pneumothorax. Chronic right sided airspace disease/lung cancer.
On anticoagulation: For history of pulmonary embolism.
Bilateral pleural effusion-multifactorial
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
Rapid reaccumulation of left pleural effusion-left thoracentesis 07/08/2025
Last thoracentesis 07/11/2025 1000 cc of yellow fluid
Hypotension/tachycardia-possibly hypovolemia.
Stage IV adenocarcinoma-chemotherapy/immunotherapy-ongoing. Last session on 07/06/2025.
Leukocytosis-possibly post G-CSF given on 07/06/2025
New onset dysphagia-possibly radiation esophagitis/stricture
Conditions present [employer]
Chronic hyponatremia
Stage IV Adenocarcinoma of the Lung - was started on oral chemotherapy Tabrecta on 12/03/2024.
He received Xgeva and G-CSF on 07/06/2025.
Recurrent left pleural effusion-multiple thoracentesis likely malignant.
s/p 5 radiation treatments to his sternum and cervical spine
Follows with Dr. Velarde as OP
Last time seen in the office 06/24/2025
History of hypocalcemia from Xgeva
Bilateral Pulmonary Emboli on AC 12/2024-on lifelong anticoagulation
LLE DVT
Bronchoscopy with biopsy 10/25/2024
History of oral surgery
Colon polyps
Assessment and plan:
Acute on chronic hypoxemic respiratory failure: Chest x-ray to my view appears relatively stable compared to prior.
Despite left thoracentesis on 07/11/2025 remains on low rate supplemental oxygen.
With new onset dysphagia and aspiration pneumonia/pneumonitis a possibility-difficult to evaluate on this chest x-ray as the patient has chronic changes.
The recent CAT scan from 04/2025 patient with chronic bilateral pulmonary changes which could contribute to hypoxemia as well.
-
Continue current antibiotics-vancomycin/Zosyn) (given ongoing immunosuppression from cancer therapy.
If all cultures negative can transition to Augmentin and complete total of 7 days-if able to swallow.
Patient has significant dysphagia-
Leukocytosis may be in relationship to granulocyte colony-stimulating factor given on 07/06/2025.
Monitor for fevers
Cultures so far negative
Unable to produce significant sputum
Pleural fluid culture negative as well
-
Continue oxygen supplementation to maintain pulse ox above 90%
Continue inhalers for now.
Hold agonist as patient went into atrial fibrillation.
No indication for systemic corticosteroids-not bronchospastic on exam.
-
Continue speech evaluation-there is suspicion for possible post radiation esophageal changes.
Contemplating double tube
-
Thromboembolic event less likely as the patient has been on anticoagulation without interruptions.
-
Hypotension: On midodrine.
Low-dose pressors if needed.
Status post IV fluid resuscitation
If there is no improvement consider adrenal insufficiency as a differential diagnosis as well.
-
Bilateral pleural effusion:
Right intrapleural catheter. Drain unnecessary.
Follow-up left pleural effusion-May need to perform thoracentesis depending on symptoms in the next several days.
He will qualify for intrapleural catheter but with ongoing chemotherapy there is high risk of complications namely infection. Will hold off for now.
He will need to continue to follow-up with Dr. Velarde and oncology for timing.
-
Oncology correspondence reviewed: Patient with poor response to 3 cycles of chemotherapy. Limited options
Hospice being contemplated
Will discuss with primary oncologist tomorrow.
For now continue supportive care.
-
Rapid atrial fibrillation, management per prior routine.
-
Poor prognosis
Will follow

Data reviewed:
Echocardiogram05/16/2025: No pericardial effusion. No significant abnormalities. Normal LVEF. Normal RV function. Stable compared to December 2024
-
CT chest 05/15/2025:
1. Small to moderate bilateral pleural effusions, improved on the right and progressed on the left.
2. Patchy and confluent right lower lobe/perihilar consolidation, suspicious for combination of neoplasm and infectious/inflammatory process.
3. Grossly stable metastatic mediastinal/hilar lymphadenopathy.
4. Grossly stable osseous metastatic disease.
Subjective Data
-
Date of Service:
Date of Service: July 13, 2025
Objective Data
Data Reviewed
Vital Signs / I&O / Oxygen:
Vital Signs
Temp Pulse Resp BP Pulse Ox
98.1 F 179 34 95/73 95
07/13/25 13:26 07/13/25 12:45 07/13/25 12:45 07/13/25 12:45 07/13/25 12:45
Intake and Output
07/12/25 07/13/25 07/14/25
06:59 06:59 06:59
Intake Total 1100 / 1100 1030 / 1030
Output Total 600 / 600 300 / 300 200 / 200
Balance 500 / 500 730 / 730 -200 / -200
SaO2 95
Nasal Cannula flow liters per 2
minute
Labs/Micro/Reports
Lab Data
07/13/25 16:00
07/13/25 04:05
Microbiology
07/11/25 20:33 Blood/Venous Blood Culture - Preliminary
No Growth in 24 hours- Final report to follow
07/11/25 19:17 Blood/Venous Blood Culture - Preliminary
No Growth in 24 hours- Final report to follow
07/12/25 09:42 Nose Nasal Screen MRSA (PCR) - Final
MRSA not detected - performed by PCR methodology.
[2025-07-13] MEDS: CORDARONE 518 MG IV (13:48)
[2025-07-13] MEDS: CORDARONE 103 MG IV (13:48)
--- NOTE | 2025-07-13 13:59 | HOSPNOTE ---
Spoke with patient and spouse explained hospice and the philosophy. The plan is for oncology to speak with patient and spouse tomorrow and then would like me to follow up and discuss hospice again. More information to follow.
--- NOTE | 2025-07-13 14:50 | PTCARENOTE ---
amio bolus and amio gtt started per orders, pt converted to ST at 1428- heart rate low 100s
[2025-07-13] MEDS: ELIQUIS PO ×2 (14:55→16:39)
[2025-07-13] MEDS: PROTONIX PO (14:55)
--- NOTE | 2025-07-13 15:00 | CM ---
Following up on Patient.
The Medical Attending approached ZBIGNIEW Hernandez then ushered to the spouse outside the room to discuss ZBIGNIEW Hernandez initiating the discussing for Hospice while the Oncologist will still visit them tomorrow.
ZBIGNIEW Hernandez spoke to the spouse comforting her as she cried providing supportive words. Then ZBIGNIEW Hernandez came back later to see if they wanted a discussion with our [employer] Krissy in which they agreed.
Krissy spoke to them, explained it all, and now waiting on the Oncologist tomorrow to visit then will take it from there.
PLAN: Hospice vs. No Hospice at Home vs. Inpatient.
--- NOTE | 2025-07-13 15:18 | W.PN.UPDATE ---
Addendum entered and electronically signed by CHERYL Ayers 07/13/25 17:14:
reviewed X ray with Dr. Goldstein. DHT in stomach ok to use. Will start tube feeds. Discussed with pt and family DHT is temporary if swallowing not improved can consider peg if needed. Call back if peg needed and can further review with patient and
family.
Original Note:
Update Note
Progress Note Update
DHT placed left nare without difficulty at 65cm . Pt tolerated procedure well. confirmed with air insufflation and will check Abd X ray to confirm placement prior to use.
[2025-07-13] MEDS: LEVOPHED 250 IV (15:26)
[2025-07-13] MEDS: CALCIUM CARBONATE ORAL SUSP 1000 MG TUBE (20:28)
[2025-07-13] MEDS: ELIQUIS 5 MG TUBE (20:28)
[2025-07-14] VITALS (83 sets, daily range): BP systolic 81–126; BP diastolic 48–86; BMI 19.9
--- NOTE | 2025-07-14 04:45 | PTCARENOTE ---
started tube feeds at 20 ml per order with 25 ml flush. Patient tolerating feeds, no complaints. will advance TF as ordered. assessment and vitals documented. call garcia in reach.
[2025-07-14] MEDS: NSS 1000 IV (04:51)
[2025-07-14] MEDS: ZOSYN 50 IV ×4 (05:00→23:34)
[2025-07-14 05:31] LABS: Hematocrit 21.9 % (39.0-52.0); Hemoglobin 7.4 g/dL (13.0-18.0); Mean Corp Hgb Conc. 33.8 g/dL (33.0-37.0); Mean Corpuscular Volume 87.3 fL (80.0-94.0); Platelet Count 117 10^3/uL (130-400); Red Cell Dist. Width 19.9 % (11.5-14.5)
[2025-07-14 05:38] LABS: ALT (SGPT) 36 U/L (0-50); AST (SGOT) 46 U/L (17-59); Albumin 2.1 g/dl (3.5-5.0); Alkaline Phosphatase 219 U/L (38-126); Blood Urea Nitrogen 15 mg/dl (9-20); Calcium 7.2 mg/dl (8.4-10.2); Carbon Dioxide 24 mmol/L (22-30); Chloride 105 mmol/L (98-107); Estimated Creatinine Clearance 104 ml/min; Glucose 134 mg/dl (70-99); Potassium 3.6 mmol/L (3.5-5.1); Sodium 131 mmol/L (135-145); Total Protein 4.2 g/dl (6.3-8.2); eGFR > 60.00
[2025-07-14 07:23] LABS: Nucleated Red Blood Cells % 0 % (-)
[2025-07-14] MEDS: STRIVERDI RESPIMAT 2 PUFF INH (07:43)
[2025-07-14] MEDS: SPIRIVA RESPIMAT 2.5 MCG 2 PUFF INH (07:43)
--- NOTE | 2025-07-14 08:11 | W.PN.ONC2 ---
Today's Communication / Plan
-
continue GOC -remains restorative to resume OP cancer treatment
agreeable to placement of left pleurx d/w pulmonary
agreeable to feeding tube d/w GI -IR consult placed
and daughter at bedside provided [facility] updates and questions answered
Impression
Impression
a/w acute respiratory failure
IV lung adenocarcinoma, MET mutated POD on Tabrecta, no s/p C3 on 07/07/2025 with pegfilgrastim 07/08/2025
last bone ppx with xgeva 06/16/2025
recurrent pleural effusion -Pleurx on Right and prn thora on Left -requiring thora appox 2x/week, last 07/13
chronic cancer pain on chronic narcotics
VTE (LLE DVT/PE December 2024)
Atrial fibrillation with RVR
hyponatremia
leukocytosis
Anemia
dyphagia
Plan
Plan
Continue abx for suspected aspiration pneumonia/pneumonitis
Continue NPO w/ aspiration - DHT for TF in place -appreciate GI assist
no clinical response to 3 cycles of chemo/IO; await input from Dr. Cohen re: further cancer treatment options.
on DOAC for VTE/AF
pain management
Subjective/Objective
Subjective
pain controlled
improved sob/boucher
Vital Signs:
Vital Signs
Temp Pulse Resp BP Pulse Ox
97.6 F 110 20 105/67 4
07/14/25 03:00 07/14/25 07:46 07/14/25 07:46 07/14/25 06:45 07/14/25 07:46
Lab Results:
Laboratory Data
WBC 15.5 10^3/uL (4.8-10.8) H 07/14/25 04:58
Hgb 7.4 g/dL (13.0-18.0) L 07/14/25 04:58
Plt Count 117 10^3/uL (130-400) L D 07/14/25 04:58
eGFR > 60.00 07/14/25 04:58
Physical Exam
HEENT: Moist Mucous Membranes; No Jaundice
Cardiology: Other (tachycardia)
Pulmonary: Other (diminished b/l bases)
GI: Soft
Extremities: Pulses Present; No Edema
Neuro: Non Focal
--- NOTE | 2025-07-14 08:42 | W.PN.CD ---
Today's Communication / Plan
-
- Changed from Cardizem drip to amiodarone drip; continue amiodarone drip.
- Patient is currently in sinus rhythm.
- Continue Eliquis; Dobbhoff tube in place.
- Conservative cardiac management.
Impression / Plan
-
69 year old male with a past medical history of Stage IV metastatic NSCLC, on Xgeva (follows with Dr. Cohen) s/p cervical/sternal radiation with every 4 days Left sided thoracentesis and nightly R sided thoracentesis via PleurX catheter, history of
PE (on Eliquis), who presented from IR during a scheduled outpatient thoracentesis for concerns of Afib with RVR.
# Paroxysmal Afib with RVR
- Overall, suspect a multifactorial component to afib of malignant pleural effusion, radiation damage to the heart, and electrolyte disturbances secondary to chemotherapy.
- Changed from Cardizem drip to amiodarone drip; continue amiodarone drip.
- Patient is currently in sinus rhythm.
- Patient currently n.p.o. pending Dobbhoff placement for nutritional support and medication administration
- Continue Eliquis; Dobbhoff tube in place.
- Conservative cardiac management.
Metastatic lung cancer:
- Status-post thoracentesis left yesterday (1200 cc removed).
- Management as per primary team.
- Patient's prognosis is poor; hospice is being considered.
Physical Exam
Vital Signs/Labs
Vital Signs
Temp Pulse Resp BP Pulse Ox
97.6 F 110 20 105/67 4
07/14/25 03:00 07/14/25 07:46 07/14/25 07:46 07/14/25 06:45 07/14/25 07:46
07/13/25 07/14/25 07/15/25
06:59 06:59 06:59
Actual Weight 63.701 kg 63 kg
07/14/25 04:58
07/14/25 04:58
Magnesium 1.9 mg/dl (1.6-2.3) 07/13/25 04:05
Physical Exam
Constitutional: No acute distress and Comfortable
EENT: Anicteric
Cardiovascular: Rhythm & rate is regular, Systolic murmur absent, Pedal edema present (Trace to 1+ ankles) and S1S2 is normal
Respiratory: Respiratory effort normal and Lungs clear to auscul.
GI: Soft
Neuro/Psych: AO x 3
Other: Skin (Warm, dry, intact)
Data Reviewed
-
Date of Service: July 14, 2025
EKG: Tracing Personally Visualized and interpreted (Telemetry: Sinus rhythm/tachycardia, PSVT)
Echo: Report Reviewed by me (EF 55%)
Medical Tests (PFT, Pathology etc): Discussed with Patient
Labs: Labs Reviewed by me
[2025-07-14] MEDS: CALCIUM CARBONATE ORAL SUSP 1000 MG TUBE ×2 (08:51→20:56)
[2025-07-14] MEDS: ELIQUIS 5 MG TUBE ×2 (08:52→20:56)
[2025-07-14] MEDS: FOLVITE 1 MG TUBE (08:52)
--- NOTE | 2025-07-14 09:48 | W.PN.PUL3 ---
Today's Communication / Plan
-
I will place IR consult for left IPC
Cont. Zosyn for now- complete total 7d of ABX for possible aspiration.
Assessment
-
69-year-old male with past medical history noted, main issue to widely metastatic lung cancer on chemotherapy. Came back with hypotension and tachycardia.
Also found to be hypoxemic.
Has recurrent left pleural effusion with multiple thoracentesis, with rapid reaccumulation.
Acute on chronic hypoxemic respiratory achmllx-szpdrwejhxvjae-bdftatmpd on 4 L
Chest x-ray: Post thoracentesis no pneumothorax. Chronic right sided airspace disease/lung cancer.
On anticoagulation: For history of pulmonary embolism.
Bilateral pleural effusion-multifactorial
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
Rapid reaccumulation of left pleural effusion-left thoracentesis 07/08/2025
Last thoracentesis 07/11/2025 1000 cc of yellow fluid
Hypotension/tachycardia-possibly hypovolemia.
Stage IV adenocarcinoma-chemotherapy/immunotherapy-ongoing. Last session on 07/06/2025.
Leukocytosis-possibly post G-CSF given on 07/06/2025
New onset dysphagia-possibly radiation esophagitis/stricture
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
Chronic hyponatremia
Stage IV Adenocarcinoma of the Lung - was started on oral chemotherapy Tabrecta on 12/03/2024.
He received Xgeva and G-CSF on 07/06/2025.
Recurrent left pleural effusion-multiple thoracentesis likely malignant.
s/p 5 radiation treatments to his sternum and cervical spine
Follows with Dr. Velarde as OP
Last time seen in the office 06/24/2025
History of hypocalcemia from Xgeva
Bilateral Pulmonary Emboli on AC 12/2024-on lifelong anticoagulation
LLE DVT
Bronchoscopy with biopsy 10/25/2024
History of oral surgery
Colon polyps
Assessment and plan:
Acute on chronic hypoxemic respiratory failure:
Improved after ABX and left thoracentesis- last on 07/13/2025- rapid reaccumulation.
With new onset dysphagia and aspiration pneumonia/pneumonitis a possibility-difficult to evaluate on this chest x-ray as the patient has chronic changes.
The recent CAT scan from 04/2025 patient with chronic bilateral pulmonary changes which could contribute to hypoxemia as well.
-
Continue current antibiotics-Zosyn) (given ongoing immunosuppression from cancer therapy.
Vancomycin DCd
If all cultures negative can transition to Augmentin and complete total of 7 days-if able to swallow.
Patient has significant dysphagia- now DHT in place, likely to require PEG tube.
Leukocytosis may be in relationship to granulocyte colony-stimulating factor given on 07/06/2025.
Monitor for fevers
Cultures so far negative
Unable to produce significant sputum
Pleural fluid culture negative as well
-
Continue oxygen supplementation to maintain pulse ox above 90%- improved post thoracentesis.
Continue inhalers for now.
Hold beta agonist as patient went into atrial fibrillation.
No indication for systemic corticosteroids-not bronchospastic on exam.
-
Continue speech evaluation-there is suspicion for possible post radiation esophageal changes.
DHT in place
likely to get PEG tube.
-
Thromboembolic event less likely as the patient has been on anticoagulation without interruptions.
-
Hypotension: On midodrine.
Low-dose pressors if needed- currently 1mcg/min
Status post IV fluid resuscitation
-
Bilateral pleural effusion:
Right intrapleural catheter. Drain as necessary.
Follow-up left pleural effusion- last thoracentesis 07/13/2025-1.2L clinically improved.
Discussed with family and patient - reasoning for initial delay.
They discussed with Dr. Cohen, given lack to response to CHEMO, ok to proceed now with Left IPC.
Dr. Donald will consult IR and arrange. Hopefully can be performed soon.
-
Oncology correspondence reviewed: case discussed with Dr. Cohen.
Patient with poor response to 3 cycles of chemotherapy. Limited options- poor prognosis.
Hospice being contemplated
For now continue supportive care.
-
Rapid atrial fibrillation, management per prior routine.
on Amio gtt
HR somewhat improved.
-
Poor prognosis
Will follow

Data reviewed:
Echocardiogram05/16/2025: No pericardial effusion. No significant abnormalities. Normal LVEF. Normal RV function. Stable compared to December 2024
-
CT chest 05/15/2025:
1. Small to moderate bilateral pleural effusions, improved on the right and progressed on the left.
2. Patchy and confluent right lower lobe/perihilar consolidation, suspicious for combination of neoplasm and infectious/inflammatory process.
3. Grossly stable metastatic mediastinal/hilar lymphadenopathy.
4. Grossly stable osseous metastatic disease.
Subjective Data
-
Date of Service:
Date of Service: July 14, 2025
Chief Complaint: Pulmonary Follow Up (Pleural effusion- Malignant)
Subjective:
Improved symptoms post Left thoracentesis.
Denies chest pain or coughing
Not on supplemental oxygen.
DHT in place.
Review of Systems
Cardiopulmonary: Dyspnea (none at rest), Cough (n) and Sputum Production (n)
GI: Abdominal Pain (n)
Objective Data
Data Reviewed
Vital Signs / I&O / Oxygen:
Vital Signs
Temp Pulse Resp BP Pulse Ox
97.6 F 107 31 114/70 95
07/14/25 03:00 07/14/25 08:52 07/14/25 08:45 07/14/25 08:52 07/14/25 08:45
Intake and Output
07/13/25 07/14/2507/15/25
06:59 06:59 06:59
Intake Total 1030 / 1030 1060 / 1060
Output Total 300 / 300 500 / 500
Balance 730 / 730 560 / 560
SaO2 95
Nasal Cannula flow liters per 4
minute
Physical Exam
General: Comfortable
HEENT: Normocephalic
Cardiovascular: Irregular Rhythm
Respiratory: Other (Decreased breath sounds bilaterally.)
GI: Soft and Non Distended
Neurology: Awake, Alert, Oriented and No Motor Deficits
Labs/Micro/Reports
Lab Data
07/14/25 04:58
07/14/25 04:58
Microbiology
07/11/25 20:33 Blood/Venous Blood Culture - Preliminary
No Growth in 48 hours- Final report to follow
07/11/25 19:17 Blood/Venous Blood Culture - Preliminary
No Growth in 48 hours- Final report to follow
07/12/25 09:42 Nose Nasal Screen MRSA (PCR) - Final
MRSA not detected - performed by PCR methodology.
--- NOTE | 2025-07-14 10:48 | CM ---
Following up on Patient. Interventional Radiology (I.R.) reached out to ZBIGNIEW Hernandez to state that family might be interested in the placement of a LEFT Catheter, he has a RIGHT one now for drainage of fluid, but wanted to know where the family is re:
Hospice.
ZBIGNIEW Hernandez met with the / daughter (then patient) and they all want to move forward with the Catheter and peg tube. I.R. was concerned about [id number] cost because this happened for the RIGHT one. stated that her met his
insurance deductible so there should not be any additional cost.
This was relayed to I.R. and ZBIGNIEW Hernandez informed [employer] that Hospice is on hold for now. Family aware that tube feeds would need to be set up before he discharges home. Patient is on Home Palliative Care with .
PLAN: Home w/ new peg tube/ teaching/ equipment.
--- NOTE | 2025-07-14 11:17 | HOSPNOTE ---
Was informed that patient wanted to continue with treatments. When patient is stable he will be discharged home and is presently under palliative care. Hospice remains available to patient and family. Will sign off until notified if hospice is
needed.
--- NOTE | 2025-07-14 11:22 | PN.IRAD.UPD ---
Update Note - IRAD
- -
RIGHT ASEPT DRAINED FOR 650 ML FLUID. SITE CLEANED AND DRESSED. PATIENT TOLERATED WELL.
[2025-07-14] MEDS: ROXICODONE 5 MG TUBE ×2 (11:47→21:03)
--- NOTE | 2025-07-14 12:33 | VNURNOTE ---
[facility] liaison met with patient, spouse and daughter at bedside. All agreeable to resume VN services upon DC. Confirmed that plan is for new LEFT Asept cath placement and new PEG tube. Procedure dates TBD. Reviewed tube feeds: goal for same day
VN visit once equipment approved and delivery coordinated w/ DME co. DC home would need to be before 1200. Daughter stated she had some TF experience. Spouse willing to learn. Reviewed that HOB needs to be elevated during and after TFs. Offered
to order hospital bed. Patient and family declined, stating they have an adjustable Temperpedic bed at home. They also have a recliner at home.
[facility] resumption referral accepted in [facility].
Liaison remains available.
--- NOTE | 2025-07-14 13:21 | PN.CDI ---
CDI
- -
CDI:
Physician Documentation Request
Admit Date: 07/11/25 17:37
Dear Doctor Derrick,
Patient admitted with acute hypoxic respiratory failure.
07/12 Nutrition note, 'Patient meets AND and ASPEN criteria for severe protein calorie malnutrition of chronic disease due to a loss of more than 7.5% BW over 3 months and less than 75% of estimated nutrition needs met for more than 1 month.'
Please provide in your note the diagnosis associated with the above findings and your assessment:
Severe protein calorie malnutrition
Other
[facility] Criteria ([facility] 2017)
2 or more criteria must be present for either
non severe or severe malnutrition
Note that the criteria differs related to the
presence of an acute or chronic illness
Chronic Illness
Energy Intake Non Severe: <75% for >1 month
Severe: <75% for >1 month
Weight Loss Non Severe: 5% over 1 month
7.5% over 3 months
10% over 6 months
20% over 1 year
Severe: >5% over 1 month
>7.5% over 3 months
>10% over 6 months
>20% over 1 year
Body Fat Non Severe: Mild Loss
Severe: Severe Loss
Muscle Mass Non Severe: Mild Loss
Severe: Severe Loss
Fluid Accumulation Non Severe: Mild Accumulation
Severe: Moderate to severe
accumulation
Reduced Hand Stamper Strength Non Severe: N/A
Severe: Measurably reduced
Use of terms such as suspected, likely, concern for, or probable (associated with a specific diagnosis that is being evaluated, monitored, or treated as if it exists) are acceptable and can be coded in the inpatient setting, when documented at the
time of discharge.
Thank you,
Bertha YIP,RN,CCDS
CDI Specialist
Available via tiger text
Please use your independent medical judgment in providing your response.
--- NOTE | 2025-07-14 13:26 | W.PN.HOSP.TC ---
Today's Communication/Plan
-
Monitor vitals
See plan
IR for Ascept catheter on left
GI for PEG
cw amio
Assessment / Plan
Assessment / Plan
General: Appears chronically ill
HEENT: NormoCephalic, Anicteric
Respiratory: Clear and Other (Pleural drain present right posterior lung)
Cardiac: S1/S2 and Tachycardia, irregular
GI: Soft, Non Tender, Non Distended, Normal Bowel Sounds
Musculoskeletal: No Edema
Neuro: Nonfocal/grossly intact
Psych: Calm
Acute hypoxic respiratory failure 2/2 chronic recurrent pleural effusions/stage IV non-small cell lung CA versus infectious process like aspiration pneumonitis
#History of Stage IV non-small cell lung CA Dx October 2024 to sternum C-spine status post radiation, spot right hip with recurrent
malignant pleural effusions on chemotherapy/immunotherapy
#Chronic elevated alk phos
Chemotherapy last dose on 07/06/2025 second line therapy along with Keytruda via PORT right upper chest wall(first time accessed today 07/11/2025 per patient)
-Status post thoracentesis( q.)4 days 07/11 1050 cc yellow fluid, 07/08/2025 status post 1000 cc clear yellow
WBC 47.6> 32.1 on 06/10/2025 patient just received colonizing stimulating growth factor and Xgeva on 07/06/2025
was put on 6 L nasal cannula, now weaning; at home on prn o2
-pleuryx on right to drain daily by IR. Now after discussion with oncology, plan for IR to place ascept on left as well.
s/p thora 07/13 on left with 1200cc fluid removal
bcx NGTD
-Continue Anoro Ellipta 1 inhalation daily, albuterol as needed
MRSA screen negative, DC vancomycin. Continue with Zosyn
Pulmonary following
Oncology following; per patient and spouse couldn't tolerate 3rd round chemo well. Follows up with Dr. Foster outpatient spoke with patient and family 07/14. Plan for further chemo. Given patient inability to swallow, GI consulted for PEG tube.
Currently patient has Dobbhoff and tube feed at goal. Per GI Eliquis would need to be held over the weekend for PEG Friday
A-fib with RVR
Cardiology following
Continue with Amio drip
#Leukocytosis likely due to colonizing growth stimulating factor versus infectious process
WBC 47.6> 32.1 on 06/10/2025 patient just received colonizing stimulating growth factor and Xgeva on 07/06/2025
IV Zosyn
Mildly elevated Pro-Nelson, not a good marker in malignancy
#Hypotension likely in setting of A-fib with RVR and poor p.o. intake
#Decreased oral intake x 2 to 3 days suspect volume depletion due to weakness from chemotherapy
Started on Levophed, wean as tolerated
#Reported dysphagia with thin liquids and pills
- Evaluated by speech, VSE 07/12 noted. Discussed with speech. Given patient inability to swallow, GI consulted for PEG tube. Currently patient has Dobbhoff and tube feed at goal. Per GI Eliquis would need to be held over the weekend for PEG Friday
#Chronic right rib pain due to non-small cell lung CA
Patient requesting oxycodone he takes as needed 5 mg every 6 hours and takes Tylenol 1000 mg daily as needed
#Normocytic anemia in setting of recent chemotherapy
Monitor hemoglobin
#Acute on chronic hyponatremia�hypovolemic
NA 124 <130 on 06/10/2025
Na slowly improving, monitor
#Acute on chronic hypocalcemia
give IV calcium as needed
- Continue calcium carbonate 1000 mg twice daily
#Anxiety
-Continue lorazepam 0.5 mg p.o. twice daily as needed anxiety hold SBP<100
#GERD
Continue Protonix 40 mg daily
#History of bilateral pulmonary embolisms 01/07/2025
-Continue Eliquis 5 mg twice daily
#History of left lower extremity DVT January 08, 2025
Continue Eliquis
Full code
I spent a total of 54 minutes with the patient or on the floor. More than 50% of this time involved counseling and coordination of care.
Anticipated Discharge: > 48 hours
Subjective/Interval History
-
Date of Service: July 14, 2025
denies pain
Objective Data
-
Labs:
Laboratory Results
07/14/25
04:58
WBC 15.5 H
Hgb 7.4 L
Hct 21.9 L
Plt Count 117 L D
Sodium 131 L
Potassium 3.6
Chloride 105
Carbon Dioxide 24
BUN 15
Creatinine 0.5 L
Glucose 134 H
Calcium 7.2 L
Total Bilirubin 1.4 H
AST 46
ALT 36
Alkaline Phosphatase 219 H
Vital Signs:
Vital Signs
Temp Pulse Resp BP Pulse Ox
98.2 F 107 31 114/70 96
07/14/25 11:11 07/14/25 08:52 07/14/25 08:45 07/14/25 08:52 07/14/25 11:05
I&O
07/13/25 07/14/25 07/15/25
06:59 06:59 06:59
Intake Total 1030 / 1030 1060 / 1060
Output Total 300 / 300 500 / 500
Balance 730 / 730 560 / 560
--- NOTE | 2025-07-14 14:49 | PTCARENOTE ---
Patient is awake alert and oriented x3. Received pt on Levophed and this has been weaned to off per protocol. Amiodarone gtt continues per cardiology orders. Pt in NSR to Sinus tachycardia today. He has had multiple conversations with team of
medical doctors, ancillary staff and family. Pt and family want to continue treatment and have PEG placed for nutritional support as outpatient. Pt for left chest tube pleural drain placement tomorrow (it is an ASEPT brand as is the rt one he
already has)/ has been draining at home, will reinforce education at discharge to assure understanding. Pt OOB to chair and BSC. He is motivated to get moving and has tolerated 3 hours thus far. He is on air cushion seat. Pt fatigued and quiet
time provided to rest. He is now visiting with sister and brother in law. pt tolerating Dobhoff tube feeds which are now at Goal. rate of 55ml.
[2025-07-14] MEDS: CORDARONE 518 MG IV (15:31)
[2025-07-14] MEDS: MELATONIN 3 MG PO (21:04)
[2025-07-15] VITALS (16 sets, daily range): BP systolic 90–115; BP diastolic 60–75; BMI 20.3
[2025-07-15] MEDS: ROXICODONE 5 MG TUBE ×2 (05:16→21:04)
[2025-07-15] MEDS: ZOSYN 50 IV ×3 (05:16→18:12)
[2025-07-15 05:36] LABS: Hematocrit 22.4 % (39.0-52.0); Hemoglobin 7.4 g/dL (13.0-18.0); Mean Corp Hgb Conc. 33.0 g/dL (33.0-37.0); Mean Corpuscular Volume 88.2 fL (80.0-94.0); Platelet Count 114 10^3/uL (130-400); Red Cell Dist. Width 20.1 % (11.5-14.5)
[2025-07-15 05:46] LABS: ALT (SGPT) 41 U/L (0-50); AST (SGOT) 37 U/L (17-59); Albumin 2.3 g/dl (3.5-5.0); Alkaline Phosphatase 218 U/L (38-126); Blood Urea Nitrogen 16 mg/dl (9-20); Calcium 8.1 mg/dl (8.4-10.2); Carbon Dioxide 26 mmol/L (22-30); Chloride 103 mmol/L (98-107); Estimated Creatinine Clearance 105 ml/min; Glucose 132 mg/dl (70-99); Magnesium 1.6 mg/dl (1.6-2.3); Potassium 3.6 mmol/L (3.5-5.1); Sodium 131 mmol/L (135-145); Total Protein 4.4 g/dl (6.3-8.2); eGFR > 60.00
--- NOTE | 2025-07-15 06:02 | PTCARENOTE ---
Pt appearing to get rest over night. Pt spo2 94% ra respirations even unlabored at this time. Pt TF held per order for procedure scheduled for today. Pt having some pains, prn medication given. Vitals stable at this time. Call garcia within reach. Bed
in lowest position.
[2025-07-15 06:47] LABS: Nucleated Red Blood Cells % 0.1 % (-)
[2025-07-15] MEDS: STRIVERDI RESPIMAT 2 PUFF INH (08:11)
[2025-07-15] MEDS: SPIRIVA RESPIMAT 2.5 MCG 2 PUFF INH (08:11)
--- NOTE | 2025-07-15 08:28 | PTCARENOTE ---
Patient received from cloth measurer machine. Patient resting comfortably in bed. AAO, VSS. No events noted overnight. Complaints of pain on right arm, see MAR. Tube feeds currently on hold. Amio gtt continuing through port. Scheduled for IR for left
side chest drain. Call garcia in reach.
[2025-07-15] MEDS: TYLENOL 650 MG PO (09:22)
[2025-07-15] MEDS: ELIQUIS 5 MG TUBE ×2 (09:23→21:04)
[2025-07-15] MEDS: FOLVITE 1 MG TUBE (09:24)
[2025-07-15] MEDS: CALCIUM CARBONATE ORAL SUSP 1000 MG TUBE ×2 (09:24→21:04)
--- NOTE | 2025-07-15 09:28 | W.PN.PUL3 ---
Addendum entered and electronically signed by Javier Webber MD 07/15/25 10:17:
Giving clinical pulmonary improvement.
Please call with questions
Can see again on Friday if there is active pulmonary issues.
Dr. Donald updated family at the bedside in detail 07/15/2025.
Sign off
Original Note:
Today's Communication / Plan
-
Waiting for left intrapleural catheter placement
Complete antibiotics in the next 48 hours currently day 02/26
Continue inhalers
From the pulmonary perspective on room air, significant improvement after antibiotics and thoracentesis.
No additional pulmonary recommendations
Once intrapleural catheter is placed should be drained every 48 hours up to 500 mL each time. Can be followed by Dr. Velarde in the outpatient office
Recommend outpatient pulmonary follow-up in the next 2 to 4 weeks.
Assessment
-
69-year-old male with past medical history noted, main issue to widely metastatic lung cancer on chemotherapy. Came back with hypotension and tachycardia.
Also found to be hypoxemic.
Has recurrent left pleural effusion with multiple thoracentesis, with rapid reaccumulation.
Acute on chronic hypoxemic respiratory [id number]-dbrxlheyqqiklw-gzerxkunp on 4 L
Chest x-ray: Post thoracentesis no pneumothorax. Chronic right sided airspace disease/lung cancer.
On anticoagulation: For history of pulmonary embolism.
Bilateral pleural effusion-multifactorial
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
Rapid reaccumulation of left pleural effusion-left thoracentesis 07/08/2025
Last thoracentesis 07/11/2025 1000 cc of yellow fluid
Hypotension/tachycardia-possibly hypovolemia.
Stage IV adenocarcinoma-chemotherapy/immunotherapy-ongoing. Last session on 07/06/2025.
Leukocytosis-possibly post G-CSF given on 07/06/2025
New onset dysphagia-possibly radiation esophagitis/stricture
Conditions present [employer]
Chronic hyponatremia
Stage IV Adenocarcinoma of the Lung - was started on oral chemotherapy Tabrecta on 12/03/2024.
He received Xgeva and G-CSF on 07/06/2025.
Recurrent left pleural effusion-multiple thoracentesis likely malignant.
s/p 5 radiation treatments to his sternum and cervical spine
Follows with Dr. Velarde as OP
Last time seen in the office 06/24/2025
History of hypocalcemia from Xgeva
Bilateral Pulmonary Emboli on AC 12/2024-on lifelong anticoagulation
LLE DVT
Bronchoscopy with biopsy 10/25/2024
History of oral surgery
Colon polyps
Assessment and plan:
Acute on chronic hypoxemic respiratory failure:
Clinically improved-currently on room air.
Improved after ABX and left thoracentesis- last on 07/13/2025- rapid reaccumulation.
With new onset dysphagia and aspiration pneumonia/pneumonitis a possibility-difficult to evaluate on this chest x-ray as the patient has chronic changes.
The recent CAT scan from 04/2025 patient with chronic bilateral pulmonary changes which could contribute to hypoxemia as well.
-
Continue current antibiotics-Zosyn) (given ongoing immunosuppression from cancer therapy-complete 7 days total. (day 02/23)
Vancomycin DCd
Unable to transition to oral antibiotics-double tube in place. Likely will require PEG tube
-
Leukocytosis may be in relationship to granulocyte colony-stimulating factor given on 07/06/2025-stable/improved.
Monitor for fevers-afebrile
Cultures so far negative
Unable to produce significant sputum
Pleural fluid culture negative as well
-
Not bronchospastic on exam. Able to speak in full sentences.
Continue inhalers for now.
Hold beta agonist as patient went into atrial fibrillation.
No indication for systemic corticosteroids-not bronchospastic on exam.
-
Continue speech evaluation-there is suspicion for possible post radiation esophageal changes.
DHT in place
likely to get PEG tube.
-
Thromboembolic event less likely as the patient has been on anticoagulation without interruptions.
-
Hypotension: On midodrine.
Low-dose pressors if needed.
Status post IV fluid resuscitation
-
Bilateral pleural effusion:
Right intrapleural catheter. Drain as necessary.
Follow-up left pleural effusion- last thoracentesis 07/13/2025-1.2L clinically improved.
Discussed with family and patient - reasoning for initial delay.
Family discussed with Dr. Cohen, given lack to response to CHEMO, ok to proceed now with Left IPC.
Dr. Donald consulted IR and arranged-consult was placed. Case discussed.
Should be drained every 48 hours up to 500 mL at home.
Can be followed by Dr. Velarde in the pulmonary office.
-
Oncology correspondence reviewed: case discussed with Dr. Cohen.
Patient with poor response to 3 cycles of chemotherapy. Limited options- poor prognosis.
Hospice being contemplated
For now continue supportive care.
-
Rapid atrial fibrillation, management per prior routine.
Continue care per cardiology.
HR somewhat improved.
-
Poor prognosis
Will follow

Data reviewed:
Echocardiogram05/16/2025: No pericardial effusion. No significant abnormalities. Normal LVEF. Normal RV function. Stable compared to December 2024
-
CT chest 05/15/2025:
1. Small to moderate bilateral pleural effusions, improved on the right and progressed on the left.
2. Patchy and confluent right lower lobe/perihilar consolidation, suspicious for combination of neoplasm and infectious/inflammatory process.
3. Grossly stable metastatic mediastinal/hilar lymphadenopathy.
4. Grossly stable osseous metastatic disease.
Subjective Data
-
Date of Service:
Date of Service: July 15, 2025
Chief Complaint: Pulmonary Follow Up (Pleural effusion- Malignant)
Objective Data
Data Reviewed
Vital Signs / I&O / Oxygen:
Vital Signs
Temp Pulse Resp BP Pulse Ox
97.6 F 107 24 115/75 95
07/15/25 07:48 07/15/25 08:15 07/15/25 08:15 07/15/25 06:00 07/15/25 08:15
Intake and Output
07/14/25 07/15/25 07/16/25
06:59 06:59 06:59
Intake Total 1060 / 1060 2640.4 / 2640.4
Output Total 500 / 500 950 / 950
Balance 560 / 560 1690.4 / 1690.4
SaO2 95
Nasal Cannula flow liters per 4
minute
Physical Exam
General: Comfortable
HEENT: Normocephalic
Cardiovascular: Irregular Rhythm
Respiratory: Other (Decreased breath sounds bilaterally.)
GI: Soft and Non Distended
Neurology: Awake, Alert, Oriented and No Motor Deficits
Labs/Micro/Reports
Lab Data
07/15/25 05:06
07/15/25 05:06
Microbiology
07/11/25 20:33 Blood/Venous Blood Culture - Preliminary
No Growth in 72 hours- Final report to follow
07/11/25 19:17 Blood/Venous Blood Culture - Preliminary
No Growth in 72 hours- Final report to follow
07/12/25 09:42 Nose Nasal Screen MRSA (PCR) - Final
MRSA not detected - performed by PCR methodology.
--- NOTE | 2025-07-15 09:34 | PN.IRAD.UPD ---
Update Note - IRAD
- -
550 ML clear yellow pleural fluid drained via right ASEPT catheter at bedside. New,dry, clean dressing placed over site. Patient tolerated procedure well. RN notified.
[2025-07-15] MEDS: PROTONIX IV 40 MG IV (09:41)
[2025-07-15] MEDS: NSS (PRESERVATIVE FREE) 10 ML IV (09:41)
--- NOTE | 2025-07-15 10:16 | W.PN.CD ---
Today's Communication / Plan
-
- Continue amiodarone drip.
- Remains in sinus rhythm, mild sinus tachycardia.
- Continue Eliquis; Dobbhoff tube in place.
- PEG planned for Friday.
- Status-post thoracentesis left 07/13/25 (1200 cc removed).
- 600 cc drained from right PleurX catheter today.
- Patient's prognosis is poor; hospice is appropriate.
Impression / Plan
-
69 year old male with a past medical history of Stage IV metastatic NSCLC, on Xgeva (follows with Dr. Cohen) s/p cervical/sternal radiation with every 4 days Left sided thoracentesis and nightly R sided thoracentesis via PleurX catheter, history of
PE (on Eliquis), who presented from IR during a scheduled outpatient thoracentesis for concerns of Afib with RVR.
# Paroxysmal Afib with RVR
- Overall, suspect a multifactorial component to afib of malignant pleural effusion, radiation damage to the heart, and electrolyte disturbances secondary to chemotherapy.
- Continue amiodarone drip.
- Remains in sinus rhythm, mild sinus tachycardia.
- Patient currently n.p.o. pending Dobbhoff placement for nutritional support and medication administration
- Continue Eliquis; Dobbhoff tube in place.
- PEG planned for Friday.
- Conservative cardiac management recommended.
Metastatic lung cancer:
- Status-post thoracentesis left 07/13/25 (1200 cc removed).
- 600 cc drained from right PleurX catheter today.
- Continue management as per primary team.
- Patient's prognosis is poor; hospice is appropriate.
Physical Exam
Vital Signs/Labs
Vital Signs
Temp Pulse Resp BP Pulse Ox
97.6 F 103 24 103/68 95
07/15/25 07:48 07/15/25 09:23 07/15/25 08:15 07/15/25 09:23 07/15/25 08:15
07/14/25 07/15/25 07/16/25
06:59 06:59 06:59
Actual Weight 63 kg 64.127 kg
07/15/25 05:06
07/15/25 05:06
Magnesium 1.6 mg/dl (1.6-2.3) 07/15/25 05:06
Physical Exam
Constitutional: No acute distress
EENT: Anicteric
Cardiovascular: Rhythm & rate is regular, Systolic murmur absent, Pedal edema present (1+) and S1S2 is normal
Respiratory: Respiratory effort normal and Rhonchi Present
GI: Soft
Neuro/Psych: AO x 3
Other: Skin (warm, dry)
Data Reviewed
-
Date of Service: July 15, 2025
EKG: Tracing Personally Visualized and interpreted (Telemetry: Sinus rhythm/sinus tachycardia)
Echo: Report Reviewed by me (05/16/2025: LVEF 55%.)
Medical Tests (PFT, Pathology etc): Discussed with Nurse and Discussed with Patient
Labs: Labs Reviewed by me
--- NOTE | 2025-07-15 11:24 | CM ---
Following up on Patient. RN stated that patient is on the schedule for his RIGHT Catheter and will stop Anjal[employer]os[facility]hya [facility]kinsrock for a Peg Tube implantation on Friday. Once peg tube placed then Case Management will work to set this up.
PLAN: After procedures, Home with VN (peg tube teaching)/ Palliative Care & continue Catheter daily draining.
--- NOTE | 2025-07-15 12:52 | W.PN.HOSP.TC ---
Today's Communication/Plan
-
Monitor vitals
See plan
Continue with Dobbhoff
Plan for left intrapleural cathter on left today. management per IR and pulmonary
GI for PEG; once Eliquis is held then start IV heparin given hx of DVT and PE with hypercoagulable state if okay with GI
cw abx
Assessment / Plan
Assessment / Plan
General: Appears chronically ill
HEENT: NormoCephalic, Anicteric
Respiratory: Clear and Other (Pleural drain present right posterior lung)
Cardiac: S1/S2 and Tachycardia, irregular
GI: Soft, Non Tender, Non Distended, Normal Bowel Sounds
Musculoskeletal: No Edema
Neuro: Nonfocal/grossly intact
Psych: Calm
Acute hypoxic respiratory failure 2/2 chronic recurrent pleural effusions/stage IV non-small cell lung CA versus infectious process like aspiration pneumonitis
#History of Stage IV non-small cell lung CA Dx October 2024 to sternum C-spine status post radiation, spot right hip with recurrent
malignant pleural effusions on chemotherapy/immunotherapy
#Chronic elevated alk phos
Chemotherapy last dose on 07/06/2025 second line therapy along with Keytruda via PORT right upper chest wall(first time accessed today 07/11/2025 per patient)
-Status post thoracentesis( q.)4 days 07/11 1050 cc yellow fluid, 07/08/2025 status post 1000 cc clear yellow
WBC 47.6> 32.1 on 06/10/2025 patient just received colonizing stimulating growth factor and Xgeva on 07/06/2025
was put on 6 L nasal cannula, now weaning; at home on prn o2
-pleuryx on right to drain daily by IR. Now after discussion with oncology, plan for IR to place ascept on left as well.
s/p thora 07/13 on left with 1200cc fluid removal
bcx NGTD
-Continue Anoro Ellipta 1 inhalation daily, albuterol as needed
MRSA screen negative, DC vancomycin. Continue with Zosyn
Pulmonary following
Oncology following; per patient and spouse couldn't tolerate 3rd round chemo well. Follows up with Dr. Foster outpatient spoke with patient and family 07/14. Plan for further chemo. Given patient inability to swallow, GI consulted for PEG tube.
Currently patient has Dobbhoff and tube feed at goal. Per GI Eliquis would need to be held over the weekend for PEG Friday
A-fib with RVR
Cardiology following
Continue with Amio drip
#Leukocytosis likely due to colonizing growth stimulating factor versus infectious process
WBC 47.6> 32.1 on 06/10/2025 patient just received colonizing stimulating growth factor and Xgeva on 07/06/2025
IV Zosyn
Mildly elevated Pro-Nelson, not a good marker in malignancy
#Hypotension likely in setting of A-fib with RVR and poor p.o. intake
#Decreased oral intake x 2 to 3 days suspect volume depletion due to weakness from chemotherapy
Started on Levophed, wean as tolerated
#Reported dysphagia with thin liquids and pills
- Evaluated by speech, VSE 07/12 noted. Discussed with speech. Given patient inability to swallow, GI consulted for PEG tube. Currently patient has Dobbhoff and tube feed at goal. Per GI Eliquis would need to be held over the weekend for PEG Friday
#Chronic right rib pain due to non-small cell lung CA
Patient requesting oxycodone he takes as needed 5 mg every 6 hours and takes Tylenol 1000 mg daily as needed
#Normocytic anemia in setting of recent chemotherapy
Monitor hemoglobin
#Acute on chronic hyponatremia�hypovolemic
NA 124 <130 on 06/10/2025
Na slowly improving, monitor
#Acute on chronic hypocalcemia
give IV calcium as needed
- Continue calcium carbonate 1000 mg twice daily
#Anxiety
-Continue lorazepam 0.5 mg p.o. twice daily as needed anxiety hold SBP<100
#GERD
Continue Protonix 40 mg daily
#History of bilateral pulmonary embolisms 01/07/2025
-Continue Eliquis 5 mg twice daily
Will need IV heparin if okay with GI once Eliquis is on hold
#History of left lower extremity DVT January 08, 2025
Continue Eliquis
Full code
I spent a total of 52 minutes with the patient or on the floor. More than 50% of this time involved counseling and coordination of care.
Anticipated Discharge: > 48 hours
Subjective/Interval History
-
Date of Service: July 15, 2025
denies nausea
Objective Data
-
Labs:
Laboratory Results
07/15/25
05:06
WBC 14.0 H
Hgb 7.4 L
Hct 22.4 L
Plt Count 114 L
Sodium 131 L
Potassium 3.6
Chloride 103
Carbon Dioxide 26
BUN 16
Creatinine 0.5 L
Glucose 132 H
Calcium 8.1 L
Total Bilirubin 0.5
AST 37
ALT 41
Alkaline Phosphatase 218 H
Vital Signs:
Vital Signs
Temp Pulse Resp BP Pulse Ox
97.6 F 103 24 103/68 95
07/15/25 07:48 07/15/25 09:23 07/15/25 08:15 07/15/25 09:23 07/15/25 08:15
I&O
07/14/25 07/15/25 07/16/25
06:59 06:59 06:59
Intake Total 1060 / 1060 2640.4 / 2640.4
Output Total 500 / 500 950 / 950
Balance 560 / 560 1690.4 / 1690.4
[2025-07-15] MEDS: MELATONIN 3 MG PO (21:04)
[2025-07-15] MEDS: CORDARONE 518 MG IV (21:06)
--- NOTE | 2025-07-15 22:33 | PTCARENOTE ---
Addendum entered by Halima Lopez RN 07/16/25 04:43:
Educational packets printed from [employer] and given to Pt.
Original Note:
Pt communicating to the RN that he is having second thoughts about havening a PEG placed Wednesday 07/18. Pt stating ' a Doctor, i forget which one came in and made it sounds like it may not be a good idea'. Pt also sharring in IR one of the nurses was
talking about risk of infection with PEG and he should consider that risk. Pt could not remember what doctor had said this or what nurse. Emotional support given along with a lot of education on PEG tube and getting the nutrition needed. i informed
Pt to have more conversations with doctors and ask pros and cons and write down what he wants to remember. Pt stating 'well its almost Friday'. Emotional support given and reassurance that this procedure is not something anyone can force Pt to do
and if he needs more time the best thing is to communicate his concerns with the doctors. Pt appearing less anxious about situation and was very thankful.
[2025-07-16] VITALS (19 sets, daily range): BP systolic 85–128; BP diastolic 59–79; BMI 19.9
[2025-07-16] MEDS: ZOSYN 50 IV ×4 (00:13→17:44)
[2025-07-16] MEDS: ROXICODONE 5 MG TUBE ×3 (03:36→22:59)
[2025-07-16 04:27] LABS: ALT (SGPT) 44 U/L (0-50); AST (SGOT) 43 U/L (17-59); Albumin 2.2 g/dl (3.5-5.0); Alkaline Phosphatase 210 U/L (38-126); Blood Urea Nitrogen 16 mg/dl (9-20); Calcium 7.5 mg/dl (8.4-10.2); Carbon Dioxide 27 mmol/L (22-30); Chloride 101 mmol/L (98-107); Estimated Creatinine Clearance 104 ml/min; Glucose 148 mg/dl (70-99); Magnesium 1.5 mg/dl (1.6-2.3); Potassium 3.6 mmol/L (3.5-5.1); Sodium 130 mmol/L (135-145); Total Protein 4.3 g/dl (6.3-8.2); eGFR > 60.00
[2025-07-16 04:32] LABS: Hematocrit 21.9 % (39.0-52.0); Hemoglobin 7.2 g/dL (13.0-18.0); Mean Corp Hgb Conc. 32.9 g/dL (33.0-37.0); Mean Corpuscular Volume 88.7 fL (80.0-94.0); Platelet Count 115 10^3/uL (130-400); Red Cell Dist. Width 20.6 % (11.5-14.5)
[2025-07-16] MEDS: MAGNESIUM SULFATE 102 GRAMS IV (06:05)
[2025-07-16 06:21] LABS: Nucleated Red Blood Cells % 0.2 % (-)
[2025-07-16] MEDS: STRIVERDI RESPIMAT 2 PUFF INH (07:40)
[2025-07-16] MEDS: SPIRIVA RESPIMAT 2.5 MCG 2 PUFF INH (07:40)
[2025-07-16] MEDS: CALCIUM CARBONATE ORAL SUSP 1000 MG TUBE ×2 (09:03→19:33)
[2025-07-16] MEDS: PROTONIX IV 40 MG IV (09:03)
[2025-07-16] MEDS: NSS (PRESERVATIVE FREE) 10 ML IV (09:04)
[2025-07-16] MEDS: TYLENOL 650 MG PO (09:04)
[2025-07-16] MEDS: FOLVITE 1 MG TUBE (09:04)
--- NOTE | 2025-07-16 09:19 | W.PN.CD ---
Today's Communication / Plan
-
Switch IV to p.o. amiodarone
Eliquis on hold for anemia
Plan for PEG tube on Friday
Impression / Plan
-
69 year old male with a past medical history of Stage IV metastatic NSCLC, on Xgeva (follows with Dr. Cohen) s/p cervical/sternal radiation with every 4 days Left sided thoracentesis and nightly R sided thoracentesis via PleurX catheter, history of
PE (on Eliquis), who presented from IR during a scheduled outpatient thoracentesis for concerns of Afib with RVR.
Paroxysmal Afib with RVR
- Overall, suspect a multifactorial component to afib of malignant pleural effusion, radiation damage to the heart, and electrolyte disturbances secondary to chemotherapy.
- Patient has been in sinus rhythm since 07/13/2025.
- Switch IV amiodarone to p.o. 400 mg twice daily for 1 week then 200 mg daily.
- Eliquis on hold for anemia. Resume when able.
- PEG planned for Friday.
- Conservative cardiac management recommended.
Anemia
- hgb down to 7.2
- Eliquis held as above. Resume when able.
Metastatic lung cancer:
- Now with bilateral PleurX catheters
- Continue management as per primary team.
- Patient's prognosis is poor
Subjective: Had left-sided PleurX catheter placed yesterday. Plan is for PEG on Friday. Patient would like to be reevaluated because he is not sure that he needs it. No cardiovascular complaints.
Telemetry: Sinus tachycardia, HR 100s
Physical Exam
Vital Signs/Labs
Vital Signs
Temp Pulse Resp BP Pulse Ox
98.5 F 80 18 99/59 96
07/16/25 07:56 07/16/25 07:43 07/16/25 07:43 07/16/25 09:04 07/16/25 07:43
07/15/25 07/16/25 07/17/25
06:59 06:59 06:59
Actual Weight 141 lb 6 oz 138 lb 14.259 oz
07/16/25 03:55
07/16/25 03:55
Magnesium 1.5 mg/dl (1.6-2.3) L 07/16/25 03:55
Physical Exam
Constitutional: No acute distress and Comfortable
Cardiovascular: Rhythm & rate is regular, Pedal edema present, S1S2 is normal and Murmur/rub/gallop absent
Respiratory: Respiratory effort normal and Other (Decreased breath sounds at bilateral bases)
Neuro/Psych: AO x 3
Data Reviewed
-
Date of Service: July 16, 2025
Medical Decision Making: Reviewed Test Results, Test Interpretation and Review of Case with other Provider
EKG: Tracing Personally Visualized and interpreted
Echo: Report Reviewed by me
Labs: Labs Reviewed by me
--- NOTE | 2025-07-16 09:42 | PTCARENOTE ---
pt aaox3. states pain in left flank. tylenol given. pt boucher when transferring to [facility]. room air. right breath sounds 1/[address] up absent. dht placement checked . tube feeding running. bilat flank drains in place with dressing covering. amio gtt
running as ordered.
[2025-07-16] MEDS: KCL ELIXIR 40 MEQ TUBE (10:16)
[2025-07-16] MEDS: PACERONE 400 MG PO ×2 (10:16→19:33)
[2025-07-16] MEDS: HEPARIN 25000 UNITS/250 ML IV (12:03)
[2025-07-16 12:29] LABS: Hematocrit 21.5 % (39.0-52.0); Hemoglobin 7.0 g/dL (13.0-18.0); Mean Corp Hgb Conc. 32.6 g/dL (33.0-37.0); Mean Corpuscular Volume 88.8 fL (80.0-94.0); Platelet Count 118 10^3/uL (130-400); Red Cell Dist. Width 20.6 % (11.5-14.5)
[2025-07-16 12:32] LABS: APTT 67.8 Sec (23.4-35.0)
--- NOTE | 2025-07-16 12:52 | PN.IRAD.UPD ---
Update Note - IRAD
- -
WENT BEDSIDE AT 1230 TO DRAIN RIGHT SIDED ASEPT CATHETER, CLEANED AND PREPPED PATIENT, TOOK OFF 650ML, PATIENT TOLERATED WELL WITH NO COMPLAINTS, WILL DRAIN BOTH SIDES ORDERED TOMORROW
--- NOTE | 2025-07-16 13:27 | W.PN.HOSP.TC ---
Today's Communication/Plan
-
Monitor vitals
See plan
Continue with amiodarone
Continue with tube feeds
Discussed with GI, plan for PEG tube Friday
GI is okay with IV heparin, started IV heparin
Hemoglobin 7, transfuse 1 unit PRBC today
PleurX drainage by IR
Discussed with family
Assessment / Plan
Assessment / Plan
General: Appears chronically ill
HEENT: NormoCephalic, Anicteric
Respiratory: Clear and Other (Pleural drain present right posterior lung and left)
Cardiac: S1/S2 and Tachycardia, irregular
GI: Soft, Non Tender, Non Distended, Normal Bowel Sounds
Musculoskeletal: No Edema
Neuro: Nonfocal/grossly intact
Psych: Calm
Acute hypoxic respiratory failure 2/2 chronic recurrent pleural effusions/stage IV non-small cell lung CA versus infectious process like aspiration pneumonitis
#History of Stage IV non-small cell lung CA Dx October 2024 to sternum C-spine status post radiation, spot right hip with recurrent
malignant pleural effusions on chemotherapy/immunotherapy
#Chronic elevated alk phos
Chemotherapy last dose on 07/06/2025 second line therapy along with Keytruda via PORT right upper chest wall
WBC 47.6> 32.1 on 06/10/2025 patient just received colonizing stimulating growth factor and Xgeva on 07/06/2025
was put on 6 L nasal cannula, now weaning; at home on prn o2
-pleuryx on right to drain daily by IR. Now after discussion with oncology, plan for IR to place ascept on left as well. s/p left pleural cath. IR to drain left every other day per pulmonary and drain right daily.
bcx NGTD
-Continue Anoro Ellipta 1 inhalation daily, albuterol as needed
MRSA screen negative, DC vancomycin. Continue with Zosyn
Pulmonary following
Oncology following; per patient and spouse couldn't tolerate 3rd round chemo well. Follows up with Dr. Cohen who spoke with patient and family 07/14. Plan for further chemo. Given patient inability to swallow, GI consulted for PEG tube. Currently
patient has Dobbhoff and tube feed at goal. Per GI Eliquis would need to be held over the weekend for PEG Friday. Discussed with GI, Dr Ashraf and they will plan for PEG tube Friday. Given history of DVT/PE, GI is okay with starting IV heparin.
IV heparin started. Hold Eliquis
A-fib with RVR
Cardiology following
Now on p.o Amio
IV hep
#Normocytic anemia in setting of recent chemotherapy
Monitor hemoglobin; hemoglobin 7 today. Type and screen
Transfuse 1 unit PRBC 07/16
#Leukocytosis likely due to colonizing growth stimulating factor versus infectious process
WBC 47.6> 32.1 on 06/10/2025 patient just received colonizing stimulating growth factor and Xgeva on 07/06/2025
IV Zosyn
Mildly elevated Pro-Nelson, not a good marker in malignancy
#Hypotension likely in setting of A-fib with RVR and poor p.o. intake
#Decreased oral intake x 2 to 3 days suspect volume depletion due to weakness from chemotherapy
Started on Levophed, wean as tolerated
#Reported dysphagia with thin liquids and pills
- Evaluated by speech, VSE 07/12 noted. Discussed with speech. Given patient inability to swallow, GI consulted for PEG tube. Currently patient has Dobbhoff and tube feed at goal. Per GI Eliquis would need to be held over the weekend for PEG Friday
#Chronic right rib pain due to non-small cell lung CA
Patient requesting oxycodone he takes as needed 5 mg every 6 hours and takes Tylenol 1000 mg daily as needed
#Acute on chronic hyponatremia
monitor
Hypomagnesemia
Replete
#Acute on chronic hypocalcemia
give IV calcium as needed
- Continue calcium carbonate 1000 mg twice daily
#Anxiety
-Continue lorazepam 0.5 mg p.o. twice daily as needed anxiety hold SBP<100
#GERD
Continue Protonix 40 mg daily
#History of bilateral pulmonary embolisms 01/07/2025
Holding Eliquis for PEG tube
Continue with IV heparin
#History of left lower extremity DVT January 08, 2025
Severe protein calorie malnutrition
Full code
DVTppx
IV Hep
I spent a total of 53 minutes with the patient or on the floor. More than 50% of this time involved counseling and coordination of care.
Anticipated Discharge: > 48 hours
Subjective/Interval History
-
Date of Service: July 16, 2025
denies nausea
Objective Data
-
Labs:
Laboratory Results
07/16/25 07/16/25 07/16/25
03:55 12:00 18:00
WBC 10.8 11.5 H
Hgb 7.2 L 7.0 L
Hct 21.9 L 21.5 L
Plt Count 115 L 118 L
APTT 67.8 H Pending
Sodium 130 L
Potassium 3.6
Chloride 101
Carbon Dioxide 27
BUN 16
Creatinine 0.5 L
Glucose 148 H
Calcium 7.5 L
Total Bilirubin 0.3
AST 43
ALT 44
Alkaline Phosphatase 210 H
Vital Signs:
Vital Signs
Temp Pulse Resp BP Pulse Ox
98.5 F 93 30 102/67 96
07/16/25 07:56 07/16/25 12:00 07/16/25 12:00 07/16/25 12:48 07/16/25 12:48
I&O
07/15/25 07/16/25 07/17/25
06:59 06:59 06:59
Intake Total 2640.4 / 2640.4 1522.4 / 1522.4
Output Total 950 / 950 1900 / 1900
Balance 1690.4 / 1690.4 -377.6 / -377.6
[2025-07-16] MEDS: DUONEB 3 ML INH ×2 (15:28→23:00)
[2025-07-16 18:12] LABS: APTT 67.6 Sec (23.4-35.0)
[2025-07-16] MEDS: HEPARIN 2500 UNITS IV (19:35)
--- NOTE | 2025-07-16 20:00 | PTCARENOTE ---
Received pt. at 1900. Pt. currently awake, alert, and oriented. Denies pain/discomfort. Afebrile. Heart rhythm sinus. Blood pressure normotensive. Currently on room air. Lungs sound diminished. NPO. Tube feeds running via dobhoff. Abdomen round.
Voiding in urinal without issue. Skin as documented. Discussed plan of care with patient. Vital signs stable at this time.
[2025-07-16] MEDS: MELATONIN 3 MG PO (22:59)
[2025-07-17] VITALS (12 sets, daily range): BP systolic 96–119; BP diastolic 62–75
[2025-07-17] MEDS: ZOSYN 50 IV ×5 (00:17→23:36)
[2025-07-17 02:41] LABS: Hematocrit 26.1 % (39.0-52.0); Hemoglobin 8.9 g/dL (13.0-18.0); Mean Corp Hgb Conc. 34.1 g/dL (33.0-37.0); Mean Corpuscular Volume 88.5 fL (80.0-94.0); Platelet Count 122 10^3/uL (130-400); Red Cell Dist. Width 20.1 % (11.5-14.5)
[2025-07-17 02:48] LABS: APTT 72.9 Sec (23.4-35.0)
[2025-07-17] MEDS: HEPARIN 2500 UNITS IV (02:57)
[2025-07-17] MEDS: TYLENOL 650 MG PO ×2 (03:04→15:21)
[2025-07-17 03:16] LABS: ALT (SGPT) 36 U/L (0-50); AST (SGOT) 27 U/L (17-59); Albumin 2.2 g/dl (3.5-5.0); Alkaline Phosphatase 201 U/L (38-126); Blood Urea Nitrogen 14 mg/dl (9-20); Calcium 7.1 mg/dl (8.4-10.2); Carbon Dioxide 25 mmol/L (22-30); Chloride 101 mmol/L (98-107); Estimated Creatinine Clearance 104 ml/min; Glucose 127 mg/dl (70-99); Magnesium 1.7 mg/dl (1.6-2.3); Potassium 3.9 mmol/L (3.5-5.1); Sodium 131 mmol/L (135-145); Total Protein 4.4 g/dl (6.3-8.2); eGFR > 60.00
[2025-07-17 03:33] LABS: Nucleated Red Blood Cells % 0.6 % (-)
[2025-07-17] MEDS: DUONEB 3 ML INH ×2 (05:08→23:18)
[2025-07-17] MEDS: STRIVERDI RESPIMAT 2 PUFF INH (08:10)
[2025-07-17] MEDS: SPIRIVA RESPIMAT 2.5 MCG 2 PUFF INH (08:10)
[2025-07-17 08:54] LABS: APTT 92.3 Sec (23.4-35.0)
[2025-07-17] MEDS: ROXICODONE 5 MG TUBE ×2 (09:46→19:48)
[2025-07-17] MEDS: CALCIUM CARBONATE ORAL SUSP 1000 MG TUBE ×2 (09:46→20:55)
[2025-07-17] MEDS: PACERONE 400 MG PO ×2 (09:48→20:55)
[2025-07-17] MEDS: NSS (PRESERVATIVE FREE) 10 ML IV (09:48)
[2025-07-17] MEDS: PROTONIX IV 40 MG IV (09:48)
[2025-07-17] MEDS: FOLVITE 1 MG TUBE (09:49)
[2025-07-17] MEDS: HEPARIN 25000 UNITS/250 ML IV (09:51)
--- NOTE | 2025-07-17 10:34 | CON.GI ---
Consultation
-
Date/Time Consultation Requested: 07/16/2025
Date/Time Consultation Performed: 07/17/2025
Requesting Provider:
Performing Provider:
Reason for Consultation: OPD
Medical History
Chief Complaint / HPI
Chief Complaint: OPD needs PEG
History of Present Illness:
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
DVT, GERD, A.Fib, anxiety who was sent to the emergency room from when getting a thoracentesis was having tachycardia. Since then he has been seen by cardiology for rapid A-fib with RVR and has been on Cardizem drip initially and then amiodarone
and on heparin. Prior to admission he was on Eliquis for prior PE and DVT in December. He also has been having malignant pleural effusions and required multiple thoracenteses and now has bilateral PleurX catheters placed. He had a swallow evaluation
on 07/12/2025 and was diagnosed with moderate to severe oropharyngeal dysphagia and also was aspirating and was recommended dysphagia diet with aspiration risk if family was agreeable to proceed with hospice care versus feeding tube placement and we
were consulted for PEG placement. DHT placed 07/13 and has been tolerating tube feeds well. initially there was talk about possible hospice but family would like to proceed with further chemotherapy. His hemoglobin also had drifted down to 7
yesterday and he received 1 packed red blood cells and a repeat hemoglobin today is 8.9 currently has no overt bleeding
Past Medical History
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
A.Fib, anxiety)
Past Surgical History: Other (Bronchoscopy with biopsy 10/25/2024, oral surgery, Port right upper chest wall 06/27/2025 Mediport, bilateral tunnelled pleural catheter)
Social History
Tobacco: Non-Smoker
Alcohol: None
Drug: None
Personal:
Living: With Family
Family History
Family History: Reviewed & Not Pertinent
Allergies / Home Medications
Allergy/AdvReac Type Severity Reaction Status Date / Time
No Known Allergies Allergy Verified 06/27/25 09:02
�Medication �Instructions �Recorded
acetaminophen 500 mg tablet 1,000 mg PO DAILYPRN PRN mild pain 05/15/25
apixaban 5 mg tablet (Eliquis) 5 mg PO BID Blood Clot 05/15/25
Prevention/Tx
albuterol sulfate 90 mcg/actuation 2 puff inhalation R Q4HPRN PRN sob 05/27/25
aerosol inhaler
dexamethasone 4 mg tablet 4 mg PO DIRECTED 05/27/25
Antiinflammation
folic acid 1 mg tablet 1 mg PO DAILY Supplement 05/27/25
pantoprazole 40 mg tablet,delayed 40 mg PO DAILY Gastrointestinal 05/27/25
release Issue
calcium carbonate (Calcium 500) 1,000 mg PO BID Supplement 07/11/25
lorazepam 0.5 mg tablet 0.5 mg PO BIDPRN PRN anxiety 07/11/25
oxycodone 5 mg tablet 5 mg PO Q6HPRN PRN severe pain 07/11/25
polyethylene glycol 3350 17 gram 17 g PO DAILYPRN PRN constipation 07/11/25
oral powder packet (Miralax)
sennosides 8.6 mg tablet (senna) 17.2 mg PO BIDPRN PRN constipation 07/11/25
umeclidinium 62.5 mcg-vilanterol 1 inh inhalation R DAILY 07/11/25
25 mcg/actuation powdr for Lung/Breathing Issues
inhalation (Anoro Ellipta)
Review of Systems
-
All other systems: A 12 pt ROS was Negative except as stated above in HPI
Vital Signs
Temp Pulse Resp BP Pulse Ox
98.2 F 98 34 101/73 94
07/17/25 07:15 07/17/25 10:00 07/17/25 10:00 07/17/25 10:00 07/17/25 10:00
Physical Exam
Exam
General: No Apparent Distress
HEENT: Normocephalic
Respiratory: Other (Decreased breath sounds at the bases)
Cardiac: Regular Rhythm
GI: Soft, Non Tender, Non Distended and Normal Bowel Sounds
Musculoskeletal: No Clubbing
Neuro: Awake, Alert and Oriented
Psych: Calm
Results
WBC 14.4 10^3/uL (4.8-10.8) H 07/17/25 02:20
Hgb 8.9 g/dL (13.0-18.0) L D 07/17/25 02:20
Hct 26.1 % (39.0-52.0) L 07/17/25 02:20
MCV 88.5 fL (80.0-94.0) 07/17/25 02:20
Plt Count 122 10^3/uL (130-400) L 07/17/25 02:20
Absolute Neuts (auto) 11.5 10^3/uL (1.4-6.5) H 07/17/25 02:20
APTT 92.3 Sec (23.4-35.0) H 07/17/25 08:31
Sodium 131 mmol/L (135-145) L 07/17/25 02:20
Potassium 3.9 mmol/L (3.5-5.1) 07/17/25 02:20
Chloride 101 mmol/L (98-107) 07/17/25 02:20
Carbon Dioxide 25 mmol/L (22-30) 07/17/25 02:20
BUN 14 mg/dl (9-20) 07/17/25 02:20
Creatinine 0.4 mg/dL (0.7-1.3) L 07/17/25 02:20
Calcium 7.1 mg/dl (8.4-10.2) L 07/17/25 02:20
Total Bilirubin 0.6 mg/dl (0.2-1.3) 07/17/25 02:20
AST 27 U/L (17-59) 07/17/25 02:20
ALT 36 U/L (0-50) 07/17/25 02:20
Alkaline Phosphatase 201 U/L (38-126) H 07/17/25 02:20
Diagnostic Image Results:
06/01/2025 PT Pet Wbi W/CT Skull-thigh
IMPRESSION:
Probable combination of residual neoplasm and posttreatment inflammatory change in the right lower lobe, as described.
Slightly improved appearance of enlarged/metastatic mediastinal and hilar lymph nodes.
Slightly progressed bilateral supraclavicular probable metastatic lymphadenopathy.
Small right and trace left pleural effusions, progressed on the right and markedly improved on the left.
Increased FDG activity within soft tissue focal regions of uptake within the right gluteal/hip musculature.
Increased size and FDG activity of numerous osseous metastases, as detailed.
Findings are suggestive of mixed response (overall progressed). Continued clinical and imaging follow-up recommended.
Prior GI Procedures:
EGD:none
Colonoscopy: 2012
Impression: - One 2 mm polyp in the cecum- HP. Resected and retrieved.
- Diverticulosis in the sigmoid colon.
Assessment / Plan
-
1. Moderate to severe oropharyngeal dysphagia with aspiration risk noted on VSE on 07/12/2025. Initially there was discussion about possible hospice but family and his oncologist have decided to proceed with ongoing treatment and chemotherapy after
DC so will schedule him for EGD with PEG placement tomorrow. Patient is agreeable. He is already on antibiotics with Zosyn. Will hold his heparin for 4 hours prior to the procedure.
2. He does have elevated alkaline phosphatase level most likely related to his bone mets from metastatic non-small cell lung cancer
3. History of bilateral PE and DVT was on Eliquis prior to admission now on heparin
4. A-fib currently on amiodarone and heparin, cardiology on board
5. Stage IV non-small cell lung cancer with malignant pleural effusions status post multiple thoracenteses and now has bilateral PleurX catheter. He has osseous mets and received radiation and currently on chemotherapy and immunotherapy prior to
admission
6. Anemia with currently no overt bleeding he received 1 unit of packed blood cells yesterday and hemoglobin responded appropriately from 7-8.9
Total Time Spent with Patient (in minutes): 70
Data Reviewed
-
Radiology: Report Reviewed by me
Old Records: Reviewed
-
-
Thank you for consultation and allowing me to participate in the patient's care. Please call the iron assorter GI physician during the after hours with any questions or concerns.
--- NOTE | 2025-07-17 11:52 | PN.IRAD.UPD ---
Update Note - IRAD
- -
WENT BEDSIDE AT 1030 TO DRAIN BOTH ASEPT CATHETERS. CLEANED AND PREPPED PATIENT, DRAINED 500ML OF KHUSHBOO FLUID FROM LEFT SIDE AND REDRESSED, PATIENT TOLERATED WELL. CLEANED AND PREPPED RIGHT SIDE, TOOK OFF 500ML OF KHUSHBOO FLUID WELL. PATIENT HAD
NO COMPLAINTS.
--- NOTE | 2025-07-17 13:00 | W.PN.HOSP.TC ---
Today's Communication/Plan
-
Monitor vital signs see plan
IR for catheter drainage today
Monitor hemoglobin
Plan for PEG tube tomorrow
GI following
Continue Zosyn
Continue IV heparin
Assessment / Plan
Assessment / Plan
General: Appears chronically ill
HEENT: NormoCephalic, Anicteric
Respiratory: Clear and Other (Pleural drain present right posterior lung and left)
Cardiac: S1/S2, irregular
GI: Soft, Non Tender, Non Distended, Normal Bowel Sounds
Musculoskeletal: No Edema
Neuro: Nonfocal/grossly intact
Psych: Calm
Acute hypoxic respiratory failure 2/2 chronic recurrent pleural effusions/stage IV non-small cell lung CA versus infectious process like aspiration pneumonitis
#History of Stage IV non-small cell lung CA Dx October 2024 to sternum C-spine status post radiation, spot right hip with recurrent
malignant pleural effusions on chemotherapy/immunotherapy
#Chronic elevated alk phos
Chemotherapy last dose on 07/06/2025 second line therapy along with Keytruda via PORT right upper chest wall
WBC 47.6> 32.1 on 06/10/2025 patient just received colonizing stimulating growth factor and Xgeva on 07/06/2025
was put on 6 L nasal cannula, now weaning; at home on prn o2
-pleuryx on right to drain daily by IR. Now after discussion with oncology, s/p IR ascept on left as well. s/p left pleural cath. IR to drain left every other day per pulmonary and drain right daily.
bcx NGTD
-Continue Anoro Ellipta 1 inhalation daily, albuterol as needed
MRSA screen negative, DC vancomycin. Continue with Zosyn
Pulmonary following
Oncology following; per patient and spouse couldn't tolerate 3rd round chemo well. Follows up with Dr. Cohen who spoke with patient and family 07/14. Plan for further chemo. Given patient inability to swallow, GI consulted for PEG tube. Currently
patient has Dobbhoff and tube feed at goal. Per GI Eliquis would need to be held over the weekend for PEG Friday. Discussed with GI, Dr Ashraf and they will plan for PEG tube Friday. Given history of DVT/PE, GI is okay with starting IV heparin.
IV heparin started. Hold Eliquis
now off levophed. Hypotension was likely secondary to A-fib with RVR along with hypotension from pleural effusion drainage
A-fib with RVR
Cardiology following
Now on p.o Amio
IV hep
#Normocytic anemia in setting of recent chemotherapy
Monitor hemoglobin; hemoglobin 7 07/16. Status post 1 unit PRBC. Monitor hgb
#Leukocytosis likely due to colonizing growth stimulating factor versus infectious process
WBC 47.6> 32.1 on 06/10/2025 patient just received colonizing stimulating growth factor and Xgeva on 07/06/2025
IV Zosyn
Mildly elevated Pro-Nelson, not a good marker in malignancy
#Hypotension likely in setting of A-fib with RVR and poor p.o. intake
#Decreased oral intake x 2 to 3 days suspect volume depletion due to weakness from chemotherapy
Started on Levophed, wean as tolerated
#Reported dysphagia with thin liquids and pills
- Evaluated by speech, VSE 07/12 noted. Discussed with speech. Given patient inability to swallow, GI consulted for PEG tube. Currently patient has Dobbhoff and tube feed at goal. Per GI Eliquis would need to be held over the weekend for PEG Friday
#Chronic right rib pain due to non-small cell lung CA
Patient requesting oxycodone he takes as needed 5 mg every 6 hours and takes Tylenol 1000 mg daily as needed
#Acute on chronic hyponatremia
monitor
Hypomagnesemia
Replete
#Acute on chronic hypocalcemia
give IV calcium as needed
- Continue calcium carbonate 1000 mg twice daily
#Anxiety
-Continue lorazepam 0.5 mg p.o. twice daily as needed anxiety hold SBP<100
#GERD
Continue Protonix 40 mg daily
#History of bilateral pulmonary embolisms 01/07/2025
Holding Eliquis for PEG tube
Continue with IV heparin
#History of left lower extremity DVT January 08, 2025
Severe protein calorie malnutrition
Full code
DVTppx
IV Hep
I spent a total of 54 minutes with the patient or on the floor. More than 50% of this time involved counseling and coordination of care.
Anticipated Discharge: > 48 hours
Subjective/Interval History
-
Date of Service: July 17, 2025
denies nausea
Objective Data
-
Labs:
Laboratory Results
07/17/25 07/17/25
02:20 08:31
WBC 14.4 H
Hgb 8.9 L D
Hct 26.1 L
Plt Count 122 L
APTT 72.9 H 92.3 H
Sodium 131 L
Potassium 3.9
Chloride 101
Carbon Dioxide 25
BUN 14
Creatinine 0.4 L
Glucose 127 H
Calcium 7.1 L
Total Bilirubin 0.6
AST 27
ALT 36
Alkaline Phosphatase 201 H
Vital Signs:
Vital Signs
Temp Pulse Resp BP Pulse Ox
98.2 F 98 34 101/73 94
07/17/25 07:15 07/17/25 10:00 07/17/25 10:00 07/17/25 10:00 07/17/25 10:00
I&O
07/16/25 07/17/25 07/18/25
06:59 06:59 06:59
Intake Total 1522.4 / 1522.4 1277 / 1277
Output Total 1900 / 1900 150 / 150
Balance -377.6 / -377.6 1127 / 1127
[2025-07-17 15:53] LABS: APTT 86.8 Sec (23.4-35.0)
--- NOTE | 2025-07-17 18:42 | PTCARENOTE ---
OOB to chair few hours this pm. Pain controlled with Mone x1 and Tylenol x1 today. Bilateral Pleurx catheters drained by IRAD tech today. Dressing remain CDI. Dobhoff in right nare with at goal tube feedings. IV Heparin gtt maintained per
protocol. Now therapeutic next ptt in am. RSC port with KVO and antibx. Good blood return. Voids in urinal 100ml / time. Adequate for intake.
[2025-07-17] MEDS: MELATONIN 3 MG PO (21:00)
[2025-07-17] MEDS: OFIRMEV 100 IV (23:36)
[2025-07-18] VITALS (33 sets, daily range): BP systolic 88–111; BP diastolic 56–73
--- NOTE | 2025-07-18 01:56 | PTCARENOTE ---
Pt having pain in right flank area near drain site, pain medication not appropriate for time. Requested CAFE AIDE for breakthrough pain medication, one time Ofirmev order placed. Reassessment Pt found relief. Per order TF held at 2200 with anticipation for
PEG placement in morning. Call garcia within reach, bed in lowest position.
[2025-07-18] MEDS: ZOSYN 50 IV ×4 (05:03→23:17)
[2025-07-18 05:45] LABS: APTT 112.2 Sec (23.4-35.0)
[2025-07-18 06:00] LABS: Hematocrit 27.6 % (39.0-52.0); Hemoglobin 9.3 g/dL (13.0-18.0); Mean Corp Hgb Conc. 33.7 g/dL (33.0-37.0); Mean Corpuscular Volume 89.6 fL (80.0-94.0); Platelet Count 135 10^3/uL (130-400); Red Cell Dist. Width 21.4 % (11.5-14.5)
--- NOTE | 2025-07-18 06:34 | PTCARENOTE ---
Per order Heparin gtt turned off at 0600.
[2025-07-18 06:42] LABS: ALT (SGPT) 30 U/L (0-50); AST (SGOT) 29 U/L (17-59); Albumin 2.2 g/dl (3.5-5.0); Alkaline Phosphatase 209 U/L (38-126); Blood Urea Nitrogen 14 mg/dl (9-20); Calcium 6.7 mg/dl (8.4-10.2); Carbon Dioxide 28 mmol/L (22-30); Chloride 97 mmol/L (98-107); Estimated Creatinine Clearance 104 ml/min; Glucose 72 mg/dl (70-99); Total Protein 4.5 g/dl (6.3-8.2); eGFR > 60.00
[2025-07-18 06:53] LABS: Absolute Neutrophils -Man Diff 13.3 10^3/uL (1.4-6.5); Hypochromasia Slight; Normal RBC Morphology No; Platelets Checked Yes; Polychromasia Slight; Total Cells Counted 100
[2025-07-18 06:54] LABS: Anisocytosis 1+
[2025-07-18 07:02] LABS: Magnesium 1.8 mg/dl (1.6-2.3); Potassium 3.8 mmol/L (3.5-5.1); Sodium 129 mmol/L (135-145)
--- NOTE | 2025-07-18 07:36 | PN.IRAD.UPD ---
Update Note - IRAD
- -
Right Asept catheter drained for 500 ml. site cleaned and dressed.
[2025-07-18] MEDS: STRIVERDI RESPIMAT 2 PUFF INH (07:41)
[2025-07-18] MEDS: SPIRIVA RESPIMAT 2.5 MCG 2 PUFF INH (07:41)
[2025-07-18] MEDS: DUONEB 3 ML INH (07:44)
--- NOTE | 2025-07-18 07:58 | W.PN.CD ---
Today's Communication / Plan
-
continue PO amiodarone
stable from cardiac perspective for PEG
assess to resume eliquis post procedure
Impression / Plan
-
69 year old male with a past medical history of Stage IV metastatic NSCLC, on Xgeva (follows with Dr. Cohen) s/p cervical/sternal radiation with every 4 days Left sided thoracentesis and nightly R sided thoracentesis via PleurX catheter, history of
PE (on Eliquis), who presented from IR during a scheduled outpatient thoracentesis for concerns of Afib with RVR.
Paroxysmal Afib, which recurred with RVR
-echo 04/2025: EF 55%, nl RV, no sig valve disease
- Overall, suspect a multifactorial component to afib: malignant pleural effusion, radiation damage to the heart, and electrolyte disturbances secondary to chemotherapy.
- Patient has been in sinus rhythm since 07/13/2025.
- continue PO amiodarone 400 mg twice daily for 1 week then 200 mg daily.
- Eliquis on hold for anemia and for procedure: assess to resume post procedure if Hgb stable
- PEG planned for today
Anemia
- trend Hgb
- Eliquis held as above. Resume when able.
Metastatic lung cancer:
- Now with bilateral PleurX catheters
- Continue management as per primary team.
- Patient's prognosis is poor
Physical Exam
Vital Signs/Labs
Vital Signs
Temp Pulse Resp BP Pulse Ox
97.7 F 87 18 107/71 98
07/18/25 07:20 07/18/25 07:45 07/18/25 07:45 07/18/25 06:00 07/18/25 07:45
07/17/25 07/18/25 07/19/25
06:59 06:59 06:59
Actual Weight 63.248 kg
07/18/25 05:08
07/18/25 05:08
APTT 112.2 Sec (23.4-35.0) H 07/18/25 05:08
Magnesium 1.8 mg/dl (1.6-2.3) 07/18/25 05:08
Physical Exam
Constitutional: No acute distress
EENT: Moist mucous membranes
Cardiovascular: Rhythm & rate is regular, JVD pressure is normal, Systolic murmur absent and Pedal edema present
Respiratory: Labored respirations
Neuro/Psych: AO x 3
Data Reviewed
-
Date of Service: July 18, 2025
EKG: Other (Tele: SR )
Echo: Report Reviewed by me
Labs: Labs Reviewed by me
--- NOTE | 2025-07-18 08:46 | W.PN.HOSP.TC ---
Today's Communication/Plan
-
Check a chest x-ray
IV pain medication
Replete calcium IV
For PEG tube today.
Assessment / Plan
Assessment / Plan
Acute hypoxic respiratory failure 2/2 chronic recurrent pleural effusions/stage IV non-small cell lung CA versus infectious process /aspiration pneumonitis
#History of Stage IV non-small cell lung CA Dx October 2024 to sternum C-spine status post radiation, spot right hip with recurrent
malignant pleural effusions on chemotherapy/immunotherapy
#Chronic elevated alk phos
Chemotherapy last dose on 07/06/2025 second line therapy along with Keytruda via PORT right upper chest wall
patient just received colonizing stimulating growth factor and Xgeva on 07/06/2025
was put on 6 L nasal cannula, now off of oxygen.; at home on prn o2
-pleuryx on right to drain daily by IR. Now after discussion with oncology, s/p IR ascept on left as well. s/p left pleural cath. IR to drain left every other day per pulmonary and drain right daily.
bcx NGTD
-Continue Anoro Ellipta 1 inhalation daily, albuterol as needed
MRSA screen negative, DC vancomycin. Continue with Zosyn
Pulmonary following
Oncology following; per patient and spouse couldn't tolerate 3rd round chemo well. Follows up with Dr. Cohen who spoke with patient and family 07/14. Plan for further chemo. Given patient inability to swallow, GI consulted for PEG tube. Currently
patient has Dobbhoff and tube feed at goal. Per GI Eliquis would need to be held over the weekend for PEG today. Given history of DVT/PE, GI is okay with starting IV heparin. IV heparin started. Hold Eliquis
now off levophed. Hypotension was likely secondary to A-fib with RVR along with hypotension from pleural effusion drainage
Obtain repeat chest x-ray today as patient developed pain post tap on the right side. Clinically suspect related to his malignancy, approximation of the pleural space, bony metastatic disease of thorax/sternum.
A-fib with RVR
Cardiology following
Now on p.o Amio
IV hep
#Normocytic anemia in setting of recent chemotherapy
Monitor hemoglobin; hemoglobin 7 07/16. Status post 1 unit PRBC. Monitor hgb
#Leukocytosis likely due to colonizing growth stimulating factor versus infectious process
WBC 47.6> 32.1 on 06/10/2025 patient just received colonizing stimulating growth factor and Xgeva on 07/06/2025
On IV Zosyn-day 5 of antibiotics. Suspicion was aspiration pneumonitis. Will DC Zosyn after PEG tube.
Mildly elevated Pro-Nelson, not a good marker in malignancy
#Hypotension likely in setting of A-fib with RVR and poor p.o. intake
#Decreased oral intake x 2 to 3 days suspect volume depletion due to weakness from chemotherapy
Started on Levophed, wean as tolerated-currently off
#Reported dysphagia with thin liquids and pills
- Evaluated by speech, VSE 07/12 noted. Discussed with speech. Given patient inability to swallow, GI consulted for PEG tube. Currently patient has Dobbhoff and tube feeds which is on hold for PEG tube. Per GI Eliquis would need to be held over
the weekend for PEG Friday
#Chronic right rib pain due to non-small cell lung CA
Patient requesting oxycodone he takes as needed 5 mg every 6 hours and takes Tylenol 1000 mg daily as needed
#Acute on chronic hyponatremia
monitor
#Acute on chronic hypocalcemia
give IV calcium as needed
- Continue calcium carbonate 1000 mg twice daily
- Check PTH
#Anxiety
-Continue lorazepam 0.5 mg p.o. twice daily as needed anxiety hold SBP<100
#GERD
Continue Protonix 40 mg daily
#History of bilateral pulmonary embolisms 01/07/2025
Holding Eliquis for PEG tube
Continue with IV heparin
#History of left lower extremity DVT January 08, 2025
Severe protein calorie malnutrition
Full code
DVTppx
IV Hep
Discussed with IMU EARLENE Leal
Okay for PEG tube insertion today medically if no new findings on the chest x-ray
Total time spent on today's encounter was 52 minutes which included time spent in counseling the patient/family regarding diagnosis and treatment plan as listed above, goals of care, and symptom management. Case was discussed with nursing staff,
specialists, and care coordinators/case management. All labs and imaging personally reviewed by me. Remainder the time spent in detailed review of previous records, lab data, imaging, and other medical provider documentation.
Anticipated Discharge: > 48 hours
Subjective/Interval History
-
Date of Service: July 18, 2025
Patient had a right pleural tap through the PleurX catheter this morning of about 500 mL. Post tap he started to experience right-sided chest pain which is constant with no relation to the breathing. He experienced similar with the prior tap as
well.
[place] breathing was better after the tap this morning. No nausea or vomiting. Not requiring oxygen.
No abdominal pain.
Denies any dizziness. Sitting in his bed without any acute respiratory distress.
Objective Data
-
Labs:
Laboratory Results
07/18/25
05:08
WBC 14.7 H
Hgb 9.3 L
Hct 27.6 L
Plt Count 135
APTT 112.2 H
Sodium 129 L
Potassium 3.8
Chloride 97 L
Carbon Dioxide 28
BUN 14
Creatinine 0.4 L
Glucose 72
Calcium 6.7 L*
Total Bilirubin 0.6
AST 29
ALT 30
Alkaline Phosphatase 209 H
Vital Signs:
Vital Signs
Temp Pulse Resp BP Pulse Ox
97.7 F 87 18 107/71 98
07/18/25 07:20 07/18/25 07:45 07/18/25 07:45 07/18/25 06:00 07/18/25 07:45
I&O
07/17/25 07/18/25 07/19/25
06:59 06:59 06:59
Intake Total 1277 / 1277 1767 / 1767
Output Total 150 / 150 1550 / 1550 500 / 500
Balance 1127 / 1127 217 / 217 -500 / -500
Physical Exam
-
General: No Apparent Distress
Respiratory: Non Labored Respirations, Decreased Breath Sounds (Right lower zone) and Other (Prominent right upper thorax. Patient says he received radiation to left side. Is also tender on palpation of the bony structure of the right upper
anterior thorax.); Negative Wheezes or Accessory Resp Muscle Use
Cardiac: Regular Rhythm and S1/S2; Negative Tachycardic
GI: Soft
Musculoskeletal: Edema, Right Lower Extrem and Edema, Left Lower Extrem
Neuro: AO x 3
Psych: Calm; Negative Confused
Data Reviewed
-
Labs: Labs Reviewed by me
[2025-07-18 09:15] LABS: Glucose - Point of Care 83 mg/dl (70-99)
[2025-07-18] MEDS: DILAUDID 0.25 MG IV ×2 (09:27→22:11)
[2025-07-18] MEDS: CALCIUM GLUCONATE 100 IV (09:28)
--- NOTE | 2025-07-18 09:32 | W.PN.ONC2 ---
Today's Communication / Plan
-
plan for PEG today
CXR per primary service
pain management
Impression
Impression
a/w acute respiratory failure
IV lung adenocarcinoma, MET mutated POD on Tabrecta, no s/p C3 on 07/07/2025 with pegfilgrastim 07/08/2025
last bone ppx with xgeva 06/16/2025
recurrent pleural effusion -Pleurx on Right-Pleurx placed on the left 07/15
chronic cancer pain on chronic narcotics
VTE (LLE DVT/PE December 2024)
Atrial fibrillation with RVR
hyponatremia
leukocytosis
Anemia -s/p 1U PRBC on 07/16 -Hgb stable
thrombocytopenia resolved
dyphagia
Plan
Plan
Continue abx for suspected aspiration pneumonia/pneumonitis
Continue NPO w/ aspiration - DHT for TF -appreciate GI assist
no clinical response to 3 cycles of chemo/IO. plan for OP PET for restaging to consider 3rd line therapy if radiographic progression of disease
on DOAC for VTE/AF
pain management
Subjective/Objective
Subjective
acute on chronic right sided chest pain and tachypnea
Vital Signs:
Vital Signs
Temp Pulse Resp BP Pulse Ox
97.7 F 87 18 107/71 98
07/18/25 07:20 07/18/25 07:45 07/18/25 07:45 07/18/25 06:00 07/18/25 07:45
Lab Results:
Laboratory Data
WBC 14.7 10^3/uL (4.8-10.8) H 07/18/25 05:08
Hgb 9.3 g/dL (13.0-18.0) L 07/18/25 05:08
Plt Count 135 10^3/uL (130-400) 07/18/25 05:08
APTT 112.2 Sec (23.4-35.0) H 07/18/25 05:08
eGFR > 60.00 07/18/25 05:08
Physical Exam
HEENT: Moist Mucous Membranes and Other (dobhoff); No Jaundice
Pulmonary: Other (tachypnea. diminished bilateral lower lobes)
GI: Soft
Extremities: Pulses Present; No Edema
Neuro: Non Focal
[2025-07-18] MEDS: PROTONIX IV 40 MG IV (09:35)
[2025-07-18] MEDS: NSS (PRESERVATIVE FREE) 10 ML IV (09:36)
--- NOTE | 2025-07-18 11:15 | OR.RPT ---
Operative Report
Operative Report
Patient Name: Kelby Estrada
: 1955
Date of Operation: 07/18/2025
Preoperative Diagnosis: Need for feeding access
Postoperative Diagnosis: Same
Procedure(s):
Percutaneous endoscopic gastrostomy
Surgeon(s):
Dr. Mendez
Endoscopist(s):
Dr. Engel
Anesthesia: General
Estimated Blood Loss: 1 cc
Urine Output: None
Drains/Lines/Implants: 20 [place] PEG tube
Specimens: None
Indication/Findings at the time of surgery:
Please see GI notes.
Details of the operation:
After inducing general anesthesia and placement of a mouth guard, an upper endoscopy was performed by the shoe fitter (see their note for further details) an appropriate site for the PEG tube was identified near the left costal margin. This
was confirmed by good one-to-one, transillumination as well as a safe track technique. The overlying skin was infiltrated with lidocaine and a small stab incision was made. The introducer needle was inserted through the stab incision, abdominal
wall and into the stomach. This required 1 pass. The blue guidewire was inserted through the sheath and was captured by an endoscopic snare. A 20 [place] PEG tube was then advanced along the tract. The external bumper and tube feeding attachment
were placed. The tube was noted to be 3 cm at the skin. There was minimal blood loss. The patient returned to the recovery room in stable condition. Sponge and instrument counts were correct. No specimen sent to pathology from our portion of the
procedure.
I was the attending physician and performed the procedure with no assistance. I was present for all portions of the case
Alberto Mendez MD
--- NOTE | 2025-07-18 11:38 | PTCARENOTE ---
Addendum entered by Mel Hudson RN 07/18/25 12:52:
Stat portable CXR completed this morning after c/o R sided pain, as per Dr Jamison.
Original Note:
Assumed care of patient at beginning of this shift from previous RN. IRAD up to drain patient from R side. At approximately 08:30 patient c/o pain at that site, rated 8/10. Denied SOB; pox 96%. Lungs clear. This nurse called and spoke with IRAD
nurse who stated patient has had similar pain in the past after draining. Dr Jamison in to see patient; ordered IV dilaudid which was given with relief. Patient to GI lab for peg tube placement and returned to unit. Order in computer states ok to use
peg tube for meds; start feeding tomorrow. See worklist for full assessment and vital signs.
[2025-07-18] MEDS: FOLVITE 1 MG TUBE (12:15)
[2025-07-18] MEDS: CALCIUM CARBONATE ORAL SUSP 1000 MG TUBE ×2 (12:15→20:02)
--- NOTE | 2025-07-18 12:47 | W.PN.UPDATE ---
Update Note
Progress Note Update
`s/p PEG, Ok to use for meds today and feeds starting tomorrow, can restart heparin in 6 hours without bolus.. GI will sign off and will be available as needed
[2025-07-18] MEDS: PACERONE 400 MG PO ×2 (13:20→20:02)
[2025-07-18] MEDS: ROXICODONE 5 MG TUBE ×2 (14:35→20:06)
[2025-07-18 16:36] LABS: APTT 29.4 Sec (23.4-35.0)
--- NOTE | 2025-07-18 18:38 | PTCARENOTE ---
Order entered in computer by Dr Dorsey to restart heparin in 6hrs. Due to start at 18:38. PTT 29.4. Heparin previously running at 1300 units/hr. Patient had been therapeutic at that rate yesterday x2, then this morning he was just above at 112.2.
TT sent to Dr Jamison to verify rate to start. He responded to start at 1300 units/hr.
[2025-07-18] MEDS: HEPARIN 25000 UNITS/250 ML IV (19:20)
[2025-07-18] MEDS: MELATONIN 3 MG PO (23:17)
[2025-07-19] VITALS (28 sets, daily range): BP systolic 96–123; BP diastolic 55–82; PULSE 98–100; O2SAT 96; BMI 20.2
--- NOTE | 2025-07-19 01:18 | PTCARENOTE ---
Addendum entered by Halima Lopez RN 07/19/25 01:22:
Pt appearing to tolerating medication given by PEG as ordered. Pt stating he has no pain in ABD at this time.
Original Note:
Assumed care of Pt from day RN. Pt currently on heparin gtt at 1300 units/hr. Pt having pain, medication given early per METER READING CLERK. On reassessment pt not having much relief from pain, IV pain medication given see DEC. Pt appearing able to get some rest.
Pt respirations even un labored spo2 93% RA at this time. Call garcia within reach, bed in lowest position.
[2025-07-19] MEDS: ATIVAN 0.5 MG TUBE (01:30)
[2025-07-19] MEDS: TYLENOL 650 MG PO ×2 (01:30→11:28)
[2025-07-19 01:57] LABS: APTT 106.6 Sec (23.4-35.0)
[2025-07-19] MEDS: DUONEB 3 ML INH (02:00)
[2025-07-19] MEDS: ZOSYN 50 IV ×3 (05:32→17:54)
[2025-07-19] MEDS: SPIRIVA RESPIMAT 2.5 MCG 2 PUFF INH (07:19)
[2025-07-19] MEDS: STRIVERDI RESPIMAT 2 PUFF INH (07:19)
[2025-07-19 07:58] LABS: Hematocrit 29.2 % (39.0-52.0); Hemoglobin 9.8 g/dL (13.0-18.0); Mean Corp Hgb Conc. 33.6 g/dL (33.0-37.0); Mean Corpuscular Volume 90.7 fL (80.0-94.0); Platelet Count 177 10^3/uL (130-400); Red Cell Dist. Width 21.9 % (11.5-14.5)
[2025-07-19 08:07] LABS: APTT 107.6 Sec (23.4-35.0)
[2025-07-19] MEDS: FOLVITE 1 MG TUBE (08:07)
[2025-07-19] MEDS: CALCIUM CARBONATE ORAL SUSP 1000 MG TUBE ×2 (08:07→19:43)
[2025-07-19] MEDS: PACERONE 400 MG PO ×2 (08:07→19:44)
[2025-07-19] MEDS: NSS (PRESERVATIVE FREE) 10 ML IV (08:08)
[2025-07-19] MEDS: PROTONIX IV 40 MG IV (08:08)
--- NOTE | 2025-07-19 08:33 | W.PN.CD ---
Today's Communication / Plan
-
continue PO amiodarone 400 mg twice daily for 2 weeks to end 07/30, then 200 mg daily
s/p PEG 07/18: transition IV heparin to eliquis 5mg bid
we will arrange for follow up with us
please call with additional questions
Impression / Plan
-
69 year old male with a past medical history of Stage IV metastatic NSCLC, on Xgeva (follows with Dr. Cohen) s/p cervical/sternal radiation with every 4 days Left sided thoracentesis and nightly R sided thoracentesis via PleurX catheter, history of
PE (on Eliquis), who presented from IR during a scheduled outpatient thoracentesis for concerns of Afib with RVR.
Paroxysmal Afib, which recurred with RVR
-echo 04/2025: EF 55%, nl RV, no sig valve disease
- Overall, suspect a multifactorial component to afib: malignant pleural effusion, radiation damage to the heart, and electrolyte disturbances secondary to chemotherapy.
- Patient has been in sinus rhythm since 07/13/2025.
- continue PO amiodarone 400 mg twice daily for 2 weeks to end 07/30, then 200 mg daily.
- s/p PEG 07/18: transition IV heparin to eliquis 5mg bid
Anemia
- trend Hgb: stable
- resume eliquis
Metastatic lung cancer:
- Now with bilateral PleurX catheters
- Continue management as per primary team.
- Patient's prognosis is poor
Physical Exam
Vital Signs/Labs
Vital Signs
Temp Pulse Resp BP Pulse Ox
97.6 F 94 20 104/67 95
07/19/25 04:26 07/19/25 07:19 07/19/25 07:19 07/19/25 06:00 07/19/25 07:19
07/18/25 07/19/25 07/20/25
06:59 06:59 06:59
Actual Weight 63.9 kg
07/19/25 07:31
APTT 107.6 Sec (23.4-35.0) H 07/19/25 07:31
Magnesium 1.8 mg/dl (1.6-2.3) 07/18/25 05:08
Physical Exam
Constitutional: No acute distress
EENT: Moist mucous membranes
Cardiovascular: Rhythm & rate is regular, Pedal edema is absent, JVD pressure is normal and Systolic murmur absent
Respiratory: Respiratory effort normal and Lungs clear to auscul.
Neuro/Psych: AO x 3
Data Reviewed
-
Date of Service: July 19, 2025
EKG: Other (Tele: sinus with PAC's and PVC's)
Labs: Labs Reviewed by me
[2025-07-19] MEDS: DILAUDID 0.25 MG IV ×2 (08:58→19:43)
[2025-07-19 09:00] LABS: Blood Urea Nitrogen 13 mg/dl (9-20); Calcium 6.7 mg/dl (8.4-10.2); Carbon Dioxide 24 mmol/L (22-30); Chloride 98 mmol/L (98-107); Estimated Creatinine Clearance 105 ml/min; Glucose 57 mg/dl (70-99); Potassium 3.7 mmol/L (3.5-5.1); Sodium 128 mmol/L (135-145); eGFR > 60.00
[2025-07-19] MEDS: ELIQUIS 5 MG PO ×2 (09:27→19:44)
--- NOTE | 2025-07-19 09:46 | W.PN.HOSP.TC ---
Addendum entered and electronically signed by Pranav Jamison MD 07/20/25 07:57:
Stage 1 sacral pressure injury, POA...Stage 2 upper back pressure injury, POA.'
Addendum entered and electronically signed by Pranav Jamison MD 07/19/25 10:02:
Hyponatremia - acute on chronic- repeat Urine lytes . Monitor for now.
Original Note:
Today's Communication/Plan
-
Tx to tele
Start on TF
Assessment / Plan
Assessment / Plan
Acute hypoxic respiratory failure 2/2 chronic recurrent pleural effusions/stage IV non-small cell lung CA versus infectious process /aspiration pneumonitis
#History of Stage IV non-small cell lung CA Dx October 2024 to sternum C-spine status post radiation, spot right hip with recurrent
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
# Chronic elevated alk phos
Chemotherapy last dose on 07/06/2025 second line therapy along with Keytruda via PORT right upper chest wall
patient just received colonizing stimulating growth factor and Xgeva on 07/06/2025
was put on 6 L nasal cannula, now off of oxygen.; at home on prn o2
-pleurx on right to drain daily by IR. Now after discussion with oncology, s/p IR ascept on left as well. s/p left pleural cath. IR to drain left every other day per pulmonary and drain right daily.
bcx NGTD
-Continue Anoro Ellipta 1 inhalation daily, albuterol as needed
MRSA screen negative, DC vancomycin.
Increasing white count noted-unclear if secondary to post PEG-continue with Zosyn for now
Pulmonary following
Oncology following; per patient and spouse couldn't tolerate 3rd round chemo well. Follows up with Dr. Cohen who spoke with patient and family 07/14. Plan for further chemo. Given patient inability to swallow, PEG tube was placed.
now off levophed. Hypotension was likely secondary to A-fib with RVR along with hypotension from pleural effusion drainage
A-fib with RVR
Cardiology following
Now on p.o Amio
Switch from IV heparin to Eliquis today
#Normocytic anemia in setting of recent chemotherapy
Monitor hemoglobin; hemoglobin 7 07/16. Status post 1 unit PRBC. Monitor hgb
#Leukocytosis likely due to colonizing growth stimulating factor versus infectious process
WBC 47.6> 32.1 on 06/10/2025 patient just received colonizing stimulating growth factor and Xgeva on 07/06/2025
On IV Zosyn-day 6 of antibiotics. Suspicion was aspiration pneumonitis. With the bump up white count since yesterday which could be related to PEG tube placement will leave him on antibiotics for today.
Mildly elevated Pro-Nelson, not a good marker in malignancy
#Hypotension likely in setting of A-fib with RVR and poor p.o. intake
#Decreased oral intake x 2 to 3 days suspect volume depletion due to weakness from chemotherapy
Started on Levophed, wean as tolerated-currently off
#Reported dysphagia with thin liquids and pills
- Evaluated by speech, VSE 07/12 noted.
-Status post PEG tube insertion 07/18
- Repeat VSE per SPT recs
#Chronic right rib pain due to non-small cell lung CA
Patient requesting oxycodone he takes as needed 5 mg every 6 hours and takes Tylenol 1000 mg daily as needed
#Acute on chronic hyponatremia
monitor
#Acute on chronic hypocalcemia
give IV calcium as needed
- Continue calcium carbonate 1000 mg twice daily
- Check PTH -pending
#Anxiety
-Continue lorazepam 0.5 mg p.o. twice daily as needed anxiety hold SBP<100
#GERD
Continue Protonix 40 mg daily
#History of bilateral pulmonary embolisms 01/07/2025
resume Eliquis
#History of left lower extremity DVT January 08, 2025
Severe protein calorie malnutrition
Full code
DVTppx
On AC
Discussed with family at bedside
Tx to teled
Anticipated Discharge: > 48 hours
Subjective/Interval History
-
Date of Service: July 19, 2025
Chest wall pain is okay with pain medication adjustment.
Remains on room air today. Breathing is okay. No nausea vomiting.
Objective Data
-
Labs:
Laboratory Results
07/19/25 07/19/25
01:37 07:31
WBC 22.9 H
Hgb 9.8 L
Hct 29.2 L
Plt Count 177 D
APTT 106.6 H 107.6 H
Sodium 128 L
Potassium 3.7
Chloride 98
Carbon Dioxide 24
BUN 13
Creatinine 0.5 L
Glucose 57 L
Calcium 6.7 L*
Vital Signs:
Vital Signs
Temp Pulse Resp BP Pulse Ox
97.6 F 108 33 123/82 94
07/19/25 07:15 07/19/25 08:00 07/19/25 08:00 07/19/25 08:00 07/19/25 08:00
I&O
07/18/25 07/19/25 07/20/25
06:59 06:59 06:59
Intake Total 1767 / 1767 216 / 216
Output Total 1550 / 1550 1050 / 1050
Balance 217 / 217 -834 / -834
Physical Exam
-
General: No Apparent Distress
Respiratory: Wheezes (Bilateral) and Non Labored Respirations; Negative Accessory Resp Muscle Use
Cardiac: Regular Rhythm, S1/S2 and Tachycardic
GI: Soft, Nontender and Peg Tube
Neuro: AO x 3
Psych: Calm; Negative Confused
Data Reviewed
-
Labs: Labs Reviewed by me
[2025-07-19] MEDS: CALCIUM GLUCONATE 100 IV (10:31)
--- NOTE | 2025-07-19 10:36 | PN.IRAD.UPD ---
Update Note - IRAD
- -
Right Asept catheter drained for 500 ml, clear yellow fluid. Patient tolerated well. Site cleaned and dressed
Left Asept catheter - dressing was saturated upon arrival. Site was cleaned, catheter drained 900 ml of clear yellow fluid, stopped due to patients discomfort. Site cleaned and dressed.
--- NOTE | 2025-07-19 11:22 | CM ---
Addendum entered by Mary Vaughan 07/19/25 17:03:
ZBIGNIEW Hernandez confirmed with the Medical Attending that the patient can discharge tomorrow since PT/OT recommended Home PT. ZBIGNIEW Hernandez informed [facility] and [facility].
When speaking to the family, daughter & , they really want to know why he is on Bolus vs. Pump and felt like they would like an explanation of this before he discharges to understand.
ZBIGNIEW Hernandez informed the Attending who said he will see how this current pump goes then try Bolus tomorrow- Family aware. ZBIGNIEW Hernandez will touch base with the Attending to then coordinate with the 2 agencies when they can provide services for him with
this new development.
PLAN: Home with PT & Enternal Feeds
Original Note:
Following up on Patient. Patient has his peg tube now and it was started today, Jevity 1.5. ZBIGNIEW Hernandez met with the family, agreed to [facility] for home Home Enteral Feeds, and was give what the next steps will be. ZBIGNIEW Hernandez gathered all necessary
documents then had the Attending sign the Enteral Order form, then faxed all to [facility].
Liasherri Mora for [facility] will have her company run the insurance then call the daughter: Tamar: #[phone] to provide an explanation of how this process of Enteral Feeds will proceed from here.
ZBIGNIEW Hernandez updated [facility] and will have a hospital sales representative from [facility] talk to the family about how their services will proceed and work with [facility]. The Medical Attending stated that patient would be ready tomorrow, but aware that this process could
take 1-2 days.
Patient is downgrading today.
PLAN: Home with [facility] & [facility] for Enteral Bolus Feeds.
--- NOTE | 2025-07-19 14:48 | W.PN.ONC2 ---
Today's Communication / Plan
-
discharge planning
daughter at bedside provided updates and questions answered
Impression
Impression
a/w acute respiratory failure
IV lung adenocarcinoma, MET mutated POD on Tabrecta, no s/p C3 on 07/07/2025 with pegfilgrastim 07/08/2025
last bone ppx with xgeva 06/16/2025
recurrent pleural effusion -Pleurx on Right-Pleurx placed on the left 07/15
chronic cancer pain on chronic narcotics
VTE (LLE DVT/PE December 2024)
Atrial fibrillation with RVR
hyponatremia
leukocytosis
Anemia -s/p 1U PRBC on 07/16 -Hgb stable
thrombocytopenia resolved
dyphagia, PEG placed 07/18
Plan
Plan
Continue abx for suspected aspiration pneumonia/pneumonitis
no clinical response to 3 cycles of chemo/IO. plan for OP PET for restaging to consider 3rd line therapy if radiographic progression of disease
on DOAC for VTE/AF
pain management
Subjective/Objective
Subjective
using hydromorphone prn pain
Vital Signs:
Vital Signs
Temp Pulse Resp BP Pulse Ox
97.8 F 102 40 106/72 95
07/19/25 11:20 07/19/25 14:00 07/19/25 14:00 07/19/25 14:00 07/19/25 13:00
Lab Results:
Laboratory Data
WBC 22.9 10^3/uL (4.8-10.8) H 07/19/25 07:31
Hgb 9.8 g/dL (13.0-18.0) L 07/19/25 07:31
Plt Count 177 10^3/uL (130-400) D 07/19/25 07:31
APTT 107.6 Sec (23.4-35.0) H 07/19/25 07:31
eGFR > 60.00 07/19/25 07:31
Physical Exam
HEENT: No Jaundice
Pulmonary: Other (unlabored, b/l pleurx)
GI: Other (PEG)
Extremities: Pulses Present; No Edema
--- NOTE | 2025-07-19 15:06 | PN.CDI ---
CDI
- -
CDI:
Physician Documentation Request
Admit Date: 07/11/25 17:37
Dear Doctor Shaheen,
Patient admitted with acute hypoxic respiratory failure.
07/18 Nursing skin assessment, 'Stage 1 sacral pressure injury, POA...Stage 2 upper back pressure injury, POA.'
Physician documentation of the type and location of wounds is required for compliant documentation. Based on the above clinical findings and your assessment, please provide the following in your progress note:
Type (etiology) of ulcer/wound:
- Pressure (decubitus) ulcer
- Other
- Unable to determine
For a pressure ulcer, please also include the stage* of the ulcer:
- Stage 1 - Skin intact, non-blanchable redness
- Stage 2 - Partial thickness loss of dermis, includes intact or open blister
- Stage 3 - Full thickness tissue not including bone, tendon or muscle
- Stage 4 - Full thickness tissue loss, including exposed bone, tendon or muscle
- Unstageable - Full thickness loss in which the base of the ulcer is covered by slough (yellow, topete, sparks, green or brown) and/or eschar (topete, brown or black) in the wound bed.
- Unable to determine
Use of terms such as suspected, likely, concern for, or probable (associated with a specific diagnosis that is being evaluated, monitored, or treated as if it exists) are acceptable and can be coded in the inpatient setting, when documented at the
time of discharge.
Thank you,
Bertha YIP,RN,CCDS
CDI Specialist
Available via tiger text
Please use your independent medical judgment in providing your response.
*Source: National Pressure Ulcer Advisory Panel (NPUAP)
[2025-07-19] MEDS: ROXICODONE 5 MG TUBE (15:26)
--- NOTE | 2025-07-19 16:14 | PTCARENOTE ---
Assumed care of patient at beginning of this shift from previous RN. Speech therapist spoke with patient earlier today and it was decided for patient to have video swallow today; patient was agreeable. When stretcher arrived, however, patient stated
he was not up to it to go. ST notified via TT and video swallow cancelled for today. Peg tube ordered: jevity 1.5 to start at 20ml/hr with goal of 55ml/hr; started as ordered. Patient c/o abdominal pain rated 10/10 near peg tube insertion site. He
stated he was sitting in the chair then ambulated to bathroom with PT/OT when pain began. By the time this nurse entered room patient stated pain had passed. He then began coughing and c/o abd pain 10/10 again. Peg tube feedings infusing at 20ml/hr;
no residual. Patient stated pain subsided after residual was checked. He had been given roxicodone for 7/10 pain to b/l sides at area of ASEP drains just prior to c/o abdominal pain. TT sent to Dr Jamison to make him aware.
[2025-07-19] MEDS: MYLICON 80 MG PO (19:59)
[2025-07-19] MEDS: MELATONIN 3 MG PO (22:13)
[2025-07-20] VITALS (20 sets, daily range): BP systolic 91–128; BP diastolic 54–87; BMI 20.2
[2025-07-20] MEDS: ZOSYN 50 IV ×5 (01:16→23:42)
[2025-07-20] MEDS: ROXICODONE 5 MG TUBE ×3 (01:20→15:17)
[2025-07-20] MEDS: ATIVAN 0.5 MG TUBE (01:20)
[2025-07-20] MEDS: DUONEB 3 ML INH (01:30)
[2025-07-20] MEDS: DILAUDID 0.25 MG IV ×2 (05:22→23:01)
[2025-07-20 05:52] LABS: Hematocrit 28.9 % (39.0-52.0); Hemoglobin 9.8 g/dL (13.0-18.0); Mean Corp Hgb Conc. 33.9 g/dL (33.0-37.0); Mean Corpuscular Volume 90.9 fL (80.0-94.0); Platelet Count 199 10^3/uL (130-400); Red Cell Dist. Width 21.4 % (11.5-14.5)
[2025-07-20 06:02] LABS: APTT 34.2 Sec (23.4-35.0)
[2025-07-20 06:15] LABS: Calcium 6.8 mg/dl (8.4-10.2); Carbon Dioxide 28 mmol/L (22-30); Chloride 96 mmol/L (98-107); Estimated Creatinine Clearance 105 ml/min; Glucose 146 mg/dl (70-99); Potassium 3.5 mmol/L (3.5-5.1); Sodium 128 mmol/L (135-145); eGFR > 60.00
[2025-07-20 06:46] LABS: Blood Urea Nitrogen 14 mg/dl (9-20)
[2025-07-20] MEDS: SPIRIVA RESPIMAT 2.5 MCG 2 PUFF INH (07:44)
[2025-07-20] MEDS: STRIVERDI RESPIMAT 2 PUFF INH (07:44)
[2025-07-20] MEDS: CALCIUM CARBONATE ORAL SUSP 1000 MG TUBE ×2 (08:17→22:30)
[2025-07-20] MEDS: ELIQUIS 5 MG PO (08:18)
[2025-07-20] MEDS: PACERONE 400 MG PO (08:19)
[2025-07-20] MEDS: FOLVITE 1 MG TUBE (08:19)
[2025-07-20] MEDS: NSS (PRESERVATIVE FREE) 10 ML IV (08:19)
[2025-07-20] MEDS: PROTONIX IV 40 MG IV (08:20)
--- NOTE | 2025-07-20 10:04 | PN.IRAD.UPD ---
Update Note - IRAD
- -
WENT BEDSIDE AT 930 TO DRAIN BILATERAL ASEPT CATHETERS, TOOK 500ML FROM EACH. REDRESSED WITH NO COMPLAINTS FROM PATIENT
--- NOTE | 2025-07-20 11:09 | W.PN.HOSP.TC ---
Today's Communication/Plan
-
Obtain CT of the abdomen pelvis and if it looks okay switch to bolus feeding.
Consult nephrology for hyponatremia.
Assessment / Plan
Assessment / Plan
Acute hypoxic respiratory failure 2/2 chronic recurrent pleural effusions/stage IV non-small cell lung CA versus infectious process /aspiration pneumonitis
#History of Stage IV non-small cell lung CA Dx October 2024 to sternum C-spine status post radiation, spot right hip with recurrent
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
# Chronic elevated alk phos
Chemotherapy last dose on 07/06/2025 second line therapy along with Keytruda via PORT right upper chest wall
patient just received colonizing stimulating growth factor and Xgeva on 07/06/2025
was put on 6 L nasal cannula, now off of oxygen.; at home on prn o2
-pleurx on right to drain daily by IR. Now after discussion with oncology, s/p IR ascept on left as well. s/p left pleural cath. IR to drain left every other day per pulmonary and drain right daily.
bcx NGTD
-Continue Anoro Ellipta 1 inhalation daily, albuterol as needed
MRSA screen negative, DC vancomycin.
Increasing white count noted-unclear if secondary to post PEG-continue with Zosyn for now. Check a CT of the abdomen pelvis due to new abdominal pain
Pulmonary following
Oncology following; per patient and spouse couldn't tolerate 3rd round chemo well. Follows up with Dr. Cohen who spoke with patient and family 07/14. Plan for further chemo. Given patient inability to swallow, PEG tube was placed.
now off levophed. Hypotension was likely secondary to A-fib with RVR along with hypotension from pleural effusion drainage
A-fib with RVR
Cardiology following
Now on p.o Amio
Switched from IV heparin to Eliquis
#Normocytic anemia in setting of recent chemotherapy
Monitor hemoglobin; hemoglobin 7 07/16. Status post 1 unit PRBC. Monitor hgb
#Leukocytosis likely due to colonizing growth stimulating factor versus infectious process. With worsening leukocytosis and no abdominal pain obtain a CT of the abdomen pelvis for further evaluation
WBC 47.6> 32.1 on 06/10/2025 patient just received colonizing stimulating growth factor and Xgeva on 07/06/2025
On IV Zosyn-day 7 of antibiotics. Suspicion was aspiration pneumonitis. With the bump up white count since yesterday which could be related to PEG tube placement will leave him on antibiotics for today.
Mildly elevated Pro-Nelson, not a good marker in malignancy
#Hypotension likely in setting of A-fib with RVR and poor p.o. intake
#Decreased oral intake x 2 to 3 days suspect volume depletion due to weakness from chemotherapy
Started on Levophed, wean as tolerated-currently off
#Reported dysphagia with thin liquids and pills
- Evaluated by speech, VSE 07/12 noted.
-Status post PEG tube insertion 07/18
- Repeat VSE per SPT recs
- Patient would like bolus feeding at home which will be tried on in hospital prior to discharge. It depends on the CT of the abdomen pelvis report from today.
#Chronic right rib pain due to non-small cell lung CA
Patient requesting oxycodone he takes as needed 5 mg every 6 hours and takes Tylenol 1000 mg daily as needed
#Acute on chronic hyponatremia
Urine lites shows urine sodium of 7 so suspicious for intra volume depletion. Will increase fluid flushes after the CT of the abdomen pelvis.
Consult nephrology
#Acute on chronic hypocalcemia
give IV calcium as needed
- Continue calcium carbonate 1000 mg twice daily
- Check PTH -pending
#Anxiety
-Continue lorazepam 0.5 mg p.o. twice daily as needed anxiety hold SBP<100
#GERD
Continue Protonix 40 mg daily
#History of bilateral pulmonary embolisms 01/07/2025
resume Eliquis
#History of left lower extremity DVT January 08, 2025
Severe protein calorie malnutrition
Full code
DVTppx
On AC
Discussed with family at bedside
Tx to tele
Discussed with RN
Discussed with at bedside
Total time spent on today's encounter was 52 minutes which included time spent in counseling the patient/family regarding diagnosis and treatment plan as listed above, goals of care, and symptom management. Case was discussed with nursing staff,
specialists, and care coordinators/case management. All labs and imaging personally reviewed by me. Remainder the time spent in detailed review of previous records, lab data, imaging, and other medical provider documentation.
Anticipated Discharge: > 48 hours
Subjective/Interval History
-
Date of Service: July 20, 2025
Noticed the pain in the abdomen with coughing yesterday and now he has abdominal pain going across the mid abdomen given otherwise. Noted after PEG tube insertion. No nausea vomiting. Tolerating tube feeds at 55 mL/h. No bowel movement.
Denies shortness of breath. Remains on room air. Not much productive cough.
No fever or chills.
Objective Data
-
Labs:
Laboratory Results
07/20/25
05:28
WBC 25.2 H
Hgb 9.8 L
Hct 28.9 L
Plt Count 199
APTT 34.2
Sodium 128 L
Potassium 3.5
Chloride 96 L
Carbon Dioxide 28
BUN 14
Creatinine 0.6 L
Glucose 146 H
Calcium 6.8 L*
Vital Signs:
Vital Signs
Temp Pulse Resp BP Pulse Ox
97.7 F 94 16 102/67 95
07/20/25 07:30 07/20/25 08:19 07/20/25 07:44 07/20/25 08:19 07/20/25 07:44
I&O
07/19/25 07/20/25 07/21/25
06:59 06:59 06:59
Intake Total 216 / 216
Output Total 1050 / 1050 1500 / 1500
Balance -834 / -834 -1500 / -1500
Physical Exam
-
General: No Apparent Distress
Respiratory: Non Labored Respirations and Decreased Breath Sounds (Left base with no added sounds today); Negative Accessory Resp Muscle Use
Cardiac: Regular Rhythm, S1/S2 and Tachycardic
GI: Soft, Nondistended, Normal Bowel Sounds and Tender (Both to the right and left side of PEG tube area)
Neuro: AO x 3
Psych: Calm
Data Reviewed
-
Labs: Labs Reviewed by me
--- NOTE | 2025-07-20 11:29 | W.CON.NEPH ---
Consultation
-
Date/Time Consultation Requested: 07/20/2025 11:15 AM
Date/Time Consultation Performed: 07/20/2025 1130 AM
Requesting Provider: Dr. Jamison
Performing Provider: Dr. Ruiz
Reason for Consultation: Hyponatremia
Medical History
-
Chief Complaint: Hyponatremia
History of Present Illness:
The patient is a 69-year-old male past medical history of stage IV non-small cell lung cancer with mets to sternum, cervical spine status post radiation, right hip on chemotherapy/immunotherapy, recurrent malignant right pleural effusion status post
right-sided pleural catheter drained every day, receives regular left-sided thoracentesis every 3 to 4 days, hypocalcemia from Xgeva, hyponatremia, bilateral pulmonary emboli, left lower extremity PT, anxiety, GERD, presenting with hypotension and
tachycardia. Per review of his records he has had a history of hyponatremia over the past summer. He was brought to the hospital on 07/11/2025 with atrial fibrillation and new onset of dysphagia. He was hypotensive and tachycardic and hypoxic on
admission at that time. Over the course of his admission he has now had PEG placement due to his dysphagia. I note his serum sodium level on admission was 124. His serum sodium is now 128 and we were consulted for hyponatremia management. Urine
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
Past Medical History
stage IV non-small cell lung CA Dx October 2024 to sternum C-spine status post radiation, spot right hip with recurrent pleural effusions on chemotherapy/immunotherapy
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
Hypocalcemia from Xgeva
Hyponatremia
Bilateral Pulmonary Emboli 01/07/2025
LLE DVT 01/08/2025
Anxiety
GERD
Social History
Tobacco: Former Smoker
Alcohol: Occasional
Drug: None
Personal:
Living: With Family
Family History
Family History: Not Pertinent
Allergies / Home Medications
Allergy/AdvReac Type Severity Reaction Status Date / Time
No Known Allergies Allergy Verified 06/27/25 09:02
�Medication �Instructions �Recorded �Confirmed �Type
acetaminophen 500 mg tablet 1,000 mg PO DAILYPRN PRN mild pain 05/15/25 07/11/25 History
apixaban 5 mg tablet (Eliquis) 5 mg PO BID Blood Clot 05/15/25 07/11/25 History
Prevention/Tx
albuterol sulfate 90 mcg/actuation 2 puff inhalation R Q4HPRN PRN sob 05/27/25 07/11/25 History
aerosol inhaler
dexamethasone 4 mg tablet 4 mg PO DIRECTED 05/27/25 07/11/25 History
Antiinflammation
folic acid 1 mg tablet 1 mg PO DAILY Supplement 05/27/25 07/11/25 History
pantoprazole 40 mg tablet,delayed 40 mg PO DAILY Gastrointestinal 05/27/25 07/11/25 History
release Issue
calcium carbonate (Calcium 500) 1,000 mg PO BID Supplement 07/11/25 07/11/25 History
lorazepam 0.5 mg tablet 0.5 mg PO BIDPRN PRN anxiety 07/11/25 07/11/25 History
oxycodone 5 mg tablet 5 mg PO Q6HPRN PRN severe pain 07/11/25 07/11/25 History
polyethylene glycol 3350 17 gram 17 g PO DAILYPRN PRN constipation 07/11/25 07/11/25 History
oral powder packet (Miralax)
sennosides 8.6 mg tablet (senna) 17.2 mg PO BIDPRN PRN constipation 07/11/25 07/11/25 History
umeclidinium 62.5 mcg-vilanterol 1 inh inhalation R DAILY 07/11/25 07/11/25 History
25 mcg/actuation powdr for Lung/Breathing Issues
inhalation (Anoro Ellipta)
Review of Systems
-
History Source: Patient
All other systems: Negative unless noted
Constitutional: Fatigue
Abdomen/GI: Other (Dysphagia now with PEG)
Musculoskeletal: Other (Chest wall pain)
Physical Exam
Vital Signs
Vital Signs
Temp Pulse Resp BP Pulse Ox
97.7 F 94 16 102/67 95
07/20/25 07:30 07/20/25 08:19 07/20/25 07:44 07/20/25 08:19 07/20/25 07:44
Lab Results
WBC 25.2 10^3/uL (4.8-10.8) H 07/20/25 05:28
RBC 3.18 10^6/uL (4.70-6.10) L 07/20/25 05:28
Hgb 9.8 g/dL (13.0-18.0) L 07/20/25 05:28
Hct 28.9 % (39.0-52.0) L 07/20/25 05:28
Plt Count 199 10^3/uL (130-400) 07/20/25 05:28
Sodium 128 mmol/L (135-145) L 07/20/25 05:28
Potassium 3.5 mmol/L (3.5-5.1) 07/20/25 05:28
Chloride 96 mmol/L (98-107) L 07/20/25 05:28
Carbon Dioxide 28 mmol/L (22-30) 07/20/25 05:28
BUN 14 mg/dl (9-20) 07/20/25 05:28
Creatinine 0.6 mg/dL (0.7-1.3) L 07/20/25 05:28
eGFR > 60.00 07/20/25 05:28
Glucose 146 mg/dl (70-99) H 07/20/25 05:28
Calcium 6.8 mg/dl (8.4-10.2) L* 07/20/25 05:28
Phosphorus 3.1 mg/dl (2.5-4.5) 07/18/25 05:08
Albumin 2.2 g/dl (3.5-5.0) L 07/18/25 05:08
Physical Exam
General: AOx3, chronically ill-appearing cachectic
HEENT: PERRL, EOMI, Anicteric, Conjunctivae Clear, Ear/Nose Intact, Hearing Normal, Oropharynx Clear/Moist, Dentition Intact, Facial Symmetry, Neck Supple, Neck: Trachea Midline, No JVD and No Thyromegaly, no Bruits
Respiratory: Coarse to auscultation bilaterally with normal lung excursion, decreased breath sounds towards the right base
Cardiac: S1/S2 and Regular Rate/Rhythm tachycardia
Breast: Deferred by me
Abdomen: Soft, Nontender, Nondistended, Normal Bowel Sounds and No Hepatosplenomegaly, PEG
Rectal: Deferred by Provider
Genito-urinary: No Costovertebral Tenderness
Extremities: No Clubbing, No Cyanosis and No Edema, some noted bilateral upper extremity edema
Skin: No Rash or open lesions
Neuro: Nonfocal/Grossly Intact, CN II-XII (Intact) and Strength (Musculoskeletal exam 5 out of 5 both upper and lower extremities)
Hematologic/Lymphatic: No Cervical Lymphadenopathy, No Submandibular Lymphadenopathy and No Supraclavicular Lymphadenopathy
Psych: Mood/afflect pleasant, Insight/judgement good and Appropriate
Vascular: plus 1 pedal and radial pulses
Data Reviewed
-
Radiology: Image Personally Visualized and interpreted (Chest x-ray personally reviewed from 07/18/25: Noted bilateral effusions chronic right lung opacity)
Labs: Labs Reviewed by me ([facility] CBC urine sodium urine osm)
Old Records: Reviewed (Reviewed old old records from 06/10/2025 in EMR sodium 130)
Assessment/Plan
-
Impression:
Hyponatremia
Stage IV metastatic non-small cell lung CA
Recurrent right-sided pleural effusion with PleurX cath
Paroxysm atrial fibrillation
History of PE 01/11
History of DVT December 2024
New PEG placement June 2025 for dysphagia
Anemia
Hypocalcemia likely due to Xgeva administration
Anxiety
Hypotension
Plan:
Hyponatremia: (new work up)
- Likely due to SIADH in setting of chronic pain and lung malignancy
- Excess ADH likely a function of hemodynamic instability, therefore maintain midodrine hemodynamics
-Weight stable since admission
-Discontinue free water flush in tube feeds
-Will utilize Samsca if sodium levels drop further
Hypocalcemia
- Likely a function of Xgeva administration
- Replete IV and oral route
- PTH level pending
[2025-07-20] MEDS: CALCIUM GLUCONATE 100 IV (11:56)
[2025-07-20] MEDS: TYLENOL 650 MG PO (12:10)
[2025-07-20] MEDS: OMNIPAQUE 50 ML PO (12:49)
--- NOTE | 2025-07-20 16:00 | PTCARENOTE ---
Patient sent to CT.
--- NOTE | 2025-07-20 16:17 | CM ---
Addendum entered by Mary Vaughan 07/20/25 17:29:
IMM Completed
Original Note:
Following up on Patient. ZBIGNIEW Hernandez obtain new script for Bolus (not pump anymore) and gave copy to Diamond for [facility] and faxed to [facility] of [facility].
Patient has pain in his left lower abdominal area so went for a CT just after 4pm. [facility] put the teachings on hold due to the fact the patient was not on it and teachings now can be taught by [facility].
The plan (IF CT scan requires no intervention) still is that the patient should discharge tomorrow by 11-12 noon. Any later could effect whether a [facility] can make it or not to the home to start/ assist with Bolus feeds. [facility] will deliver
equipment tomorrow and [facility] can see the patient early afternoon for teachings for Bolus Tube Feeds.
ZBIGNIEW Hernandez informed the family to be prepared for discharge in AM. Family, [facility], Medical Attending, and [facility] aware of the plan for tomorrow.
PLAN: Home w/ [facility] for Bolus Feeds & PT as well as [facility]
--- NOTE | 2025-07-20 17:01 | PTCARENOTE ---
Pt arrived on stretcher at 1630. Pt was a three person pullover, VS taken, tele box #[id number], and oriented to room. Pt with no current complaints, plan of care ongoing.
--- NOTE | 2025-07-20 18:15 | PTCARENOTE ---
This RN received a verbal order from for Jevity 1.5 cans for break, lunch, and dinner with 85ml free water before and after each meal. With an 8pm Jevity 1 can with 85 ml free water before and after each meal. Placed as ordered, plan of care
ongoing.
[2025-07-20] MEDS: ELIQUIS PO (21:34)
[2025-07-20] MEDS: PACERONE PO (21:35)
[2025-07-20 22:27] LABS: Glucose - Point of Care 107 mg/dl (70-99)
[2025-07-20] MEDS: ELIQUIS 5 MG TUBE (22:30)
[2025-07-20] MEDS: MELATONIN 3 MG TUBE (22:34)
[2025-07-20] MEDS: PACERONE 400 MG TUBE (22:45)
[2025-07-21 02:46] VITALS: BP 105/65
[2025-07-21] MEDS: DILAUDID 0.25 MG IV ×2 (03:36→09:01)
[2025-07-21 04:00] VITALS: BMI 20.2
[2025-07-21 04:49] LABS: Hematocrit 28.0 % (39.0-52.0); Hemoglobin 9.5 g/dL (13.0-18.0); Mean Corp Hgb Conc. 33.9 g/dL (33.0-37.0); Mean Corpuscular Volume 88.6 fL (80.0-94.0); Platelet Count 196 10^3/uL (130-400); Red Cell Dist. Width 21.4 % (11.5-14.5)
[2025-07-21 04:58] LABS: Blood Urea Nitrogen 16 mg/dl (9-20); Calcium 7.4 mg/dl (8.4-10.2); Carbon Dioxide 29 mmol/L (22-30); Chloride 97 mmol/L (98-107); Estimated Creatinine Clearance 105 ml/min; Glucose 110 mg/dl (70-99); Potassium 3.7 mmol/L (3.5-5.1); Sodium 128 mmol/L (135-145); eGFR > 60.00
[2025-07-21] MEDS: ZOSYN 50 IV (05:47)
[2025-07-21 05:58] LABS: Glucose - Point of Care 92 mg/dl (70-99)
[2025-07-21] MEDS: STRIVERDI RESPIMAT 2 PUFF INH (07:35)
[2025-07-21] MEDS: SPIRIVA RESPIMAT 2.5 MCG 2 PUFF INH (07:35)
[2025-07-21 07:39] VITALS: BP 110/72
[2025-07-21] MEDS: CALCIUM CARBONATE ORAL SUSP 1000 MG TUBE (08:06)
[2025-07-21] MEDS: FOLVITE 1 MG TUBE (08:07)
[2025-07-21] MEDS: ELIQUIS 5 MG TUBE (08:07)
[2025-07-21] MEDS: PROTONIX IV 40 MG IV (08:08)
[2025-07-21] MEDS: PACERONE 400 MG TUBE (08:08)
[2025-07-21] MEDS: NSS (PRESERVATIVE FREE) 10 ML IV (08:08)
--- NOTE | 2025-07-21 08:21 | W.PN.ONC2 ---
Today's Communication / Plan
-
OP PET planned for next steps in management with Dr. Cohen
at bedside provided updates and questions answered
Impression
Impression
a/w acute respiratory failure
IV lung adenocarcinoma, MET mutated POD on Tabrecta, no s/p C3 on 07/07/2025 with pegfilgrastim 07/08/2025 -right lung base mass appears decreased in size, pericardiophrenic increased in size, low-attenuation mass associated with the lower sternum to
the right of midline with bony destruction is stable on CT ab/pelvis 07/20
last bone ppx with xgeva 06/16/2025
recurrent pleural effusion -Pleurx on Right-Pleurx placed on the left 07/15
chronic cancer pain on chronic narcotics
VTE (LLE DVT/PE December 2024)
Atrial fibrillation with RVR
hyponatremia
leukocytosis
Anemia -s/p 1U PRBC on 07/16 -Hgb stable
thrombocytopenia resolved
dyphagia, PEG placed 07/18
Plan
Plan
on abx for suspected aspiration pneumonia/pneumonitis
no clinical response to 3 cycles of chemo/IO. plan for OP PET for restaging to consider 3rd line therapy if radiographic progression of disease
on DOAC for VTE/AF
pain management
Tube feed via PEG
nephrology following for hyponatremia
Subjective/Objective
Subjective
no new complaints
Vital Signs:
Vital Signs
Temp Pulse Resp BP Pulse Ox
97.3 F 95 16 110/72 98
07/21/25 07:39 07/21/25 08:08 07/21/25 07:40 07/21/25 08:08 07/21/25 07:40
Lab Results:
Laboratory Data
WBC 21.1 10^3/uL (4.8-10.8) H 07/21/25 04:17
Hgb 9.5 g/dL (13.0-18.0) L 07/21/25 04:17
Plt Count 196 10^3/uL (130-400) 07/21/25 04:17
APTT 34.2 Sec (23.4-35.0) 07/20/25 05:28
eGFR > 60.00 07/21/25 04:17
Physical Exam
HEENT: Moist Mucous Membranes; No Jaundice
Pulmonary: Other (unlabored, bilateral pleurx catheters)
GI: Other (PEG)
Extremities: Edema (chronic LLE)
Neuro: Non Focal
--- NOTE | 2025-07-21 09:33 | PN.IRAD.UPD ---
Update Note - IRAD
- -
Right Asept drained 500 ml clear yellow fluid. Left Asept drained 350 ml clear yellow fluid. Both sides cleaned and dressed, patient tolerated well.
--- NOTE | 2025-07-21 09:39 | CM ---
MD indicated patient ready for discharge today .
Notified MD patient to be discharged by 12:00 today.
Spoke with [facility] Bertha RN can see him today for Bolus feedings instruction in home.
Spoke with [facility] she requested Bolus feeding Enteral script to be faxed . Form faxed to [phone] as instructed.
[facility]by said delivery can be made today around 2 pm.
Spoke with Nesha aware of above. will drive him home. agrees with dc today.
PLAN Home with VN and [facility] for supplies
--- NOTE | 2025-07-21 10:45 | PTOTSP ---
Speech Language Pathology
VIDEOFLUOROSCOPIC SWALLOWING EXAMINATION (VSE) completed. This was completed approximately 1 hour after lungs drained per pt request, as he wanted to see if swallow was improved when breathing was improved. However, swallow function has worsened
since last VSE completed 07/12. Increased amount of aspiration noted with strategies being less effective. Swallow less efficient, with swallow with puree being largely nonfunctional. Pt is at significant risk for aspiration and airway obstruction
with P.O. intake. Pt would like to take small amounts of liquids for comfort once he discharges home. Prognosis for improvement is guarded.
Recommend:
(1) NPO with all nutrition/hydration via PEG
(2) Oral care 4x/day with suctioning as needed
(3) Allow ice chips post oral care per Aspiration Risk Hydration Protocol (ARHP)
(4) Pt would like to take small amounts of liquids once home for comfort. Safest would be tsp amounts. If cup sips are to be consumed, chin tuck should be utilized, although aspiration still highly likely
(5) Meds via PEG
(6) Home health COMMUNITY HEALTH PLANNING DIRECTOR
(7) COMMUNITY HEALTH PLANNING DIRECTOR to continue to follow
[2025-07-21 11:00] VITALS: BP 116/81
--- NOTE | 2025-07-21 12:08 | W.PN.NEPH.PH ---
Today's Communication / Plan
-
For discharge
BMP sent to PCP next week
Assessment/Plan
-
Impression:
Hyponatremia
Stage IV metastatic non-small cell lung CA
Recurrent right-sided pleural effusion with PleurX cath
Paroxysm atrial fibrillation
History of PE 01/11
History of DVT December 2024
New PEG placement June 2025 for dysphagia
Anemia
Hypocalcemia likely due to Xgeva administration
Anxiety
Hypotension
Plan:
Hyponatremia: (new work up)
-Sodium stable at 128
- Likely due to SIADH in setting of chronic pain and lung malignancy
- Excess ADH likely a function of hemodynamic instability, therefore maintain midodrine hemodynamics
-Weight stable since admission
- I would reduce free water flushes
-Will utilize Samsca if sodium levels drop further
Hypocalcemia
- Likely a function of Xgeva administration
- Replete IV and oral route
- PTH level 584, appropriate not consistent with hypoparathyroidism
-
-
Date of Service: July 21, 2025
CC / HPI / ROS
-
Chief Complaint:
Hyponatremia
History of Present Illness:
Serum sodium at 128
Hemodynamically
Review of Systems:
PEG
No chest pain or shortness of breath
Labs
-
Labs:
WBC 21.1 10^3/uL (4.8-10.8) H 07/21/25 04:17
RBC 3.16 10^6/uL (4.70-6.10) L 07/21/25 04:17
Hgb 9.5 g/dL (13.0-18.0) L 07/21/25 04:17
Hct 28.0 % (39.0-52.0) L 07/21/25 04:17
Plt Count 196 10^3/uL (130-400) 07/21/25 04:17
Sodium 128 mmol/L (135-145) L 07/21/25 04:17
Potassium 3.7 mmol/L (3.5-5.1) 07/21/25 04:17
Chloride 97 mmol/L (98-107) L 07/21/25 04:17
Carbon Dioxide 29 mmol/L (22-30) 07/21/25 04:17
BUN 16 mg/dl (9-20) 07/21/25 04:17
Creatinine 0.6 mg/dL (0.7-1.3) L 07/21/25 04:17
eGFR > 60.00 07/21/25 04:17
Glucose 110 mg/dl (70-99) H 07/21/25 04:17
Calcium 7.4 mg/dl (8.4-10.2) L 07/21/25 04:17
Phosphorus 3.1 mg/dl (2.5-4.5) 07/18/25 05:08
Albumin 2.2 g/dl (3.5-5.0) L 07/18/25 05:08
Physical Exam
-
Vital Signs:
Vital Signs
Temp Pulse Resp BP Pulse Ox
97.5 F 98 18 116/81 97
07/21/25 11:00 07/21/25 11:00 07/21/25 11:00 07/21/25 11:00 07/21/25 11:00
Cardiovascular:: Regular rate and rhythm
Respiratory:: Bilateral: Coarse
Lung Excursion:: Normal
Abdomen:: Nontender and Soft
Bowel Sounds:: Normal
Extremity Edema:: None: Bilateral:
Lackey Catheter: No
Other Findings::
GI:PEG
[2025-07-21 12:22] LABS: Glucose - Point of Care 168 mg/dl (70-99)
[2025-07-21] MEDS: FLUZONE HIGH-DOSE 2025-26 0.5 ML IM (13:27)
[2025-07-21] MEDS: PREVNAR 20 0.5 ML IM (13:28)
--- NOTE | 2025-07-21 15:09 | W.DCSUMMARY ---
Discharge Summary
Discharge Data
Date of Admission: 07/11/25
Date of Discharge: 07/21/25
-
Pending Results: No
Hospital Course
Primary diagnosis:
Acute hypoxic respiratory failure which resolved
Recurrent malignant bilateral pleural effusion s/p new left PleurX catheter placement; right PleurX catheter in place in past.
Stage IV non-small cell lung cancer
Metastatic bony disease to the sternum
Dysphagia status post PEG tube placement on this admission
Acute on chronic hyponatremia
Hypocalcemia cannot rule out secondary to Xgeva
Secondary diagnosis:
Atrial fibrillation
Normocytic anemia
Anxiety
Gastroesophageal reflux disease
Bilateral pulm embolism
History of right lower extremity DVT
Hospital course:
Patient with stage IV non-small cell lung cancer with mets to sternum and C-spine diagnosed in October 2024 and undergoing chemo/immunotherapy presented with shortness of breath and was in acute hypoxic respiratory failure. Suspected secondary to
chronic recurrent malignant pleural effusion. He needed a left-sided PleurX catheter placed on this admission. Could not rule out aspiration pneumonitis. He was evaluated by speech and he failed swallow eval and since the plan is restorative care
and active cancer treatments he had a PEG tube placed.
During the stay here he issues with A-fib and RVR and cardiology introduced amiodarone. He was continued on anticoagulation.
He has significant malignant pain issues and most of his pain is the right lower hemithorax secondary to his bony mets to the sternum.
He had issues with hypotension in the setting of A-fib and RVR. He needed brief Levophed and that got weaned off. Midodrine was introduced for blood pressure issues and will be continued at home.
He had normocytic anemia. He needed 1 unit of blood transfusion during the stay here. No evidence of obvious external bleeding.
He also has issues with chronic hyponatremia secondary to SIADH from malignancy. Was seen by nephrology here. Unfortunately cannot give Lasix because of his blood pressure issues. Advised to avoid excess fluids. He is only on 670 mL of free
fluid. He is gets bolus tube feeds. Continue to follow sodium and if less than 125 to consider treatments.
He had issues with hypocalcemia felt secondary to Xgeva. He remains on calcium carbonate supplementation.
Oncology will plan for outpatient PET in the next type of management.
Today he was better. Denies any shortness of breath at rest. Not on oxygen. Still with pleuritic right lower thorax chest pain/upper abdominal pain. Abdomen was soft. He was tolerating bolus feeds. He had VSE and did not do well and still
recommends n.p.o.
Afebrile, pulse 98, blood pressure 116/81. Chest decreased breath sounds in the left base otherwise no added sounds.
[place] medically stable for discharge today with home services. [facility]N was arranged for him.
Portions of this chart may have been created with voice recognition software. Occasional wrong word or 'sound alike' substitutions may have occurred due to the inherent limitations of voice recognition software.
Consultants on board:
Oncology-Brendan Montana
Cardiology-Antwan Leyva
Pulmonary-Javier Gillespie
Nephrology-Elier Macias
Discharge Plan
-
Patient Disposition: Home with Home Care
Discharge Diagnosis/Procedures: Acute hypoxic respiratory failure 2/2 chronic recurrent pleural effusions/stage IV non-small cell lung CA versus infectious process /aspiration pneumonitis
History of Stage IV non-small cell lung CA Dx October 2024 to sternum C-spine status post radiation, spot right hip with recurrent
malignant pleural effusions on chemotherapy/immunotherapy
A-fib
Dysphagia
Condition: Fair
Diet: Tube feeding
Additional Diets: As written
Activity: As tolerated
Driving Restrictions: No driving
Blood Work: BMP blood work in one week -arrange through your PCP
Other Services: VN and ST
Specialty Instructions: Weigh Daily- Call MD for wt gain/loss 3 lbs overnight/5 lbs in 1 week
Activity Restrictions/Additional Instructions:
Pleurax catheter drain instructions -drain left and as well the right daily upto 500ml .
TF med H20 flushes- 15ml before and after meds.
Referrals:
Gina Castillo CRNP [Specified Professional Personl, Cardiology] - 08/16/25 10:40 am
Swapnil Velarde MD [Active, Pulmonary Medicine] - in two to four weeks
Francisco Clarke MD [Family Provider, Family Practice] - in less than 1 week
Additional Discharge Medication Instructions: take amiodarone 400mg( 2 tabs of 200mg) twice daily till 07/30/25 and then cut it to 200mg daily
Prescriptions:
New
amiodarone [Pacerone] 200 mg Tablet
400 mg feeding tube BID Qty: 70 0RF
Rx Instructions:
take twice daily till 07/30/25 and then cut it to 200mg daily
midodrine 5 mg Tablet
5 mg feeding tube TID Qty: 90 0RF
acetaminophen 650 mg/20.3 mL Solution
650 mg feeding tube Q6HPRN PRN (Reason: mild pain/ fever>100.5F) Qty: 609 0RF
Continued
Eliquis 5 mg tablet
5 mg PO BID
folic acid 1 mg Tablet
1 mg PO DAILY
albuterol sulfate 90 mcg/actuation HFA aerosol inhaler
2 puff INHALATION R Q4HPRN PRN (Reason: sob)
pantoprazole 40 mg tablet,delayed release (DR/EC)
40 mg PO DAILY
calcium carbonate [Calcium 500] 500 mg calcium (1,250 mg) Tablet,Chewable
1,000 mg PO BID
oxycodone 5 mg Tablet
5 mg PO Q6HPRN PRN (Reason: severe pain)
sennosides [senna] 8.6 mg Tablet
17.2 mg PO BIDPRN PRN (Reason: constipation)
polyethylene glycol 3350 [Miralax] 17 gram Powder In Packet
17 g PO DAILYPRN PRN (Reason: constipation)
lorazepam 0.5 mg Tablet
0.5 mg PO BIDPRN PRN (Reason: anxiety)
umeclidinium-vilanterol [Anoro Ellipta] 62.5-25 mcg/actuation Blister With Device
1 inh INHALATION R DAILY
Discontinued
acetaminophen 500 mg Tablet
1,000 mg PO DAILYPRN PRN (Reason: mild pain)
dexamethasone 4 mg Tablet
4 mg PO DIRECTED
Rx Instructions:
take 2 tablet the day before, the day of and the after chemo treatments
Discharge Orders:
Discharge Patient (As Directed); Ordered 07/21/25
Ordered By: Pranav Jamison
Discharge Date and Time
Discharge Date/Time: 07/21/25 14:45
Print Language: OMANI
== END 2025-07-21 14:45 | disposition home health service (06) | DRG 180 ==
LOC: 3 WEST ACU 17:37
PROVIDERS: Clinical Nurse Specialist Family Health; Internal Medicine; Nurse Practitioner Acute Care; Nurse Practitioner Family; Radiology Diagnostic Radiology; Surgery; ADMITTING PHYSICIAN Hospitalist; ATTENDING PHYSICIAN Internal Medicine; CONSULT PHYSICIAN Internal Medicine Critical Care Medicine; CONSULT PHYSICIAN Specialist; CONSULT PHYSICIAN Student in an Organized Health Care Education/Training Program; EMERGENCY PHYSICIAN Emergency Medicine; FAMILY PHYSICIAN Family Medicine; OTHER PHYSICIAN Internal Medicine Gastroenterology; OTHER PHYSICIAN Internal Medicine Hematology & Oncology
PROC: 0DH67UZ Insertion of Feeding Device into Stomach, Via Natural or Artificial Opening (ICD-10-PCS; 2025-07-13)
PROC: 0W9B3ZZ Drainage of Left Pleural Cavity, Percutaneous Approach (ICD-10-PCS; 2025-07-13)
PROC: 0B9P30Z Drainage of Left Pleura with Drainage Device, Percutaneous Approach (ICD-10-PCS; 2025-07-15)
PROC: 30233N1 Transfusion of Nonautologous Red Blood Cells into Peripheral Vein, Percutaneous Approach (ICD-10-PCS; 2025-07-16)
PROC: 0DH63UZ Insertion of Feeding Device into Stomach, Percutaneous Approach (ICD-10-PCS; 2025-07-18)
PROC: 3E0234Z Introduction of Serum, Toxoid and Vaccine into Muscle, Percutaneous Approach (ICD-10-PCS; 2025-07-21)
PROC: 3E02340 Introduction of Influenza Vaccine into Muscle, Percutaneous Approach (ICD-10-PCS; 2025-07-21)
DX: C34.90 Malignant neoplasm of unspecified part of unspecified bronchus or lung (principal); E43 Unspecified severe protein-calorie malnutrition; J69.0 Pneumonitis due to inhalation of food and vomit; J96.21 Acute and chronic respiratory failure with hypoxia; E22.2 Syndrome of inappropriate secretion of antidiuretic hormone; J91.0 Malignant pleural effusion; D84.9 Immunodeficiency, unspecified; C79.51 Secondary malignant neoplasm of bone; C77.9 Secondary and unspecified malignant neoplasm of lymph node, unspecified; I48.0 Paroxysmal atrial fibrillation; E86.1 Hypovolemia; I95.89 Other hypotension; E83.51 Hypocalcemia; F41.9 Anxiety disorder, unspecified; G89.3 Neoplasm related pain (acute) (chronic); K21.9 Gastro-esophageal reflux disease without esophagitis; L89.151 Pressure ulcer of sacral region, stage 1; R62.7 Adult failure to thrive; I49.3 Ventricular premature depolarization; I49.1 Atrial premature depolarization; E86.0 Dehydration; L89.102 Pressure ulcer of unspecified part of back, stage 2; D64.81 Anemia due to antineoplastic chemotherapy; T45.1X5A Adverse effect of antineoplastic and immunosuppressive drugs, initial encounter; Y92.9 Unspecified place or not applicable; R13.10 Dysphagia, unspecified; D69.6 Thrombocytopenia, unspecified; E83.42 Hypomagnesemia; Z86.711 Personal history of pulmonary embolism; Z79.01 Long term (current) use of anticoagulants; Z92.21 Personal history of antineoplastic chemotherapy; Z92.3 Personal history of irradiation; Z86.718 Personal history of other venous thrombosis and embolism; Z86.0100 Personal history of colon polyps, unspecified; Z79.891 Long term (current) use of opiate analgesic; Z80.3 Family history of malignant neoplasm of breast; Z23 Encounter for immunization; Z68.20 Body mass index [BMI] 20.0-20.9, adult; Z87.891 Personal history of nicotine dependence; Z79.899 Other long term (current) drug therapy
CPT/HCPCS: 32550; 32555; 71045; 74018; 74177; 74230; 80048; 80053; 81003; 81015; 82330; 82607; 82728; 82746; 82962; 83540; 83550; 83605; 83735; 83935; 83970; 84100; 84145; 84300; 85014; 85018; 85025; 85027; 85045; 85730; 86850; 86900; 86901; 86920; 87040; 87641; 90662; 90677; 92610; 92611; 93005; 94640; 96361; 97116; 97163; 97167; 97530; 99152; 99153; 99285; C1769; G0008; G0009; J1160; P9016; Q9967

== ENCOUNTER → 2025-08-04 08:17 | Outpatient (REF) | payer OTHER, SELFPAY ==
[2025-08-04 09:05] LABS: Glucose 116 mg/dl (70-99)
== END ==
LOC: PET 08:17
PROVIDERS: ATTENDING PHYSICIAN Internal Medicine Hematology & Oncology
DX: C34.31 Malignant neoplasm of lower lobe, right bronchus or lung (principal); C79.51 Secondary malignant neoplasm of bone; I67.5 Moyamoya disease
CPT/HCPCS: 36415; 78815; 82947; A9552